=== PATIENT | male | born 1950 | race Two or more races ===

== ENCOUNTER 2020-02-24 21:59 | Emergency (ER) | payer OTHER ==
[~2020-02-24] VITALS: Ht 167.6 cm; Wt 90.9 kg
[~2020-02-24 21:59] MED LIST: ASPI-630 PO; ATEN50TA PO; LISI-338 PO
[2020-02-24 22:10] VITALS: BP 191/97
[2020-02-24] MEDS ORDERED: PRED20TA PO (22:26)
[2020-02-24] MEDS ORDERED: TRAM-48 PO (22:26)
--- NOTE | 2020-02-24 22:26 | PHYS DOC ---
Past Medical History Past Medical History: Hypertension, [place] Past Surgical History: Other Additional Past Surgical Histo: Stent placement Smoking Status: Former Smoker Alcohol Use: Sober Drug Use: None General Adult EDM: Chief Complaint: HIP PAIN HPI: HPI: 69-year-old male presents with a chief complaint of left lower back pain and left buttock pain. Patient states symptoms been ongoing for the past 4 weeks. He states discomfort is controlled with ibuprofen. He does not recall any specific injuries. Patient states at times his left buttock is numb. Patient states pain and numbness do not radiate down left leg. Patient without any saddle anesthesia or loss of bowel or bladder. Patient is able to ambulate with a steady gait. Review of Systems: Review of Systems: Constitutional: Denies fever or chills. [] Eyes: Denies change in visual acuity. [] HENT: Denies nasal congestion or sore throat. [] Respiratory: Denies cough or shortness of breath. [] Cardiovascular: Denies chest pain or edema. [] GI: Denies abdominal pain, nausea, vomiting, bloody stools or diarrhea. [] : Denies dysuria. [] Musculoskeletal: Positive back pain Integument: Denies rash. [] Neurologic: Denies headache, focal weakness or sensory changes. [Positive numbness and tingling in the buttocks] Endocrine: Denies polyuria or polydipsia. [] Lymphatic: Denies swollen glands. [] Psychiatric: Denies depression or anxiety. [] Heart Score: Risk Factors: Risk Factors: DM, Current or recent (<one month) smoker, HTN, HLP, family history of CAD, obesity. Risk Scores: Score 0 - 3: 2.5% MACE over next 6 weeks - Discharge Home Score 4 - 6: 20.3% MACE over next 6 weeks - Admit for Clinical Observation Score 7 - 10: 72.7% MACE over next 6 weeks - Early Invasive Strategies Allergies: Allergies: Allergies Coded Allergies Type Severity Reaction Last Updated Verified No Known Drug Allergies 01/27/15 No Physical Exam: PE: Constitutional: Well developed, well nourished, no acute distress, non-toxic appearance. [] HENT: Normocephalic, atraumatic, bilateral external ears normal, oropharynx moist, no oral exudates, nose normal. [] Eyes: PERRLA, EOMI, conjunctiva normal, no discharge. [] Neck: Normal range of motion, no tenderness, supple, no stridor. [] Cardiovascular:Heart rate regular rhythm, no murmur [] Lungs & Thorax: Bilateral breath sounds clear to auscultation [] Abdomen: Bowel sounds normal, soft, no tenderness, no masses, no pulsatile masses. [] Skin: Warm, dry, no erythema, no rash. [] Back: No tenderness, no CVA tenderness. [] Extremities: No tenderness, no cyanosis, no clubbing, ROM intact, no edema. [] Neurologic: Alert and oriented X 3, normal motor function, normal sensory function, no focal deficits noted. [] Psychologic: Affect normal, judgement normal, mood normal. [] EKG: EKG: [] Radiology/Procedures: Radiology/Procedures: [] Course & Med Decision Making: Course & Med Decision Making Pertinent Labs and Imaging studies reviewed. (See chart for details) [] Dragon Disclaimer: Dragon Disclaimer: This electronic medical record was generated, in whole or in part, using a voice recognition dictation system. Departure Departure Impression: Primary Impression: Back pain Additional Impressions: Paresthesia Sciatic pain Disposition: HOME, SELF-CARE Condition: STABLE Referrals: MARK ANTHONY ARELLANO MD (PCP) Patient Instructions: Back Pain, Adult, Paresthesia, Sciatica Scripts Prednisone (PREDNISONE) 20 Mg Tablet 1 TAB PO UD for 12 Days, #15 TAB Take 2 tabs days 1,2,3 1.5 tabs days 3,4,5 1 tab days 6,7,8 0.5 tab days 9,10,11 Prov: JORGE CONCEPCION I DO 02/24/20 Tramadol Hcl (ULTRAM) 50 Mg Tablet 1 TAB PO PRN Q6HRS PRN for pain MDD 4 Tablet(s) for 7 Days, #28 TAB 0 Refills Prov: JORGE CONCEPCION I DO 02/24/20 Justicifation of Admission Dx: Justifications for Admission: Justification of Admission Dx: N/A JORGE CONCEPCION I DO Feb 24, 2020 22:26
== END 2020-02-24 22:32 | disposition home or self-care (01) ==
LOC: ER 21:59
DX: M54.42 Lumbago with sciatica, left side (principal); R20.2 Paresthesia of skin; I10 Essential (primary) hypertension; I25.2 Old myocardial infarction; Z87.891 Personal history of nicotine dependence; Z95.5 Presence of coronary angioplasty implant and graft
CPT/HCPCS: 99283

== ENCOUNTER 2020-06-18 09:18 | Inpatient (IN) | payer OTHER, MEDICARE ==
[~2020-06-18] VITALS: Ht 167.6 cm; Wt 82.5 kg
[~2020-06-18 09:18] MED LIST changes: +PRED20TA PO; +TRAM-48 PO
[2020-06-18] MEDS ORDERED: KETOROLAC 30 MG/ML VIAL. IM ONE (10:45)
[2020-06-18] MEDS ORDERED: CYCLOBENZAPRINE 10 MG TABLET. PO ONE (10:45)
[2020-06-18] MEDS ORDERED: LIDOCAINE (700MG/PATCH) PATCH. TD ONE (10:45)
--- NOTE | 2020-06-18 10:56 | PHYS DOC ---
Past Medical History Past Medical History: High Cholesterol, Hypertension, [place] Past Surgical History: Other Additional Past Surgical Histo: Stent placement Smoking Status: Former Smoker Alcohol Use: Sober Drug Use: None General Adult EDM: Chief Complaint: BACK PAIN - NO INJURY HPI: HPI: History obtained from patient and . Patient is a 61-year-old male with history of hypertension who presents with chief complaint of left lower back pain. He states that he experienced an injury approximately 3 weeks ago. He states he did report to facility had x-rays performed that were unremarkable. He notes that he did see his primary care physician 3 days ago who ordered outpatient therapy. He states later that day he was at home tripped, and fell landing on his left shoulder and left hip. He states he has had worsening left lower back pain since then. He states he has not been able to ambulate since the fall. States pain is sharp and radiates down his left leg. Denies any urinary retention or stool incontinence. Denies any IV drug use or perennial numbness. However, he states he is too weak and too painful to ambulate. Denies syncope. Denies fevers or vomiting. Has tried tramadol and oral prednisone at home with minimal relief. No other complaints. Review of Systems: Review of Systems: Constitutional: Denies fever or chills. [] Eyes: Denies change in visual acuity. [] HENT: Denies nasal congestion or sore throat. [] Respiratory: Denies cough or shortness of breath. [] Cardiovascular: Denies chest pain or edema. [] GI: Denies abdominal pain, nausea, vomiting, bloody stools or diarrhea. [] : Denies dysuria. [] Musculoskeletal: Positive for back pain Integument: Denies rash. [] Neurologic: Denies headache, focal weakness or sensory changes. [] Endocrine: Denies polyuria or polydipsia. [] Lymphatic: Denies swollen glands. [] Psychiatric: Denies depression or anxiety. [] Heart Score: Risk Factors: Risk Factors: DM, Current or recent (<one month) smoker, HTN, HLP, family history of CAD, obesity. Risk Scores: Score 0 - 3: 2.5% MACE over next 6 weeks - Discharge Home Score 4 - 6: 20.3% MACE over next 6 weeks - Admit for Clinical Observation Score 7 - 10: 72.7% MACE over next 6 weeks - Early Invasive Strategies Current Medications: Current Medications Medications (Trade) Dose Ordered Sig/Tristan Start Time Stop Time Status Last Admin Dose Admin Cyclobenzaprine HCl (Flexeril) 10 mg 1X ONCE 06/18/20 10:45 06/18/20 10:46 DC Ketorolac Tromethamine (Toradol 30mg Vial) 30 mg 1X ONCE 06/18/20 10:45 06/18/20 10:46 DC Lidocaine (Lidoderm) 1 patch 1X ONCE 06/18/20 10:45 06/18/20 10:46 DC Allergies: Allergies: Allergies Coded Allergies Type Severity Reaction Last Updated Verified No Known Drug Allergies 01/27/15 No Physical Exam: PE: Constitutional: Well developed, well nourished, no acute distress, non-toxic appearance. [] HENT: Normocephalic, atraumatic, bilateral external ears normal, oropharynx moist, no oral exudates, nose normal. [] Eyes: PERRLA, EOMI, conjunctiva normal, no discharge. [] Neck: Normal range of motion, no tenderness, supple, no stridor. [] Cardiovascular:Heart rate regular rhythm, no murmur [] Lungs & Thorax: Bilateral breath sounds clear to auscultation [] Abdomen: soft, no tenderness, no masses, no pulsatile masses. [] Skin: Warm, dry, no erythema, no rash. [] Back: + 5/5 motor strength in dorsiflexion and plantarflexion of the great toes bilaterally. Sensation intact between the webbing of the first and second toes bilaterally. Midline L1-L5 tenderness palpation. No step-offs or deformities. Positive straight leg test bilaterally. Extremities: No tenderness, no cyanosis, no clubbing, ROM intact, no edema. [] Neurologic: Alert and oriented X 3, normal motor function, normal sensory function, no focal deficits noted. [] Psychologic: Affect normal, judgement normal, mood normal. [] Current Patient Data: Labs: Laboratory Tests Test 06/18/20 12:50 White Blood Count 12.4 x10^3/uL Red Blood Count 5.13 x10^6/uL Hemoglobin 14.7 g/dL Hematocrit 44.1 % Mean Corpuscular Volume 86 fL Mean Corpuscular Hemoglobin 29 pg Mean Corpuscular Hemoglobin Concent 33 g/dL Red Cell Distribution Width 13.2 % Platelet Count 220 x10^3/uL Neutrophils (%) (Auto) 82 % Lymphocytes (%) (Auto) 12 % Monocytes (%) (Auto) 5 % Eosinophils (%) (Auto) 0 % Basophils (%) (Auto) 1 % Neutrophils # (Auto) 10.1 x10^3/uL Lymphocytes # (Auto) 1.5 x10^3/uL Monocytes # (Auto) 0.6 x10^3/uL Eosinophils # (Auto) 0.0 x10^3/uL Basophils # (Auto) 0.1 x10^3/uL Sodium Level 137 mmol/L Potassium Level 4.1 mmol/L Chloride Level 101 mmol/L Carbon Dioxide Level 27 mmol/L Anion Gap 9 Blood Urea Nitrogen 34 mg/dL Creatinine 1.2 mg/dL Estimated GFR (Cockcroft-Gault) 60.2 Glucose Level 109 mg/dL Uric Acid 8.3 mg/dL Calcium Level 9.9 mg/dL Lactate Dehydrogenase 176 U/L Current Medications Medications (Trade) Dose Ordered Sig/Tristan Route PRN Reason Start Time Stop Time Status Last Admin Dose Admin Ketorolac Tromethamine (Toradol 30mg Vial) 30 mg 1X ONCE IM 06/18/20 10:45 06/18/20 10:46 DC 06/18/20 11:22 Cyclobenzaprine HCl (Flexeril) 10 mg 1X ONCE PO 06/18/20 10:45 06/18/20 10:46 DC 06/18/20 11:21 Lidocaine (Lidoderm) 1 patch 1X ONCE TD 06/18/20 10:45 06/18/20 10:46 DC 06/18/20 11:22 Vital Signs: Vital Signs Date Time Temp Pulse Resp B/P (MAP) Pulse Ox O2 Delivery O2 Flow Rate FiO2 06/18/20 09:59 99.5 67 16 136/67 (90) 97 Room Air 99.5 EKG: EKG: [] Radiology/Procedures: Radiology/Procedures: [facility] [address] [place] [address] IMAGING REPORT Signed PATIENT: MARK ANTHONY GOODWIN ACCOUNT: [id number] : 1950 LOCATION: ER AGE: 69 SEX: M EXAM STATUS: REG ER ORD. PHYSICIAN: JIM DUENAS DO REASON: low back pain radiating down L leg PROCEDURE: CT LUMBAR SPINE WO CONTRAST CT THORACIC SPINE WO CONTRAST, CT LUMBAR SPINE WO CONTRAST History:Reason: low back pain radiating down L leg / Spl. Instructions: / History: Technique: Noncontrast CT was performed of the thoracic and lumbar spine. Multiplanar reconstructions were performed. Exposure: One or more of the following individualized dose reduction techniques were utilized for this examination: 1. Automated exposure control 2. Adjustment of the mA and/or kV according to patient size 3. Use of iterative reconstruction technique. Comparison: None Findings: Thoracic spine: Lytic lesion involving T2 vertebral body measures 1.3 x 0.9 cm. Subtle lytic lesion involving T10 vertebral body (series 9 image 33). Normal vertebral body height. No fracture. Mild degenerative disc changes throughout the thoracic spine most prominent T8 8 T9 and T9-T10. No significant canal narrowing. No neuroforaminal narrowing. Lumbar spine: Large destructive mass involving left L1 posterior vertebral body and posterior elements measures approximately 7.0 x 5.4 x 4.9 cm. There is destruction of the left posterior vertebral body left transverse process and left facet as well as the left pedicle and lamina including the spinous process. There is also involvement of the left inferior T12 facet as well as the spinous process and left superior L2 facet. The mass invades the spinal canal as well as the left T12-L1 and L1-L2 neural foramen. Additional lytic mass involving the left L2 transverse process measures 1.3 x 1.2 cm with soft tissue component. Lytic lesion involving the left iliac bone measures 1.5 x 0.7 cm (series 3 image 61). Possible additional lesion within the sacrum at S1 (series 3 image 74) measures 1.1 x 1.0 cm. Normal vertebral body alignment. No acute fracture. T12-L1: Canal narrowing and invasion of the left neuroforamen due to the above-mentioned mass. No right neuroforaminal narrowing. L1-L2: Canal narrowing due to the mass is invasion of the left neuroforamen. No right neuroforaminal narrowing. L2-L3: Broad-based disc bulge with calcification. Mild facet arthropathy. Subacute recess narrowing. No canal narrowing. No neuroforaminal narrowing. L3-L4: Broad-based disc bulge with calcification. Mild facet arthropathy. Subarticular recess narrowing, left greater than right. No canal narrowing. Mild bilateral neuroforaminal narrowing. L4-L5: Broad-based disc bulge. Moderate facet arthropathy. Subarticular recess narrowing. No canal narrowing. Mild left neuroforaminal narrowing. No right neuroforaminal narrowing. L5-S1: Disc bulge. Advanced facet arthropathy. No canal narrowing. Mild left neuroforaminal narrowing. No right neuroforaminal narrowing. Impression: 1. Large destructive mass involving left posterior L1 vertebral body invading the canal contributing to potential severe canal narrowing. Additional invasion of adjacent structures and left neural foramen. Recommend MRI with and without contrast to further evaluate. 2. Additional multifocal lytic lesions involving the thoracic and lumbar spine as well as the left iliac and possible sacrum. Findings overall concerning for metastasis. FOR INTERNAL CODING PURPOSES Critical result: Findings discussed with JIM DUENAS at 06/18/2020 12:02 PM. RESULT CODE: (C) Electronically signed by: Curly Rosenberg DO (06/18/2020 12:10 PM) [id number] DICTATED and SIGNED BY: CURLY ROSENBERG DO DATE: 06/18/20 1210 [] Course & Med Decision Making: Course & Med Decision Making Pertinent Labs and Imaging studies reviewed. (See chart for details) [] Patient is a 69-year-old male who presents with chief complaint of left lower back pain. Patient states he is unable to ambulate due to weakness and pain. CT imaging was obtained. Does show invasive masslike structure near the L1 vertebral body. Patient does have appropriate rectal tone on examination and no focal neurologic deficits. I did speak with neurosurgery who recommended hospitalization for MR imaging. Steroids will be deferred as he has no focal neurologic deficits. Patient agreeable to plan. Dragon Disclaimer: Dragon Disclaimer: This electronic medical record was generated, in whole or in part, using a voice recognition dictation system. Departure Departure Impression: Primary Impression: Abnormal CT scan, lumbar spine Disposition: ADMITTED INPT THIS HOSP Condition: STABLE Referrals: JILLIAN WAYNE MD (PCP) JIM DUENAS DO Jun 18, 2020 10:56
--- NOTE | 2020-06-18 11:42 | RAD ---
EXAM: Left shoulder, 4 views. HISTORY: Pain. Fall. COMPARISON: None. FINDINGS: 4 views of the left shoulder obtained. There is no acute fracture, dislocation or subluxation. There is mild acromioclavicular joint spurring. IMPRESSION: No acute osseous finding. Electronically signed by: Paulina Farias MD (06/18/2020 11:39 AM) [id number]
--- NOTE | 2020-06-18 12:13 | RAD ---
CT THORACIC SPINE WO CONTRAST, CT LUMBAR SPINE WO CONTRAST History:Reason: low back pain radiating down L leg / Spl. Instructions: / History: Technique: Noncontrast CT was performed of the thoracic and lumbar spine. Multiplanar reconstructions were performed. Exposure: One or more of the following individualized dose reduction techniques were utilized for this examination: 1. Automated exposure control 2. Adjustment of the mA and/or kV according to patient size 3. Use of iterative reconstruction technique. Comparison: None Findings: Thoracic spine: Lytic lesion involving T2 vertebral body measures 1.3 x 0.9 cm. Subtle lytic lesion involving T10 vertebral body (series 9 image 33). Normal vertebral body height. No fracture. Mild degenerative disc changes throughout the thoracic spine most prominent T8 8 T9 and T9-T10. No significant canal narrowing. No neuroforaminal narrowing. Lumbar spine: Large destructive mass involving left L1 posterior vertebral body and posterior elements measures approximately 7.0 x 5.4 x 4.9 cm. There is destruction of the left posterior vertebral body left transverse process and left facet as well as the left pedicle and lamina including the spinous process. There is also involvement of the left inferior T12 facet as well as the spinous process and left superior L2 facet. The mass invades the spinal canal as well as the left T12-L1 and L1-L2 neural foramen. Additional lytic mass involving the left L2 transverse process measures 1.3 x 1.2 cm with soft tissue component. Lytic lesion involving the left iliac bone measures 1.5 x 0.7 cm (series 3 image 61). Possible additional lesion within the sacrum at S1 (series 3 image 74) measures 1.1 x 1.0 cm. Normal vertebral body alignment. No acute fracture. T12-L1: Canal narrowing and invasion of the left neuroforamen due to the above-mentioned mass. No right neuroforaminal narrowing. L1-L2: Canal narrowing due to the mass is invasion of the left neuroforamen. No right neuroforaminal narrowing. L2-L3: Broad-based disc bulge with calcification. Mild facet arthropathy. Subacute recess narrowing. No canal narrowing. No neuroforaminal narrowing. L3-L4: Broad-based disc bulge with calcification. Mild facet arthropathy. Subarticular recess narrowing, left greater than right. No canal narrowing. Mild bilateral neuroforaminal narrowing. L4-L5: Broad-based disc bulge. Moderate facet arthropathy. Subarticular recess narrowing. No canal narrowing. Mild left neuroforaminal narrowing. No right neuroforaminal narrowing. L5-S1: Disc bulge. Advanced facet arthropathy. No canal narrowing. Mild left neuroforaminal narrowing. No right neuroforaminal narrowing. Impression: 1. Large destructive mass involving left posterior L1 vertebral body invading the canal contributing to potential severe canal narrowing. Additional invasion of adjacent structures and left neural foramen. Recommend MRI with and without contrast to further evaluate. 2. Additional multifocal lytic lesions involving the thoracic and lumbar spine as well as the left iliac and possible sacrum. Findings overall concerning for metastasis. FOR INTERNAL CODING PURPOSES Critical result: Findings discussed with JIM DUENAS at 06/18/2020 12:02 PM. RESULT CODE: (C) Electronically signed by: Curly Rosenberg DO (06/18/2020 12:10 PM) [id number]
[2020-06-18 13:08] LABS: BASO # 0.1 x10^3/uL (0.0-0.2); BASO % 1 % (0-3); EOS % 0 % (0-3); HEMATOCRIT 44.1 % (39.0-53.0); HEMOGLOBIN 14.7 g/dL (13.0-17.5); LYMPH # 1.5 x10^3/uL (1.0-4.8); LYMPH % 12 % (24-48); MEAN CORPUSCULAR HEMOGLOBIN 29 pg (25-35); MEAN CORPUSCULAR HGB CONC 33 g/dL (31-37); MEAN CORPUSCULAR VOLUME 86 fL (79-100); MONO # 0.6 x10^3/uL (0.0-1.1); MONO % 5 % (0-9); NEUT # 10.1 x10^3/uL (1.8-7.7); NEUT % 82 % (31-73); PLATELET COUNT 220 x10^3/uL (140-400); RED BLOOD COUNT 5.13 x10^6/uL (4.30-5.70); RED CELL DISTRIBUTION WIDTH 13.2 % (11.5-14.5); WHITE BLOOD COUNT 12.4 x10^3/uL (4.0-11.0)
[2020-06-18 13:13] LABS: CALCIUM 9.9 mg/dL (8.5-10.1); CREATININE 1.2 mg/dL (0.7-1.3); GFR 60.2; POTASSIUM 4.1 mmol/L (3.5-5.1)
[2020-06-18 16:30] VITALS: BP 133/65
--- NOTE | 2020-06-18 17:01 | PDOC ---
Provider Note Date of Service: DATE: 06/18/20 TIME: 16:57 Provider Note Patient seen and examined at 1530 in ER consulted for L1 mass c/o back pain for 2 months, severe for 2 weeks c/o back and left hip pain no bowel or bladder complaints exam- strength and sensation in lower extremities normal, left hip flexor slightly weaker than right CT thoracic/ lumbar- Impression: 1. Large destructive mass involving left posterior L1 vertebral body invading the canal contributing to potential severe canal narrowing. Additional invasion of adjacent structures and left neural foramen. Recommend MRI with and without contrast to further evaluate. 2. Additional multifocal lytic lesions involving the thoracic and lumbar spine as well as the left iliac and possible sacrum. Findings overall concerning for metastasis. plan- consult oncology, additional imaging ordered will follow Justifications for Admission Other Justification MICHAEL LOZANO MD Jun 18, 2020 17:01
[2020-06-18 17:32] LABS: URIC ACID 8.3 mg/dL (3.5-7.2)
[2020-06-18] MEDS ORDERED: PRED50TA PO (17:38)
[2020-06-18] MEDS ORDERED: ATEN25TA PO (17:38)
[2020-06-18] MEDS ORDERED: TRAM50TA PO (17:38)
[2020-06-18] MEDS ORDERED: LISI-334 PO (17:38)
[2020-06-18] MEDS: LIDOCAINE (700MG/PATCH) PATCH. TD SCH (18:00)
[2020-06-18] MEDS: traMADol 50 MG TABLET PO PRN (18:03)
[2020-06-18 19:00] VITALS: BP 122/60
[2020-06-18] MEDS: PATCH REMOVAL. MC SCH (20:30)
[2020-06-18 23:00] VITALS: BP 116/79
[2020-06-19 00:11] LABS: AFPT MARKER 1.6 ng/mL (0.0-8.3)
[2020-06-19] MEDS: traMADol 50 MG TABLET PO PRN ×2 (02:51→19:33)
[2020-06-19 03:00] VITALS: BP 127/72
[2020-06-19 07:00] VITALS: BP 124/65
[2020-06-19] MEDS: ATENOLOL 25 MG TABLET. PO SCH (09:00)
[2020-06-19] MEDS: LISINOPRIL 20 MG TABLET PO SCH (09:00)
[2020-06-19] MEDS: LIDOCAINE (700MG/PATCH) PATCH. TD SCH (09:01)
--- NOTE | 2020-06-19 09:01 | PDOC ---
Provider Note Date of Service: DATE: 06/19/20 TIME: 08:58 Provider Note [id number] Justifications for Admission Other Justification MARK ANTHONY ARELLANO MD Jun 19, 2020 09:01
--- NOTE | 2020-06-19 09:18 | HP ---
ADMIT DATE: 06/18/2020 CHIEF COMPLAINT: Low back pain. HISTORY OF PRESENT ILLNESS: A 69-year-old male with history of hypertension and previous coronary artery disease and followed by in our office for his medical problems for some time. He states about 2 months ago, he started having low back pain, wash gradually increasing and was seen by Dr. Pete in the office about 1 week ago. X-rays were ordered, which have not been done yet. He was given a tapering dose of prednisone and some physical therapy started, but his pain increased and he came to the ER. CT scan showed a large destructive lesion on L1 and some areas of lytic lesions higher up in the lumbar and thoracic and even the cervical spine, raising the question of metastatic cancer and other etiologies. He denies fever or chills, but has had a 12-pound weight loss in the last month or so. PAST HISTORY: He has had coronary stents placed in about 10-12 years ago. He is not a diabetic. MEDICATIONS: Takes multiple meds. He is on statin and lisinopril. ALLERGIES: No allergies are known. SOCIAL HISTORY: He has never been a smoker. He is a nondrinker. He is retired. He is . FAMILY HISTORY: Positive for prostate cancer in both his father and his paternal grandfather; his brother had esophageal cancer, possibly from tobacco; otherwise, unremarkable. REVIEW OF SYSTEMS: No other specific problems. OBJECTIVE: ENT: Very poor dentition, otherwise unremarkable. NECK: No masses, nodes or bruits. LUNGS: Clear. CARDIOVASCULAR: Regular rate. Mild tachycardia. No murmur. ABDOMEN: Soft, benign. No masses, organomegaly or nodes. BACK: Not palpated. EXTREMITIES: He has good pedal and radial pulses. No edema. No joint or skin lesions. NEUROLOGIC: Physiologic and nonfocal. He moves all extremities. Has good sensation in both upper and lower extremities. ASSESSMENT: Low back pain with a large lesion on L1 and other lesser lesions up and down the spine. Possibilities would include multiple myeloma, prostate cancer or primary cancer metastatic to bone, such as renal cell. PLAN: CT abdomen and pelvis and chest and ordered lumbar spine MRI. We will add a PSA to the myeloma labs that have been ordered. Oncology consultation has also been obtained and is pending. MARK ANTHONY ARELLANO MD DR: VANESSA/yumiko JOB#: [id number] / [id number]
--- NOTE | 2020-06-19 09:52 | NUR ---
SW following. Discussed with RN, pt from home with , room air, regular diet. Oncology consulted, pt having MRI and CT done today. SW will continue to follow for any discharge planning needs.
[2020-06-19 10:07] LABS: BASO # 0.1 x10^3/uL (0.0-0.2); BASO % 1 % (0-3); EOS # 0.1 x10^3/uL (0.0-0.7); EOS % 1 % (0-3); HEMATOCRIT 46.3 % (39.0-53.0); HEMOGLOBIN 15.5 g/dL (13.0-17.5); LYMPH # 1.6 x10^3/uL (1.0-4.8); LYMPH % 19 % (24-48); MEAN CORPUSCULAR HEMOGLOBIN 29 pg (25-35); MEAN CORPUSCULAR HGB CONC 34 g/dL (31-37); MEAN CORPUSCULAR VOLUME 86 fL (79-100); MONO # 0.5 x10^3/uL (0.0-1.1); MONO % 6 % (0-9); NEUT # 6.1 x10^3/uL (1.8-7.7); NEUT % 74 % (31-73); PLATELET COUNT 239 x10^3/uL (140-400); RED BLOOD COUNT 5.38 x10^6/uL (4.30-5.70); RED CELL DISTRIBUTION WIDTH 13.4 % (11.5-14.5); WHITE BLOOD COUNT 8.3 x10^3/uL (4.0-11.0)
[2020-06-19 10:08] LABS: CREATININE 1.2 mg/dL (0.7-1.3); GFR 60.2; POTASSIUM 4.3 mmol/L (3.5-5.1)
[2020-06-19] MEDS ORDERED: GADOTERATE 7.5 MMOL/15ML VIAL. IVP ONE (10:45)
--- NOTE | 2020-06-19 10:52 | RAD ---
CERVICAL SPINE WO CONTRAST History:Reason: lumbar spinal mass / Spl. Instructions: / History: Technique: Multiplanar, multi sequential noncontrast MR imaging was performed of the cervical spine. Comparison: CT June 18, 2020 Findings: Motion degraded examination. Normal vertebral body height and alignment. No fracture. Signal abnormality within T3 inferior vertebral body corresponding with CT finding. No pathologic signal abnormality within the cervical spinal cord. Right maxillary sinus mucous retention cyst. C2-C3: No canal narrowing. Facet arthropathy. No neuroforaminal narrowing. C3-C4: Small posterior disc osteophyte complex. Partial effacement of ventral CSF space. Dorsal CSF spaces preserved. Mild cord flattening. No neuroforaminal narrowing. Facet arthropathy. C4-C5: Small posterior disc osteophyte complex. Effacement of ventral CSF space. Cord flattening. Dorsal CSF spaces preserved. Uncovertebral and facet arthropathy. Mild bilateral neural foraminal narrowing, right greater left. C5-C6: Posterior disc osteophyte complex. Partial effacement of ventral CSF space. Cord flattening. Dorsal CSF spaces preserved. Uncovertebral and facet arthropathy. Mild bilateral neuroforaminal narrowing, right greater than left. C6-C7: Small disc bulge. No canal or neuroforaminal narrowing. C7-T1: No canal or neuroforaminal narrowing. Impression: 1. T3 vertebral body lesion, concerning for metastasis. 2. Multilevel cervical spondylosis most prominent C4-C5 and C5-C6. Electronically signed by: Curly Rosenberg DO (06/19/2020 10:49 AM) [facility]
[2020-06-19] MEDS ORDERED: CONTRAST GIVEN. MC PRN (11:45)
--- NOTE | 2020-06-19 11:49 | RAD ---
LUMBAR SPINE WO/W CONTRAST, THORACIC SPINE WO CONTRAST History: Reason: lumbar spinal mass, attn L1 mass Technique: Multiplanar, multi sequential MR imaging was performed of the lumbar spine without and with intravenous contrast. Noncontrast MRI of the thoracic spine was also performed. Comparison: CT June 18, 2020 Findings: MRI thoracic spine: Normal vertebral body height and alignment. No acute fracture. Signal abnormality within T3 vertebral body corresponding with CT finding. Faint lytic lesion on CT within T10 vertebral body is not well identified on MRI. Focal lesion within T12 superior posterior vertebral body measures 0.5 x 0.5 cm. Mild multilevel degenerative disc changes throughout the thoracic spine. Schmorl's nodes with reactive edema T7 and T8 inferior endplates. Right posterior hepatic T2 hyperintense lesion poorly characterized. Recommend attention on concurrently performed CT abdomen and pelvis. Lumbar spine: Large heterogeneously enhancing mass with internal necrosis centered within the left posterior L1 vertebral body. The mass involves the posterior elements and spinous process as well as the left facet. The mass also invades the left T12 inferior facet and spinous process as well as the left L2 superior facet. There is invasion of the canal with severe canal narrowing and cord compression at the L1 level. Increased signal around the within the distal spinal cord at the T12-L1 level. The mass invades the left T12-L1 and L1-L2 neural foramen. There is adjacent soft tissue edema. Additional mass involving the left L2 transverse process with extraosseous extent measures 1.5 x 1.2 cm. There is involvement of the adjacent L2 posterior vertebral body. Additional lesions involving anterior inferior L3 vertebral body and the sacrum including S1 and S2. The lytic lesion on CT of the left iliac crest may relate to focal fatty marrow. Solid heterogeneous enhancing left renal lesion partially imaged with central necrosis. L1-L2: Severe canal narrowing due to above-mentioned mass. Invasion of the left neural foramen due to the mass. L2-L3: Small disc bulge. Mild facet arthropathy. No canal or neuroforaminal narrowing. L3-L4: Disc bulge. Mild facet arthropathy. Bilateral subarticular recess narrowing. No canal narrowing. Mild bilateral neuroforaminal narrowing. L4-L5: Disc bulge. Moderate facet arthropathy. Minimal canal narrowing. Bilateral subarticular recess narrowing with abutment of descending L5 nerve roots. Correlate for radiculopathy. No neuroforaminal narrowing. L5-S1: Disc bulge. Mild facet arthropathy. No canal narrowing. Mild bilateral neuroforaminal narrowing. Impression: 1. Solid heterogeneous enhancing centrally necrotic mass within the left kidney, concerning for renal cell carcinoma. 2. Large enhancing mass with central necrosis involving L1 vertebral body and adjacent structures contributing to severe canal narrowing with cord compression and cord edema as well as invasion of the adjacent neural foramen. 3. Additional lesions involving the thoracic and lumbar spine including the sacrum. Overall findings concerning for metastasis. Electronically signed by: Curly Rosenberg DO (06/19/2020 11:47 AM) [place]
[2020-06-19] MEDS ORDERED: IOHEXOL 300 MG/ML 100ML VIAL. IV ONE (12:00)
[2020-06-19] MEDS ORDERED: IOHEXOL 240 MG/ML 50ML VIAL. PO ONE (12:00)
[2020-06-19] MEDS ORDERED: BISACODYL 10 MG SUPP.RECT. PR PRN (13:15)
[2020-06-19] MEDS ORDERED: ALPRAZolam 0.5 MG TABLET PO PRN (13:15)
--- NOTE | 2020-06-19 13:48 | CONS ---
DATE OF CONSULTATION: LOCATION: He is in room 524. ATTENDING PHYSICIAN: Valentino Smith MD REASON FOR CONSULTATION: The patient was seen at the request of Dr. Smith and Dr. Padilla for rehab evaluation. 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 The patient with known hypertension, previous coronary artery disease. The patient started having some back pain for the last 2 months without any specific injury. He had seen Dr. Pete in the office about a week ago. X-rays were ordered, but apparently were not done. He was given a tapering dose of prednisone and physical therapy was started. His pain got worse and he came and admitted through the Emergency Room on 06/18/2020. CT scan revealed large destructive lesion of L1 and some areas of lytic lesions higher up in the lumbar and thoracic and even cervical spine area, arising question of metastatic carcinoma. He apparently had 12 pound weight loss in the last month or so. The patient also had CT scan revealing left iliac and possible sacral lytic lesions and he had MRI scan of his cervical, thoracic and lumbar vertebrae done today, which revealed solid heterogeneous enhancing centrally necrotic mass within the left kidney, concerning for renal cell carcinoma, large enhancing mass with central necrosis involving L1 vertebral body and adjacent structures contributing to severe central canal narrowing and cord compression and cord edema as well as invasion of the adjacent neural foramen. Additional lesions involving thoracic and lumbar spine including the sacrum concerning for metastatic lesions. An MRI scan of cervical vertebrae revealed multilevel cervical spondylosis, more prominent at C4-C5, C5-C6 and T3 vertebral body lesion concerning for metastasis. The patient also admits pain in his left shoulder since he fell couple of days ago. He denies any numbness, tingling in the upper extremities or lower extremities, but he admits weakness in his lower extremities. He also admits constipation for 5 days and he admits that he had to strain his urine. The patient is status post coronary artery stent done about 10-12 years ago. He is also taking medication for hypertension and hyperlipidemia. ALLERGIES: He is not known allergic to any medication. SOCIAL HISTORY: He is a nonsmoker, nondrinker. 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 He lives with his , had 5 stairs to get in the house. FAMILY HISTORY: Positive for carcinoma of prostate with his father and paternal grandfather, brother had esophageal carcinoma, possibly from tobacco. PHYSICAL EXAMINATION: On physical examination today revealed a middle-aged male. He is alert and oriented to time, place, person and circumstance and follows commands appropriately, moves all 4 extremities voluntarily where he had 4+/5 grade muscle strength with relatively increased weakness of left hip flexor secondary to pain in his left anterior superior iliac spine area. The patient had tenderness to palpation over the L1 spine area and also over anterior aspect of left shoulder. Deep tendon reflexes are decreased overall. He had equal perception of touch and pinprick sensation bilaterally. No significant crepitus on range of motion of left shoulder and rotator cuff muscle strength is alright. He is independent, rolling from side to side and with bed mobility. I have not tested his transfers or ambulation skills at this time. Straight leg raising test is negative bilaterally. He had intact skin. No significant cervical, thoracic or lumbar paraspinal muscle spasm was noted at this time. 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 The patient with known hypertension, hyperlipidemia, coronary artery disease, status post previous stenting and also recent weight loss. RECOMMENDATION: To start him on a bowel and bladder training program. To ask Radiation Oncology consult. To try to get him back support brace and to get him up when okay with Neurosurgery. Dr. Padilla and Dr. Smith appreciate asking me to participate in the care of this interesting patient. I will be glad to follow him with you as needed for the rehabilitation. RADHA LEA MD DR: HANK/yumiko JOB#: [id number] / [id number]
--- NOTE | 2020-06-19 14:48 | PDOC ---
PROGRESS NOTES Date of Service DATE: 06/19/20 TIME: 14:45 Subjective Subjective continues to c/o back and left hip pain Objective Objective Vital Signs Date Time Temp Pulse Resp B/P (MAP) Pulse Ox O2 Delivery O2 Flow Rate FiO2 06/19/20 07:00 98.4 79 18 124/65 (84) 16 Room Air 98.4 Intake and Output 06/19/20 07:00 Intake Total 240 ml Output Total 100 ml Balance 140 ml Intake Oral 240 ml Output Urine Total 100 ml Physical Exam General: Alert, Oriented X3, Cooperative, No acute distress MUSCULOSKELETAL: Other (ESCALANTE) Neuro: Normal speech, Other (strength and sensation normal in LE) Assessment Assessment Problems Medical Problems: (1) Abnormal CT scan, lumbar spine Status: Acute Plan Plan of Care work up in progress oncology consult pending will likely require surgery at L1 early next week begin steroids SCDs Comment Review of Relevant I have reviewed the following items kiersten (where applicable) has been applied. Labs Laboratory Tests Test 06/18/20 12:50 06/19/20 08:50 White Blood Count 12.4 x10^3/uL (4.0-11.0) 8.3 x10^3/uL (4.0-11.0) Red Blood Count 5.13 x10^6/uL (4.30-5.70) 5.38 x10^6/uL (4.30-5.70) Hemoglobin 14.7 g/dL (13.0-17.5) 15.5 g/dL (13.0-17.5) Hematocrit 44.1 % (39.0-53.0) 46.3 % (39.0-53.0) Mean Corpuscular Volume 86 fL (79-100) 86 fL (79-100) Mean Corpuscular Hemoglobin 29 pg (25-35) 29 pg (25-35) Mean Corpuscular Hemoglobin Concent 33 g/dL (31-37) 34 g/dL (31-37) Red Cell Distribution Width 13.2 % (11.5-14.5) 13.4 % (11.5-14.5) Platelet Count 220 x10^3/uL (140-400) 239 x10^3/uL (140-400) Neutrophils (%) (Auto) 82 % (31-73) 74 % (31-73) Lymphocytes (%) (Auto) 12 % (24-48) 19 % (24-48) Monocytes (%) (Auto) 5 % (0-9) 6 % (0-9) Eosinophils (%) (Auto) 0 % (0-3) 1 % (0-3) Basophils (%) (Auto) 1 % (0-3) 1 % (0-3) Neutrophils # (Auto) 10.1 x10^3/uL (1.8-7.7) 6.1 x10^3/uL (1.8-7.7) Lymphocytes # (Auto) 1.5 x10^3/uL (1.0-4.8) 1.6 x10^3/uL (1.0-4.8) Monocytes # (Auto) 0.6 x10^3/uL (0.0-1.1) 0.5 x10^3/uL (0.0-1.1) Eosinophils # (Auto) 0.0 x10^3/uL (0.0-0.7) 0.1 x10^3/uL (0.0-0.7) Basophils # (Auto) 0.1 x10^3/uL (0.0-0.2) 0.1 x10^3/uL (0.0-0.2) Sodium Level 137 mmol/L (136-145) 140 mmol/L (136-145) Potassium Level 4.1 mmol/L (3.5-5.1) 4.3 mmol/L (3.5-5.1) Chloride Level 101 mmol/L (98-107) 102 mmol/L (98-107) Carbon Dioxide Level 27 mmol/L (21-32) 30 mmol/L (21-32) Anion Gap 9 (6-14) 8 (6-14) Blood Urea Nitrogen 34 mg/dL (8-26) 32 mg/dL (8-26) Creatinine 1.2 mg/dL (0.7-1.3) 1.2 mg/dL (0.7-1.3) Estimated GFR (Cockcroft-Gault) 60.2 60.2 Glucose Level 109 mg/dL (70-99) 95 mg/dL (70-99) Uric Acid 8.3 mg/dL (3.5-7.2) Calcium Level 9.9 mg/dL (8.5-10.1) 10.0 mg/dL (8.5-10.1) Lactate Dehydrogenase 176 U/L (85-227) Tumor Marker Alpha Fetoprotein 1.6 ng/mL (0.0-8.3) Prostate Specific Antigen 0.86 ng/mL (0.00-4.00) Laboratory Tests Test 06/19/20 08:50 White Blood Count 8.3 x10^3/uL (4.0-11.0) Red Blood Count 5.38 x10^6/uL (4.30-5.70) Hemoglobin 15.5 g/dL (13.0-17.5) Hematocrit 46.3 % (39.0-53.0) Mean Corpuscular Volume 86 fL (79-100) Mean Corpuscular Hemoglobin 29 pg (25-35) Mean Corpuscular Hemoglobin Concent 34 g/dL (31-37) Red Cell Distribution Width 13.4 % (11.5-14.5) Platelet Count 239 x10^3/uL (140-400) Neutrophils (%) (Auto) 74 % (31-73) Lymphocytes (%) (Auto) 19 % (24-48) Monocytes (%) (Auto) 6 % (0-9) Eosinophils (%) (Auto) 1 % (0-3) Basophils (%) (Auto) 1 % (0-3) Neutrophils # (Auto) 6.1 x10^3/uL (1.8-7.7) Lymphocytes # (Auto) 1.6 x10^3/uL (1.0-4.8) Monocytes # (Auto) 0.5 x10^3/uL (0.0-1.1) Eosinophils # (Auto) 0.1 x10^3/uL (0.0-0.7) Basophils # (Auto) 0.1 x10^3/uL (0.0-0.2) Sodium Level 140 mmol/L (136-145) Potassium Level 4.3 mmol/L (3.5-5.1) Chloride Level 102 mmol/L (98-107) Carbon Dioxide Level 30 mmol/L (21-32) Anion Gap 8 (6-14) Blood Urea Nitrogen 32 mg/dL (8-26) Creatinine 1.2 mg/dL (0.7-1.3) Estimated GFR (Cockcroft-Gault) 60.2 Glucose Level 95 mg/dL (70-99) Calcium Level 10.0 mg/dL (8.5-10.1) Prostate Specific Antigen 0.86 ng/mL (0.00-4.00) Medications Current Medications Ketorolac Tromethamine (Toradol 30mg Vial) 30 mg 1X ONCE IM Last administered on 06/18/20at 11:22; Start 06/18/20 at 10:45; Stop 06/18/20 at 10:46; Status DC Cyclobenzaprine HCl (Flexeril) 10 mg 1X ONCE PO Last administered on 06/18/20at 11:21; Start 06/18/20 at 10:45; Stop 06/18/20 at 10:46; Status DC Lidocaine (Lidoderm) 1 patch 1X ONCE TD Last administered on 06/18/20at 11:22; Start 06/18/20 at 10:45; Stop 06/18/20 at 10:46; Status DC Tramadol HCl (Ultram) 100 mg PRN Q6HRS PRN PO MODERATE PAIN Last administered on 06/19/20at 02:51; Start 06/18/20 at 17:45 Acetaminophen/ Hydrocodone Bitart (Lortab 5/325) 1 tab PRN Q6HRS PRN PO SEVERE PAIN; Start 06/18/20 at 17:45 Lidocaine (Lidoderm) 1 patch DAILY TD Last administered on 06/19/20at 09:01; Start 06/18/20 at 18:00 Miscellaneous (Lidoderm Patch Removal) 1 ea QHS MC Last administered on 06/18/20at 20:30; Start 06/18/20 at 21:00 Atenolol (Tenormin) 25 mg DAILY PO ; Start 06/19/20 at 09:00 Lisinopril (Prinivil) 20 mg DAILY PO ; Start 06/19/20 at 09:00 Gadoterate Meglumine (Clariscan) 16.6 ml 1X ONCE IVP Last administered on 06/19/20at 10:56; Start 06/19/20 at 10:45; Stop 06/19/20 at 10:46; Status DC Iohexol (Omnipaque 240 Mg/ml) 50 ml 1X ONCE PO Last administered on 06/19/20at 12:00; Start 06/19/20 at 12:00; Stop 06/19/20 at 12:01; Status DC Iohexol (Omnipaque 300 Mg/ml) 75 ml 1X ONCE IV Last administered on 06/19/20at 12:00; Start 06/19/20 at 12:00; Stop 06/19/20 at 12:01; Status DC Info (CONTRAST GIVEN -- Rx MONITORING) 1 each PRN DAILY PRN MC SEE COMMENTS; Start 06/19/20 at 11:45; Stop 06/21/20 at 11:44 Bisacodyl (Dulcolax Tab) 10 mg DAILY PO ; Start 06/19/20 at 14:00 Bisacodyl (Dulcolax Supp) 10 mg PRN DAILY PRN RI CONSTIPATION; Start 06/19/20 at 13:15 Senna/Docusate Sodium (Senna Plus) 1 tab BID PO ; Start 06/19/20 at 21:00 Alprazolam (Xanax) 0.5 mg PRN Q8HRS PRN PO ANXIETY / AGITATION; Start 06/19/20 at 13:15 Active Scripts Active Reported Tramadol Hcl 50 Mg Tablet 50 Mg PO PRN BID PRN Prednisone 50 Mg Tablet 1 Tab PO DAILY Atenolol 25 Mg Tablet 1 Tab PO DAILY Lisinopril 20 Mg Tablet 1 Tab PO DAILY Vitals/I & O Vital Sign - Last 24 Hours 06/18/20 06/18/20 06/18/20 06/18/20 15:00 15:30 16:00 16:30 Temp 98.1 98.1 Pulse 58 56 58 55 Resp 18 B/P (MAP) 131/73 (92) 127/60 (82) 128/63 (84) 133/65 (87) Pulse Ox 94 96 96 98 O2 Delivery Room Air Room Air Room Air Room Air 06/18/20 06/18/20 06/18/20 06/18/20 17:00 19:00 19:15 20:00 Temp 99.7 99.7 Pulse 64 Resp 18 B/P (MAP) 122/60 (80) Pulse Ox 96 O2 Delivery Room Air Room Air Room Air Room Air 06/18/20 06/19/20 06/19/20 06/19/20 23:00 02:51 03:00 03:46 Temp 98.6 98.0 98.6 98.0 Pulse 62 72 Resp 18 18 B/P (MAP) 116/79 (91) 127/72 (90) Pulse Ox 95 95 O2 Delivery Room Air Room Air Room Air Room Air 06/19/20 07:00 Temp 98.4 98.4 Pulse 79 Resp 18 B/P (MAP) 124/65 (84) Pulse Ox 16 O2 Delivery Room Air Intake and Output 06/18/20 06/18/20 06/19/20 15:00 23:00 07:00 Intake Total 240 ml Output Total 100 ml Balance 240 ml -100 ml Justifications for Admission Other Justification FLORY FL[employer]IAN [employer] Jun 19, 2020 14:48
[2020-06-19 15:00] VITALS: BP 129/71
--- NOTE | 2020-06-19 15:08 | RAD ---
EXAM: CT Chest, Abdomen, and Pelvis with IV contrast INDICATION: Reason: spinal mass / Spl. Instructions: omni 300 75ml omni 240 50ml / History: TECHNIQUE: Multi-detector row CT images were acquired from the thoracic inlet through the ischial tuberosities with the use of IV contrast. Sagittal and coronal images were acquired from the transaxial data. All CT scans performed at this facility utilize dose optimization techniques as appropriate to the exam, including the following: Automated exposure control and adjustment of the mA and/or KV according to patient size (this includes techniques or standardized protocols for targeted exams where dose is indication/reason for exam). IV CONTRAST: Administered ORAL CONTRAST: Administered COMPARISON: L-spine MRI 06/19/2020, earlier the same day. FINDINGS: CHEST: CARDIOVASCULAR: Coronary calcifications. Otherwise unremarkable. MEDIASTINUM & JENNIFER: No adenopathy or masses. LUNGS: No pulmonary infiltrate, nodule, or other focal abnormality. PLEURAL SPACE: No pleural effusions or pneumothorax. OSSEOUS & SOFT TISSUE: 1.3 cm round subtly hypodense lesion in the T3 vertebral body is present, corresponding with the lesion reported on earlier same day T-spine MRI ABDOMEN/PELVIS: LIVER: Unremarkable BILIARY SYSTEM: Gallbladder is unremarkable. Bile ducts are not dilated. PANCREAS: Unremarkable SPLEEN: Unremarkable ADRENALS: Unremarkable KIDNEYS & URETERS: Midpole right renal solid lobulated partially exophytic mass measuring 4.7 x 3.8 x 5.0 cm is present. No right renal stones or hydronephrosis identified. Exophytic, central necrotic inferior pole left renal mass measuring 7.4 x 6.8 x 6.0 cm is also present. BLADDER: Moderately distended urinary bladder. Otherwise unremarkable. REPRODUCTIVE ORGANS: Unremarkable GASTROINTESTINAL: The stomach, small bowel, and colon are unremarkable. The appendix is normal. MESENTERY/PERITONEUM/RETROPERITONEUM: Unremarkable VASCULAR: Unremarkable LYMPH NODES: No adenopathy OSSEOUS & SOFT TISSUES: Expansile osteolytic lesion centered at the left L1 pedicle corresponds with the centrally necrotic mass identified on earlier same day MRI, measuring 6.8 x 6.8 x 6.4 cm and resulting in encroachment on the central canal as described in greater detail on earlier same day L-spine MRI. IMPRESSION: Bilateral solid renal masses consistent with primary renal neoplasms, with osteolytic lesions in the skeletal system notably at T3 and at L1, consistent with osteolytic expansile metastatic deposits. Electronically signed by: Etienne Looney MD (06/19/2020 3:06 PM) [facility] [place]
[2020-06-19] MEDS: BISACODYL 5 MG TABLET.DR. PO SCH (15:41)
[2020-06-19] MEDS: HYDROcodone/APAP 5/325MG 1 TAB TABLET PO PRN ×2 (15:42→23:19)
--- NOTE | 2020-06-19 16:00 | PDOC2 ---
CONSULT Date of Consult Date of Consult DATE: 06/19/20 TIME: 15:25 Reason for Consult Reason for Consult: Low back pain and large necrotic mass at L1. Referring Physician Referring Physician: Dr. Sterling Identification/Chief Complaint Chief Complaint Low back pain Source Source: Chart review, Patient History of Present Illness Reason for Visit: Mr. Gregory is a 69-year-old man who presented with progressive new onset left low back pain for 2 months. He could not walk for the last week due to weakness and pain radiating down the left leg. He was prescribed narcotic pain medication about a week ago. He has control of his bowel and bladder function. CT thoracic and lumbar spine on admission on 06/18/2020 showed 7 cm destructive mass involving L1 T12 and L2, invading the spinal canal. There were also 1.3 cm lytic mass in the left L2 transverse process and 1.1 cm lesion at S1. Work-up CT chest abdomen pelvis on 06/19/2020 showed 7.4 cm left kidney mass and 5 cm right kidney mass, with osteolytic lesions at T3, T12/L1, L2, L3, sacrum, consistent with primary neoplasm and osteolytic metastatic deposits. Lungs and liver were clear. No mediastinal lymphadenopathy. MRI cervical, thoracic, and lumbar spine on 06/19/2020 confirmed the findings of CT. The large enhancing mass with central necrosis involving L1 and adjacent structures severely narrowed spinal canal with cord compression and edema. Blood work with PSA on 06/19/2020 was 0.86. Myeloma blood work is pending. Patient is on high-dose steroid. He had neurosurgical consult. According to patient and his family members, he will undergo surgery on 06/24/2020. Past Medical History Cardiovascular: CAD, HTN, Hyperlipidemia Past Surgical History Past Surgical History Cardiac stent placement Family History Family History: Cancer (Father and paternal grandfather had prostate cancer. 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 No ALCOHOL: none Drugs: None Lives: with Family Current Problem List Problem List Problems Medical Problems: (1) Abnormal CT scan, lumbar spine Status: Acute Current Medications Current Medications Current Medications Ketorolac Tromethamine (Toradol 30mg Vial) 30 mg 1X ONCE IM Last administered on 06/18/20at 11:22; Start 06/18/20 at 10:45; Stop 06/18/20 at 10:46; Status DC Cyclobenzaprine HCl (Flexeril) 10 mg 1X ONCE PO Last administered on 06/18/20at 11:21; Start 06/18/20 at 10:45; Stop 06/18/20 at 10:46; Status DC Lidocaine (Lidoderm) 1 patch 1X ONCE TD Last administered on 06/18/20at 11:22; Start 06/18/20 at 10:45; Stop 06/18/20 at 10:46; Status DC Tramadol HCl (Ultram) 100 mg PRN Q6HRS PRN PO MODERATE PAIN Last administered on 06/19/20at 02:51; Start 06/18/20 at 17:45 Acetaminophen/ Hydrocodone Bitart (Lortab 5/325) 1 tab PRN Q6HRS PRN PO SEVERE PAIN; Start 06/18/20 at 17:45 Lidocaine (Lidoderm) 1 patch DAILY TD Last administered on 06/19/20at 09:01; Start 06/18/20 at 18:00 Miscellaneous (Lidoderm Patch Removal) 1 ea QHS MC Last administered on 06/18/20at 20:30; Start 06/18/20 at 21:00 Atenolol (Tenormin) 25 mg DAILY PO ; Start 06/19/20 at 09:00 Lisinopril (Prinivil) 20 mg DAILY PO ; Start 06/19/20 at 09:00 Gadoterate Meglumine (Clariscan) 16.6 ml 1X ONCE IVP Last administered on 06/19/20at 10:56; Start 06/19/20 at 10:45; Stop 06/19/20 at 10:46; Status DC Iohexol (Omnipaque 240 Mg/ml) 50 ml 1X ONCE PO Last administered on 06/19/20at 12:00; Start 06/19/20 at 12:00; Stop 06/19/20 at 12:01; Status DC Iohexol (Omnipaque 300 Mg/ml) 75 ml 1X ONCE IV Last administered on 06/19/20at 12:00; Start 06/19/20 at 12:00; Stop 06/19/20 at 12:01; Status DC Info (CONTRAST GIVEN -- Rx MONITORING) 1 each PRN DAILY PRN MC SEE COMMENTS; Start 06/19/20 at 11:45; Stop 06/21/20 at 11:44 Bisacodyl (Dulcolax Tab) 10 mg DAILY PO ; Start 06/19/20 at 14:00 Bisacodyl (Dulcolax Supp) 10 mg PRN DAILY PRN [place] CONSTIPATION; Start 06/19/20 at 13:15 Senna/Docusate Sodium (Senna Plus) 1 tab BID PO ; Start 06/19/20 at 21:00 Alprazolam (Xanax) 0.5 mg PRN Q8HRS PRN PO ANXIETY / AGITATION; Start 06/19/20 at 13:15 Dexamethasone Sodium Phosphate (Decadron) 2 mg Q6HRS IVP ; Start 06/19/20 at 16:30 Active Scripts Active Reported Tramadol Hcl 50 Mg Tablet 50 Mg PO PRN BID PRN Prednisone 50 Mg Tablet 1 Tab PO DAILY Atenolol 25 Mg Tablet 1 Tab PO DAILY Lisinopril 20 Mg Tablet 1 Tab PO DAILY Allergies Allergies: Coded Allergies: No Known Drug Allergies (Unverified , 01/27/15) Physical Exam Physical Exam Patient is uncomfortable, lying prone in hospital bed due to pain. General: Alert, Oriented X3, Cooperative HEENT: Atraumatic, PERRLA, EOMI, Mucous membr. moist/pink Lungs: Clear to auscultation, Normal air movement Heart: Regular rate, Normal S1, Normal S2 Abdomen: Soft, No tenderness Extremities: No edema, No tenderness/swelling Neuro: Normal speech, Strength at 5/5 X4 ext, Sensation intact, Cranial nerves 3-12 NL Psych/Mental Status: Mental status NL MUSCULOSKELETAL: Other (Palpable tender 5 cm paraspinal mass at L1 level, to the left of midline) Vitals VITALS Vital Signs Date Time Temp Pulse Resp B/P (MAP) Pulse Ox O2 Delivery O2 Flow Rate FiO2 06/19/20 15:00 98.1 75 18 129/71 (90) 97 98.1 06/19/20 07:00 Room Air Labs Labs Laboratory Tests Test 06/18/20 12:50 06/19/20 08:50 White Blood Count 12.4 x10^3/uL (4.0-11.0) 8.3 x10^3/uL (4.0-11.0) Red Blood Count 5.13 x10^6/uL (4.30-5.70) 5.38 x10^6/uL (4.30-5.70) Hemoglobin 14.7 g/dL (13.0-17.5) 15.5 g/dL (13.0-17.5) Hematocrit 44.1 % (39.0-53.0) 46.3 % (39.0-53.0) Mean Corpuscular Volume 86 fL (79-100) 86 fL (79-100) Mean Corpuscular Hemoglobin 29 pg (25-35) 29 pg (25-35) Mean Corpuscular Hemoglobin Concent 33 g/dL (31-37) 34 g/dL (31-37) Red Cell Distribution Width 13.2 % (11.5-14.5) 13.4 % (11.5-14.5) Platelet Count 220 x10^3/uL (140-400) 239 x10^3/uL (140-400) Neutrophils (%) (Auto) 82 % (31-73) 74 % (31-73) Lymphocytes (%) (Auto) 12 % (24-48) 19 % (24-48) Monocytes (%) (Auto) 5 % (0-9) 6 % (0-9) Eosinophils (%) (Auto) 0 % (0-3) 1 % (0-3) Basophils (%) (Auto) 1 % (0-3) 1 % (0-3) Neutrophils # (Auto) 10.1 x10^3/uL (1.8-7.7) 6.1 x10^3/uL (1.8-7.7) Lymphocytes # (Auto) 1.5 x10^3/uL (1.0-4.8) 1.6 x10^3/uL (1.0-4.8) Monocytes # (Auto) 0.6 x10^3/uL (0.0-1.1) 0.5 x10^3/uL (0.0-1.1) Eosinophils # (Auto) 0.0 x10^3/uL (0.0-0.7) 0.1 x10^3/uL (0.0-0.7) Basophils # (Auto) 0.1 x10^3/uL (0.0-0.2) 0.1 x10^3/uL (0.0-0.2) Sodium Level 137 mmol/L (136-145) 140 mmol/L (136-145) Potassium Level 4.1 mmol/L (3.5-5.1) 4.3 mmol/L (3.5-5.1) Chloride Level 101 mmol/L (98-107) 102 mmol/L (98-107) Carbon Dioxide Level 27 mmol/L (21-32) 30 mmol/L (21-32) Anion Gap 9 (6-14) 8 (6-14) Blood Urea Nitrogen 34 mg/dL (8-26) 32 mg/dL (8-26) Creatinine 1.2 mg/dL (0.7-1.3) 1.2 mg/dL (0.7-1.3) Estimated GFR (Cockcroft-Gault) 60.2 60.2 Glucose Level 109 mg/dL (70-99) 95 mg/dL (70-99) Uric Acid 8.3 mg/dL (3.5-7.2) Calcium Level 9.9 mg/dL (8.5-10.1) 10.0 mg/dL (8.5-10.1) Lactate Dehydrogenase 176 U/L (85-227) Tumor Marker Alpha Fetoprotein 1.6 ng/mL (0.0-8.3) Prostate Specific Antigen 0.86 ng/mL (0.00-4.00) Laboratory Tests Test 06/19/20 08:50 White Blood Count 8.3 x10^3/uL (4.0-11.0) Red Blood Count 5.38 x10^6/uL (4.30-5.70) Hemoglobin 15.5 g/dL (13.0-17.5) Hematocrit 46.3 % (39.0-53.0) Mean Corpuscular Volume 86 fL (79-100) Mean Corpuscular Hemoglobin 29 pg (25-35) Mean Corpuscular Hemoglobin Concent 34 g/dL (31-37) Red Cell Distribution Width 13.4 % (11.5-14.5) Platelet Count 239 x10^3/uL (140-400) Neutrophils (%) (Auto) 74 % (31-73) Lymphocytes (%) (Auto) 19 % (24-48) Monocytes (%) (Auto) 6 % (0-9) Eosinophils (%) (Auto) 1 % (0-3) Basophils (%) (Auto) 1 % (0-3) Neutrophils # (Auto) 6.1 x10^3/uL (1.8-7.7) Lymphocytes # (Auto) 1.6 x10^3/uL (1.0-4.8) Monocytes # (Auto) 0.5 x10^3/uL (0.0-1.1) Eosinophils # (Auto) 0.1 x10^3/uL (0.0-0.7) Basophils # (Auto) 0.1 x10^3/uL (0.0-0.2) Sodium Level 140 mmol/L (136-145) Potassium Level 4.3 mmol/L (3.5-5.1) Chloride Level 102 mmol/L (98-107) Carbon Dioxide Level 30 mmol/L (21-32) Anion Gap 8 (6-14) Blood Urea Nitrogen 32 mg/dL (8-26) Creatinine 1.2 mg/dL (0.7-1.3) Estimated GFR (Cockcroft-Gault) 60.2 Glucose Level 95 mg/dL (70-99) Calcium Level 10.0 mg/dL (8.5-10.1) Prostate Specific Antigen 0.86 ng/mL (0.00-4.00) Assessment/Plan Assessment/Plan 69-year-old male, reasonably healthy, who presented with new onset low back pain. Imaging work-up showed evidence of spinal cord compression at L1 level due to large mass, most consistent with metastatic kidney neoplasm. Plan: Agree with high-dose steroid and neurosurgical evaluation to resect tumor for decompression of spinal cord and for tissue diagnosis. We will continue to follow patient. JHONNY RIVAS MD Jun 19, 2020 16:00
[2020-06-19] MEDS: DEXAMETHASONE SOD PHOS 4 MG/ML VIAL IVP SCH ×2 (17:48→23:17)
[2020-06-19 19:00] VITALS: BP 121/72
[2020-06-19] MEDS: PATCH REMOVAL. MC SCH (19:34)
[2020-06-19] MEDS: SENNOSIDES/DOCUSATE 8.6/50MG TABLET. PO SCH (19:34)
[2020-06-19 23:00] VITALS: BP 127/88
[2020-06-20 03:00] VITALS: BP 133/85
[2020-06-20] MEDS: DEXAMETHASONE SOD PHOS 4 MG/ML VIAL IVP SCH ×4 (05:24→20:37)
[2020-06-20] MEDS: traMADol 50 MG TABLET PO PRN (05:24)
[2020-06-20 07:00] VITALS: BP 121/72
[2020-06-20] MEDS: LISINOPRIL 20 MG TABLET PO SCH (08:14)
[2020-06-20] MEDS: ATENOLOL 25 MG TABLET. PO SCH (08:14)
[2020-06-20] MEDS: LIDOCAINE (700MG/PATCH) PATCH. TD SCH (08:16)
--- NOTE | 2020-06-20 08:42 | PDOC ---
Provider Note Date of Service: DATE: 06/20/20 TIME: 08:34 Provider Note masses on both kidneys per ct make met. renal cell most likely dx- psa ok- d/w he and family, for surg 06/24, stay here as non wt bearing re risk of pathological fracture from L1 lesion Justifications for Admission Other Justification MARK ANTHONY ARELLANO MD Jun 20, 2020 08:42
[2020-06-20] MEDS: BISACODYL 5 MG TABLET.DR. PO SCH (09:00)
[2020-06-20] MEDS: SENNOSIDES/DOCUSATE 8.6/50MG TABLET. PO SCH ×2 (09:00→20:39)
--- NOTE | 2020-06-20 09:39 | PDOC ---
PROGRESS NOTES Date of Service DATE: 06/20/20 TIME: 09:37 Subjective Subjective No new complaints. Objective Objective Vital Signs Date Time Temp Pulse Resp B/P (MAP) Pulse Ox O2 Delivery O2 Flow Rate FiO2 06/20/20 08:14 88 133/85 06/20/20 07:00 98.4 18 96 Room Air 98.4 Intake and Output 06/20/20 07:00 Intake Total 300 ml Output Total 750 ml Balance -450 ml Intake Oral 300 ml Output Urine Total 750 ml Physical Exam Physical Exam He is alert,lying prone in bed with his at bedside and no change noted with his neurological examination. He remains constipated. Assessment Assessment Problems Medical Problems: (1) Abnormal CT scan, lumbar spine Status: Acute Plan Plan of Care Agree with plans for decompression laminectomy for lumbar spinal stenosis. Comment Review of Relevant I have reviewed the following items kiersten (where applicable) has been applied. Labs Laboratory Tests Test 06/18/20 12:50 06/19/20 08:50 White Blood Count 12.4 x10^3/uL (4.0-11.0) 8.3 x10^3/uL (4.0-11.0) Red Blood Count 5.13 x10^6/uL (4.30-5.70) 5.38 x10^6/uL (4.30-5.70) Hemoglobin 14.7 g/dL (13.0-17.5) 15.5 g/dL (13.0-17.5) Hematocrit 44.1 % (39.0-53.0) 46.3 % (39.0-53.0) Mean Corpuscular Volume 86 fL (79-100) 86 fL (79-100) Mean Corpuscular Hemoglobin 29 pg (25-35) 29 pg (25-35) Mean Corpuscular Hemoglobin Concent 33 g/dL (31-37) 34 g/dL (31-37) Red Cell Distribution Width 13.2 % (11.5-14.5) 13.4 % (11.5-14.5) Platelet Count 220 x10^3/uL (140-400) 239 x10^3/uL (140-400) Neutrophils (%) (Auto) 82 % (31-73) 74 % (31-73) Lymphocytes (%) (Auto) 12 % (24-48) 19 % (24-48) Monocytes (%) (Auto) 5 % (0-9) 6 % (0-9) Eosinophils (%) (Auto) 0 % (0-3) 1 % (0-3) Basophils (%) (Auto) 1 % (0-3) 1 % (0-3) Neutrophils # (Auto) 10.1 x10^3/uL (1.8-7.7) 6.1 x10^3/uL (1.8-7.7) Lymphocytes # (Auto) 1.5 x10^3/uL (1.0-4.8) 1.6 x10^3/uL (1.0-4.8) Monocytes # (Auto) 0.6 x10^3/uL (0.0-1.1) 0.5 x10^3/uL (0.0-1.1) Eosinophils # (Auto) 0.0 x10^3/uL (0.0-0.7) 0.1 x10^3/uL (0.0-0.7) Basophils # (Auto) 0.1 x10^3/uL (0.0-0.2) 0.1 x10^3/uL (0.0-0.2) Sodium Level 137 mmol/L (136-145) 140 mmol/L (136-145) Potassium Level 4.1 mmol/L (3.5-5.1) 4.3 mmol/L (3.5-5.1) Chloride Level 101 mmol/L (98-107) 102 mmol/L (98-107) Carbon Dioxide Level 27 mmol/L (21-32) 30 mmol/L (21-32) Anion Gap 9 (6-14) 8 (6-14) Blood Urea Nitrogen 34 mg/dL (8-26) 32 mg/dL (8-26) Creatinine 1.2 mg/dL (0.7-1.3) 1.2 mg/dL (0.7-1.3) Estimated GFR (Cockcroft-Gault) 60.2 60.2 Glucose Level 109 mg/dL (70-99) 95 mg/dL (70-99) Uric Acid 8.3 mg/dL (3.5-7.2) Calcium Level 9.9 mg/dL (8.5-10.1) 10.0 mg/dL (8.5-10.1) Lactate Dehydrogenase 176 U/L (85-227) Tumor Marker Alpha Fetoprotein 1.6 ng/mL (0.0-8.3) Prostate Specific Antigen 0.86 ng/mL (0.00-4.00) Medications Current Medications Ketorolac Tromethamine (Toradol 30mg Vial) 30 mg 1X ONCE IM Last administered on 06/18/20 11:22; Start 06/18/20 at 10:45; Stop 06/18/20 at 10:46; Status DC Cyclobenzaprine HCl (Flexeril) 10 mg 1X ONCE PO Last administered on 06/18/20 11:21; Start 06/18/20 at 10:45; Stop 06/18/20 at 10:46; Status DC Lidocaine (Lidoderm) 1 patch 1X ONCE TD Last administered on 06/18/20 11:22; Start 06/18/20 at 10:45; Stop 06/18/20 at 10:46; Status DC Tramadol HCl (Ultram) 100 mg PRN Q6HRS PRN PO MODERATE PAIN Last administered on 06/20/20 05:24; Start 06/18/20 at 17:45 Acetaminophen/ Hydrocodone Bitart (Lortab 5/325) 1 tab PRN Q6HRS PRN PO SEVERE PAIN Last administered on 06/19/20at 23:19; Start 06/18/20 at 17:45 Lidocaine (Lidoderm) 1 patch DAILY TD Last administered on 06/20/20 08:16; Start 06/18/20 at 18:00 Miscellaneous (Lidoderm Patch Removal) 1 ea QHS MC Last administered on 06/19/20at 19:34; Start 06/18/20 at 21:00 Atenolol (Tenormin) 25 mg DAILY PO Last administered on 06/20/20 08:14; Start 06/19/20 at 09:00 Lisinopril (Prinivil) 20 mg DAILY PO Last administered on 06/20/20 08:14; Start 06/19/20 at 09:00 Gadoterate Meglumine (Clariscan) 16.6 ml 1X ONCE IVP Last administered on 06/19/20at 10:56; Start 06/19/20 at 10:45; Stop 06/19/20 at 10:46; Status DC Iohexol (Omnipaque 240 Mg/ml) 50 ml 1X ONCE PO Last administered on 06/19/20at 12:00; Start 06/19/20 at 12:00; Stop 06/19/20 at 12:01; Status DC Iohexol (Omnipaque 300 Mg/ml) 75 ml 1X ONCE IV Last administered on 06/19/20at 12:00; Start 06/19/20 at 12:00; Stop 06/19/20 at 12:01; Status DC Info (CONTRAST GIVEN -- Rx MONITORING) 1 each PRN DAILY PRN MC SEE COMMENTS; Start 06/19/20 at 11:45; Stop 06/21/20 at 11:44 Bisacodyl (Dulcolax Tab) 10 mg DAILY PO Last administered on 06/19/20at 15:41; Start 06/19/20 at 14:00 Bisacodyl (Dulcolax Supp) 10 mg PRN DAILY PRN [place] CONSTIPATION; Start 06/19/20 at 13:15 Senna/Docusate Sodium (Senna Plus) 1 tab BID PO ; Start 06/19/20 at 21:00 Alprazolam (Xanax) 0.5 mg PRN Q8HRS PRN PO ANXIETY / AGITATION; Start 06/19/20 at 13:15 Dexamethasone Sodium Phosphate (Decadron) 2 mg Q6HRS IVP Last administered on 06/20/20at 05:24; Start 06/19/20 at 16:30 Active Scripts Active Reported Tramadol Hcl 50 Mg Tablet 50 Mg PO PRN BID PRN Prednisone 50 Mg Tablet 1 Tab PO DAILY Atenolol 25 Mg Tablet 1 Tab PO DAILY Lisinopril 20 Mg Tablet 1 Tab PO DAILY Vitals/I & O Vital Sign - Last 24 Hours 06/19/20 06/19/20 06/19/20 06/19/20 15:00 19:00 19:33 19:40 Temp 98.1 98.5 98.1 98.5 Pulse 75 76 Resp 18 18 B/P (MAP) 129/71 (90) 121/72 (88) Pulse Ox 97 97 O2 Delivery Room Air Room Air Room Air 06/19/20 06/19/20 06/19/20 06/20/20 20:33 23:00 23:19 00:21 Temp 98.5 98.5 Pulse 85 Resp 18 B/P (MAP) 127/88 (101) Pulse Ox 100 O2 Delivery Room Air Room Air Room Air Room Air 06/20/20 06/20/20 06/20/20 06/20/20 03:00 05:24 06:26 07:00 Temp 98.4 98.4 98.4 98.4 Pulse 88 88 Resp 18 18 B/P (MAP) 133/85 (101) 121/72 (88) Pulse Ox 99 96 O2 Delivery Room Air Room Air Room Air Room Air 06/20/20 06/20/20 08:14 08:14 Pulse 88 88 B/P (MAP) 133/85 133/85 Intake and Output 06/19/20 06/19/20 06/20/20 15:00 23:00 07:00 Intake Total 300 ml Output Total 150 ml 150 ml 450 ml Balance -150 ml 150 ml -450 ml Justifications for Admission Other Justification RADHA LEA MD Jun 20, 2020 09:39
[2020-06-20] MEDS: HYDROcodone/APAP 5/325MG 1 TAB TABLET PO PRN ×2 (09:47→20:19)
--- NOTE | 2020-06-20 09:54 | PDOC2 ---
CONSULT Date of Consult Date of Consult DATE: 06/20/20 TIME: 09:36 Reason for Consult Reason for Consult: Lumbar mass. Suspected cancer Referring Physician Referring Physician: Dr. Smith Identification/Chief Complaint Chief Complaint Back pain and lower extremity weakness Source Source: Caregiver, Chart review, Patient History of Present Illness Reason for Visit: Valentino Gregory is a 69-year-old male who has been admitted to the hospital after presenting with worsening back pain and lower extremity weakness. Patient was accompanied by his at the time of my visit. He has had back pain that has gradually worsened over the past 1 to 2 months. He has recently developed ass ociated bilateral lower extremity weakness. He has not had loss of bowel or bladder control but has been constipated and has reported difficulty passing urine. He has not had any pain or swelling anywhere else. He has no prior history of cancer. Oncology consultation has been sought due to suspected malignancy. He has so far been seen by Dr. Padilla for consideration of surge ry and surgical resection is being planned for 06/24/2020. He has also been seen by Dr. Teresa for consideration of palliative radiotherapy. Past Medical History Cardiovascular: CAD, HTN, Hyperlipidemia Family History Family History: Cancer (Father and paternal grandfather had prostate cancer. Brother has esophageal cancer.) Social History No ALCOHOL: none Drugs: None Lives: with Family Current Problem List Problem List Problems Medical Problems: (1) Abnormal CT scan, lumbar spine Status: Acute Current Medications Current Medications Current Medications Ketorolac Tromethamine (Toradol 30mg Vial) 30 mg 1X ONCE IM Last administered on 06/18/20at 11:22; Start 06/18/20 at 10:45; Stop 06/18/20 at 10:46; Status DC Cyclobenzaprine HCl (Flexeril) 10 mg 1X ONCE PO Last administered on 06/18/20at 11:21; Start 06/18/20 at 10:45; Stop 06/18/20 at 10:46; Status DC Lidocaine (Lidoderm) 1 patch 1X ONCE TD Last administered on 06/18/20at 11:22; Start 06/18/20 at 10:45; Stop 06/18/20 at 10:46; Status DC Tramadol HCl (Ultram) 100 mg PRN Q6HRS PRN PO MODERATE PAIN Last administered on 06/20/20at 05:24; Start 06/18/20 at 17:45 Acetaminophen/ Hydrocodone Bitart (Lortab 5/325) 1 tab PRN Q6HRS PRN PO SEVERE PAIN Last administered on 06/19/20at 23:19; Start 06/18/20 at 17:45 Lidocaine (Lidoderm) 1 patch DAILY TD Last administered on 06/20/20at 08:16; Start 06/18/20 at 18:00 Miscellaneous (Lidoderm Patch Removal) 1 ea QHS MC Last administered on 06/19/20at 19:34; Start 06/18/20 at 21:00 Atenolol (Tenormin) 25 mg DAILY PO Last administered on 06/20/20at 08:14; Start 06/19/20 at 09:00 Lisinopril (Prinivil) 20 mg DAILY PO Last administered on 06/20/20at 08:14; Start 06/19/20 at 09:00 Gadoterate Meglumine (Clariscan) 16.6 ml 1X ONCE IVP Last administered on 06/19/20at 10:56; Start 06/19/20 at 10:45; Stop 06/19/20 at 10:46; Status DC Iohexol (Omnipaque 240 Mg/ml) 50 ml 1X ONCE PO Last administered on 06/19/20at 12:00; Start 06/19/20 at 12:00; Stop 06/19/20 at 12:01; Status DC Iohexol (Omnipaque 300 Mg/ml) 75 ml 1X ONCE IV Last administered on 06/19/20at 12:00; Start 06/19/20 at 12:00; Stop 06/19/20 at 12:01; Status DC Info (CONTRAST GIVEN -- Rx MONITORING) 1 each PRN DAILY PRN MC SEE COMMENTS; Start 06/19/20 at 11:45; Stop 06/21/20 at 11:44 Bisacodyl (Dulcolax Tab) 10 mg DAILY PO Last administered on 06/19/20at 15:41; Start 06/19/20 at 14:00 Bisacodyl (Dulcolax Supp) 10 mg PRN DAILY PRN [place] CONSTIPATION; Start 06/19/20 at 13:15 Senna/Docusate Sodium (Senna Plus) 1 tab BID PO ; Start 06/19/20 at 21:00 Alprazolam (Xanax) 0.5 mg PRN Q8HRS PRN PO ANXIETY / AGITATION; Start 06/19/20 at 13:15 Dexamethasone Sodium Phosphate (Decadron) 2 mg Q6HRS IVP Last administered on 06/20/20at 05:24; Start 06/19/20 at 16:30 Active Scripts Active Reported Tramadol Hcl 50 Mg Tablet 50 Mg PO PRN BID PRN Prednisone 50 Mg Tablet 1 Tab PO DAILY Atenolol 25 Mg Tablet 1 Tab PO DAILY Lisinopril 20 Mg Tablet 1 Tab PO DAILY Allergies Allergies: Coded Allergies: No Known Drug Allergies (Unverified , 01/27/15) ROS General: YES: Fatigue, Malaise; No: Chills, Night Sweats PSYCHOLOGICAL ROS: YES: Anxiety; No: Behavioral Disorder Eyes: No Eye Pain, No Loss of vision HEENT: No: Heacaches, Visual Changes ALLERGY AND IMMUNOLOGY: No: Hives, Insect Bite Sensitivity Hematological and Lymphatic: No: Bleeding Problems, Blood Clots Respiratory: No: Shortness of breath, SOB with excertion Cardiovascular: No Paroxysmal Noc. Dyspnea, No Edema Gastrointestinal: Yes Constipation; No Nausea, No Vomiting, No Diarrhea, No Melena, No Hematochezia Genitourinary: No Dysuria, No Flank Pain Musculoskeletal: No Gait Disturbance, No Joint Pain Neurological: No Behavorial Changes, No Bowel/Bladder ControlChng Skin: No Dry Skin, No Eczema Physical Exam General: Alert, Oriented X3 HEENT: Atraumatic Lungs: Clear to auscultation Heart: Regular rate, Normal S1 Abdomen: Normal bowel sounds, Soft Extremities: No clubbing Skin: No rashes Neuro: Normal speech Psych/Mental Status: Mental status NL MUSCULOSKELETAL: No swelling Vitals VITALS Vital Signs Date Time Temp Pulse Resp B/P (MAP) Pulse Ox O2 Delivery O2 Flow Rate FiO2 06/20/20 08:14 88 133/85 06/20/20 07:00 98.4 18 96 Room Air 98.4 Labs Labs Laboratory Tests Test 06/18/20 12:50 06/19/20 08:50 White Blood Count 12.4 x10^3/uL (4.0-11.0) 8.3 x10^3/uL (4.0-11.0) Red Blood Count 5.13 x10^6/uL (4.30-5.70) 5.38 x10^6/uL (4.30-5.70) Hemoglobin 14.7 g/dL (13.0-17.5) 15.5 g/dL (13.0-17.5) Hematocrit 44.1 % (39.0-53.0) 46.3 % (39.0-53.0) Mean Corpuscular Volume 86 fL (79-100) 86 fL (79-100) Mean Corpuscular Hemoglobin 29 pg (25-35) 29 pg (25-35) Mean Corpuscular Hemoglobin Concent 33 g/dL (31-37) 34 g/dL (31-37) Red Cell Distribution Width 13.2 % (11.5-14.5) 13.4 % (11.5-14.5) Platelet Count 220 x10^3/uL (140-400) 239 x10^3/uL (140-400) Neutrophils (%) (Auto) 82 % (31-73) 74 % (31-73) Lymphocytes (%) (Auto) 12 % (24-48) 19 % (24-48) Monocytes (%) (Auto) 5 % (0-9) 6 % (0-9) Eosinophils (%) (Auto) 0 % (0-3) 1 % (0-3) Basophils (%) (Auto) 1 % (0-3) 1 % (0-3) Neutrophils # (Auto) 10.1 x10^3/uL (1.8-7.7) 6.1 x10^3/uL (1.8-7.7) Lymphocytes # (Auto) 1.5 x10^3/uL (1.0-4.8) 1.6 x10^3/uL (1.0-4.8) Monocytes # (Auto) 0.6 x10^3/uL (0.0-1.1) 0.5 x10^3/uL (0.0-1.1) Eosinophils # (Auto) 0.0 x10^3/uL (0.0-0.7) 0.1 x10^3/uL (0.0-0.7) Basophils # (Auto) 0.1 x10^3/uL (0.0-0.2) 0.1 x10^3/uL (0.0-0.2) Sodium Level 137 mmol/L (136-145) 140 mmol/L (136-145) Potassium Level 4.1 mmol/L (3.5-5.1) 4.3 mmol/L (3.5-5.1) Chloride Level 101 mmol/L (98-107) 102 mmol/L (98-107) Carbon Dioxide Level 27 mmol/L (21-32) 30 mmol/L (21-32) Anion Gap 9 (6-14) 8 (6-14) Blood Urea Nitrogen 34 mg/dL (8-26) 32 mg/dL (8-26) Creatinine 1.2 mg/dL (0.7-1.3) 1.2 mg/dL (0.7-1.3) Estimated GFR (Cockcroft-Gault) 60.2 60.2 Glucose Level 109 mg/dL (70-99) 95 mg/dL (70-99) Uric Acid 8.3 mg/dL (3.5-7.2) Calcium Level 9.9 mg/dL (8.5-10.1) 10.0 mg/dL (8.5-10.1) Lactate Dehydrogenase 176 U/L (85-227) Tumor Marker Alpha Fetoprotein 1.6 ng/mL (0.0-8.3) Prostate Specific Antigen 0.86 ng/mL (0.00-4.00) Images Images Reviewed results of MRI and CTs have been obtained so far. 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 Would like adequate histologic sampling to allow for NGS (next generation sequencing) testing for actionable mutations on tumor if clinically indicated -Agree with radiation oncology consultation for consideration of palliative radiotherapy -We will follow for results of surgical pathology -I expect he would require some form of systemic therapy. We will discuss further details with the patient once surgical pathology is available -Continue Decadron 2 mg every 6 hours -Tumor markers have been checked and have returned negative so far Bony Horton MD Medical Oncology/Hematology Ph: [phone] NATI HORTON MD Jun 20, 2020 09:54
[2020-06-20 11:01] VITALS: BP 107/59
--- NOTE | 2020-06-20 11:24 | NUR ---
SW following. Discussed with RN, pt from home with , room air, regular diet. Pt scheduled for surgery 06/24/2020 - per Dr. Smith, pt is to remain in hospital until surgery as pt is non weight bearing RE risk of pathological fracture from L1 lesion. SW will continue to follow.
[2020-06-20 13:13] LABS: LAMBDA FREE 26.4 mg/L (5.7-26.3)
--- NOTE | 2020-06-20 13:59 | PDOC ---
PROGRESS NOTES Date of Service DATE: 06/20/20 TIME: 13:56 Subjective Subjective no new complaints continued back pain Objective Objective Vital Signs Date Time Temp Pulse Resp B/P (MAP) Pulse Ox O2 Delivery O2 Flow Rate FiO2 06/20/20 11:01 98.3 61 18 107/59 (75) 97 Room Air 98.3 Intake and Output 06/20/20 07:00 Intake Total 300 ml Output Total 750 ml Balance -450 ml Intake Oral 300 ml Output Urine Total 750 ml Physical Exam General: Alert, Oriented X3, Cooperative, No acute distress MUSCULOSKELETAL: Other (ESCALANTE) Neuro: Other (strength and sensation normal in LE) Assessment Assessment Problems Medical Problems: (1) Abnormal CT scan, lumbar spine Status: Acute Plan Plan of Care plan for OR Tuesday to include removal/ debulking of L1 mass and instrumented fusion T11-L3 continue IV steroids SCDs discussed technique, rationale, risks and expected post op course all questions answered Comment Review of Relevant I have reviewed the following items kiersten (where applicable) has been applied. Labs Laboratory Tests Test 06/19/20 08:50 White Blood Count 8.3 x10^3/uL (4.0-11.0) Red Blood Count 5.38 x10^6/uL (4.30-5.70) Hemoglobin 15.5 g/dL (13.0-17.5) Hematocrit 46.3 % (39.0-53.0) Mean Corpuscular Volume 86 fL (79-100) Mean Corpuscular Hemoglobin 29 pg (25-35) Mean Corpuscular Hemoglobin Concent 34 g/dL (31-37) Red Cell Distribution Width 13.4 % (11.5-14.5) Platelet Count 239 x10^3/uL (140-400) Neutrophils (%) (Auto) 74 % (31-73) Lymphocytes (%) (Auto) 19 % (24-48) Monocytes (%) (Auto) 6 % (0-9) Eosinophils (%) (Auto) 1 % (0-3) Basophils (%) (Auto) 1 % (0-3) Neutrophils # (Auto) 6.1 x10^3/uL (1.8-7.7) Lymphocytes # (Auto) 1.6 x10^3/uL (1.0-4.8) Monocytes # (Auto) 0.5 x10^3/uL (0.0-1.1) Eosinophils # (Auto) 0.1 x10^3/uL (0.0-0.7) Basophils # (Auto) 0.1 x10^3/uL (0.0-0.2) Sodium Level 140 mmol/L (136-145) Potassium Level 4.3 mmol/L (3.5-5.1) Chloride Level 102 mmol/L (98-107) Carbon Dioxide Level 30 mmol/L (21-32) Anion Gap 8 (6-14) Blood Urea Nitrogen 32 mg/dL (8-26) Creatinine 1.2 mg/dL (0.7-1.3) Estimated GFR (Cockcroft-Gault) 60.2 Glucose Level 95 mg/dL (70-99) Calcium Level 10.0 mg/dL (8.5-10.1) Prostate Specific Antigen 0.86 ng/mL (0.00-4.00) Medications Current Medications Ketorolac Tromethamine (Toradol 30mg Vial) 30 mg 1X ONCE IM Last administered on 06/18/20at 11:22; Start 06/18/20 at 10:45; Stop 06/18/20 at 10:46; Status DC Cyclobenzaprine HCl (Flexeril) 10 mg 1X ONCE PO Last administered on 06/18/20at 11:21; Start 06/18/20 at 10:45; Stop 06/18/20 at 10:46; Status DC Lidocaine (Lidoderm) 1 patch 1X ONCE TD Last administered on 06/18/20at 11:22; Start 06/18/20 at 10:45; Stop 06/18/20 at 10:46; Status DC Tramadol HCl (Ultram) 100 mg PRN Q6HRS PRN PO MODERATE PAIN Last administered on 06/20/20at 05:24; Start 06/18/20 at 17:45 Acetaminophen/ Hydrocodone Bitart (Lortab 5/325) 1 tab PRN Q6HRS PRN PO SEVERE PAIN Last administered on 06/20/20at 09:47; Start 06/18/20 at 17:45 Lidocaine (Lidoderm) 1 patch DAILY TD Last administered on 06/20/20at 08:16; Start 06/18/20 at 18:00 Miscellaneous (Lidoderm Patch Removal) 1 ea QHS Last administered on 06/19/20at 19:34; Start 06/18/20 at 21:00 Atenolol (Tenormin) 25 mg DAILY PO Last administered on 06/20/20at 08:14; Start 06/19/20 at 09:00 Lisinopril (Prinivil) 20 mg DAILY PO Last administered on 06/20/20at 08:14; Start 06/19/20 at 09:00 Gadoterate Meglumine (Clariscan) 16.6 ml 1X ONCE IVP Last administered on 06/19/20at 10:56; Start 06/19/20 at 10:45; Stop 06/19/20 at 10:46; Status DC Iohexol (Omnipaque 240 Mg/ml) 50 ml 1X ONCE PO Last administered on 06/19/20at 12:00; Start 06/19/20 at 12:00; Stop 06/19/20 at 12:01; Status DC Iohexol (Omnipaque 300 Mg/ml) 75 ml 1X ONCE IV Last administered on 06/19/20at 12:00; Start 06/19/20 at 12:00; Stop 06/19/20 at 12:01; Status DC Info (CONTRAST GIVEN -- Rx MONITORING) 1 each PRN DAILY PRN MC SEE COMMENTS; Start 06/19/20 at 11:45; Stop 06/21/20 at 11:44 Bisacodyl (Dulcolax Tab) 10 mg DAILY PO Last administered on 06/19/20at 15:41; Start 06/19/20 at 14:00 Bisacodyl (Dulcolax Supp) 10 mg PRN DAILY PRN [place] CONSTIPATION; Start 06/19/20 at 13:15 Senna/Docusate Sodium (Senna Plus) 1 tab BID PO ; Start 06/19/20 at 21:00 Alprazolam (Xanax) 0.5 mg PRN Q8HRS PRN PO ANXIETY / AGITATION; Start 06/19/20 at 13:15 Dexamethasone Sodium Phosphate (Decadron) 2 mg Q6HRS IVP Last administered on 06/20/20at 12:56; Start 06/19/20 at 16:30 Active Scripts Active Reported Tramadol Hcl 50 Mg Tablet 50 Mg PO PRN BID PRN Prednisone 50 Mg Tablet 1 Tab PO DAILY Atenolol 25 Mg Tablet 1 Tab PO DAILY Lisinopril 20 Mg Tablet 1 Tab PO DAILY Vitals/I & O Vital Sign - Last 24 Hours 06/19/20 06/19/20 06/19/20 06/19/20 15:00 19:00 19:33 19:40 Temp 98.1 98.5 98.1 98.5 Pulse 75 76 Resp 18 18 B/P (MAP) 129/71 (90) 121/72 (88) Pulse Ox 97 97 O2 Delivery Room Air Room Air Room Air 06/19/20 06/19/20 06/19/20 06/20/20 20:33 23:00 23:19 00:21 Temp 98.5 98.5 Pulse 85 Resp 18 B/P (MAP) 127/88 (101) Pulse Ox 100 O2 Delivery Room Air Room Air Room Air Room Air 06/20/20 06/20/20 06/20/20 06/20/20 03:00 05:24 06:26 07:00 Temp 98.4 98.4 98.4 98.4 Pulse 88 88 Resp 18 18 B/P (MAP) 133/85 (101) 121/72 (88) Pulse Ox 99 96 O2 Delivery Room Air Room Air Room Air Room Air 06/20/20 06/20/20 06/20/20 08:14 08:14 11:01 Temp 98.3 98.3 Pulse 88 88 61 Resp 18 B/P (MAP) 133/85 133/85 107/59 (75) Pulse Ox 97 O2 Delivery Room Air Intake and Output 06/19/20 06/19/20 06/20/20 15:00 23:00 07:00 Intake Total 300 ml Output Total 150 ml 150 ml 450 ml Balance -150 ml 150 ml -450 ml Justifications for Admission Other Justification Nutrition Consultation Dietary Evaluation: Recommendations by RD: Dietary education by RD, Increase Calorie Intake, Protein supplementation Comments: REC continue with Cardiac diet will send chocolate ensure bid Expected Outcomes/Goals: to meet >75% est nutrition needs via po intake Interpretation of weight loss: >5% in 1 month Malnutrition Findings: Food and Nutrition Intake (Sev: <50% est energy req 5days Weight Status: Overweight MICHAEL LOZANO MD Jun 20, 2020 13:59
[2020-06-20 14:15] LABS: ALBUM 3.6 g/dL (2.9-4.4); ALPHA 1 0.3 g/dL (0.0-0.4); ALPHA 2 1.1 g/dL (0.4-1.0); BETA 0.9 g/dL (0.7-1.3); GAMMA 1.8 g/dL (0.4-1.8); PROTEIN TOTAL 7.6 g/dL (6.0-8.5); SPEP AG RATIO 0.9 (0.7-1.7)
[2020-06-20 15:00] VITALS: BP 114/56
[2020-06-20 15:13] LABS: CEA 2.8 ng/mL (0.0-4.7)
[2020-06-20 19:00] VITALS: BP 115/70
[2020-06-20] MEDS: PATCH REMOVAL. MC SCH (20:39)
[2020-06-20 23:00] VITALS: BP 129/70
[2020-06-21] MEDS: DEXAMETHASONE SOD PHOS 4 MG/ML VIAL IVP SCH ×4 (00:57→17:31)
[2020-06-21] MEDS: traMADol 50 MG TABLET PO PRN ×2 (01:02→08:08)
[2020-06-21 03:00] VITALS: BP 118/69
[2020-06-21 07:00] VITALS: BP 118/76
--- NOTE | 2020-06-21 08:25 | PDOC ---
DATE OF SERVICE: DATE: 06/21/20 TIME: 08:23 GENERAL General: vss and afebrile. awake and alert and is comfortable currently. chest clear, heart regular, abdomen benign. on po pain meds and dexamethasone with surgery planned for Tuesday. continue present care. VITAL SIGNS/I&O Vital Signs/I&O: Vital Signs Date Time Temp Pulse Resp B/P (MAP) Pulse Ox O2 Delivery O2 Flow Rate FiO2 06/21/20 08:08 20 95 Room Air 06/21/20 07:00 98.0 62 118/76 (90) 98.0 I & O 06/20/20 06/20/20 06/21/20 15:00 23:00 07:00 Intake Total 480 ml 120 ml Output Total 300 ml Balance 480 ml -180 ml ALLERGIES Allergies: Allergies Coded Allergies Type Severity Reaction Last Updated Verified No Known Drug Allergies 01/27/15 No Justifications for Admission Other Justification Nutrition Consultation Dietary Evaluation: Recommendations by RD: Dietary education by RD, Increase Calorie Intake, Protein supplementation Comments: REC continue with Cardiac diet will send chocolate ensure bid Expected Outcomes/Goals: to meet >75% est nutrition needs via po intake Interpretation of weight loss: >5% in 1 month Malnutrition Findings: Food and Nutrition Intake (Sev: <50% est energy req 5days Weight Status: Overweight KRISTI GRANADOS MD Jun 21, 2020 08:25
--- NOTE | 2020-06-21 09:57 | PDOC ---
PROGRESS NOTES Date of Service DATE: 06/21/20 TIME: 09:56 Subjective Subjective No new complaints. Objective Objective Vital Signs Date Time Temp Pulse Resp B/P (MAP) Pulse Ox O2 Delivery O2 Flow Rate FiO2 06/21/20 08:08 20 95 Room Air 06/21/20 07:00 98.0 62 118/76 (90) 98.0 Intake and Output 06/21/20 07:00 Intake Total 600 ml Output Total 300 ml Balance 300 ml Intake Oral 600 ml Output Urine Total 300 ml # Bowel Movements 1 Physical Exam Physical Exam He is lying prone in bed and no change with his neurological status. He had c onstipation relieved. Assessment Assessment Problems Medical Problems: (1) Abnormal CT scan, lumbar spine Status: Acute Plan Plan of Care Agree with plans. Comment Review of Relevant I have reviewed the following items kiersten (where applicable) has been applied. Medications Current Medications Ketorolac Tromethamine (Toradol 30mg Vial) 30 mg 1X ONCE IM Last administered on 06/18/20at 11:22; Start 06/18/20 at 10:45; Stop 06/18/20 at 10:46; Status DC Cyclobenzaprine HCl (Flexeril) 10 mg 1X ONCE PO Last administered on 06/18/20at 11:21; Start 06/18/20 at 10:45; Stop 06/18/20 at 10:46; Status DC Lidocaine (Lidoderm) 1 patch 1X ONCE TD Last administered on 06/18/20at 11:22; Start 06/18/20 at 10:45; Stop 06/18/20 at 10:46; Status DC Tramadol HCl (Ultram) 100 mg PRN Q6HRS PRN PO MODERATE PAIN Last administered on 06/21/20at 08:08; Start 06/18/20 at 17:45 Acetaminophen/ Hydrocodone Bitart (Lortab 5/325) 1 tab PRN Q6HRS PRN PO SEVERE PAIN Last administered on 06/20/20at 20:19; Start 06/18/20 at 17:45 Lidocaine (Lidoderm) 1 patch DAILY TD Last administered on 06/20/20at 08:16; Start 06/18/20 at 18:00 Miscellaneous (Lidoderm Patch Removal) 1 ea QHS MC Last administered on 06/20/20at 20:39; Start 06/18/20 at 21:00 Atenolol (Tenormin) 25 mg DAILY PO Last administered on 06/20/20at 08:14; Start 06/19/20 at 09:00 Lisinopril (Prinivil) 20 mg DAILY PO Last administered on 06/20/20at 08:14; Start 06/19/20 at 09:00 Gadoterate Meglumine (Clariscan) 16.6 ml 1X ONCE IVP Last administered on 06/19/20at 10:56; Start 06/19/20 at 10:45; Stop 06/19/20 at 10:46; Status DC Iohexol (Omnipaque 240 Mg/ml) 50 ml 1X ONCE PO Last administered on 06/19/20at 12:00; Start 06/19/20 at 12:00; Stop 06/19/20 at 12:01; Status DC Iohexol (Omnipaque 300 Mg/ml) 75 ml 1X ONCE IV Last administered on 06/19/20at 12:00; Start 06/19/20 at 12:00; Stop 06/19/20 at 12:01; Status DC Info (CONTRAST GIVEN -- Rx MONITORING) 1 each PRN DAILY PRN MC SEE COMMENTS; Start 06/19/20 at 11:45; Stop 06/21/20 at 11:44 Bisacodyl (Dulcolax Tab) 10 mg DAILY PO Last administered on 06/19/20at 15:41; Start 06/19/20 at 14:00 Bisacodyl (Dulcolax Supp) 10 mg PRN DAILY PRN [place] CONSTIPATION; Start 06/19/20 at 13:15 Senna/Docusate Sodium (Senna Plus) 1 tab BID PO ; Start 06/19/20 at 21:00 Alprazolam (Xanax) 0.5 mg PRN Q8HRS PRN PO ANXIETY / AGITATION; Start 06/19/20 at 13:15 Dexamethasone Sodium Phosphate (Decadron) 2 mg Q6HRS IVP Last administered on 06/21/20at 06:02; Start 06/19/20 at 16:30 Active Scripts Active Reported Tramadol Hcl 50 Mg Tablet 50 Mg PO PRN BID PRN Prednisone 50 Mg Tablet 1 Tab PO DAILY Atenolol 25 Mg Tablet 1 Tab PO DAILY Lisinopril 20 Mg Tablet 1 Tab PO DAILY Vitals/I & O Vital Sign - Last 24 Hours 06/20/20 06/20/20 06/20/20 06/20/20 11:01 15:00 19:00 20:15 Temp 98.3 98.3 98.5 98.3 98.3 98.5 Pulse 61 65 65 Resp 18 18 18 B/P (MAP) 107/59 (75) 114/56 (75) 115/70 (85) Pulse Ox 97 97 97 O2 Delivery Room Air Room Air Room Air 06/20/20 06/20/20 06/20/20 06/21/20 20:19 21:19 23:00 01:02 Temp 98.7 98.7 Pulse 62 Resp 20 20 16 18 B/P (MAP) 129/70 (89) Pulse Ox 98 O2 Delivery Room Air Room Air Room Air 06/21/20 06/21/20 06/21/20 06/21/20 02:02 03:00 07:00 08:08 Temp 98.3 98.0 98.3 98.0 Pulse 62 62 Resp 18 16 18 20 B/P (MAP) 118/69 (85) 118/76 (90) Pulse Ox 97 95 95 O2 Delivery Room Air Room Air Room Air Intake and Output 06/20/20 06/20/20 06/21/20 15:00 23:00 07:00 Intake Total 480 ml 120 ml Output Total 300 ml Balance 480 ml -180 ml Justifications for Admission Other Justification Nutrition Consultation Dietary Evaluation: Recommendations by RD: Dietary education by RD, Increase Calorie Intake, Protein supplementation Comments: REC continue with Cardiac diet will send chocolate ensure bid Expected Outcomes/Goals: to meet >75% est nutrition needs via po intake Interpretation of weight loss: >5% in 1 month Malnutrition Findings: Food and Nutrition Intake (Sev: <50% est energy req 5days Weight Status: Overweight RADHA LEA MD Jun 21, 2020 09:57
[2020-06-21] MEDS: SENNOSIDES/DOCUSATE 8.6/50MG TABLET. PO SCH ×2 (10:03→21:00)
[2020-06-21] MEDS: LISINOPRIL 20 MG TABLET PO SCH (10:04)
[2020-06-21] MEDS: ATENOLOL 25 MG TABLET. PO SCH (10:05)
[2020-06-21] MEDS: BISACODYL 5 MG TABLET.DR. PO SCH (10:09)
[2020-06-21] MEDS: LIDOCAINE (700MG/PATCH) PATCH. TD SCH (10:10)
[2020-06-21 10:43] VITALS: BP 109/67
[2020-06-21 15:00] VITALS: BP 117/68
[2020-06-21] MEDS: HYDROcodone/APAP 5/325MG 1 TAB TABLET PO PRN ×2 (17:31→23:59)
[2020-06-21 19:00] VITALS: BP 93/45
[2020-06-21] MEDS: PATCH REMOVAL. MC SCH (21:00)
[2020-06-21 23:00] VITALS: BP 131/71
[2020-06-22 03:00] VITALS: BP 129/76
[2020-06-22] MEDS: HYDROcodone/APAP 5/325MG 1 TAB TABLET PO PRN ×2 (06:14→14:26)
[2020-06-22] MEDS: DEXAMETHASONE SOD PHOS 4 MG/ML VIAL IVP SCH ×5 (06:15→23:11)
[2020-06-22] MEDS: BISACODYL 5 MG TABLET.DR. PO SCH (08:53)
[2020-06-22] MEDS: SENNOSIDES/DOCUSATE 8.6/50MG TABLET. PO SCH ×2 (08:53→21:00)
[2020-06-22 08:59] VITALS: BP 95/41
[2020-06-22] MEDS: traMADol 50 MG TABLET PO PRN ×3 (08:59→23:12)
[2020-06-22] MEDS: LISINOPRIL 20 MG TABLET PO SCH (09:00)
[2020-06-22] MEDS: ATENOLOL 25 MG TABLET. PO SCH (09:00)
[2020-06-22] MEDS: LIDOCAINE (700MG/PATCH) PATCH. TD SCH (09:05)
--- NOTE | 2020-06-22 11:03 | PDOC ---
DATE OF SERVICE: DATE: 06/22/20 TIME: 11:02 GENERAL General: vss and afebrile. awake and alert and in attendance. chest clear, heart regular, abdomen benign. for lumbar decompression surgery on tuesday. pain control good at present. VITAL SIGNS/I&O Vital Signs/I&O: Vital Signs Date Time Temp Pulse Resp B/P (MAP) Pulse Ox O2 Delivery O2 Flow Rate FiO2 06/22/20 09:00 59 95/41 06/22/20 08:59 98.1 18 96 Room Air 98.1 I & O 06/21/20 06/21/20 06/22/20 15:00 23:00 07:00 Intake Total 350 ml 50 ml Output Total 100 ml 350 ml 300 ml Balance 250 ml -350 ml -250 ml ALLERGIES Allergies: Allergies Coded Allergies Type Severity Reaction Last Updated Verified No Known Drug Allergies 01/27/15 No MEDS Medications: Current Medications Medications (Trade) Dose Ordered Sig/Tristan Route PRN Reason Start Time Stop Time Status Last Admin Dose Admin Dexamethasone Sodium Phosphate (Decadron) 4 mg Q6HRS IVP 06/21/20 18:00 06/22/20 06:15 Justifications for Admission Other Justification Nutrition Consultation Dietary Evaluation: Recommendations by RD: Dietary education by RD, Increase Calorie Intake, Protein supplementation Comments: REC continue with Cardiac diet will send chocolate ensure bid Expected Outcomes/Goals: to meet >75% est nutrition needs via po intake Interpretation of weight loss: >5% in 1 month Malnutrition Findings: Food and Nutrition Intake (Sev: <50% est energy req 5days Weight Status: Overweight APPLKRISTI MD Jun 22, 2020 11:03
[2020-06-22 11:59] VITALS: BP 122/68
[2020-06-22 15:59] VITALS: BP 99/58
--- NOTE | 2020-06-22 17:41 | PDOC ---
PROGRESS NOTES Date of Service DATE: 06/22/20 TIME: 17:39 Subjective Subjective Patient seen and examined at 1315 no new complaints continues to notice left leg feeling weaker than right pain better controlled continue IV steroids plan for OR Tuesday Objective Objective Vital Signs Date Time Temp Pulse Resp B/P (MAP) Pulse Ox O2 Delivery O2 Flow Rate FiO2 06/22/20 17:19 18 95 Room Air 06/22/20 15:59 98.6 69 99/58 (72) 98.6 Intake and Output 06/22/20 06:59 Intake Total 400 ml Output Total 750 ml Balance -350 ml Intake Oral 400 ml Output Urine Total 750 ml Assessment Assessment Problems Medical Problems: (1) Abnormal CT scan, lumbar spine Status: Acute Comment Review of Relevant I have reviewed the following items kiersten (where applicable) has been applied. Medications Current Medications Ketorolac Tromethamine (Toradol 30mg Vial) 30 mg 1X ONCE IM Last administered on 06/18/20at 11:22; Start 06/18/20 at 10:45; Stop 06/18/20 at 10:46; Status DC Cyclobenzaprine HCl (Flexeril) 10 mg 1X ONCE PO Last administered on 06/18/20at 11:21; Start 06/18/20 at 10:45; Stop 06/18/20 at 10:46; Status DC Lidocaine (Lidoderm) 1 patch 1X ONCE TD Last administered on 06/18/20at 11:22; Start 06/18/20 at 10:45; Stop 06/18/20 at 10:46; Status DC Tramadol HCl (Ultram) 100 mg PRN Q6HRS PRN PO MODERATE PAIN Last administered on 06/22/20at 17:19; Start 06/18/20 at 17:45 Acetaminophen/ Hydrocodone Bitart (Lortab 5/325) 1 tab PRN Q6HRS PRN PO SEVERE PAIN Last administered on 06/22/20at 14:26; Start 06/18/20 at 17:45 Lidocaine (Lidoderm) 1 patch DAILY TD Last administered on 06/22/20at 09:05; Start 06/18/20 at 18:00 Miscellaneous (Lidoderm Patch Removal) 1 ea QHS MC Last administered on 06/20/20at 20:39; Start 06/18/20 at 21:00 Atenolol (Tenormin) 25 mg DAILY PO Last administered on 06/21/20at 10:05; Start 06/19/20 at 09:00 Lisinopril (Prinivil) 20 mg DAILY PO Last administered on 06/21/20at 10:04; Start 06/19/20 at 09:00 Gadoterate Meglumine (Clariscan) 16.6 ml 1X ONCE IVP Last administered on 06/19/20at 10:56; Start 06/19/20 at 10:45; Stop 06/19/20 at 10:46; Status DC Iohexol (Omnipaque 240 Mg/ml) 50 ml 1X ONCE PO Last administered on 06/19/20at 12:00; Start 06/19/20 at 12:00; Stop 06/19/20 at 12:01; Status DC Iohexol (Omnipaque 300 Mg/ml) 75 ml 1X ONCE IV Last administered on 06/19/20at 12:00; Start 06/19/20 at 12:00; Stop 06/19/20 at 12:01; Status DC Info (CONTRAST GIVEN -- Rx MONITORING) 1 each PRN DAILY PRN MC SEE COMMENTS; Start 06/19/20 at 11:45; Stop 06/21/20 at 11:44; Status DC Bisacodyl (Dulcolax Tab) 10 mg DAILY PO Last administered on 06/21/20at 10:09; Start 06/19/20 at 14:00 Bisacodyl (Dulcolax Supp) 10 mg PRN DAILY PRN [place] CONSTIPATION; Start 06/19/20 a t 13:15 Senna/Docusate Sodium (Senna Plus) 1 tab BID PO Last administered on 06/22/20at 08:53; Start 06/19/20 at 21:00 Alprazolam (Xanax) 0.5 mg PRN Q8HRS PRN PO ANXIETY / AGITATION; Start 06/19/20 at 13:15 Dexamethasone Sodium Phosphate (Decadron) 2 mg Q6HRS IVP Last administered on 06/21/20at 12:32; Start 06/19/20 at 16:30; Stop 06/21/20 at 13:04; Status DC Dexamethasone Sodium Phosphate (Decadron) 4 mg Q6HRS IVP Last administered on 06/22/20at 17:19; Start 06/21/20 at 18:00 Active Scripts Active Reported Tramadol Hcl 50 Mg Tablet 50 Mg PO PRN BID PRN Prednisone 50 Mg Tablet 1 Tab PO DAILY Atenolol 25 Mg Tablet 1 Tab PO DAILY Lisinopril 20 Mg Tablet 1 Tab PO DAILY Vitals/I & O Vital Sign - Last 24 Hours 06/21/20 06/21/20 06/21/20 06/21/20 19:00 19:15 20:00 23:00 Temp 98.7 98.6 98.7 98.6 Pulse 62 58 Resp 18 18 B/P (MAP) 93/45 (61) 131/71 (91) Pulse Ox 97 96 98 O2 Delivery Room Air Room Air Room Air Room Air 06/21/20 06/22/20 06/22/20 06/22/20 23:59 00:59 03:00 06:14 Temp 98.3 98.3 Pulse 61 Resp 18 B/P (MAP) 129/76 (93) Pulse Ox 96 96 O2 Delivery Room Air Room Air Room Air Room Air 06/22/20 06/22/20 06/22/20 06/22/20 07:14 07:59 08:59 08:59 Temp 98.1 98.1 Pulse 59 Resp 18 18 18 B/P (MAP) 95/41 (59) Pulse Ox 95 96 96 O2 Delivery Room Air Room Air Room Air Room Air 06/22/20 06/22/20 06/22/20 06/22/20 09:00 09:00 09:59 11:59 Temp 98.7 98.7 Pulse 59 59 81 Resp 18 18 B/P (MAP) 95/41 95/41 122/68 (86) Pulse Ox 95 97 O2 Delivery Room Air Room Air 06/22/20 06/22/20 06/22/20 06/22/20 14:26 15:26 15:59 17:19 Temp 98.6 98.6 Pulse 69 Resp 18 18 18 18 B/P (MAP) 99/58 (72) Pulse Ox 97 95 95 95 O2 Delivery Room Air Room Air Room Air Room Air Intake and Output 06/21/20 06/21/20 06/22/20 14:59 22:59 06:59 Intake Total 350 ml 50 ml Output Total 100 ml 350 ml 300 ml Balance 250 ml -350 ml -250 ml Justifications for Admission Other Justification Nutrition Consultation Dietary Evaluation: Recommendations by RD: Dietary education by RD, Increase Calorie Intake, Protein supplementation Comments: REC continue with Cardiac diet will send chocolate ensure bid Expected Outcomes/Goals: to meet >75% est nutrition needs via po intake Interpretation of weight loss: >5% in 1 month Malnutrition Findings: Food and Nutrition Intake (Sev: <50% est energy req 5days Weight Status: Overweight MICHAEL LOZANO MD Jun 22, 2020 17:41
[2020-06-22 19:40] VITALS: BP 112/58
[2020-06-22] MEDS: PATCH REMOVAL. MC SCH (21:00)
[2020-06-22 23:10] VITALS: BP 121/68
[2020-06-23 05:05] VITALS: BP 112/62
[2020-06-23] MEDS: DEXAMETHASONE SOD PHOS 4 MG/ML VIAL IVP SCH ×3 (05:11→17:48)
[2020-06-23] MEDS: traMADol 50 MG TABLET PO PRN ×2 (05:12→17:48)
[2020-06-23 07:00] VITALS: BP 113/62
--- NOTE | 2020-06-23 08:16 | PDOC ---
Provider Note Date of Service: DATE: 06/23/20 TIME: 08:15 Provider Note no new problems, add protonix re steroids- surg 06/24 Justifications for Admission Other Justification MARK ANTHONY ARELLANO MD Jun 23, 2020 08:16
--- NOTE | 2020-06-23 08:53 | PDOC ---
PROGRESS NOTES Date of Service DATE: 06/23/20 TIME: 08:51 Subjective Subjective No new complaints. Objective Objective Vital Signs Date Time Temp Pulse Resp B/P (MAP) Pulse Ox O2 Delivery O2 Flow Rate FiO2 06/23/20 07:00 97.8 55 18 113/62 (79) 93 Room Air 97.8 Intake and Output 06/23/20 07:00 Intake Total 300 ml Output Total 350 ml Balance -50 ml Intake Oral 300 ml Output Urine Total 350 ml Physical Exam Physical Exam He is alert,lying prone in bed and seems to be having less pain. No change with his neurological status. Assessment Assessment Problems Medical Problems: (1) Abnormal CT scan, lumbar spine Status: Acute Plan Plan of Care Plans for decompression laminectomy tomorrow. Comment Review of Relevant I have reviewed the following items kiersten (where applicable) has been applied. Medications Current Medications Ketorolac Tromethamine (Toradol 30mg Vial) 30 mg 1X ONCE IM Last administered on 06/18/20at 11:22; Start 06/18/20 at 10:45; Stop 06/18/20 at 10:46; Status DC Cyclobenzaprine HCl (Flexeril) 10 mg 1X ONCE PO Last administered on 06/18/20at 11:21; Start 06/18/20 at 10:45; Stop 06/18/20 at 10:46; Status DC Lidocaine (Lidoderm) 1 patch 1X ONCE TD Last administered on 06/18/20at 11:22; Start 06/18/20 at 10:45; Stop 06/18/20 at 10:46; Status DC Tramadol HCl (Ultram) 100 mg PRN Q6HRS PRN PO MODERATE PAIN Last administered on 06/23/20at 05:12; Start 06/18/20 at 17:45 Acetaminophen/ Hydrocodone Bitart (Lortab 5/325) 1 tab PRN Q6HRS PRN PO SEVERE PAIN Last administered on 06/22/20at 14:26; Start 06/18/20 at 17:45 Lidocaine (Lidoderm) 1 patch DAILY TD Last administered on 06/22/20at 09:05; Start 06/18/20 at 18:00 Miscellaneous (Lidoderm Patch Removal) 1 ea QHS MC Last administered on 06/22/20at 21:00; Start 06/18/20 at 21:00 Atenolol (Tenormin) 25 mg DAILY PO Last administered on 06/21/20at 10:05; Start 06/19/20 at 09:00 Lisinopril (Prinivil) 20 mg DAILY PO Last administered on 06/21/20at 10:04; Start 06/19/20 at 09:00 Gadoterate Meglumine (Clariscan) 16.6 ml 1X ONCE IVP Last administered on 06/19/20at 10:56; Start 06/19/20 at 10:45; Stop 06/19/20 at 10:46; Status DC Iohexol (Omnipaque 240 Mg/ml) 50 ml 1X ONCE PO Last administered on 06/19/20at 12:00; Start 06/19/20 at 12:00; Stop 06/19/20 at 12:01; Status DC Iohexol (Omnipaque 300 Mg/ml) 75 ml 1X ONCE IV Last administered on 06/19/20at 12:00; Start 06/19/20 at 12:00; Stop 06/19/20 at 12:01; Status DC Info (CONTRAST GIVEN -- Rx MONITORING) 1 each PRN DAILY PRN MC SEE COMMENTS; Start 06/19/20 at 11:45; Stop 06/21/20 at 11:44; Status DC Bisacodyl (Dulcolax Tab) 10 mg DAILY PO Last administered on 06/21/20at 10:09; Start 06/19/20 at 14:00 Bisacodyl (Dulcolax Supp) 10 mg PRN DAILY PRN [place] CONSTIPATION; Start 06/19/20 at 13:15 Senna/Docusate Sodium (Senna Plus) 1 tab BID PO Last administered on 06/22/20at 08:53; Start 06/19/20 at 21:00 Alprazolam (Xanax) 0.5 mg PRN Q8HRS PRN PO ANXIETY / AGITATION; Start 06/19/20 at 13:15 Dexamethasone Sodium Phosphate (Decadron) 2 mg Q6HRS IVP Last administered on 06/21/20at 12:32; Start 06/19/20 at 16:30; Stop 06/21/20 at 13:04; Status DC Dexamethasone Sodium Phosphate (Decadron) 4 mg Q6HRS IVP Last administered on 11/9/20at 05:11; Start 06/21/20 at 18:00 Pantoprazole Sodium (Protonix) 40 mg DAILYAC PO ; Start 06/23/20 at 11:30 Active Scripts Active Reported Tramadol Hcl 50 Mg Tablet 50 Mg PO PRN BID PRN Prednisone 50 Mg Tablet 1 Tab PO DAILY Atenolol 25 Mg Tablet 1 Tab PO DAILY Lisinopril 20 Mg Tablet 1 Tab PO DAILY Vitals/I & O Vital Sign - Last 24 Hours 06/22/20 06/22/20 06/22/20 06/22/20 08:59 08:59 09:00 09:00 Temp 98.1 98.1 Pulse 59 59 59 Resp 18 18 B/P (MAP) 95/41 (59) 95/41 95/41 Pulse Ox 96 96 O2 Delivery Room Air Room Air 06/22/20 06/22/20 06/22/20 06/22/20 09:59 11:59 14:26 15:26 Temp 98.7 98.7 Pulse 81 Resp 18 18 18 18 B/P (MAP) 122/68 (86) Pulse Ox 95 97 97 95 O2 Delivery Room Air Room Air Room Air Room Air 06/22/20 06/22/20 06/22/20 06/22/20 15:59 17:19 19:40 20:00 Temp 98.6 97.2 98.6 97.2 Pulse 69 67 Resp 18 18 18 B/P (MAP) 99/58 (72) 112/58 (76) Pulse Ox 95 95 94 O2 Delivery Room Air Room Air Room Air Room Air 06/22/20 06/22/20 06/23/20 06/23/20 23:10 23:12 00:12 05:05 Temp 97.7 97.7 97.7 97.7 Pulse 58 60 Resp 16 18 18 B/P (MAP) 121/68 (85) 112/62 (79) Pulse Ox 100 98 O2 Delivery Room Air Room Air Room Air Room Air 06/23/20 06/23/20 06/23/20 05:12 06:12 07:00 Temp 97.8 97.8 Pulse 55 Resp 20 20 18 B/P (MAP) 113/62 (79) Pulse Ox 93 O2 Delivery Room Air Room Air Room Air Intake and Output 06/22/20 06/22/20 06/23/20 15:00 23:00 07:00 Intake Total 300 ml Output Total 200 ml 150 ml Balance -200 ml 150 ml Justifications for Admission Other Justification Nutrition Consultation Dietary Evaluation: Recommendations by RD: Dietary education by RD, Increase Calorie Intake, Protein supplementation Comments: REC continue with Cardiac diet will send chocolate ensure bid Expected Outcomes/Goals: to meet >75% est nutrition needs via po intake Interpretation of weight loss: >5% in 1 month Malnutrition Findings: Food and Nutrition Intake (Sev: <50% est energy req 5days Weight Status: Overweight RADHA LEA MD Jun 23, 2020 08:53
[2020-06-23] MEDS: SENNOSIDES/DOCUSATE 8.6/50MG TABLET. PO SCH ×2 (09:00→20:38)
[2020-06-23] MEDS: ATENOLOL 25 MG TABLET. PO SCH (09:11)
[2020-06-23] MEDS: LISINOPRIL 20 MG TABLET PO SCH (09:11)
[2020-06-23] MEDS: BISACODYL 5 MG TABLET.DR. PO SCH (09:12)
[2020-06-23] MEDS: LIDOCAINE (700MG/PATCH) PATCH. TD SCH (09:12)
--- NOTE | 2020-06-23 10:00 | PDOC ---
PROGRESS NOTES Date of Service DATE: 06/23/20 TIME: 09:58 Subjective Subjective no new complaints continues to feel LE weak, L> R pain better controlled Objective Objective Vital Signs Date Time Temp Pulse Resp B/P (MAP) Pulse Ox O2 Delivery O2 Flow Rate FiO2 06/23/20 09:11 55 113/62 06/23/20 07:00 97.8 18 93 Room Air 97.8 Intake and Output 06/23/20 07:00 Intake Total 300 ml Output Total 350 ml Balance -50 ml Intake Oral 300 ml Output Urine Total 350 ml Physical Exam General: Alert, Oriented X3, Cooperative MUSCULOSKELETAL: Other (LSO on) Assessment Assessment Problems Medical Problems: (1) Abnormal CT scan, lumbar spine Status: Acute Plan Plan of Care plan for OR tomorrow with resection / debulking of mass L1 with posterior instrumentation all questions answered will check dopplers LE today Comment Review of Relevant I have reviewed the following items kiersten (where applicable) has been applied. Medications Current Medications Ketorolac Tromethamine (Toradol 30mg Vial) 30 mg 1X ONCE IM Last administered on 06/18/20at 11:22; Start 06/18/20 at 10:45; Stop 06/18/20 at 10:46; Status DC Cyclobenzaprine HCl (Flexeril) 10 mg 1X ONCE PO Last administered on 06/18/20at 11:21; Start 06/18/20 at 10:45; Stop 06/18/20 at 10:46; Status DC Lidocaine (Lidoderm) 1 patch 1X ONCE TD Last administered on 06/18/20at 11:22; Start 06/18/20 at 10:45; Stop 06/18/20 at 10:46; Status DC Tramadol HCl (Ultram) 100 mg PRN Q6HRS PRN PO MODERATE PAIN Last administered on 06/23/20at 05:12; Start 06/18/20 at 17:45 Acetaminophen/ Hydrocodone Bitart (Lortab 5/325) 1 tab PRN Q6HRS PRN PO SEVERE PAIN Last administered on 06/22/20at 14:26; Start 06/18/20 at 17:45 Lidocaine (Lidoderm) 1 patch DAILY TD Last administered on 06/23/20at 09:12; Start 06/18/20 at 18:00 Miscellaneous (Lidoderm Patch Removal) 1 ea QHS MC Last administered on 0at 21:00; Start 06/18/20 at 21:00 Atenolol (Tenormin) 25 mg DAILY PO Last administered on 06/23/20at 09:11; Start 06/19/20 at 09:00 Lisinopril (Prinivil) 20 mg DAILY PO Last administered on 06/23/20at 09:11; Start 06/19/20 at 09:00 Gadoterate Meglumine (Clariscan) 16.6 ml 1X ONCE IVP Last administered on 06/19/20at 10:56; Start 06/19/20 at 10:45; Stop 06/19/20 at 10:46; Status DC Iohexol (Omnipaque 240 Mg/ml) 50 ml 1X ONCE PO Last administered on 06/19/20at 12:00; Start 06/19/20 at 12:00; Stop 06/19/20 at 12:01; Status DC Iohexol (Omnipaque 300 Mg/ml) 75 ml 1X ONCE IV Last administered on 06/19/20at 12:00; Start 06/19/20 at 12:00; Stop 06/19/20 at 12:01; Status DC Info (CONTRAST GIVEN -- Rx MONITORING) 1 each PRN DAILY PRN MC SEE COMMENTS; Start 06/19/20 at 11:45; Stop 06/21/20 at 11:44; Status DC Bisacodyl (Dulcolax Tab) 10 mg DAILY PO Last administered on 06/23/20at 09:12; Start 06/19/20 at 14:00 Bisacodyl (Dulcolax Supp) 10 mg PRN DAILY PRN ID CONSTIPATION; Start 06/19/20 at 13:15 Senna/Docusate Sodium (Senna Plus) 1 tab BID PO Last administered on 06/22/20at 08:53; Start 06/19/20 at 21:00 Alprazolam (Xanax) 0.5 mg PRN Q8HRS PRN PO ANXIETY / AGITATION; Start 06/19/20 at 13:15 Dexamethasone Sodium Phosphate (Decadron) 2 mg Q6HRS IVP Last administered on 06/21/20at 12:32; Start 06/19/20 at 16:30; Stop 06/21/20 at 13:04; Status DC Dexamethasone Sodium Phosphate (Decadron) 4 mg Q6HRS IVP Last administered on 06/23/20at 05:11; Start 06/21/20 at 18:00 Pantoprazole Sodium (Protonix) 40 mg DAILYAC PO ; Start 06/23/20 at 11:30 Active Scripts Active Reported Tramadol Hcl 50 Mg Tablet 50 Mg PO PRN BID PRN Prednisone 50 Mg Tablet 1 Tab PO DAILY Atenolol 25 Mg Tablet 1 Tab PO DAILY Lisinopril 20 Mg Tablet 1 Tab PO DAILY Vitals/I & O Vital Sign - Last 24 Hours 06/22/20 06/22/20 06/22/20 06/22/20 09:59 11:59 14:26 15:26 Temp 98.7 98.7 Pulse 81 Resp 18 18 18 18 B/P (MAP) 122/68 (86) Pulse Ox 95 97 97 95 O2 Delivery Room Air Room Air Room Air Room Air 06/22/20 06/22/20 06/22/20 06/22/20 15:59 17:19 19:40 20:00 Temp 98.6 97.2 98.6 97.2 Pulse 69 67 Resp 18 18 18 B/P (MAP) 99/58 (72) 112/58 (76) Pulse Ox 95 95 94 O2 Delivery Room Air Room Air Room Air Room Air 06/22/20 06/22/20 06/23/20 06/23/20 23:10 23:12 00:12 05:05 Temp 97.7 97.7 97.7 97.7 Pulse 58 60 Resp 16 18 18 B/P (MAP) 121/68 (85) 112/62 (79) Pulse Ox 100 98 O2 Delivery Room Air Room Air Room Air Room Air 06/23/20 06/23/20 06/23/20 06/23/20 05:12 06:12 07:00 09:11 Temp 97.8 97.8 Pulse 55 55 Resp 20 20 18 B/P (MAP) 113/62 (79) 113/62 Pulse Ox 93 O2 Delivery Room Air Room Air Room Air 06/23/20 09:11 Pulse 55 B/P (MAP) 113/62 Intake and Output 06/22/20 06/22/20 06/23/20 15:00 23:00 07:00 Intake Total 300 ml Output Total 200 ml 150 ml Balance -200 ml 150 ml Justifications for Admission Other Justification Nutrition Consultation Dietary Evaluation: Recommendations by RD: Dietary education by RD, Increase Calorie Intake, Protein supplementation Comments: REC continue with Cardiac diet will send chocolate ensure bid Expected Outcomes/Goals: to meet >75% est nutrition needs via po intake Interpretation of weight loss: >5% in 1 month Malnutrition Findings: Food and Nutrition Intake (Sev: <50% est energy req 5days Weight Status: Overweight FLORY FLORIAN [employer] DES[employer] Jun 23, 2020 10:00
--- NOTE | 2020-06-23 10:38 | NUR ---
SW following. Discussed with RN, pt from home with , room air, regular diet. Pt scheduled for surgery tomorrow (06/24/2020). SW will continue to follow.
[2020-06-23 10:43] VITALS: BP 119/60
[2020-06-23] MEDS: PANTOPRAZOLE 40 MG TABLET.DR. PO SCH (12:37)
--- NOTE | 2020-06-23 14:52 | PDOC ---
PROGRESS NOTES Date of Service DATE: 06/23/20 TIME: 14:51 Subjective Subjective No overnight events. Mr. Gregory plans on proceeding with surgery tomorrow. Discussed with Dr. Padilla. 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 Would like adequate histologic sampling to allow for NGS (next generation sequencing) testing for actionable mutations on tumor if clinically indicated -Agree with radiation oncology consultation for consideration of palliative radiotherapy -We will follow for results of surgical pathology -I expect he would require some form of systemic therapy. We will discuss further details with the patient once surgical pathology is available -Continue Decadron 2 mg every 6 hours. Will defer to neurosurgery regarding steroid taper -Tumor markers, SPEP and free light chains have been checked and have returned negative so far. Bony Celaya MD Medical Oncology/Hematology Ph: [phone] Comment Review of Relevant I have reviewed the following items ikersten (where applicable) has been applied. Labs Laboratory Tests Test 06/23/20 13:20 SARS-CoV-2 Antigen (Rapid) Negative (NEGATIVE) Laboratory Tests Test 06/23/20 13:20 SARS-CoV-2 Antigen (Rapid) Negative (NEGATIVE) Medications Current Medications Ketorolac Tromethamine (Toradol 30mg Vial) 30 mg 1X ONCE IM Last administered on 06/18/20at 11:22; Start 06/18/20 at 10:45; Stop 06/18/20 at 10:46; Status DC Cyclobenzaprine HCl (Flexeril) 10 mg 1X ONCE PO Last administered on 06/18/20 11:21; Start 06/18/20 at 10:45; Stop 06/18/20 at 10:46; Status DC Lidocaine (Lidoderm) 1 patch 1X ONCE TD Last administered on 06/18/20at 11:22; Start 06/18/20 at 10:45; Stop 06/18/20 at 10:46; Status DC Tramadol HCl (Ultram) 100 mg PRN Q6HRS PRN PO MODERATE PAIN Last administered on 06/23/20 05:12; Start 06/18/20 at 17:45 Acetaminophen/ Hydrocodone Bitart (Lortab 5/325) 1 tab PRN Q6HRS PRN PO SEVERE PAIN Last administered on 06/22/20 14:26; Start 06/18/20 at 17:45 Lidocaine (Lidoderm) 1 patch DAILY TD Last administered on 06/23/20 09:12; Start 06/18/20 at 18:00 Miscellaneous (Lidoderm Patch Removal) 1 ea QHS MC Last administered on 06/22/20at 21:00; Start 06/18/20 at 21:00 Atenolol (Tenormin) 25 mg DAILY PO Last administered on 06/23/20at 09:11; Start 06/19/20 at 09:00 Lisinopril (Prinivil) 20 mg DAILY PO Last administered on 06/23/20at 09:11; Start 06/19/20 at 09:00 Gadoterate Meglumine (Clariscan) 16.6 ml 1X ONCE IVP Last administered on 06/19/20at 10:56; Start 06/19/20 at 10:45; Stop 06/19/20 at 10:46; Status DC Iohexol (Omnipaque 240 Mg/ml) 50 ml 1X ONCE PO Last administered on 06/19/20at 12:00; Start 06/19/20 at 12:00; Stop 06/19/20 at 12:01; Status DC Iohexol (Omnipaque 300 Mg/ml) 75 ml 1X ONCE IV Last administered on 06/19/20at 12:00; Start 06/19/20 at 12:00; Stop 06/19/20 at 12:01; Status DC Info (CONTRAST GIVEN -- Rx MONITORING) 1 each PRN DAILY PRN MC SEE COMMENTS; Start 06/19/20 at 11:45; Stop 06/21/20 at 11:44; Status DC Bisacodyl (Dulcolax Tab) 10 mg DAILY PO Last administered on 06/23/20at 09:12; Start 06/19/20 at 14:00 Bisacodyl (Dulcolax Supp) 10 mg PRN DAILY PRN IN CONSTIPATION; Start 06/19/20 at 13:15 Senna/Docusate Sodium (Senna Plus) 1 tab BID PO Last administered on 06/22/20at 08:53; Start 06/19/20 at 21:00 Alprazolam (Xanax) 0.5 mg PRN Q8HRS PRN PO ANXIETY / AGITATION; Start 06/19/20 at 13:15 Dexamethasone Sodium Phosphate (Decadron) 2 mg Q6HRS IVP Last administered on 06/21/20at 12:32; Start 06/19/20 at 16:30; Stop 06/21/20 at 13:04; Status DC Dexamethasone Sodium Phosphate (Decadron) 4 mg Q6HRS IVP Last administered on 06/23/20at 12:37; Start 06/21/20 at 18:00 Pantoprazole Sodium (Protonix) 40 mg DAILYAC PO Last administered on 06/23/20at 12:37; Start 06/23/20 at 11:30 Cefazolin Sodium (Ancef) 2 gm 1X PREOP PRN IVP PRIOR TO PROCEDURE; Start 1 08/24/19 at 08:00; Status UNV Cefazolin Sodium/ Dextrose 50 ml @ 100 mls/hr 1X PREOP PRN IV PRIOR TO PROCEDURE; Start 06/24/20 at 06:00; Stop 06/24/20 at 18:00 Active Scripts Active Reported Tramadol Hcl 50 Mg Tablet 50 Mg PO PRN BID PRN Prednisone 50 Mg Tablet 1 Tab PO DAILY Atenolol 25 Mg Tablet 1 Tab PO DAILY Lisinopril 20 Mg Tablet 1 Tab PO DAILY Vitals/I & O Vital Sign - Last 24 Hours 06/22/20 06/22/20 06/22/20 06/22/20 15:26 15:59 17:19 19:40 Temp 98.6 97.2 98.6 97.2 Pulse 69 67 Resp 18 18 18 18 B/P (MAP) 99/58 (72) 112/58 (76) Pulse Ox 95 95 95 94 O2 Delivery Room Air Room Air Room Air Room Air 06/22/20 06/22/20 06/22/20 06/23/20 20:00 23:10 23:12 00:12 Temp 97.7 97.7 Pulse 58 Resp 16 18 18 B/P (MAP) 121/68 (85) Pulse Ox 100 O2 Delivery Room Air Room Air Room Air Room Air 06/23/20 06/23/20 06/23/20 06/23/20 05:05 05:12 06:12 07:00 Temp 97.7 97.8 97.7 97.8 Pulse 60 55 Resp 20 20 18 B/P (MAP) 112/62 (79) 113/62 (79) Pulse Ox 98 93 O2 Delivery Room Air Room Air Room Air Room Air 06/23/20 06/23/20 06/23/20 09:11 09:11 10:43 Temp 97.8 97.8 Pulse 55 55 58 Resp 18 B/P (MAP) 113/62 113/62 119/60 (79) Pulse Ox 94 O2 Delivery Room Air Intake and Output 06/22/20 06/22/20 06/23/20 15:00 23:00 07:00 Intake Total 300 ml Output Total 200 ml 150 ml Balance -200 ml 150 ml Justifications for Admission Other Justification Nutrition Consultation Dietary Evaluation: Recommendations by RD: Dietary education by RD, Increase Calorie Intake, Protein supplementation Comments: REC continue with Cardiac diet will send chocolate ensure bid Expected Outcomes/Goals: to meet >75% est nutrition needs via po intake Interpretation of weight loss: >5% in 1 month Malnutrition Findings: Food and Nutrition Intake (Sev: <50% est energy req 5days Weight Status: Overweight NATI CELAYA MD Jun 23, 2020 14:52
[2020-06-23 15:00] VITALS: BP 122/68
--- NOTE | 2020-06-23 17:40 | NUR ---
Report received from Joan Trotter RN, will continue to monitor.
[2020-06-23 19:00] VITALS: BP 107/57
[2020-06-23 20:11] LABS: BASO % 0 % (0-3); EOS % 0 % (0-3); HEMATOCRIT 44.5 % (39.0-53.0); HEMOGLOBIN 14.9 g/dL (13.0-17.5); LYMPH # 0.8 x10^3/uL (1.0-4.8); LYMPH % 4 % (24-48); MEAN CORPUSCULAR HEMOGLOBIN 28 pg (25-35); MEAN CORPUSCULAR HGB CONC 33 g/dL (31-37); MEAN CORPUSCULAR VOLUME 85 fL (79-100); MONO # 0.7 x10^3/uL (0.0-1.1); MONO % 4 % (0-9); NEUT # 16.8 x10^3/uL (1.8-7.7); NEUT % 92 % (31-73); PLATELET COUNT 277 x10^3/uL (140-400); RED BLOOD COUNT 5.24 x10^6/uL (4.30-5.70); RED CELL DISTRIBUTION WIDTH 13.4 % (11.5-14.5); WHITE BLOOD COUNT 18.3 x10^3/uL (4.0-11.0)
[2020-06-23 20:37] LABS: ALBUMIN 3.2 g/dL (3.4-5.0); ALBUMIN/GLOBULIN RATIO 0.8 (1.0-1.7); CREATININE 1.1 mg/dL (0.7-1.3); GFR 66.6; POTASSIUM 4.5 mmol/L (3.5-5.1); TOTAL BILIRUBIN 0.6 mg/dL (0.2-1.0); TOTAL PROTEIN 7.2 g/dL (6.4-8.2)
[2020-06-23] MEDS: PATCH REMOVAL. MC SCH (20:38)
[2020-06-23 20:40] LABS: % LYMPHS 6 % (24-48); % METAS 1 % (0-0); % MONOS 3 % (0-10); % SEGS 90 % (35-66)
[2020-06-23 20:41] LABS: PLT ESTIMATE ADEQUATE (ADEQUATE)
[2020-06-23 23:00] VITALS: BP 100/53
[2020-06-24] VITALS (12 sets, daily range): BP systolic 83–136; BP diastolic 38–58
[2020-06-24] MEDS: DEXAMETHASONE SOD PHOS 4 MG/ML VIAL IVP SCH ×4 (00:22→18:32)
[2020-06-24] MEDS: traMADol 50 MG TABLET PO PRN (00:25)
--- NOTE | 2020-06-24 02:40 | RAD ---
STUDY: US DUPLEX LOWER EXTREMITY BILAT INDICATION: Immobility. Weakness. TECHNIQUE: Color-flow and pulsed wave duplex ultrasound of the arteries of both lower extremities. COMPARISON: None. FINDINGS: Flow velocities as follows: Right lower extremity: Common femoral artery: 138 cm/s Deep femoral artery: 97 cm/s Proximal SFA: 84 cm/s Mid SFA: 103 cm/s Distal SFA: 107 cm/s Popliteal artery: 60 cm/s Proximal posterior tibial artery: 67 cm/s Distal posterior tibial artery: 47 cm/s Peroneal artery: 37 cm/s Anterior tibial artery: 66 cm/s DPA: 69 cm/s Left lower extremity: Common femoral artery: 130 cm/s Deep femoral artery: 74 cm/s Proximal SFA: 112 cm/s Mid SFA: 99 cm/s Distal SFA: 63 cm/s Popliteal artery: 88 cm/s Proximal posterior tibial artery: 56 cm/s Distal posterior tibial artery: 60 cm/s Peroneal artery: 40 cm/s Anterior tibial artery: 70 cm/s DPA: 64 cm/s Combination of biphasic and triphasic waveforms on the right. Triphasic waveforms maintained throughout the left lower extremity. Minimal scattered atheromatous plaque with no visible flow-limiting stenosis nor flow-limiting stenosis based on peak systolic velocity measurements. IMPRESSION: No flow-limiting stenosis seen throughout either lower extremity with only minimal scattered atheromatous plaque. Electronically signed by: CANDIE PASTRANA MD (06/24/2020 2:38 AM) [id number]
[2020-06-24] MEDS ORDERED: BACITRACIN 50,000 UNIT in IV NORMAL SALINE 1000ML BAG 1,000 ML IRR ONE (06:00)
[2020-06-24] MEDS ORDERED: LIDOCAINE 1%/EPI 1:100,000 20 ML VIAL. ONE (06:49)
[2020-06-24] MEDS ORDERED: GELATIN SPONGE SIZE 100. ONE ×2 (06:49→14:43)
[2020-06-24] MEDS ORDERED: KETOROLAC 60 MG/2 ML VIAL. ONE (06:49)
[2020-06-24] MEDS ORDERED: THROMBIN TOPICAL 20,000 UNIT SPRAY.SYRN KIT TP ONE ×2 (06:50→13:58)
[2020-06-24] MEDS: PANTOPRAZOLE 40 MG TABLET.DR. PO SCH (07:30)
[2020-06-24] MEDS ORDERED: PROPOFOL 200 ML IV ONE (07:59)
[2020-06-24] MEDS ORDERED: ceFAZolin SODIUM IV Push 1 GM VIAL. IVP PRN (08:00)
[2020-06-24] MEDS ORDERED: fentaNYL PF VIAL 100 MCG/2 ML VIAL ONE (08:07)
[2020-06-24] MEDS ORDERED: MIDAZOLAM HCL/PF 2 MG/2 ML VIAL. ONE (08:08)
[2020-06-24] MEDS ORDERED: REMIFENTANIL 2 MG VIAL. IV ONE ×3 (08:08→15:30)
[2020-06-24] MEDS ORDERED: PROPOFOL 10 MG/ML (20ML) VIAL. IV ONE (08:08)
[2020-06-24] MEDS ORDERED: LIDOCAINE 2% PF 5 ML VIAL. ONE (08:08)
[2020-06-24] MEDS ORDERED: DEXAMETHASONE SOD PHOS 20 MG/5 ML VIAL. ONE (08:08)
[2020-06-24] MEDS ORDERED: ROCURONIUM 50 MG/5 ML VIAL. ONE (08:08)
[2020-06-24] MEDS ORDERED: ONDANSETRON PF 4 MG/2 ML VIAL. ONE (08:09)
[2020-06-24] MEDS ORDERED: PHENYLEPHRINE 10 MG/ML VIAL. ONE ×4 (08:16→15:23)
--- NOTE | 2020-06-24 08:26 | PDOC ---
Provider Note Date of Service: DATE: 06/24/20 TIME: 08:25 Provider Note will hold lisin re lower bp, still on decadron in advance of surgery- n new problems Justifications for Admission Other Justification MARK ANTHONY ARELLANO MD Jun 24, 2020 08:26
[2020-06-24] MEDS: LIDOCAINE (700MG/PATCH) PATCH. TD SCH (09:00)
[2020-06-24] MEDS: ATENOLOL 25 MG TABLET. PO SCH (09:00)
[2020-06-24] MEDS: BISACODYL 5 MG TABLET.DR. PO SCH (09:00)
[2020-06-24] MEDS: SENNOSIDES/DOCUSATE 8.6/50MG TABLET. PO SCH ×2 (09:00→21:09)
[2020-06-24] MEDS ORDERED: ePHEDrine PF IN SALINE 50 MG/10 ML SYRINGE. IV ONE (09:07)
--- NOTE | 2020-06-24 09:29 | NUR ---
SW following. Discussed with RN, pt transferred from [address] [place] [address]. Pt having surgery today. Will need therapy after surgery. SW will continue to follow.
[2020-06-24] MEDS ORDERED: IV RINGERS,LACTATED 1000ML 1,000 ML IV SCH (09:31)
[2020-06-24] MEDS ORDERED: LIDOCAINE 1% PF 2 ML VIAL. ID PRN (09:45)
[2020-06-24] MEDS ORDERED: fentaNYL PF VIAL 100 MCG/2 ML VIAL IV PRN ×2 (09:45)
[2020-06-24] MEDS ORDERED: HYDROmorphone 2 MG/ML VIAL IV PRN (09:45)
[2020-06-24] MEDS ORDERED: PROCHLORPERAZINE 10 MG/2 ML VIAL. IV PRN (09:45)
[2020-06-24] MEDS ORDERED: MORPHINE SULFATE 2 MG/ML VIAL. IV PRN (09:45)
[2020-06-24] MEDS ORDERED: ONDANSETRON PF 4 MG/2 ML VIAL. IV PRN (09:45)
--- NOTE | 2020-06-24 11:12 | RAD ---
EXAM: CT Lumbar Spine without IV contrast INDICATION: Reason: brainlab CT pre op T10 to L4 / Spl. Instructions: / History: TECHNIQUE: Multi-detector row CT images were obtained through the lumbar spine without the use of IV contrast. Post-processing sagittal and coronal reconstructed images were obtained for interpretation. All CT scans performed at this facility utilize dose optimization techniques as appropriate to the exam, including the following: Automated exposure control and adjustment of the mA and/or KV according to patient size (this includes techniques or standardized protocols for targeted exams where dose is indication/reason for exam). COMPARISON: None FINDINGS: The lowest fully formed disc is referred to as the L5-S1 level. ALIGNMENT: Alignment is within normal limits. OSSEOUS: Large osteolytic mass centered in the left L1 pedicle with extensive erosion of the left dorsolateral L1 vertebral body is present, associated with osseous involvement of the left T12 lamina and spinous process. The mass involves the L1 spinous process and bilateral lamina and encroaches on the central canal, as shown on earlier MRI. Extension into the predominantly left-sided paraspinal tissues is present with erosion of the left L2 transverse process. Lower subtle lucencies in the bones are present that could represent additional sites of osseous involvement such as in the posterior lateral right superior T12 vertebral body (sagittal image 29 of series 6) the anterior inferior right L3 vertebra (sagittal image 28 of series 6), and the S1 vertebral body (sagittal image 29 of series 6). DISC SPACES: Multilevel diffuse disc bulge. FACET JOINTS: Facet joints at L1-L2 bilaterally, and on the left at T12-L1 show tumoral infiltration. SPINAL CANAL: Central canal stenosis at L1 from tumor burden is present, better illustrated on comparison MRI. NEUROFORAMINA: Varying degrees of foraminal narrowing. SOFT TISSUES: Tumoral extension into the paraspinal musculature and left psoas muscle at the L1 level is redemonstrated, better depicted on MRI than on the current study. No significant interval change. Scattered colonic diverticuli. IMPRESSION: Large centrally necrotic tumor centered at the left L1 pedicle with extensive bony erosions and central canal encroachment as described. No significant change from 06/19/2020 L-spine MRI, allowing for differences between modalities. Electronically signed by: Etienne Looney MD (06/24/2020 11:09 AM) [id number]
[2020-06-24] MEDS ORDERED: DESFLURANE > 120 MINUTES IH ONE (11:33)
[2020-06-24] MEDS ORDERED: KETAMINE HCL IN NACL, ISO-OSM 50 MG/5 ML SYRINGE ONE (12:20)
[2020-06-24] MEDS ORDERED: ceFAZolin SODIUM IV Push 1 GM VIAL. IVP ONE ×2 (12:29)
[2020-06-24] MEDS ORDERED: ALBUMIN HUMAN 5% 500 ML IV ONE ×2 (13:48→15:23)
[2020-06-24 14:07] LABS: HEMATOCRIT 44.2 % (39.0-53.0)
[2020-06-24] MEDS ORDERED: VASOPRESSIN 20 UNIT/ML VIAL. ONE (14:55)
[2020-06-24 17:32] LABS: HEMATOCRIT 23.5 % (39.0-53.0); HEMOGLOBIN 7.7 g/dL (13.0-17.5); RED BLOOD COUNT 2.73 x10^6/uL (4.30-5.70); RED CELL DISTRIBUTION WIDTH 13.6 % (11.5-14.5); WHITE BLOOD COUNT 27.2 x10^3/uL (4.0-11.0)
[2020-06-24] MEDS: fentaNYL PF VIAL 100 MCG/2 ML VIAL IVP PRN ×2 (18:33→20:56)
--- NOTE | 2020-06-24 18:47 | NUR ---
Patient arrived on unit at 181 accompanied by CLINICAL LABORATORY MEDICAL DIRECTOR. Patient is alert and oriented, able to converse more than when he was in PACU, slightly forgetful but aware he is in the ICU and surgery is completed. Patient complaining of pain, 5/10, comfort goal is a 4. Patient given 50 mcg Fentanyl. Patient slightly hypotensive, paged Dr. Padilla. PRBC currently infusing, LR infusing. Family aware of transfer to unit and updated on patient's condition. Surgical dressing clean, dry, and intact with sanguineous drainage in SKYLAR drain.
[2020-06-24] MEDS ORDERED: IV NORMAL SALINE 1000ML BAG 1,000 ML IV ONE (20:00)
[2020-06-24] MEDS: PATCH REMOVAL. MC SCH (21:00)
[2020-06-24] MEDS: IV NORMAL SALINE 1000ML BAG 1,000 ML IV SCH (21:09)
[2020-06-24 22:05] LABS: HEMATOCRIT 28.1 % (39.0-53.0); HEMOGLOBIN 9.4 g/dL (13.0-17.5); RED BLOOD COUNT 3.28 x10^6/uL (4.30-5.70); RED CELL DISTRIBUTION WIDTH 14.1 % (11.5-14.5); WHITE BLOOD COUNT 24.8 x10^3/uL (4.0-11.0)
[2020-06-25] VITALS (18 sets, daily range): BP systolic 92–124; BP diastolic 51–70
[2020-06-25] MEDS: DEXAMETHASONE SOD PHOS 4 MG/ML VIAL IVP SCH ×4 (00:03→18:02)
[2020-06-25] MEDS: fentaNYL PF VIAL 100 MCG/2 ML VIAL IVP PRN ×6 (05:29→21:07)
[2020-06-25 06:01] LABS: BASO % 0 % (0-3); EOS % 0 % (0-3); HEMATOCRIT 27.8 % (39.0-53.0); HEMOGLOBIN 9.3 g/dL (13.0-17.5); LYMPH # 0.9 x10^3/uL (1.0-4.8); LYMPH % 5 % (24-48); MEAN CORPUSCULAR HEMOGLOBIN 29 pg (25-35); MEAN CORPUSCULAR HGB CONC 33 g/dL (31-37); MEAN CORPUSCULAR VOLUME 86 fL (79-100); MONO # 1.1 x10^3/uL (0.0-1.1); MONO % 6 % (0-9); NEUT # 15.6 x10^3/uL (1.8-7.7); NEUT % 89 % (31-73); PLATELET COUNT 124 x10^3/uL (140-400); RED BLOOD COUNT 3.25 x10^6/uL (4.30-5.70); RED CELL DISTRIBUTION WIDTH 14.3 % (11.5-14.5); WHITE BLOOD COUNT 17.7 x10^3/uL (4.0-11.0)
[2020-06-25 06:08] LABS: CALCIUM 7.7 mg/dL (8.5-10.1); CREATININE 1.5 mg/dL (0.7-1.3); GFR 46.5
[2020-06-25] MEDS: IV NORMAL SALINE 1000ML BAG 1,000 ML IV SCH ×2 (06:55→15:58)
[2020-06-25] MEDS: PANTOPRAZOLE 40 MG TABLET.DR. PO SCH (08:17)
[2020-06-25] MEDS: HYDROcodone/APAP 5/325MG 1 TAB TABLET PO PRN ×2 (08:17→17:55)
[2020-06-25] MEDS: SENNOSIDES/DOCUSATE 8.6/50MG TABLET. PO SCH ×2 (08:49→21:06)
[2020-06-25] MEDS: BISACODYL 5 MG TABLET.DR. PO SCH (08:49)
[2020-06-25] MEDS: ATENOLOL 25 MG TABLET. PO SCH (08:50)
[2020-06-25] MEDS: LIDOCAINE (700MG/PATCH) PATCH. TD SCH (08:50)
[2020-06-25 10:17] LABS: ART BE ISTAT -7 mmol/L (0-3); ART GLUC ISTAT 199 mg/dL (70-99); ART HCO3 ISTAT 20 mmol/L (21-28); ART HCT ISTAT 29 % (37-52); ART HGB ISTAT 9.9 g/dL (14-18); ART ION CA ISTAT 1.16 mmol/L (1.13-1.32); ART K ISTAT 4.9 mmol/L (3.5-5.0); ART NA ISTAT 134 mmol/L (135-145); ART PCO2 ISTAT 40 mmHg (35-45); ART PO2 ISTAT 456 mmHg (75-100); ART SAT O2 SAT 100 % (95-99); ART TCO2 ISTAT 21 mmol/L (21-32); CORRECTED PCO2 37 mmHg; CORRECTED PH 7.33; CORRECTED PO2 444 mmHg
--- NOTE | 2020-06-25 10:54 | NUR ---
Have reviewed and agree with documentation completed by manager internet and made changes as needed/appropriate
[2020-06-25] MEDS ORDERED: MAGNESIUM SULFATE 2GM 50 ML IV PRN (12:00)
--- NOTE | 2020-06-25 12:00 | PDOC2 ---
CONSULT Date of Consult Date of Consult DATE: 06/25/20 TIME: 11:46 Reason for Consult Reason for Consult: Low urine output, fluid management Referring Physician Referring Physician: Dr. Pete Identification/Chief Complaint Chief Complaint Back pain Source Source: Chart review, Patient History of Present Illness Reason for Visit: Mr. Gregory is a pleasant 69-year-old gentleman who had presented to his primary care physician's office with complaints of back pain. He was also noted to have a significant weight loss. Pulmonary evaluation was ordered however patient developed worsening pain and presented to the ER for further evaluation. CT scan showed a large destructive lesion on L1 with other areas of lytic lesions in the lumbar and thoracic spine raising questions of metastatic disease. He was admitted to the hospital and further imaging studies showed cord compression at L1 level and hence has been evaluated by neurosurgery. He is now status post surgery for the same and is noted to have had extensive blood loss Intra-Op to where his hemoglobin went from 15 on 06/24 to 7.7 postop. He was admitted to the ICU where he was noted to be marginally hypotensive as well as oliguric and I was consulted for further evaluation of the same. Patient did receive approximately 6 L of fluids Intra-Op. Another liter bolus was administered while in the ICU and now urine output has picked up to approximately 75 cc an hour. He did receive CT scan with IV contrast also during this hospitalization.. His baseline creatinine was 1.1 and has gone up to 1.5 today. Past Medical History Cardiovascular: CAD, HTN, Hyperlipidemia Family History Family History Positive for prostate cancer in both his father and his paternal grandfather; his brother had esophageal cancer, possibly from tobacco; otherwise, unremarkable. Family History: Cancer (Father and paternal grandfather had prostate cancer. Brother has esophageal cancer.) Social History No ALCOHOL: none Drugs: None Lives: with Family Current Problem List Problem List Problems Medical Problems: (1) Abnormal CT scan, lumbar spine Status: Acute Current Medications Current Medications Current Medications Ketorolac Tromethamine (Toradol 30mg Vial) 30 mg 1X ONCE IM Last administered on 06/18/20at 11:22; Start 06/18/20 at 10:45; Stop 06/18/20 at 10:46; Status DC Cyclobenzaprine HCl (Flexeril) 10 mg 1X ONCE PO Last administered on 06/18/20at 11:21; Start 06/18/20 at 10:45; Stop 06/18/20 at 10:46; Status DC Lidocaine (Lidoderm) 1 patch 1X ONCE TD Last administered on 06/18/20at 11:22; Start 06/18/20 at 10:45; Stop 06/18/20 at 10:46; Status DC Tramadol HCl (Ultram) 100 mg PRN Q6HRS PRN PO MODERATE PAIN Last administered on 06/24/20at 00:25; Start 06/18/20 at 17:45 Acetaminophen/ Hydrocodone Bitart (Lortab 5/325) 1 tab PRN Q6HRS PRN PO SEVERE PAIN Last administered on 06/25/20at 08:17; Start 06/18/20 at 17:45 Lidocaine (Lidoderm) 1 patch DAILY TD Last administered on 06/23/20at 09:12; Start 06/18/20 at 18:00 Miscellaneous (Lidoderm Patch Removal) 1 ea QHS MC Last administered on 06/23/20at 20:38; Start 06/18/20 at 21:00 Atenolol (Tenormin) 25 mg DAILY PO Last administered on 06/23/20at 09:11; Start 06/19/20 at 09:00 Lisinopril (Prinivil) 20 mg DAILY PO Last administered on 06/23/20at 09:11; St art 06/19/20 at 09:00; Stop 06/24/20 at 08:26; Status DC Gadoterate Meglumine (Clariscan) 16.6 ml 1X ONCE IVP Last administered on 06/19/20at 10:56; Start 06/19/20 at 10:45; Stop 06/19/20 at 10:46; Status DC Iohexol (Omnipaque 240 Mg/ml) 50 ml 1X ONCE PO Last administered on 06/19/20at 12:00; Start 06/19/20 at 12:00; Stop 06/19/20 at 12:01; Status DC Iohexol (Omnipaque 300 Mg/ml) 75 ml 1X ONCE IV Last administered on 06/19/20at 12:00; Start 06/19/20 at 12:00; Stop 06/19/20 at 12:01; Status DC Info (CONTRAST GIVEN -- Rx MONITORING) 1 each PRN DAILY PRN MC SEE COMMENTS; Start 06/19/20 at 11:45; Stop 06/21/20 at 11:44; Status DC Bisacodyl (Dulcolax Tab) 10 mg DAILY PO Last administered on 06/23/20at 09:12; Start 06/19/20 at 14:00 Bisacodyl (Dulcolax Supp) 10 mg PRN DAILY PRN SC CONSTIPATION; Start 06/19/20 at 13:15 Senna/Docusate Sodium (Senna Plus) 1 tab BID PO Last administered on 06/24/20at 21:09; Start 06/19/20 at 21:00 Alprazolam (Xanax) 0.5 mg PRN Q8HRS PRN PO ANXIETY / AGITATION; Start 06/19/20 at 13:15 Dexamethasone Sodium Phosphate (Decadron) 2 mg Q6HRS IVP Last administered on 06/21/20at 12:32; Start 06/19/20 at 16:30; Stop 06/21/20 at 13:04; Status DC Dexamethasone Sodium Phosphate (Decadron) 4 mg Q6HRS IVP Last administered on 06/25/20at 06:14; Start 06/21/20 at 18:00; Stop 06/25/20 at 09:27; Status DC Pantoprazole Sodium (Protonix) 40 mg DAILYAC PO Last administered on 06/25/20at 08:17; Start 06/23/20 at 11:30 Cefazolin Sodium (Ancef) 2 gm 1X PREOP PRN IVP PRIOR TO PROCEDURE; Start 06/24/20 at 08:00; Status UNV Cefazolin Sodium/ Dextrose 50 ml @ 100 mls/hr 1X PREOP PRN IV PRIOR TO PROCEDURE Last administered on 06/24/20at 09:29; Start 06/24/20 at 06:00; Stop 06/24/20 at 18:00; Status DC Bacitracin 96353 unit/Sodium Chloride 1,000 ml @ 1,000 mls/hr 1X ONCE IRR Last administered on 06/24/20at 10:08; Start 06/24/20 at 06:00; Stop 06/24/20 at 06:59; Status DC Gelatin (Gelfoam Size 100) 1 each STK-MED ONCE .ROUTE Last administered on 06/24/20at 10:08; Start 06/24/20 at 06:49; Stop 06/24/20 at 06:50; Status DC Ketorolac Tromethamine (Toradol Im) 60 mg STK-MED ONCE .ROUTE Last administered on 06/24/20at 10:08; Start 06/24/20 at 06:49; Stop 06/24/20 at 06:50; Status DC Lidocaine/ Epinephrine (LIDOCAINE 1%-EPI 1:100,000 Multi-Dose) 20 ml STK-MED ONCE .ROUTE Last administered on 06/24/20at 10:08; Start 06/24/20 at 06:49; Stop 06/24/20 at 06:50; Status DC Thrombin 20,000 unit STK-MED ONCE TP Last administered on 06/24/20at 10:08; Start 06/24/20 at 06:50; Stop 06/24/20 at 06:50; Status DC Propofol 200 ml @ As Directed STK-MED ONCE IV ; Start 06/24/20 at 07:59; Stop 06/24/20 at 07:59; Status DC Fentanyl Citrate (Fentanyl 2ml Vial) 100 mcg STK-MED ONCE .ROUTE ; Start 06/24/20 at 08:07; Stop 06/24/20 at 08:08; Status DC Rocuronium Inman (Zemuron) 50 mg STK-MED ONCE .ROUTE ; Start 06/24/20 at 08:08; Stop 06/24/20 at 08:08; Status DC Remifentanil HCl (Ultiva) 2 mg STK-MED ONCE IV ; Start 06/24/20 at 08:08; Stop 06/24/20 at 08:08; Status DC Midazolam HCl (Versed) 2 mg STK-MED ONCE .ROUTE ; Start 06/24/20 at 08:08; Stop 06/24/20 at 08:08; Status DC Propofol (Diprivan) 200 mg STK-MED ONCE IV ; Start 06/24/20 at 08:08; Stop 06/24/20 at 08:09; Status DC Dexamethasone Sodium Phosphate (Decadron) 20 mg STK-MED ONCE .ROUTE ; Start 06/24/20 at 08:08; Stop 06/24/20 at 08:09; Status DC Lidocaine HCl (Lidocaine Pf 2% Vial) 5 ml STK-MED ONCE .ROUTE ; Start 06/24/20 at 08:08; Stop 06/24/20 at 08:09; Status DC Ondansetron HCl (Zofran) 4 mg STK-MED ONCE .ROUTE ; Start 06/24/20 at 08:09; Stop 06/24/20 at 08:09; Status DC Phenylephrine HCl (Sergio-Synephrine Inj) 10 mg STK-MED ONCE .ROUTE ; Start 06/24/20 at 08:16; Stop 06/24/20 at 08:17; Status DC Ephedrine Sulfate (ePHEDrine PF IN SALINE SYRINGE) 50 mg STK-MED ONCE IV ; Start 06/24/20 at 09:07; Stop 06/24/20 at 09:07; Status DC Ondansetron HCl (Zofran) 4 mg PRN Q6HRS PRN IV NAUSEA/VOMITING; Start 06/24/20 at 09:45; Stop 06/24/20 at 19:54; Status DC Fentanyl Citrate (Fentanyl 2ml Vial) 25 mcg PRN Q5MIN PRN IV MILD PAIN 1-3; Start 06/24/20 at 09:45; Stop 06/24/20 at 19:54; Status DC Fentanyl Citrate (Fentanyl 2ml Vial) 50 mcg PRN Q5MIN PRN IV MODERATE TO SEVERE PAIN; Start 06/24/20 at 09:45; Stop 06/24/20 at 19:54; Status DC Morphine Sulfate (Morphine Sulfate) 1 mg PRN Q10MIN PRN IV SEVERE PAIN 7-10; Start 06/24/20 at 09:45; Stop 06/24/20 at 19:54; Status DC Ringer's Solution 1,000 ml @ 30 mls/hr Q24H IV ; Start 06/24/20 at 09:31; Stop 06/24/20 at 19:54; Status DC Lidocaine HCl (Xylocaine-Mpf 1% 2ml Vial) 2 ml PRN 1X PRN ID PRIOR TO IV START; Start 06/24/20 at 09:45; Stop 06/24/20 at 19:54; Status DC Hydromorphone HCl (Dilaudid) 0.5 mg PRN Q10MIN PRN IV SEV PAIN, Second choice; Start 06/24/20 at 09:45; Stop 06/24/20 at 19:54; Status DC Prochlorperazine Edisylate (Compazine) 5 mg PACU PRN PRN IV NAUSEA, MRX1; Start 06/24/20 at 09:45; Stop 06/24/20 at 19:54; Status DC Remifentanil HCl (Ultiva) 2 mg STK-MED ONCE IV ; Start 06/24/20 at 11:31; Stop 06/24/20 at 11:31; Status DC Desflurane (Suprane) 90 ml STK-MED ONCE IH ; Start 06/24/20 at 11:33; Stop 06/24/20 at 11:34; Status DC Ketamine HCl (Ketamine) 50 mg STK-MED ONCE .ROUTE ; Start 06/24/20 at 12:20; Stop 06/24/20 at 12:20; Status DC Phenylephrine HCl (Sergio-Synephrine Inj) 10 mg STK-MED ONCE .ROUTE ; Start 06/24/20 at 12:27; Stop 06/24/20 at 12:28; Status DC Cefazolin Sodium (Ancef) 1 gm STK-MED ONCE IVP ; Start 06/24/20 at 12:29; Stop 06/24/20 at 12:30; Status DC Cefazolin Sodium (Ancef) 1 gm STK-MED ONCE IVP ; Start 06/24/20 at 12:29; Stop 06/24/20 at 12:30; Status DC Albumin Human 500 ml @ As Directed STK-MED ONCE IV ; Start 06/24/20 at 13:48; Stop 06/24/20 at 13:48; Status DC Thrombin 20,000 unit STK-MED ONCE TP Last administered on 06/24/20at 14:09; Start 06/24/20 at 13:58; Stop 06/24/20 at 13:58; Status DC Phenylephrine HCl (Sergio-Synephrine Inj) 10 mg STK-MED ONCE .ROUTE ; Start 06/24/20 at 14:06; Stop 06/24/20 at 14:06; Status DC Gelatin (Gelfoam Size 100) 1 each STK-MED ONCE .ROUTE Last administered on 06/24/20at 14:49; Start 06/24/20 at 14:43; Stop 06/24/20 at 14:43; Status DC Vasopressin (Vasostrict) 20 unit STK-MED ONCE .ROUTE ; Start 06/24/20 at 14:55; Stop 06/24/20 at 14:55; Status DC Albumin Human 500 ml @ As Directed STK-MED ONCE IV ; Start 06/24/20 at 15:23; Stop 06/24/20 at 15:23; Status DC Phenylephrine HCl (Sergio-Synephrine Inj) 10 mg STK-MED ONCE .ROUTE ; Start 1 08/24/19 at 15:23; Stop 06/24/20 at 15:23; Status DC Remifentanil HCl (Ultiva) 2 mg STK-MED ONCE IV ; Start 06/24/20 at 15:30; Stop 06/24/20 at 15:30; Status DC Fentanyl Citrate (Fentanyl 2ml Vial) 50 mcg PRN Q2HR PRN IVP PAIN Last administered on 06/25/20at 11:39; Start 06/24/20 at 16:45 Sodium Chloride 1,000 ml @ 1,000 mls/hr 1X ONCE IV Last administered on 06/24/20at 20:08; Start 06/24/20 at 20:00; Stop 06/24/20 at 20:59; Status DC Sodium Chloride 1,000 ml @ 100 mls/hr Q10H IV Last administered on 06/25/20at 06:55; Start 06/24/20 at 21:00 Dexamethasone Sodium Phosphate (Decadron) 2 mg Q6HRS IVP Last administered on 06/25/20at 11:38; Start 06/25/20 at 12:00 Active Scripts Active Reported Tramadol Hcl 50 Mg Tablet 50 Mg PO PRN BID PRN Prednisone 50 Mg Tablet 1 Tab PO DAILY Atenolol 25 Mg Tablet 1 Tab PO DAILY Lisinopril 20 Mg Tablet 1 Tab PO DAILY Allergies Allergies: Coded Allergies: No Known Drug Allergies (Unverified , 01/27/15) ROS Review of System He is tired and tells me he is unable to move his legs from below his waist. Otherwise denies nausea vomiting etc. Physical Exam Physical Exam General Appearance: Awake Alert Oriented x 3 In no Distress, somewhat overweight gentleman Eyes: VIsion Unchanged Conjunctiva Normal EN: No EN Drainage Mucous Memb. Somewhat dry Neck: no JVD no JVP Supple no Thyromegaly CVS: S1 S2 no Murmur No Gallop No Rub trace edema x 4 Resp: no Rales no Rhonchi no Acc. Muscle use GI: BAS +ve NO Bruit Non Tender Non Distended, somewhat obese abdomen : no CVA tenderness; no Suprapubic Tenderness SKIN: no visible Rashes Breast Exam deferred Mu.Sk: Adequate ROM in his upper extremities, decreased strength in his lower extremities especially in the thigh area no Muscle Atrophy Heme: Unable to palpate Obvious LAD no palp Splenomegaly NEURO: Good Strength and Tone in his upper extremities, decreased in his thighs cranial Nerves II - XII grossly intact Psych: not Depressed no Active hallucination Vital Signs Vital Signs Date Time Temp Pulse Resp B/P (MAP) Pulse Ox O2 Delivery O2 Flow Rate FiO2 06/25/20 11:39 17 97 Room Air 06/25/20 11:00 78 104/58 (73) 06/25/20 08:00 98.7 98.7 06/24/20 17:40 10 Assessment & Plan Acute kidney injury possible ATN with oligo anuria albeit transiently responded to IV fluids. Watch trend of urine output and creatinine hereafter Oliguria: Now resolved with volume expansion this coincided with some level of intravascular volume depletion and hypotension also Kidney cancer: Presumably metastatic. Will defer further management to oncology. Hypocalcemia: Check CPK magnesium. Postop anemia: Now status post blood transfusion Labs Labs Laboratory Tests Test 06/23/20 13:20 06/23/20 19:50 06/24/20 13:47 06/24/20 15:03 Coronavirus (PCR) Not detected (Not Detected) SARS-CoV-2 Antigen (Rapid) Negative (NEGATIVE) White Blood Count 18.3 x10^3/uL (4.0-11.0) Red Blood Count 5.24 x10^6/uL (4.30-5.70) Hemoglobin 14.9 g/dL (13.0-17.5) 15.0 g/dL (13.0-17.5) Hematocrit 44.5 % (39.0-53.0) 44.2 % (39.0-53.0) Mean Corpuscular Volume 85 fL (79-100) Mean Corpuscular Hemoglobin 28 pg (25-35) Mean Corpuscular Hemoglobin Concent 33 g/dL (31-37) 34 g/dL (31-37) Red Cell Distribution Width 13.4 % (11.5-14.5) Platelet Count 277 x10^3/uL (140-400) Neutrophils (%) (Auto) 92 % (31-73) Lymphocytes (%) (Auto) 4 % (24-48) Monocytes (%) (Auto) 4 % (0-9) Eosinophils (%) (Auto) 0 % (0-3) Basophils (%) (Auto) 0 % (0-3) Neutrophils # (Auto) 16.8 x10^3/uL (1.8-7.7) Lymphocytes # (Auto) 0.8 x10^3/uL (1.0-4.8) Monocytes # (Auto) 0.7 x10^3/uL (0.0-1.1) Eosinophils # (Auto) 0.0 x10^3/uL (0.0-0.7) Basophils # (Auto) 0.0 x10^3/uL (0.0-0.2) Segmented Neutrophils % 90 % (35-66) Lymphocytes % 6 % (24-48) Monocytes % 3 % (0-10) Metamyelocytes % 1 % (0-0) Platelet Estimate Adequate (ADEQUATE) Sodium Level 133 mmol/L (136-145) Potassium Level 4.5 mmol/L (3.5-5.1) Chloride Level 98 mmol/L (98-107) Carbon Dioxide Level 26 mmol/L (21-32) Anion Gap 9 (6-14) Blood Urea Nitrogen 42 mg/dL (8-26) Creatinine 1.1 mg/dL (0.7-1.3) Estimated GFR (Cockcroft-Gault) 66.6 BUN/Creatinine Ratio 38 (6-20) Glucose Level 159 mg/dL (70-99) 199 mg/dL (70-99) Calcium Level 9.0 mg/dL (8.5-10.1) Total Bilirubin 0.6 mg/dL (0.2-1.0) Aspartate Amino Transf (AST/SGOT) 36 U/L (15-37) Alanine Aminotransferase (ALT/SGPT) 77 U/L (16-63) Alkaline Phosphatase 107 U/L (46-116) Total Protein 7.2 g/dL (6.4-8.2) Albumin 3.2 g/dL (3.4-5.0) Albumin/Globulin Ratio 0.8 (1.0-1.7) Bedside Hemoglobin (Calculated) 9.9 g/dL (14-18) Bedside Hematocrit 29 % (37-52) Bedside Arterial pH 7.30 (7.35-7.45) Arterial Blood pH (Temp corrected) 7.33 Bedside Arterial pCO2 40 mmHg (35-45) Arterial Blood pCO2 (Temp correct) 37 mmHg Bedside Arterial pO2 456 mmHg (75-100) Arterial Blood pO2 (Temp corrected) 444 mmHg Bedside Arterial HCO3 20 mmol/L (21-28) Bedside Arterial Total CO2 21 mmol/L (21-32) Arterial Bld O2 Saturation (Measur) 100 % (95-99) Bedside Arterial Blood Base Excess -7 mmol/L (0-3) Bedside FiO2 100.0 Bedside Sodium 134 mmol/L (135-145) Bedside Potassium 4.9 mmol/L (3.5-5.0) Bedside Ionized Calcium (Craig) 1.16 mmol/L (1.13-1.32) Test 06/24/20 17:20 06/24/20 21:45 06/25/20 05:25 White Blood Count 27.2 x10^3/uL (4.0-11.0) 24.8 x10^3/uL (4.0-11.0) 17.7 x10^3/uL (4.0-11.0) Red Blood Count 2.73 x10^6/uL (4.30-5.70) 3.28 x10^6/uL (4.30-5.70) 3.25 x10^6/uL (4.30-5.70) Hemoglobin 7.7 g/dL (13.0-17.5) 9.4 g/dL (13.0-17.5) 9.3 g/dL (13.0-17.5) Hematocrit 23.5 % (39.0-53.0) 28.1 % (39.0-53.0) 27.8 % (39.0-53.0) Mean Corpuscular Volume 86 fL (79-100) 86 fL (79-100) 86 fL (79-100) Mean Corpuscular Hemoglobin 28 pg (25-35) 29 pg (25-35) 29 pg (25-35) Mean Corpuscular Hemoglobin Concent 33 g/dL (31-37) 34 g/dL (31-37) 33 g/dL (31-37) Red Cell Distribution Width 13.6 % (11.5-14.5) 14.1 % (11.5-14.5) 14.3 % (11.5-14.5) Platelet Count 145 x10^3/uL (140-400) 121 x10^3/uL (140-400) 124 x10^3/uL (140-400) Neutrophils (%) (Auto) 89 % (31-73) Lymphocytes (%) (Auto) 5 % (24-48) Monocytes (%) (Auto) 6 % (0-9) Eosinophils (%) (Auto) 0 % (0-3) Basophils (%) (Auto) 0 % (0-3) Neutrophils # (Auto) 15.6 x10^3/uL (1.8-7.7) Lymphocytes # (Auto) 0.9 x10^3/uL (1.0-4.8) Monocytes # (Auto) 1.1 x10^3/uL (0.0-1.1) Eosinophils # (Auto) 0.0 x10^3/uL (0.0-0.7) Basophils # (Auto) 0.0 x10^3/uL (0.0-0.2) Sodium Level 139 mmol/L (136-145) Potassium Level 5.0 mmol/L (3.5-5.1) Chloride Level 108 mmol/L (98-107) Carbon Dioxide Level 21 mmol/L (21-32) Anion Gap 10 (6-14) Blood Urea Nitrogen 47 mg/dL (8-26) Creatinine 1.5 mg/dL (0.7-1.3) Estimated GFR (Cockcroft-Gault) 46.5 Glucose Level 143 mg/dL (70-99) Calcium Level 7.7 mg/dL (8.5-10.1) Laboratory Tests Test 06/24/20 13:47 06/24/20 15:03 06/24/20 17:20 06/24/20 21:45 Hemoglobin 15.0 g/dL (13.0-17.5) 7.7 g/dL (13.0-17.5) 9.4 g/dL (13.0-17.5) Hematocrit 44.2 % (39.0-53.0) 23.5 % (39.0-53.0) 28.1 % (39.0-53.0) Mean Corpuscular Hemoglobin Concent 34 g/dL (31-37) 33 g/dL (31-37) 34 g/dL (31-37) Bedside Hemoglobin (Calculated) 9.9 g/dL (14-18) Bedside Hematocrit 29 % (37-52) Bedside Arterial pH 7.30 (7.35-7.45) Arterial Blood pH (Temp corrected) 7.33 Bedside Arterial pCO2 40 mmHg (35-45) Arterial Blood pCO2 (Temp correct) 37 mmHg Bedside Arterial pO2 456 mmHg (75-100) Arterial Blood pO2 (Temp corrected) 444 mmHg Bedside Arterial HCO3 20 mmol/L (21-28) Bedside Arterial Total CO2 21 mmol/L (21-32) Arterial Bld O2 Saturation (Measur) 100 % (95-99) Bedside Arterial Blood Base Excess -7 mmol/L (0-3) Bedside FiO2 100.0 Bedside Sodium 134 mmol/L (135-145) Bedside Potassium 4.9 mmol/L (3.5-5.0) Glucose Level 199 mg/dL (70-99) Bedside Ionized Calcium (Craig) 1.16 mmol/L (1.13-1.32) White Blood Count 27.2 x10^3/uL (4.0-11.0) 24.8 x10^3/uL (4.0-11.0) Red Blood Count 2.73 x10^6/uL (4.30-5.70) 3.28 x10^6/uL (4.30-5.70) Mean Corpuscular Volume 86 fL (79-100) 86 fL (79-100) Mean Corpuscular Hemoglobin 28 pg (25-35) 29 pg (25-35) Red Cell Distribution Width 13.6 % (11.5-14.5) 14.1 % (11.5-14.5) Platelet Count 145 x10^3/uL (140-400) 121 x10^3/uL (140-400) Test 06/25/20 05:25 White Blood Count 17.7 x10^3/uL (4.0-11.0) Red Blood Count 3.25 x10^6/uL (4.30-5.70) Hemoglobin 9.3 g/dL (13.0-17.5) Hematocrit 27.8 % (39.0-53.0) Mean Corpuscular Volume 86 fL (79-100) Mean Corpuscular Hemoglobin 29 pg (25-35) Mean Corpuscular Hemoglobin Concent 33 g/dL (31-37) Red Cell Distribution Width 14.3 % (11.5-14.5) Platelet Count 124 x10^3/uL (140-400) Neutrophils (%) (Auto) 89 % (31-73) Lymphocytes (%) (Auto) 5 % (24-48) Monocytes (%) (Auto) 6 % (0-9) Eosinophils (%) (Auto) 0 % (0-3) Basophils (%) (Auto) 0 % (0-3) Neutrophils # (Auto) 15.6 x10^3/uL (1.8-7.7) Lymphocytes # (Auto) 0.9 x10^3/uL (1.0-4.8) Monocytes # (Auto) 1.1 x10^3/uL (0.0-1.1) Eosinophils # (Auto) 0.0 x10^3/uL (0.0-0.7) Basophils # (Auto) 0.0 x10^3/uL (0.0-0.2) Sodium Level 139 mmol/L (136-145) Potassium Level 5.0 mmol/L (3.5-5.1) Chloride Level 108 mmol/L (98-107) Carbon Dioxide Level 21 mmol/L (21-32) Anion Gap 10 (6-14) Blood Urea Nitrogen 47 mg/dL (8-26) Creatinine 1.5 mg/dL (0.7-1.3) Estimated GFR (Cockcroft-Gault) 46.5 Glucose Level 143 mg/dL (70-99) Calcium Level 7.7 mg/dL (8.5-10.1) Review All relevant outside records, renal labs, imaging studies, telemetry/EKG's were reviewed. Images Images CT scan of the abdomen pelvis and chest done on 06/19/2020 Bilateral solid renal masses consistent with primary renal neoplasms, with osteolytic lesions in the skeletal system notably at T3 and at L1, consistent with osteolytic expansile metastatic deposits. DU TATE MD Jun 25, 2020 12:00
[2020-06-25 13:05] LABS: BILIRUBIN,URINE NEGATIVE (NEG); CLARITY,URINE CLEAR; COLOR,URINE YELLOW; NITRITE,URINE NEGATIVE (NEG); PROTEIN,URINE NEGATIVE (NEG-TRACE); UROBILINOGEN,URINE 0.2 mg/dL (0.2 mg/dL)
[2020-06-25 13:20] LABS: GRANULAR CASTS,URINE FEW /HPF; HYALINE CASTS, URINE MODERATE /HPF
--- NOTE | 2020-06-25 13:20 | PDOC ---
PROGRESS NOTES Date of Service DATE: 06/25/20 TIME: 13:15 Subjective Subjective No new complaints. Objective Objective Vital Signs Date Time Temp Pulse Resp B/P (MAP) Pulse Ox O2 Delivery O2 Flow Rate FiO2 06/25/20 13:00 78 16 101/62 (75) 98 Room Air 06/25/20 12:00 98.5 98.5 06/24/20 17:40 10 Intake and Output 06/25/20 06:59 Intake Total 7062 ml Output Total 3695 ml Balance 3367 ml Intake Oral 100 ml IV Total 6612 ml Blood Product IV Normal Saline Flush 350 ml Output Urine Total 2000 ml Drainage Total 195 ml Estimated Blood Loss 1500 ml Physical Exam Physical Exam He is lying on his side while drain is being removed and he denies any numbness in his feet and he is moving his lower extremities actively. I spoke to neurosurgery. Assessment Assessment Problems Medical Problems: (1) Abnormal CT scan, lumbar spine Status: Acute Plan Plan of Care To get him up as tolerated with back support brace. Comment Review of Relevant I have reviewed the following items kiersten (where applicable) has been applied. Labs Laboratory Tests Test 06/23/20 13:20 06/23/20 19:50 06/24/20 13:47 06/24/20 15:03 Coronavirus (PCR) Not detected (Not Detected) SARS-CoV-2 Antigen (Rapid) Negative (NEGATIVE) White Blood Count 18.3 x10^3/uL (4.0-11.0) Red Blood Count 5.24 x10^6/uL (4.30-5.70) Hemoglobin 14.9 g/dL (13.0-17.5) 15.0 g/dL (13.0-17.5) Hematocrit 44.5 % (39.0-53.0) 44.2 % (39.0-53.0) Mean Corpuscular Volume 85 fL (79-100) Mean Corpuscular Hemoglobin 28 pg (25-35) Mean Corpuscular Hemoglobin Concent 33 g/dL (31-37) 34 g/dL (31-37) Red Cell Distribution Width 13.4 % (11.5-14.5) Platelet Count 277 x10^3/uL (140-400) Neutrophils (%) (Auto) 92 % (31-73) Lymphocytes (%) (Auto) 4 % (24-48) Monocytes (%) (Auto) 4 % (0-9) Eosinophils (%) (Auto) 0 % (0-3) Basophils (%) (Auto) 0 % (0-3) Neutrophils # (Auto) 16.8 x10^3/uL (1.8-7.7) Lymphocytes # (Auto) 0.8 x10^3/uL (1.0-4.8) Monocytes # (Auto) 0.7 x10^3/uL (0.0-1.1) Eosinophils # (Auto) 0.0 x10^3/uL (0.0-0.7) Basophils # (Auto) 0.0 x10^3/uL (0.0-0.2) Segmented Neutrophils % 90 % (35-66) Lymphocytes % 6 % (24-48) Monocytes % 3 % (0-10) Metamyelocytes % 1 % (0-0) Platelet Estimate Adequate (ADEQUATE) Sodium Level 133 mmol/L (136-145) Potassium Level 4.5 mmol/L (3.5-5.1) Chloride Level 98 mmol/L (98-107) Carbon Dioxide Level 26 mmol/L (21-32) Anion Gap 9 (6-14) Blood Urea Nitrogen 42 mg/dL (8-26) Creatinine 1.1 mg/dL (0.7-1.3) Estimated GFR (Cockcroft-Gault) 66.6 BUN/Creatinine Ratio 38 (6-20) Glucose Level 159 mg/dL (70-99) 199 mg/dL (70-99) Calcium Level 9.0 mg/dL (8.5-10.1) Total Bilirubin 0.6 mg/dL (0.2-1.0) Aspartate Amino Transf (AST/SGOT) 36 U/L (15-37) Alanine Aminotransferase (ALT/SGPT) 77 U/L (16-63) Alkaline Phosphatase 107 U/L (46-116) Total Protein 7.2 g/dL (6.4-8.2) Albumin 3.2 g/dL (3.4-5.0) Albumin/Globulin Ratio 0.8 (1.0-1.7) Bedside Hemoglobin (Calculated) 9.9 g/dL (14-18) Bedside Hematocrit 29 % (37-52) Bedside Arterial pH 7.30 (7.35-7.45) Arterial Blood pH (Temp corrected) 7.33 Bedside Arterial pCO2 40 mmHg (35-45) Arterial Blood pCO2 (Temp correct) 37 mmHg Bedside Arterial pO2 456 mmHg (75-100) Arterial Blood pO2 (Temp corrected) 444 mmHg Bedside Arterial HCO3 20 mmol/L (21-28) Bedside Arterial Total CO2 21 mmol/L (21-32) Arterial Bld O2 Saturation (Measur) 100 % (95-99) Bedside Arterial Blood Base Excess -7 mmol/L (0-3) Bedside FiO2 100.0 Bedside Sodium 134 mmol/L (135-145) Bedside Potassium 4.9 mmol/L (3.5-5.0) Bedside Ionized Calcium (Craig) 1.16 mmol/L (1.13-1.32) Test 06/24/20 17:20 06/24/20 21:45 06/25/20 05:25 White Blood Count 27.2 x10^3/uL (4.0-11.0) 24.8 x10^3/uL (4.0-11.0) 17.7 x10^3/uL (4.0-11.0) Red Blood Count 2.73 x10^6/uL (4.30-5.70) 3.28 x10^6/uL (4.30-5.70) 3.25 x10^6/uL (4.30-5.70) Hemoglobin 7.7 g/dL (13.0-17.5) 9.4 g/dL (13.0-17.5) 9.3 g/dL (13.0-17.5) Hematocrit 23.5 % (39.0-53.0) 28.1 % (39.0-53.0) 27.8 % (39.0-53.0) Mean Corpuscular Volume 86 fL (79-100) 86 fL (79-100) 86 fL (79-100) Mean Corpuscular Hemoglobin 28 pg (25-35) 29 pg (25-35) 29 pg (25-35) Mean Corpuscular Hemoglobin Concent 33 g/dL (31-37) 34 g/dL (31-37) 33 g/dL (31-37) Red Cell Distribution Width 13.6 % (11.5-14.5) 14.1 % (11.5-14.5) 14.3 % (11.5-14.5) Platelet Count 145 x10^3/uL (140-400) 121 x10^3/uL (140-400) 124 x10^3/uL (140-400) Neutrophils (%) (Auto) 89 % (31-73) Lymphocytes (%) (Auto) 5 % (24-48) Monocytes (%) (Auto) 6 % (0-9) Eosinophils (%) (Auto) 0 % (0-3) Basophils (%) (Auto) 0 % (0-3) Neutrophils # (Auto) 15.6 x10^3/uL (1.8-7.7) Lymphocytes # (Auto) 0.9 x10^3/uL (1.0-4.8) Monocytes # (Auto) 1.1 x10^3/uL (0.0-1.1) Eosinophils # (Auto) 0.0 x10^3/uL (0.0-0.7) Basophils # (Auto) 0.0 x10^3/uL (0.0-0.2) Sodium Level 139 mmol/L (136-145) Potassium Level 5.0 mmol/L (3.5-5.1) Chloride Level 108 mmol/L (98-107) Carbon Dioxide Level 21 mmol/L (21-32) Anion Gap 10 (6-14) Blood Urea Nitrogen 47 mg/dL (8-26) Creatinine 1.5 mg/dL (0.7-1.3) Estimated GFR (Cockcroft-Gault) 46.5 Glucose Level 143 mg/dL (70-99) Calcium Level 7.7 mg/dL (8.5-10.1) Creatine Kinase 2118 U/L (39-308) Laboratory Tests Test 06/24/20 13:47 06/24/20 15:03 06/24/20 17:20 06/24/20 21:45 Hemoglobin 15.0 g/dL (13.0-17.5) 7.7 g/dL (13.0-17.5) 9.4 g/dL (13.0-17.5) Hematocrit 44.2 % (39.0-53.0) 23.5 % (39.0-53.0) 28.1 % (39.0-53.0) Mean Corpuscular Hemoglobin Concent 34 g/dL (31-37) 33 g/dL (31-37) 34 g/dL (31-37) Bedside Hemoglobin (Calculated) 9.9 g/dL (14-18) Bedside Hematocrit 29 % (37-52) Bedside Arterial pH 7.30 (7.35-7.45) Arterial Blood pH (Temp corrected) 7.33 Bedside Arterial pCO2 40 mmHg (35-45) Arterial Blood pCO2 (Temp correct) 37 mmHg Bedside Arterial pO2 456 mmHg (75-100) Arterial Blood pO2 (Temp corrected) 444 mmHg Bedside Arterial HCO3 20 mmol/L (21-28) Bedside Arterial Total CO2 21 mmol/L (21-32) Arterial Bld O2 Saturation (Measur) 100 % (95-99) Bedside Arterial Blood Base Excess -7 mmol/L (0-3) Bedside FiO2 100.0 Bedside Sodium 134 mmol/L (135-145) Bedside Potassium 4.9 mmol/L (3.5-5.0) Glucose Level 199 mg/dL (70-99) Bedside Ionized Calcium (Craig) 1.16 mmol/L (1.13-1.32) White Blood Count 27.2 x10^3/uL (4.0-11.0) 24.8 x10^3/uL (4.0-11.0) Red Blood Count 2.73 x10^6/uL (4.30-5.70) 3.28 x10^6/uL (4.30-5.70) Mean Corpuscular Volume 86 fL (79-100) 86 fL (79-100) Mean Corpuscular Hemoglobin 28 pg (25-35) 29 pg (25-35) Red Cell Distribution Width 13.6 % (11.5-14.5) 14.1 % (11.5-14.5) Platelet Count 145 x10^3/uL (140-400) 121 x10^3/uL (140-400) Test 06/25/20 05:25 White Blood Count 17.7 x10^3/uL (4.0-11.0) Red Blood Count 3.25 x10^6/uL (4.30-5.70) Hemoglobin 9.3 g/dL (13.0-17.5) Hematocrit 27.8 % (39.0-53.0) Mean Corpuscular Volume 86 fL (79-100) Mean Corpuscular Hemoglobin 29 pg (25-35) Mean Corpuscular Hemoglobin Concent 33 g/dL (31-37) Red Cell Distribution Width 14.3 % (11.5-14.5) Platelet Count 124 x10^3/uL (140-400) Neutrophils (%) (Auto) 89 % (31-73) Lymphocytes (%) (Auto) 5 % (24-48) Monocytes (%) (Auto) 6 % (0-9) Eosinophils (%) (Auto) 0 % (0-3) Basophils (%) (Auto) 0 % (0-3) Neutrophils # (Auto) 15.6 x10^3/uL (1.8-7.7) Lymphocytes # (Auto) 0.9 x10^3/uL (1.0-4.8) Monocytes # (Auto) 1.1 x10^3/uL (0.0-1.1) Eosinophils # (Auto) 0.0 x10^3/uL (0.0-0.7) Basophils # (Auto) 0.0 x10^3/uL (0.0-0.2) Sodium Level 139 mmol/L (136-145) Potassium Level 5.0 mmol/L (3.5-5.1) Chloride Level 108 mmol/L (98-107) Carbon Dioxide Level 21 mmol/L (21-32) Anion Gap 10 (6-14) Blood Urea Nitrogen 47 mg/dL (8-26) Creatinine 1.5 mg/dL (0.7-1.3) Estimated GFR (Cockcroft-Gault) 46.5 Glucose Level 143 mg/dL (70-99) Calcium Level 7.7 mg/dL (8.5-10.1) Creatine Kinase 2118 U/L (39-308) Medications Current Medications Ketorolac Tromethamine (Toradol 30mg Vial) 30 mg 1X ONCE IM Last administered on 06/18/20at 11:22; Start 06/18/20 at 10:45; Stop 06/18/20 at 10:46; Status DC Cyclobenzaprine HCl (Flexeril) 10 mg 1X ONCE PO Last administered on 06/18/20at 11:21; Start 06/18/20 at 10:45; Stop 06/18/20 at 10:46; Status DC Lidocaine (Lidoderm) 1 patch 1X ONCE TD Last administered on 06/18/20at 11:22; Start 06/18/20 at 10:45; Stop 06/18/20 at 10:46; Status DC Tramadol HCl (Ultram) 100 mg PRN Q6HRS PRN PO MODERATE PAIN Last administered on 06/24/20at 00:25; Start 06/18/20 at 17:45 Acetaminophen/ Hydrocodone Bitart (Lortab 5/325) 1 tab PRN Q6HRS PRN PO SEVERE PAIN Last administered on 06/25/20at 08:17; Start 06/18/20 at 17:45 Lidocaine (Lidoderm) 1 patch DAILY TD Last administered on 06/23/20at 09:12; Start 06/18/20 at 18:00 Miscellaneous (Lidoderm Patch Removal) 1 ea QHS MC Last administered on 06/23/20at 20:38; Start 06/18/20 at 21:00 Atenolol (Tenormin) 25 mg DAILY PO Last administered on 06/23/20at 09:11; Start 06/19/20 at 09:00 Lisinopril (Prinivil) 20 mg DAILY PO Last administered on 06/23/20at 09:11; Start 06/19/20 at 09:00; Stop 06/24/20 at 08:26; Status DC Gadoterate Meglumine (Clariscan) 16.6 ml 1X ONCE IVP Last administered on 06/19/20at 10:56; Start 06/19/20 at 10:45; Stop 06/19/20 at 10:46; Status DC Iohexol (Omnipaque 240 Mg/ml) 50 ml 1X ONCE PO Last administered on 06/19/20at 12:00; Start 06/19/20 at 12:00; Stop 06/19/20 at 12:01; Status DC Iohexol (Omnipaque 300 Mg/ml) 75 ml 1X ONCE IV Last administered on 06/19/20at 12:00; Start 06/19/20 at 12:00; Stop 06/19/20 at 12:01; Status DC Info (CONTRAST GIVEN -- Rx MONITORING) 1 each PRN DAILY PRN MC SEE COMMENTS; Start 06/19/20 at 11:45; Stop 06/21/20 at 11:44; Status DC Bisacodyl (Dulcolax Tab) 10 mg DAILY PO Last administered on 06/23/20at 09:12; Start 06/19/20 at 14:00 Bisacodyl (Dulcolax Supp) 10 mg PRN DAILY PRN TN CONSTIPATION; Start 06/19/20 at 13:15 Senna/Docusate Sodium (Senna Plus) 1 tab BID PO Last administered on 06/24/20at 21:09; Start 06/19/20 at 21:00 Alprazolam (Xanax) 0.5 mg PRN Q8HRS PRN PO ANXIETY / AGITATION; Start 06/19/20 at 13:15 Dexamethasone Sodium Phosphate (Decadron) 2 mg Q6HRS IVP Last administered on 06/21/20at 12:32; Start 06/19/20 at 16:30; Stop 06/21/20 at 13:04; Status DC Dexamethasone Sodium Phosphate (Decadron) 4 mg Q6HRS IVP Last administered on 06/25/20at 06:14; Start 06/21/20 at 18:00; Stop 06/25/20 at 09:27; Status DC Pantoprazole Sodium (Protonix) 40 mg DAILYAC PO Last administered on 06/25/20at 08:17; Start 06/23/20 at 11:30 Cefazolin Sodium (Ancef) 2 gm 1X PREOP PRN IVP PRIOR TO PROCEDURE; Start 06/24/20 at 08:00; Status UNV Cefazolin Sodium/ Dextrose 50 ml @ 100 mls/hr 1X PREOP PRN IV PRIOR TO PROCEDURE Last administered on 06/24/20at 09:29; Start 06/24/20 at 06:00; Stop 06/24/20 at 18:00; Status DC Bacitracin 82463 unit/Sodium Chloride 1,000 ml @ 1,000 mls/hr 1X ONCE IRR Last administered on 06/24/20at 10:08; Start 06/24/20 at 06:00; Stop 06/24/20 at 06:59; Status DC Gelatin (Gelfoam Size 100) 1 each STK-MED ONCE .ROUTE Last administered on 06/24/20at 10:08; Start 06/24/20 at 06:49; Stop 06/24/20 at 06:50; Status DC Ketorolac Tromethamine (Toradol Im) 60 mg STK-MED ONCE .ROUTE Last administered on 06/24/20at 10:08; Start 06/24/20 at 06:49; Stop 06/24/20 at 06:50; Status DC Lidocaine/ Epinephrine (LIDOCAINE 1%-EPI 1:100,000 Multi-Dose) 20 ml STK-MED ONCE .ROUTE Last administered on 06/24/20at 10:08; Start 06/24/20 at 06:49; Stop 06/24/20 at 06:50; Status DC Thrombin 20,000 unit STK-MED ONCE TP Last administered on 06/24/20at 10:08; Start 06/24/20 at 06:50; Stop 06/24/20 at 06:50; Status DC Propofol 200 ml @ As Directed STK-MED ONCE IV ; Start 06/24/20 at 07:59; Stop 06/24/20 at 07:59; Status DC Fentanyl Citrate (Fentanyl 2ml Vial) 100 mcg STK-MED ONCE .ROUTE ; Start 06/24/20 at 08:07; Stop 06/24/20 at 08:08; Status DC Rocuronium [place] (Zemuron) 50 mg STK-MED ONCE .ROUTE ; Start 06/24/20 at 08:08; Stop 06/24/20 at 08:08; Status DC Remifentanil HCl (Ultiva) 2 mg STK-MED ONCE IV ; Start 06/24/20 at 08:08; Stop 06/24/20 at 08:08; Status DC Midazolam HCl (Versed) 2 mg STK-MED ONCE .ROUTE ; Start 06/24/20 at 08:08; Stop 06/24/20 at 08:08; Status DC Propofol (Diprivan) 200 mg STK-MED ONCE IV ; Start 06/24/20 at 08:08; Stop 06/24/20 at 08:09; Status DC Dexamethasone Sodium Phosphate (Decadron) 20 mg STK-MED ONCE .ROUTE ; Start 06/24/20 at 08:08; Stop 06/24/20 at 08:09; Status DC Lidocaine HCl (Lidocaine Pf 2% Vial) 5 ml STK-MED ONCE .ROUTE ; Start 06/24/20 at 08:08; Stop 06/24/20 at 08:09; Status DC Ondansetron HCl (Zofran) 4 mg STK-MED ONCE .ROUTE ; Start 06/24/20 at 08:09; Stop 06/24/20 at 08:09; Status DC Phenylephrine HCl (Sergio-Synephrine Inj) 10 mg STK-MED ONCE .ROUTE ; Start 06/24/20 at 08:16; Stop 06/24/20 at 08:17; Status DC Ephedrine Sulfate (ePHEDrine PF IN SALINE SYRINGE) 50 mg STK-MED ONCE IV ; Start 06/24/20 at 09:07; Stop 06/24/20 at 09:07; Status DC Ondansetron HCl (Zofran) 4 mg PRN Q6HRS PRN IV NAUSEA/VOMITING; Start 06/24/20 at 09:45; Stop 06/24/20 at 19:54; Status DC Fentanyl Citrate (Fentanyl 2ml Vial) 25 mcg PRN Q5MIN PRN IV MILD PAIN 1-3; Start 06/24/20 at 09:45; Stop 06/24/20 at 19:54; Status DC Fentanyl Citrate (Fentanyl 2ml Vial) 50 mcg PRN Q5MIN PRN IV MODERATE TO SEVERE PAIN; Start 06/24/20 at 09:45; Stop 06/24/20 at 19:54; Status DC Morphine Sulfate (Morphine Sulfate) 1 mg PRN Q10MIN PRN IV SEVERE PAIN 7-10; Start 06/24/20 at 09:45; Stop 06/24/20 at 19:54; Status DC Ringer's Solution 1,000 ml @ 30 mls/hr Q24H IV ; Start 06/24/20 at 09:31; Stop 06/24/20 at 19:54; Status DC Lidocaine HCl (Xylocaine-Mpf 1% 2ml Vial) 2 ml PRN 1X PRN ID PRIOR TO IV START; Start 06/24/20 at 09:45; Stop 06/24/20 at 19:54; Status DC Hydromorphone HCl (Dilaudid) 0.5 mg PRN Q10MIN PRN IV SEV PAIN, Second choice; Start 06/24/20 at 09:45; Stop 06/24/20 at 19:54; Status DC Prochlorperazine Edisylate (Compazine) 5 mg PACU PRN PRN IV NAUSEA, MRX1; Start 06/24/20 at 09:45; Stop 06/24/20 at 19:54; Status DC Remifentanil HCl (Ultiva) 2 mg STK-MED ONCE IV ; Start 06/24/20 at 11:31; Stop 06/24/20 at 11:31; Status DC Desflurane (Suprane) 90 ml STK-MED ONCE IH ; Start 06/24/20 at 11:33; Stop 06/24/20 at 11:34; Status DC Ketamine HCl (Ketamine) 50 mg STK-MED ONCE .ROUTE ; Start 06/24/20 at 12:20; Stop 06/24/20 at 12:20; Status DC Phenylephrine HCl (Sergio-Synephrine Inj) 10 mg STK-MED ONCE .ROUTE ; Start 06/24/20 at 12:27; Stop 06/24/20 at 12:28; Status DC Cefazolin Sodium (Ancef) 1 gm STK-MED ONCE IVP ; Start 06/24/20 at 12:29; Stop 06/24/20 at 12:30; Status DC Cefazolin Sodium (Ancef) 1 gm STK-MED ONCE IVP ; Start 06/24/20 at 12:29; Stop 06/24/20 at 12:30; Status DC Albumin Human 500 ml @ As Directed STK-MED ONCE IV ; Start 06/24/20 at 13:48; Stop 06/24/20 at 13:48; Status DC Thrombin 20,000 unit STK-MED ONCE TP Last administered on 06/24/20at 14:09; Start 06/24/20 at 13:58; Stop 06/24/20 at 13:58; Status DC Phenylephrine HCl (Sergio-Synephrine Inj) 10 mg STK-MED ONCE .ROUTE ; Start 06/24/20 at 14:06; Stop 06/24/20 at 14:06; Status DC Gelatin (Gelfoam Size 100) 1 each STK-MED ONCE .ROUTE Last administered on 06/24/20at 14:49; Start 06/24/20 at 14:43; Stop 06/24/20 at 14:43; Status DC Vasopressin (Vasostrict) 20 unit STK-MED ONCE .ROUTE ; Start 06/24/20 at 14:55; Stop 06/24/20 at 14:55; Status DC Albumin Human 500 ml @ As Directed STK-MED ONCE IV ; Start 06/24/20 at 15:23; Stop 06/24/20 at 15:23; Status DC Phenylephrine HCl (Sergio-Synephrine Inj) 10 mg STK-MED ONCE .ROUTE ; Start 06/24/20 at 15:23; Stop 06/24/20 at 15:23; Status DC Remifentanil HCl (Ultiva) 2 mg STK-MED ONCE IV ; Start 06/24/20 at 15:30; Stop 06/24/20 at 15:30; Status DC Fentanyl Citrate (Fentanyl 2ml Vial) 50 mcg PRN Q2HR PRN IVP PAIN Last administered on 06/25/20at 11:39; Start 06/24/20 at 16:45 Sodium Chloride 1,000 ml @ 1,000 mls/hr 1X ONCE IV Last administered on 06/24/20at 20:08; Start 06/24/20 at 20:00; Stop 06/24/20 at 20:59; Status DC Sodium Chloride 1,000 ml @ 100 mls/hr Q10H IV Last administered on 06/25/20at 06:55; Start 06/24/20 at 21:00 Dexamethasone Sodium Phosphate (Decadron) 2 mg Q6HRS IVP Last administered on 06/25/20at 11:38; Start 06/25/20 at 12:00 Magnesium Sulfate 50 ml @ 25 mls/hr PRN DAILY PRN IV for Mag < 1.7 on am labs; Start 06/25/20 at 12:00 Active Scripts Active Reported Tramadol Hcl 50 Mg Tablet 50 Mg PO PRN BID PRN Prednisone 50 Mg Tablet 1 Tab PO DAILY Atenolol 25 Mg Tablet 1 Tab PO DAILY Lisinopril 20 Mg Tablet 1 Tab PO DAILY Vitals/I & O Vital Sign - Last 24 Hours 06/24/20 06/24/20 06/24/20 06/24/20 16:41 16:41 16:55 17:10 Temp 97.5 97.5 Pulse 84 84 85 Resp 18 18 18 B/P (MAP) 90/40 97/40 138/90 90/44 95/44 98/44 Pulse Ox 100 100 100 O2 Delivery Mask Room Air Simple Mask Simple Mask O2 Flow Rate 10 10 10 10 06/24/20 06/24/20 06/24/20 06/24/20 17:25 17:40 17:55 17:57 Temp 97.8 97.4 97.8 97.4 Pulse 85 85 80 78 Resp 18 18 18 18 B/P (MAP) 82/40 84/35 126/82 96/40 92/41 92/38 92/37 Pulse Ox 100 100 100 O2 Delivery Simple Mask Simple Mask Room Air Simple Mask O2 Flow Rate 10 10 06/24/20 06/24/20 06/24/20 06/24/20 18:10 18:10 18:15 18:20 Temp 97.8 97.8 97.5 97.8 97.8 97.5 Pulse 80 74 72 Resp 18 16 16 B/P (MAP) 101/63 94/54 86/39 (55) 94/54 Pulse Ox 100 94 O2 Delivery Room Air Room Air Room Air Simple Mask 06/24/20 06/24/20 06/24/20 06/24/20 18:30 18:30 18:30 18:33 Pulse 75 Resp 18 16 B/P (MAP) 83/39 (54) Pulse Ox 94 95 O2 Delivery Room Air Room Air Room Air 06/24/20 06/24/20 06/24/20 06/24/20 18:45 19:00 20:00 20:00 Temp 97.6 97.6 Pulse 77 74 76 Resp 18 21 19 B/P (MAP) 86/40 (55) 96/48 (64) 100/44 (62) Pulse Ox 95 99 98 O2 Delivery Room Air Room Air Room Air Room Air 06/24/20 06/24/20 06/24/20 06/24/20 20:00 20:10 20:56 21:00 Temp 97.6 97.6 Pulse 72 79 75 Resp 23 28 16 B/P (MAP) 113/48 (69) 91/38 117/50 (72) Pulse Ox 100 100 O2 Delivery Room Air Room Air 06/24/20 06/24/20 06/25/20 06/25/20 22:22 23:14 00:00 00:00 Temp 98.7 98.7 Pulse 78 75 62 76 Resp 16 20 24 B/P (MAP) 123/58 (79) 118/54 (75) 124/52 (76) 117/51 (73) Pulse Ox 100 100 100 O2 Delivery Room Air Room Air Room Air 06/25/20 06/25/20 06/25/20 06/25/20 00:26 00:29 01:00 02:00 Pulse 76 72 76 Resp 20 16 B/P (MAP) 117/51 (73) 111/53 (72) 106/53 (70) Pulse Ox 98 98 O2 Delivery Room Air Room Air Room Air 06/25/20 06/25/20 06/25/20 06/25/20 03:07 04:00 04:00 04:00 Temp 98.9 98.9 Pulse 74 80 75 Resp 16 22 B/P (MAP) 97/57 (70) 111/58 (75) 104/54 (71) Pulse Ox 95 95 O2 Delivery Room Air Room Air Room Air 06/25/20 06/25/20 06/25/20 06/25/20 05:00 06:00 07:00 07:42 Pulse 78 82 84 Resp 16 16 18 B/P (MAP) 98/51 (67) 106/54 (71) 92/52 (65) Pulse Ox 97 97 98 O2 Delivery Room Air Room Air Room Air Room Air 06/25/20 06/25/20 06/25/20 06/25/20 08:00 08:00 08:17 08:18 Temp 98.7 98.7 Pulse 79 Resp 18 17 18 B/P (MAP) 94/55 (68) Pulse Ox 96 98 97 O2 Delivery Room Air Room Air Room Air 06/25/20 06/25/20 06/25/20 06/25/20 08:48 08:50 09:00 09:17 Pulse 76 76 Resp 18 18 20 B/P (MAP) 97/68 101/61 (74) Pulse Ox 96 97 97 O2 Delivery Room Air Room Air Room Air 06/25/20 06/25/20 06/25/20 06/25/20 10:00 11:00 11:39 11:50 Pulse 80 78 Resp 18 16 17 B/P (MAP) 106/58 (74) 104/58 (73) Pulse Ox 97 99 97 O2 Delivery Room Air Room Air Room Air Room Air 06/25/20 06/25/20 06/25/20 12:00 12:09 13:00 Temp 98.5 98.5 Pulse 80 78 Resp 17 22 16 B/P (MAP) 101/62 (75) 101/62 (75) Pulse Ox 97 97 98 O2 Delivery Room Air Room Air Room Air Intake and Output 06/24/20 06/24/20 06/25/20 14:59 22:59 06:59 Intake Total 50 ml 5900 ml 1112 ml Output Total 2650 ml 1045 ml Balance 50 ml 3250 ml 67 ml Justifications for Admission Other Justification Nutrition Consultation Dietary Evaluation: Recommendations by RD: Dietary education by RD, Increase Calorie Intake, Protein supplementation Comments: REC resume Cardiac diet s/p surgery chocolate ensure bid Expected Outcomes/Goals: to meet >75% est nutrition needs via po intake- goal ongoing Interpretation of weight loss: >5% in 1 month Malnutrition Findings: Food and Nutrition Intake (Sev: <50% est energy req 5days Weight Status: Overweight RADHA LEA MD Jun 25, 2020 13:20
[2020-06-25 13:22] LABS: BACTERIA,URINE FEW /HPF (0-FEW); RBC,URINE >40 /HPF (0-2); WBC,URINE 0 /HPF (0-4)
--- NOTE | 2020-06-25 13:45 | PDOC ---
PROGRESS NOTES Date of Service DATE: 06/25/20 TIME: 13:41 Subjective Subjective awake, alert back/ incisional pain Objective Objective Vital Signs Date Time Temp Pulse Resp B/P (MAP) Pulse Ox O2 Delivery O2 Flow Rate FiO2 06/25/20 13:00 78 16 101/62 (75) 98 Room Air 06/25/20 12:00 98.5 98.5 06/24/20 17:40 10 Intake and Output 06/25/20 07:00 Intake Total 7062 ml Output Total 3770 ml Balance 3292 ml Intake Oral 100 ml IV Total 6612 ml Blood Product IV Normal Saline Flush 350 ml Output Urine Total 2075 ml Drainage Total 195 ml Estimated Blood Loss 1500 ml Physical Exam General: Alert, Oriented X3, Cooperative MUSCULOSKELETAL: Other (ESCALANTE) Neuro: Normal speech, Other (left LE significnat pain with movement, 3-4/5 strength, difficult to exam due to pain) Skin: Other (drain removed, dressing changed, irvin intact, dry) Assessment Assessment Problems Medical Problems: (1) Abnormal CT scan, lumbar spine Status: Acute Plan Plan of Care labs noted may transfer to floor brace on when out of bed PT SCDs when in bed Comment Review of Relevant I have reviewed the following items kiersten (where applicable) has been applied. Labs Laboratory Tests Test 06/23/20 19:50 06/24/20 13:47 06/24/20 15:03 06/24/20 17:20 White Blood Count 18.3 x10^3/uL (4.0-11.0) 27.2 x10^3/uL (4.0-11.0) Red Blood Count 5.24 x10^6/uL (4.30-5.70) 2.73 x10^6/uL (4.30-5.70) Hemoglobin 14.9 g/dL (13.0-17.5) 15.0 g/dL (13.0-17.5) 7.7 g/dL (13.0-17.5) Hematocrit 44.5 % (39.0-53.0) 44.2 % (39.0-53.0) 23.5 % (39.0-53.0) Mean Corpuscular Volume 85 fL (79-100) 86 fL (79-100) Mean Corpuscular Hemoglobin 28 pg (25-35) 28 pg (25-35) Mean Corpuscular Hemoglobin Concent 33 g/dL (31-37) 34 g/dL (31-37) 33 g/dL (31-37) Red Cell Distribution Width 13.4 % (11.5-14.5) 13.6 % (11.5-14.5) Platelet Count 277 x10^3/uL (140-400) 145 x10^3/uL (140-400) Neutrophils (%) (Auto) 92 % (31-73) Lymphocytes (%) (Auto) 4 % (24-48) Monocytes (%) (Auto) 4 % (0-9) Eosinophils (%) (Auto) 0 % (0-3) Basophils (%) (Auto) 0 % (0-3) Neutrophils # (Auto) 16.8 x10^3/uL (1.8-7.7) Lymphocytes # (Auto) 0.8 x10^3/uL (1.0-4.8) Monocytes # (Auto) 0.7 x10^3/uL (0.0-1.1) Eosinophils # (Auto) 0.0 x10^3/uL (0.0-0.7) Basophils # (Auto) 0.0 x10^3/uL (0.0-0.2) Segmented Neutrophils % 90 % (35-66) Lymphocytes % 6 % (24-48) Monocytes % 3 % (0-10) Metamyelocytes % 1 % (0-0) Platelet Estimate Adequate (ADEQUATE) Sodium Level 133 mmol/L (136-145) Potassium Level 4.5 mmol/L (3.5-5.1) Chloride Level 98 mmol/L (98-107) Carbon Dioxide Level 26 mmol/L (21-32) Anion Gap 9 (6-14) Blood Urea Nitrogen 42 mg/dL (8-26) Creatinine 1.1 mg/dL (0.7-1.3) Estimated GFR (Cockcroft-Gault) 66.6 BUN/Creatinine Ratio 38 (6-20) Glucose Level 159 mg/dL (70-99) 199 mg/dL (70-99) Calcium Level 9.0 mg/dL (8.5-10.1) Total Bilirubin 0.6 mg/dL (0.2-1.0) Aspartate Amino Transf (AST/SGOT) 36 U/L (15-37) Alanine Aminotransferase (ALT/SGPT) 77 U/L (16-63) Alkaline Phosphatase 107 U/L (46-116) Total Protein 7.2 g/dL (6.4-8.2) Albumin 3.2 g/dL (3.4-5.0) Albumin/Globulin Ratio 0.8 (1.0-1.7) Bedside Hemoglobin (Calculated) 9.9 g/dL (14-18) Bedside Hematocrit 29 % (37-52) Bedside Arterial pH 7.30 (7.35-7.45) Arterial Blood pH (Temp corrected) 7.33 Bedside Arterial pCO2 40 mmHg (35-45) Arterial Blood pCO2 (Temp correct) 37 mmHg Bedside Arterial pO2 456 mmHg (75-100) Arterial Blood pO2 (Temp corrected) 444 mmHg Bedside Arterial HCO3 20 mmol/L (21-28) Bedside Arterial Total CO2 21 mmol/L (21-32) Arterial Bld O2 Saturation (Measur) 100 % (95-99) Bedside Arterial Blood Base Excess -7 mmol/L (0-3) Bedside FiO2 100.0 Bedside Sodium 134 mmol/L (135-145) Bedside Potassium 4.9 mmol/L (3.5-5.0) Bedside Ionized Calcium (Craig) 1.16 mmol/L (1.13-1.32) Test 06/24/20 21:45 06/25/20 05:25 06/25/20 12:25 White Blood Count 24.8 x10^3/uL (4.0-11.0) 17.7 x10^3/uL (4.0-11.0) Red Blood Count 3.28 x10^6/uL (4.30-5.70) 3.25 x10^6/uL (4.30-5.70) Hemoglobin 9.4 g/dL (13.0-17.5) 9.3 g/dL (13.0-17.5) Hematocrit 28.1 % (39.0-53.0) 27.8 % (39.0-53.0) Mean Corpuscular Volume 86 fL (79-100) 86 fL (79-100) Mean Corpuscular Hemoglobin 29 pg (25-35) 29 pg (25-35) Mean Corpuscular Hemoglobin Concent 34 g/dL (31-37) 33 g/dL (31-37) Red Cell Distribution Width 14.1 % (11.5-14.5) 14.3 % (11.5-14.5) Platelet Count 121 x10^3/uL (140-400) 124 x10^3/uL (140-400) Neutrophils (%) (Auto) 89 % (31-73) Lymphocytes (%) (Auto) 5 % (24-48) Monocytes (%) (Auto) 6 % (0-9) Eosinophils (%) (Auto) 0 % (0-3) Basophils (%) (Auto) 0 % (0-3) Neutrophils # (Auto) 15.6 x10^3/uL (1.8-7.7) Lymphocytes # (Auto) 0.9 x10^3/uL (1.0-4.8) Monocytes # (Auto) 1.1 x10^3/uL (0.0-1.1) Eosinophils # (Auto) 0.0 x10^3/uL (0.0-0.7) Basophils # (Auto) 0.0 x10^3/uL (0.0-0.2) Sodium Level 139 mmol/L (136-145) Potassium Level 5.0 mmol/L (3.5-5.1) Chloride Level 108 mmol/L (98-107) Carbon Dioxide Level 21 mmol/L (21-32) Anion Gap 10 (6-14) Blood Urea Nitrogen 47 mg/dL (8-26) Creatinine 1.5 mg/dL (0.7-1.3) Estimated GFR (Cockcroft-Gault) 46.5 Glucose Level 143 mg/dL (70-99) Calcium Level 7.7 mg/dL (8.5-10.1) Creatine Kinase 2118 U/L (39-308) Urine Collection Type Unknown Urine Color Yellow Urine Clarity Clear Urine pH 5.0 (<5.0-8.0) Urine Specific [place] 1.015 (1.000-1.030) Urine Protein Negative mg/dL (NEG-TRACE) Urine Glucose (UA) Negative mg/dL (NEG) Urine Ketones (Stick) Negative mg/dL (NEG) Urine Blood Large (NEG) Urine Nitrite Negative (NEG) Urine Bilirubin Negative (NEG) Urine Urobilinogen Dipstick 0.2 mg/dL (0.2 mg/dL) Urine Leukocyte Esterase Negative (NEG) Urine RBC >40 /HPF (0-2) Urine WBC 0 /HPF (0-4) Urine Bacteria Few /HPF (0-FEW) Urine Hyaline Casts Moderate /HPF Urine Granular Casts Few /HPF Urine Mucus Mod /LPF Laboratory Tests Test 06/24/20 13:47 06/24/20 15:03 06/24/20 17:20 06/24/20 21:45 Hemoglobin 15.0 g/dL (13.0-17.5) 7.7 g/dL (13.0-17.5) 9.4 g/dL (13.0-17.5) Hematocrit 44.2 % (39.0-53.0) 23.5 % (39.0-53.0) 28.1 % (39.0-53.0) Mean Corpuscular Hemoglobin Concent 34 g/dL (31-37) 33 g/dL (31-37) 34 g/dL (31-37) Bedside Hemoglobin (Calculated) 9.9 g/dL (14-18) Bedside Hematocrit 29 % (37-52) Bedside Arterial pH 7.30 (7.35-7.45) Arterial Blood pH (Temp corrected) 7.33 Bedside Arterial pCO2 40 mmHg (35-45) Arterial Blood pCO2 (Temp correct) 37 mmHg Bedside Arterial pO2 456 mmHg (75-100) Arterial Blood pO2 (Temp corrected) 444 mmHg Bedside Arterial HCO3 20 mmol/L (21-28) Bedside Arterial Total CO2 21 mmol/L (21-32) Arterial Bld O2 Saturation (Measur) 100 % (95-99) Bedside Arterial Blood Base Excess -7 mmol/L (0-3) Bedside FiO2 100.0 Bedside Sodium 134 mmol/L (135-145) Bedside Potassium 4.9 mmol/L (3.5-5.0) Glucose Level 199 mg/dL (70-99) Bedside Ionized Calcium (Craig) 1.16 mmol/L (1.13-1.32) White Blood Count 27.2 x10^3/uL (4.0-11.0) 24.8 x10^3/uL (4.0-11.0) Red Blood Count 2.73 x10^6/uL (4.30-5.70) 3.28 x10^6/uL (4.30-5.70) Mean Corpuscular Volume 86 fL (79-100) 86 fL (79-100) Mean Corpuscular Hemoglobin 28 pg (25-35) 29 pg (25-35) Red Cell Distribution Width 13.6 % (11.5-14.5) 14.1 % (11.5-14.5) Platelet Count 145 x10^3/uL (140-400) 121 x10^3/uL (140-400) Test 06/25/20 05:25 06/25/20 12:25 White Blood Count 17.7 x10^3/uL (4.0-11.0) Red Blood Count 3.25 x10^6/uL (4.30-5.70) Hemoglobin 9.3 g/dL (13.0-17.5) Hematocrit 27.8 % (39.0-53.0) Mean Corpuscular Volume 86 fL (79-100) Mean Corpuscular Hemoglobin 29 pg (25-35) Mean Corpuscular Hemoglobin Concent 33 g/dL (31-37) Red Cell Distribution Width 14.3 % (11.5-14.5) Platelet Count 124 x10^3/uL (140-400) Neutrophils (%) (Auto) 89 % (31-73) Lymphocytes (%) (Auto) 5 % (24-48) Monocytes (%) (Auto) 6 % (0-9) Eosinophils (%) (Auto) 0 % (0-3) Basophils (%) (Auto) 0 % (0-3) Neutrophils # (Auto) 15.6 x10^3/uL (1.8-7.7) Lymphocytes # (Auto) 0.9 x10^3/uL (1.0-4.8) Monocytes # (Auto) 1.1 x10^3/uL (0.0-1.1) Eosinophils # (Auto) 0.0 x10^3/uL (0.0-0.7) Basophils # (Auto) 0.0 x10^3/uL (0.0-0.2) Sodium Level 139 mmol/L (136-145) Potassium Level 5.0 mmol/L (3.5-5.1) Chloride Level 108 mmol/L (98-107) Carbon Dioxide Level 21 mmol/L (21-32) Anion Gap 10 (6-14) Blood Urea Nitrogen 47 mg/dL (8-26) Creatinine 1.5 mg/dL (0.7-1.3) Estimated GFR (Cockcroft-Gault) 46.5 Glucose Level 143 mg/dL (70-99) Calcium Level 7.7 mg/dL (8.5-10.1) Creatine Kinase 2118 U/L (39-308) Urine Collection Type Unknown Urine Color Yellow Urine Clarity Clear Urine pH 5.0 (<5.0-8.0) Urine Specific [place] 1.015 (1.000-1.030) Urine Protein Negative mg/dL (NEG-TRACE) Urine Glucose (UA) Negative mg/dL (NEG) Urine Ketones (Stick) Negative mg/dL (NEG) Urine Blood Large (NEG) Urine Nitrite Negative (NEG) Urine Bilirubin Negative (NEG) Urine Urobilinogen Dipstick 0.2 mg/dL (0.2 mg/dL) Urine Leukocyte Esterase Negative (NEG) Urine RBC >40 /HPF (0-2) Urine WBC 0 /HPF (0-4) Urine Bacteria Few /HPF (0-FEW) Urine Hyaline Casts Moderate /HPF Urine Granular Casts Few /HPF Urine Mucus Mod /LPF Medications Current Medications Ketorolac Tromethamine (Toradol 30mg Vial) 30 mg 1X ONCE IM Last administered on 06/18/20at 11:22; Start 06/18/20 at 10:45; Stop 06/18/20 at 10:46; Status DC Cyclobenzaprine HCl (Flexeril) 10 mg 1X ONCE PO Last administered on 06/18/20at 11:21; Start 06/18/20 at 10:45; Stop 06/18/20 at 10:46; Status DC Lidocaine (Lidoderm) 1 patch 1X ONCE TD Last administered on 06/18/20at 11:22; Start 06/18/20 at 10:45; Stop 06/18/20 at 10:46; Status DC Tramadol HCl (Ultram) 100 mg PRN Q6HRS PRN PO MODERATE PAIN Last administered on 06/24/20at 00:25; Start 06/18/20 at 17:45 Acetaminophen/ Hydrocodone Bitart (Lortab 5/325) 1 tab PRN Q6HRS PRN PO SEVERE PAIN Last administered on 06/25/20at 08:17; Start 06/18/20 at 17:45 Lidocaine (Lidoderm) 1 patch DAILY TD Last administered on 06/23/20at 09:12; Start 06/18/20 at 18:00 Miscellaneous (Lidoderm Patch Removal) 1 ea QHS MC Last administered on 06/23/20at 20:38; Start 06/18/20 at 21:00 Atenolol (Tenormin) 25 mg DAILY PO Last administered on 06/23/20at 09:11; Start 06/19/20 at 09:00 Lisinopril (Prinivil) 20 mg DAILY PO Last administered on 06/23/20at 09:11; Start 06/19/20 at 09:00; Stop 06/24/20 at 08:26; Status DC Gadoterate Meglumine (Clariscan) 16.6 ml 1X ONCE IVP Last administered on 06/19/20at 10:56; Start 06/19/20 at 10:45; Stop 06/19/20 at 10:46; Status DC Iohexol (Omnipaque 240 Mg/ml) 50 ml 1X ONCE PO Last administered on 06/19/20at 12:00; Start 06/19/20 at 12:00; Stop 06/19/20 at 12:01; Status DC Iohexol (Omnipaque 300 Mg/ml) 75 ml 1X ONCE IV Last administered on 06/19/20at 12:00; Start 06/19/20 at 12:00; Stop 06/19/20 at 12:01; Status DC Info (CONTRAST GIVEN -- Rx MONITORING) 1 each PRN DAILY PRN MC SEE COMMENTS; Start 06/19/20 at 11:45; Stop 06/21/20 at 11:44; Status DC Bisacodyl (Dulcolax Tab) 10 mg DAILY PO Last administered on 06/23/20at 09:12; Start 06/19/20 at 14:00 Bisacodyl (Dulcolax Supp) 10 mg PRN DAILY PRN UT CONSTIPATION; Start 06/19/20 at 13:15 Senna/Docusate Sodium (Senna Plus) 1 tab BID PO Last administered on 06/24/20at 21:09; Start 06/19/20 at 21:00 Alprazolam (Xanax) 0.5 mg PRN Q8HRS PRN PO ANXIETY / AGITATION; Start 06/19/20 at 13:15 Dexamethasone Sodium Phosphate (Decadron) 2 mg Q6HRS IVP Last administered on 06/21/20at 12:32; Start 06/19/20 at 16:30; Stop 06/21/20 at 13:04; Status DC Dexamethasone Sodium Phosphate (Decadron) 4 mg Q6HRS IVP Last administered on 06/25/20at 06:14; Start 06/21/20 at 18:00; Stop 06/25/20 at 09:27; Status DC Pantoprazole Sodium (Protonix) 40 mg DAILYAC PO Last administered on 06/25/20at 08:17; Start 06/23/20 at 11:30 Cefazolin Sodium (Ancef) 2 gm 1X PREOP PRN IVP PRIOR TO PROCEDURE; Start 06/24/20 at 08:00; Status UNV Cefazolin Sodium/ Dextrose 50 ml @ 100 mls/hr 1X PREOP PRN IV PRIOR TO PROCEDURE Last administered on 06/24/20at 09:29; Start 06/24/20 at 06:00; Stop 06/24/20 at 18:00; Status DC Bacitracin 48190 unit/Sodium Chloride 1,000 ml @ 1,000 mls/hr 1X ONCE IRR Last administered on 06/24/20at 10:08; Start 06/24/20 at 06:00; Stop 06/24/20 at 06:59; Status DC Gelatin (Gelfoam Size 100) 1 each STK-MED ONCE .ROUTE Last administered on 06/24/20at 10:08; Start 06/24/20 at 06:49; Stop 06/24/20 at 06:50; Status DC Ketorolac Tromethamine (Toradol Im) 60 mg STK-MED ONCE .ROUTE Last administered on 06/24/20at 10:08; Start 06/24/20 at 06:49; Stop 06/24/20 at 06:50; Status DC Lidocaine/ Epinephrine (LIDOCAINE 1%-EPI 1:100,000 Multi-Dose) 20 ml STK-MED ONCE .ROUTE Last administered on 06/24/20at 10:08; Start 06/24/20 at 06:49; Stop 06/24/20 at 06:50; Status DC Thrombin 20,000 unit STK-MED ONCE TP Last administered on 06/24/20at 10:08; Start 06/24/20 at 06:50; Stop 06/24/20 at 06:50; Status DC Propofol 200 ml @ As Directed STK-MED ONCE IV ; Start 06/24/20 at 07:59; Stop 06/24/20 at 07:59; Status DC Fentanyl Citrate (Fentanyl 2ml Vial) 100 mcg STK-MED ONCE .ROUTE ; Start 06/24/20 at 08:07; Stop 06/24/20 at 08:08; Status DC Rocuronium [place] (Zemuron) 50 mg STK-MED ONCE .ROUTE ; Start 06/24/20 at 08:08; Stop 06/24/20 at 08:08; Status DC Remifentanil HCl (Ultiva) 2 mg STK-MED ONCE IV ; Start 06/24/20 at 08:08; Stop 06/24/20 at 08:08; Status DC Midazolam HCl (Versed) 2 mg STK-MED ONCE .ROUTE ; Start 06/24/20 at 08:08; St op 06/24/20 at 08:08; Status DC Propofol (Diprivan) 200 mg STK-MED ONCE IV ; Start 06/24/20 at 08:08; Stop 06/24/20 at 08:09; Status DC Dexamethasone Sodium Phosphate (Decadron) 20 mg STK-MED ONCE .ROUTE ; Start 06/24/20 at 08:08; Stop 06/24/20 at 08:09; Status DC Lidocaine HCl (Lidocaine Pf 2% Vial) 5 ml STK-MED ONCE .ROUTE ; Start 06/24/20 at 08:08; Stop 06/24/20 at 08:09; Status DC Ondansetron HCl (Zofran) 4 mg STK-MED ONCE .ROUTE ; Start 06/24/20 at 08:09; Stop 06/24/20 at 08:09; Status DC Phenylephrine HCl (Sergio-Synephrine Inj) 10 mg STK-MED ONCE .ROUTE ; Start 06/24/20 at 08:16; Stop 06/24/20 at 08:17; Status DC Ephedrine Sulfate (ePHEDrine PF IN SALINE SYRINGE) 50 mg STK-MED ONCE IV ; Start 06/24/20 at 09:07; Stop 06/24/20 at 09:07; Status DC Ondansetron HCl (Zofran) 4 mg PRN Q6HRS PRN IV NAUSEA/VOMITING; Start 06/24/20 at 09:45; Stop 06/24/20 at 19:54; Status DC Fentanyl Citrate (Fentanyl 2ml Vial) 25 mcg PRN Q5MIN PRN IV MILD PAIN 1-3; Start 06/24/20 at 09:45; Stop 06/24/20 at 19:54; Status DC Fentanyl Citrate (Fentanyl 2ml Vial) 50 mcg PRN Q5MIN PRN IV MODERATE TO SEVERE PAIN; Start 06/24/20 at 09:45; Stop 06/24/20 at 19:54; Status DC Morphine Sulfate (Morphine Sulfate) 1 mg PRN Q10MIN PRN IV SEVERE PAIN 7-10; Start 06/24/20 at 09:45; Stop 06/24/20 at 19:54; Status DC Ringer's Solution 1,000 ml @ 30 mls/hr Q24H IV ; Start 06/24/20 at 09:31; Stop 06/24/20 at 19:54; Status DC Lidocaine HCl (Xylocaine-Mpf 1% 2ml Vial) 2 ml PRN 1X PRN ID PRIOR TO IV START; Start 06/24/20 at 09:45; Stop 06/24/20 at 19:54; Status DC Hydromorphone HCl (Dilaudid) 0.5 mg PRN Q10MIN PRN IV SEV PAIN, Second choice; Start 06/24/20 at 09:45; Stop 06/24/20 at 19:54; Status DC Prochlorperazine Edisylate (Compazine) 5 mg PACU PRN PRN IV NAUSEA, MRX1; Start 06/24/20 at 09:45; Stop 06/24/20 at 19:54; Status DC Remifentanil HCl (Ultiva) 2 mg STK-MED ONCE IV ; Start 06/24/20 at 11:31; Stop 06/24/20 at 11:31; Status DC Desflurane (Suprane) 90 ml STK-MED ONCE IH ; Start 06/24/20 at 11:33; Stop 06/24/20 at 11:34; Status DC Ketamine HCl (Ketamine) 50 mg STK-MED ONCE .ROUTE ; Start 06/24/20 at 12:20; Stop 06/24/20 at 12:20; Status DC Phenylephrine HCl (Sergio-Synephrine Inj) 10 mg STK-MED ONCE .ROUTE ; Start 06/24/20 at 12:27; Stop 06/24/20 at 12:28; Status DC Cefazolin Sodium (Ancef) 1 gm STK-MED ONCE IVP ; Start 06/24/20 at 12:29; Stop 06/24/20 at 12:30; Status DC Cefazolin Sodium (Ancef) 1 gm STK-MED ONCE IVP ; Start 06/24/20 at 12:29; Stop 06/24/20 at 12:30; Status DC Albumin Human 500 ml @ As Directed STK-MED ONCE IV ; Start 06/24/20 at 13:48; Stop 06/24/20 at 13:48; Status DC Thrombin 20,000 unit STK-MED ONCE TP Last administered on 06/24/20at 14:09; Start 06/24/20 at 13:58; Stop 06/24/20 at 13:58; Status DC Phenylephrine HCl (Sergio-Synephrine Inj) 10 mg STK-MED ONCE .ROUTE ; Start 06/24/20 at 14:06; Stop 06/24/20 at 14:06; Status DC Gelatin (Gelfoam Size 100) 1 each STK-MED ONCE .ROUTE Last administered on 06/24/20at 14:49; Start 06/24/20 at 14:43; Stop 06/24/20 at 14:43; Status DC Vasopressin (Vasostrict) 20 unit STK-MED ONCE .ROUTE ; Start 06/24/20 at 14:55; Stop 06/24/20 at 14:55; Status DC Albumin Human 500 ml @ As Directed STK-MED ONCE IV ; Start 06/24/20 at 15:23; Stop 06/24/20 at 15:23; Status DC Phenylephrine HCl (Sergio-Synephrine Inj) 10 mg STK-MED ONCE .ROUTE ; Start 06/24/20 at 15:23; Stop 06/24/20 at 15:23; Status DC Remifentanil HCl (Ultiva) 2 mg STK-MED ONCE IV ; Start 06/24/20 at 15:30; Stop 06/24/20 at 15:30; Status DC Fentanyl Citrate (Fentanyl 2ml Vial) 50 mcg PRN Q2HR PRN IVP PAIN Last administered on 06/25/20at 11:39; Start 06/24/20 at 16:45 Sodium Chloride 1,000 ml @ 1,000 mls/hr 1X ONCE IV Last administered on 06/24/20at 20:08; Start 06/24/20 at 20:00; Stop 06/24/20 at 20:59; Status DC Sodium Chloride 1,000 ml @ 100 mls/hr Q10H IV Last administered on 06/25/20at 06:55; Start 06/24/20 at 21:00 Dexamethasone Sodium Phosphate (Decadron) 2 mg Q6HRS IVP Last administered on 06/25/20at 11:38; Start 06/25/20 at 12:00 Magnesium Sulfate 50 ml @ 25 mls/hr PRN DAILY PRN IV for Mag < 1.7 on am labs; Start 06/25/20 at 12:00 Active Scripts Active Reported Tramadol Hcl 50 Mg Tablet 50 Mg PO PRN BID PRN Prednisone 50 Mg Tablet 1 Tab PO DAILY Atenolol 25 Mg Tablet 1 Tab PO DAILY Lisinopril 20 Mg Tablet 1 Tab PO DAILY Vitals/I & O Vital Sign - Last 24 Hours 06/24/20 06/24/20 06/24/20 06/24/20 16:41 16:41 16:55 17:10 Temp 97.5 97.5 Pulse 84 84 85 Resp 18 18 18 B/P (MAP) 90/40 97/40 138/90 90/44 95/44 98/44 Pulse Ox 100 100 100 O2 Delivery Mask Room Air Simple Mask Simple Mask O2 Flow Rate 10 10 10 10 06/24/20 06/24/20 06/24/20 06/24/20 17:25 17:40 17:55 17:57 Temp 97.8 97.4 97.8 97.4 Pulse 85 85 80 78 Resp 18 18 18 18 B/P (MAP) 82/40 84/35 126/82 96/40 92/41 92/38 92/37 Pulse Ox 100 100 100 O2 Delivery Simple Mask Simple Mask Room Air Simple Mask O2 Flow Rate 10 10 06/24/20 06/24/20 06/24/20 06/24/20 18:10 18:10 18:15 18:20 Temp 97.8 97.8 97.5 97.8 97.8 97.5 Pulse 80 74 72 Resp 18 16 16 B/P (MAP) 101/63 94/54 86/39 (55) 94/54 Pulse Ox 100 94 O2 Delivery Room Air Room Air Room Air Simple Mask 06/24/20 06/24/20 06/24/20 06/24/20 18:30 18:30 18:30 18:33 Pulse 75 Resp 18 16 B/P (MAP) 83/39 (54) Pulse Ox 94 95 O2 Delivery Room Air Room Air Room Air 06/24/20 06/24/20 06/24/20 06/24/20 18:45 19:00 20:00 20:00 Temp 97.6 97.6 Pulse 77 74 76 Resp 18 21 19 B/P (MAP) 86/40 (55) 96/48 (64) 100/44 (62) Pulse Ox 95 99 98 O2 Delivery Room Air Room Air Room Air Room Air 06/24/20 06/24/20 06/24/20 06/24/20 20:00 20:10 20:56 21:00 Temp 97.6 97.6 Pulse 72 79 75 Resp 23 28 16 B/P (MAP) 113/48 (69) 91/38 117/50 (72) Pulse Ox 100 100 O2 Delivery Room Air Room Air 06/24/20 06/24/20 06/25/20 06/25/20 22:22 23:14 00:00 00:00 Temp 98.7 98.7 Pulse 78 75 62 76 Resp 16 20 24 B/P (MAP) 123/58 (79) 118/54 (75) 124/52 (76) 117/51 (73) Pulse Ox 100 100 100 O2 Delivery Room Air Room Air Room Air 06/25/20 06/25/20 06/25/20 06/25/20 00:26 00:29 01:00 02:00 Pulse 76 72 76 Resp 20 16 B/P (MAP) 117/51 (73) 111/53 (72) 106/53 (70) Pulse Ox 98 98 O2 Delivery Room Air Room Air Room Air 06/25/20 06/25/20 06/25/20 06/25/20 03:07 04:00 04:00 04:00 Temp 98.9 98.9 Pulse 74 80 75 Resp 16 22 B/P (MAP) 97/57 (70) 111/58 (75) 104/54 (71) Pulse Ox 95 95 O2 Delivery Room Air Room Air Room Air 06/25/20 06/25/20 06/25/20 06/25/20 05:00 06:00 07:00 07:42 Pulse 78 82 84 Resp 16 16 18 B/P (MAP) 98/51 (67) 106/54 (71) 92/52 (65) Pulse Ox 97 97 98 O2 Delivery Room Air Room Air Room Air Room Air 06/25/20 06/25/20 06/25/20 06/25/20 08:00 08:00 08:17 08:18 Temp 98.7 98.7 Pulse 79 Resp 18 17 18 B/P (MAP) 94/55 (68) Pulse Ox 96 98 97 O2 Delivery Room Air Room Air Room Air 06/25/20 06/25/20 06/25/20 06/25/20 08:48 08:50 09:00 09:17 Pulse 76 76 Resp 18 18 20 B/P (MAP) 97/68 101/61 (74) Pulse Ox 96 97 97 O2 Delivery Room Air Room Air Room Air 06/25/20 06/25/20 06/25/20 06/25/20 10:00 11:00 11:39 11:50 Pulse 80 78 Resp 18 16 17 B/P (MAP) 106/58 (74) 104/58 (73) Pulse Ox 97 99 97 O2 Delivery Room Air Room Air Room Air Room Air 06/25/20 06/25/20 06/25/20 12:00 12:09 13:00 Temp 98.5 98.5 Pulse 80 78 Resp 17 22 16 B/P (MAP) 101/62 (75) 101/62 (75) Pulse Ox 97 97 98 O2 Delivery Room Air Room Air Room Air Intake and Output 06/24/20 06/24/20 06/25/20 15:00 23:00 07:00 Intake Total 50 ml 5900 ml 1112 ml Output Total 2650 ml 1120 ml Balance 50 ml 3250 ml -8 ml Justifications for Admission Other Justification Nutrition Consultation Dietary Evaluation: Recommendations by RD: Dietary education by RD, Increase Calorie Intake, Protein supplementation Comments: REC resume Cardiac diet s/p surgery chocolate ensure bid Expected Outcomes/Goals: to meet >75% est nutrition needs via po intake- goal ongoing Interpretation of weight loss: >5% in 1 month Malnutrition Findings: Food and Nutrition Intake (Sev: <50% est energy req 5days Weight Status: Overweight MICHAEL LOZANO MD Jun 25, 2020 13:45
--- NOTE | 2020-06-25 14:20 | NUR ---
SS following for discharge planning. SS reviewed pt chart and discussed with pt RN. Pt is from home with spouse and is currently on room air. Pt had surgery on 06/24/2020 to remove mass on spine. COVID19 negative. Pt and pt's spouse requesting information on Medicaid and Disability. SS provided Medicaid application and Disability information to pt's spouse. SS will continue to follow for discharge planning.
[2020-06-25] MEDS: traMADol 50 MG TABLET PO PRN (21:07)
[2020-06-25] MEDS: PATCH REMOVAL. MC SCH (21:08)
[2020-06-26] MEDS: DEXAMETHASONE SOD PHOS 4 MG/ML VIAL IVP SCH ×5 (01:23→23:57)
[2020-06-26] MEDS: HYDROcodone/APAP 5/325MG 1 TAB TABLET PO PRN ×4 (01:24→21:06)
[2020-06-26] MEDS: fentaNYL PF VIAL 100 MCG/2 ML VIAL IVP PRN ×5 (01:24→21:25)
[2020-06-26 03:00] VITALS: BP 118/73
[2020-06-26] MEDS: traMADol 50 MG TABLET PO PRN (03:07)
[2020-06-26] MEDS: IV NORMAL SALINE 1000ML BAG 1,000 ML IV SCH ×3 (03:08→21:28)
[2020-06-26 07:00] VITALS: BP 134/79
[2020-06-26] MEDS: LIDOCAINE (700MG/PATCH) PATCH. TD SCH (07:56)
[2020-06-26] MEDS: SENNOSIDES/DOCUSATE 8.6/50MG TABLET. PO SCH ×2 (08:02→21:05)
[2020-06-26] MEDS: BISACODYL 5 MG TABLET.DR. PO SCH (08:03)
[2020-06-26] MEDS: PANTOPRAZOLE 40 MG TABLET.DR. PO SCH ×2 (08:03→15:46)
[2020-06-26] MEDS: ATENOLOL 25 MG TABLET. PO SCH (08:03)
--- NOTE | 2020-06-26 08:33 | PDOC ---
Provider Note Date of Service: DATE: 06/26/20 TIME: 08:28 Provider Note bp, output beter re iv saline- gfr better also- cont same care, may need rehab - dr edmond levin , path report pending Justifications for Admission Other Justification MARK ANTHONY ARELLANO MD Jun 26, 2020 08:33
[2020-06-26 08:41] LABS: ALBUMIN 2.6 g/dL (3.4-5.0); CALCIUM 8.1 mg/dL (8.5-10.1); CREATININE 1.1 mg/dL (0.7-1.3); GFR 66.6; PHOSPHORUS 3.7 mg/dL (2.6-4.7); POTASSIUM 4.7 mmol/L (3.5-5.1)
--- NOTE | 2020-06-26 09:28 | NUR ---
SW following. Discussed with RN, pt from home with spouse, room air, GI soft, COVID-19 negative. PT/OT ordered. SW will continue to follow. Addendum: 06/26/20 at 1617 by JOSE FARIA SW met with pt and pt's at bedside (no isolation precautions at the time). GIANA discussed discharge planning and PT/OT recommendation of SNU, pt would like to go home and is agreeable to home health. Pt identified his , son, and daughter as supports for him at home, his son is home all day and can help. Pt's was agreeable to this plan too. Pt does not have a preference of provider. Choice of vendor form completed. RN notified. GIANA will continue to follow.
--- NOTE | 2020-06-26 09:49 | PDOC ---
PROGRESS NOTES Date of Service DATE: 06/26/20 TIME: 09:35 Subjective Subjective No events overnight. No new symptoms today. He received surgery on 06/24/2020 Objective Objective Vital Signs Date Time Temp Pulse Resp B/P (MAP) Pulse Ox O2 Delivery O2 Flow Rate FiO2 06/26/20 08:03 70 134/79 06/26/20 08:00 Room Air 06/26/20 07:00 97.6 16 96 97.6 06/24/20 17:40 10 Intake and Output 06/26/20 07:00 Intake Total 903 ml Output Total 985 ml Balance -82 ml Intake Oral 0 ml IV Total 903 ml Output Urine Total 950 ml Drainage Total 35 ml Physical Exam Abdomen: Normal bowel sounds, Soft Heart: Regular rate, Normal S1 Extremities: No clubbing, No cyanosis General: Alert, Oriented X3 HEENT: Atraumatic Lungs: Clear to auscultation MUSCULOSKELETAL: No swelling Neck: Supple, No JVD Neuro: Normal speech Psych/Mental Status: Mental status NL Skin: No rashes Assessment Assessment 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 Can plan on requesting NGS for evaluation of actionable mutations and PD-L1 IHC -Follow-up radiation oncology recommendations -Will discuss systemic therapy options based on results of surgical pathology. He does not need to remain inpatient for this -Continue Decadron 2 mg every 6 hours. Will defer to neurosurgery regarding steroid taper -Tumor markers, SPEP and free light chains have been checked and have returned negative so far. Bony Horton MD Medical Oncology/Hematology Ph: [phone] Comment Review of Relevant I have reviewed the following items kiersten (where applicable) has been applied. Labs Laboratory Tests Test 06/24/20 13:47 06/24/20 15:03 06/24/20 17:20 06/24/20 21:45 Hemoglobin 15.0 g/dL (13.0-17.5) 7.7 g/dL (13.0-17.5) 9.4 g/dL (13.0-17.5) Hematocrit 44.2 % (39.0-53.0) 23.5 % (39.0-53.0) 28.1 % (39.0-53.0) Mean Corpuscular Hemoglobin Concent 34 g/dL (31-37) 33 g/dL (31-37) 34 g/dL (31-37) Bedside Hemoglobin (Calculated) 9.9 g/dL (14-18) Bedside Hematocrit 29 % (37-52) Bedside Arterial pH 7.30 (7.35-7.45) Arterial Blood pH (Temp corrected) 7.33 Bedside Arterial pCO2 40 mmHg (35-45) Arterial Blood pCO2 (Temp correct) 37 mmHg Bedside Arterial pO2 456 mmHg (75-100) Arterial Blood pO2 (Temp corrected) 444 mmHg Bedside Arterial HCO3 20 mmol/L (21-28) Bedside Arterial Total CO2 21 mmol/L (21-32) Arterial Bld O2 Saturation (Measur) 100 % (95-99) Bedside Arterial Blood Base Excess -7 mmol/L (0-3) Bedside FiO2 100.0 Bedside Sodium 134 mmol/L (135-145) Bedside Potassium 4.9 mmol/L (3.5-5.0) Glucose Level 199 mg/dL (70-99) Bedside Ionized Calcium (Craig) 1.16 mmol/L (1.13-1.32) White Blood Count 27.2 x10^3/uL (4.0-11.0) 24.8 x10^3/uL (4.0-11.0) Red Blood Count 2.73 x10^6/uL (4.30-5.70) 3.28 x10^6/uL (4.30-5.70) Mean Corpuscular Volume 86 fL (79-100) 86 fL (79-100) Mean Corpuscular Hemoglobin 28 pg (25-35) 29 pg (25-35) Red Cell Distribution Width 13.6 % (11.5-14.5) 14.1 % (11.5-14.5) Platelet Count 145 x10^3/uL (140-400) 121 x10^3/uL (140-400) Test 06/25/20 05:25 06/25/20 12:25 06/26/20 07:51 White Blood Count 17.7 x10^3/uL (4.0-11.0) Red Blood Count 3.25 x10^6/uL (4.30-5.70) Hemoglobin 9.3 g/dL (13.0-17.5) Hematocrit 27.8 % (39.0-53.0) Mean Corpuscular Volume 86 fL (79-100) Mean Corpuscular Hemoglobin 29 pg (25-35) Mean Corpuscular Hemoglobin Concent 33 g/dL (31-37) Red Cell Distribution Width 14.3 % (11.5-14.5) Platelet Count 124 x10^3/uL (140-400) Neutrophils (%) (Auto) 89 % (31-73) Lymphocytes (%) (Auto) 5 % (24-48) Monocytes (%) (Auto) 6 % (0-9) Eosinophils (%) (Auto) 0 % (0-3) Basophils (%) (Auto) 0 % (0-3) Neutrophils # (Auto) 15.6 x10^3/uL (1.8-7.7) Lymphocytes # (Auto) 0.9 x10^3/uL (1.0-4.8) Monocytes # (Auto) 1.1 x10^3/uL (0.0-1.1) Eosinophils # (Auto) 0.0 x10^3/uL (0.0-0.7) Basophils # (Auto) 0.0 x10^3/uL (0.0-0.2) Sodium Level 139 mmol/L (136-145) 140 mmol/L (136-145) Potassium Level 5.0 mmol/L (3.5-5.1) 4.7 mmol/L (3.5-5.1) Chloride Level 108 mmol/L (98-107) 107 mmol/L (98-107) Carbon Dioxide Level 21 mmol/L (21-32) 26 mmol/L (21-32) Anion Gap 10 (6-14) 7 (6-14) Blood Urea Nitrogen 47 mg/dL (8-26) 40 mg/dL (8-26) Creatinine 1.5 mg/dL (0.7-1.3) 1.1 mg/dL (0.7-1.3) Estimated GFR (Cockcroft-Gault) 46.5 66.6 Glucose Level 143 mg/dL (70-99) 137 mg/dL (70-99) Calcium Level 7.7 mg/dL (8.5-10.1) 8.1 mg/dL (8.5-10.1) Creatine Kinase 2118 U/L (39-308) Urine Collection Type Unknown Urine Color Yellow Urine Clarity Clear Urine pH 5.0 (<5.0-8.0) Urine Specific Stuart 1.015 (1.000-1.030) Urine Protein Negative mg/dL (NEG-TRACE) Urine Glucose (UA) Negative mg/dL (NEG) Urine Ketones (Stick) Negative mg/dL (NEG) Urine Blood Large (NEG) Urine Nitrite Negative (NEG) Urine Bilirubin Negative (NEG) Urine Urobilinogen Dipstick 0.2 mg/dL (0.2 mg/dL) Urine Leukocyte Esterase Negative (NEG) Urine RBC >40 /HPF (0-2) Urine WBC 0 /HPF (0-4) Urine Bacteria Few /HPF (0-FEW) Urine Hyaline Casts Moderate /HPF Urine Granular Casts Few /HPF Urine Mucus Mod /LPF Urine Random Sodium 101 mmol/L (Not Estab.) Phosphorus Level 3.7 mg/dL (2.6-4.7) Magnesium Level 2.2 mg/dL (1.8-2.4) Albumin 2.6 g/dL (3.4-5.0) Laboratory Tests Test 06/25/20 12:25 06/26/20 07:51 Urine Collection Type Unknown Urine Color Yellow Urine Clarity Clear Urine pH 5.0 (<5.0-8.0) Urine Specific Stuart 1.015 (1.000-1.030) Urine Protein Negative mg/dL (NEG-TRACE) Urine Glucose (UA) Negative mg/dL (NEG) Urine Ketones (Stick) Negative mg/dL (NEG) Urine Blood Large (NEG) Urine Nitrite Negative (NEG) Urine Bilirubin Negative (NEG) Urine Urobilinogen Dipstick 0.2 mg/dL (0.2 mg/dL) Urine Leukocyte Esterase Negative (NEG) Urine RBC >40 /HPF (0-2) Urine WBC 0 /HPF (0-4) Urine Bacteria Few /HPF (0-FEW) Urine Hyaline Casts Moderate /HPF Urine Granular Casts Few /HPF Urine Mucus Mod /LPF Urine Random Sodium 101 mmol/L (Not Estab.) Sodium Level 140 mmol/L (136-145) Potassium Level 4.7 mmol/L (3.5-5.1) Chloride Level 107 mmol/L (98-107) Carbon Dioxide Level 26 mmol/L (21-32) Anion Gap 7 (6-14) Blood Urea Nitrogen 40 mg/dL (8-26) Creatinine 1.1 mg/dL (0.7-1.3) Estimated GFR (Cockcroft-Gault) 66.6 Glucose Level 137 mg/dL (70-99) Calcium Level 8.1 mg/dL (8.5-10.1) Phosphorus Level 3.7 mg/dL (2.6-4.7) Magnesium Level 2.2 mg/dL (1.8-2.4) Albumin 2.6 g/dL (3.4-5.0) Medications Current Medications Ketorolac Tromethamine (Toradol 30mg Vial) 30 mg 1X ONCE IM Last administered on 06/18/20at 11:22; Start 06/18/20 at 10:45; Stop 06/18/20 at 10:46; Status DC Cyclobenzaprine HCl (Flexeril) 10 mg 1X ONCE PO Last administered on 06/18/20at 11:21; Start 06/18/20 at 10:45; Stop 06/18/20 at 10:46; Status DC Lidocaine (Lidoderm) 1 patch 1X ONCE TD Last administered on 06/18/20at 11:22; Start 06/18/20 at 10:45; Stop 06/18/20 at 10:46; Status DC Tramadol HCl (Ultram) 100 mg PRN Q6HRS PRN PO MODERATE PAIN Last administered on 06/26/20 03:07; Start 06/18/20 at 17:45 Acetaminophen/ Hydrocodone Bitart (Lortab 5/325) 1 tab PRN Q6HRS PRN PO SEVERE PAIN Last administered on 06/26/20 08:02; Start 06/18/20 at 17:45 Lidocaine (Lidoderm) 1 patch DAILY TD Last administered on 06/23/20 09:12; Start 06/18/20 at 18:00 Miscellaneous (Lidoderm Patch Removal) 1 ea QHS MC Last administered on 06/23/20at 20:38; Start 06/18/20 at 21:00 Atenolol (Tenormin) 25 mg DAILY PO Last administered on 06/26/20at 08:03; Start 06/19/20 at 09:00 Lisinopril (Prinivil) 20 mg DAILY PO Last administered on 06/23/20at 09:11; Start 06/19/20 at 09:00; Stop 06/24/20 at 08:26; Status DC Gadoterate Meglumine (Clariscan) 16.6 ml 1X ONCE IVP Last administered on 06/19/20at 10:56; Start 06/19/20 at 10:45; Stop 06/19/20 at 10:46; Status DC Iohexol (Omnipaque 240 Mg/ml) 50 ml 1X ONCE PO Last administered on 06/19/20at 12:00; Start 06/19/20 at 12:00; Stop 06/19/20 at 12:01; Status DC Iohexol (Omnipaque 300 Mg/ml) 75 ml 1X ONCE IV Last administered on 06/19/20at 12:00; Start 06/19/20 at 12:00; Stop 06/19/20 at 12:01; Status DC Info (CONTRAST GIVEN -- Rx MONITORING) 1 each PRN DAILY PRN MC SEE COMMENTS; Start 06/19/20 at 11:45; Stop 06/21/20 at 11:44; Status DC Bisacodyl (Dulcolax Tab) 10 mg DAILY PO Last administered on 06/26/20at 08:03; Start 06/19/20 at 14:00 Bisacodyl (Dulcolax Supp) 10 mg PRN DAILY PRN [place] CONSTIPATION; Start 06/19/20 at 13:15 Senna/Docusate Sodium (Senna Plus) 1 tab BID PO Last administered on 06/26/20at 08:02; Start 06/19/20 at 21:00 Alprazolam (Xanax) 0.5 mg PRN Q8HRS PRN PO ANXIETY / AGITATION; Start 06/19/20 at 13:15 Dexamethasone Sodium Phosphate (Decadron) 2 mg Q6HRS IVP Last administered on 06/21/20at 12:32; Start 06/19/20 at 16:30; Stop 06/21/20 at 13:04; Status DC Dexamethasone Sodium Phosphate (Decadron) 4 mg Q6HRS IVP Last administered on 06/25/20at 06:14; Start 06/21/20 at 18:00; Stop 06/25/20 at 09:27; Status DC Pantoprazole Sodium (Protonix) 40 mg DAILYAC PO Last administered on 06/26/20at 08:03; Start 06/23/20 at 11:30 Cefazolin Sodium (Ancef) 2 gm 1X PREOP PRN IVP PRIOR TO PROCEDURE; Start 06/24/20 at 08:00; Status UNV Cefazolin Sodium/ Dextrose 50 ml @ 100 mls/hr 1X PREOP PRN IV PRIOR TO PROCEDURE Last administered on 06/24/20at 09:29; Start 06/24/20 at 06:00; Stop 06/24/20 at 18:00; Status DC Bacitracin 86343 unit/Sodium Chloride 1,000 ml @ 1,000 mls/hr 1X ONCE IRR Last administered on 06/24/20at 10:08; Start 06/24/20 at 06:00; Stop 06/24/20 at 06:59; Status DC Gelatin (Gelfoam Size 100) 1 each STK-MED ONCE .ROUTE Last administered on 06/24/20at 10:08; Start 06/24/20 at 06:49; Stop 06/24/20 at 06:50; Status DC Ketorolac Tromethamine (Toradol Im) 60 mg STK-MED ONCE .ROUTE Last administered on 06/24/20at 10:08; Start 06/24/20 at 06:49; Stop 06/24/20 at 06:50; Status DC Lidocaine/ Epinephrine (LIDOCAINE 1%-EPI 1:100,000 Multi-Dose) 20 ml STK-MED ONCE .ROUTE Last administered on 06/24/20at 10:08; Start 06/24/20 at 06:49; Stop 06/24/20 at 06:50; Status DC Thrombin 20,000 unit STK-MED ONCE TP Last administered on 06/24/20at 10:08; Start 06/24/20 at 06:50; Stop 06/24/20 at 06:50; Status DC Propofol 200 ml @ As Directed STK-MED ONCE IV ; Start 06/24/20 at 07:59; Stop 06/24/20 at 07:59; Status DC Fentanyl Citrate (Fentanyl 2ml Vial) 100 mcg STK-MED ONCE .ROUTE ; Start 06/24/20 at 08:07; Stop 06/24/20 at 08:08; Status DC Rocuronium Lexa (Zemuron) 50 mg STK-MED ONCE .ROUTE ; Start 06/24/20 at 08:08; Stop 06/24/20 at 08:08; Status DC Remifentanil HCl (Ultiva) 2 mg STK-MED ONCE IV ; Start 06/24/20 at 08:08; Stop 06/24/20 at 08:08; Status DC Midazolam HCl (Versed) 2 mg STK-MED ONCE .ROUTE ; Start 06/24/20 at 08:08; Stop 06/24/20 at 08:08; Status DC Propofol (Diprivan) 200 mg STK-MED ONCE IV ; Start 06/24/20 at 08:08; Stop 06/24/20 at 08:09; Status DC Dexamethasone Sodium Phosphate (Decadron) 20 mg STK-MED ONCE .ROUTE ; Start 06/24/20 at 08:08; Stop 06/24/20 at 08:09; Status DC Lidocaine HCl (Lidocaine Pf 2% Vial) 5 ml STK-MED ONCE .ROUTE ; Start 06/24/20 at 08:08; Stop 06/24/20 at 08:09; Status DC Ondansetron HCl (Zofran) 4 mg STK-MED ONCE .ROUTE ; Start 06/24/20 at 08:09; Stop 06/24/20 at 08:09; Status DC Phenylephrine HCl (Sergio-Synephrine Inj) 10 mg STK-MED ONCE .ROUTE ; Start 06/24/20 at 08:16; Stop 06/24/20 at 08:17; Status DC Ephedrine Sulfate (ePHEDrine PF IN SALINE SYRINGE) 50 mg STK-MED ONCE IV ; Start 06/24/20 at 09:07; Stop 06/24/20 at 09:07; Status DC Ondansetron HCl (Zofran) 4 mg PRN Q6HRS PRN IV NAUSEA/VOMITING; Start 06/24/20 at 09:45; Stop 06/24/20 at 19:54; Status DC Fentanyl Citrate (Fentanyl 2ml Vial) 25 mcg PRN Q5MIN PRN IV MILD PAIN 1-3; Start 06/24/20 at 09:45; Stop 06/24/20 at 19:54; Status DC Fentanyl Citrate (Fentanyl 2ml Vial) 50 mcg PRN Q5MIN PRN IV MODERATE TO SEVERE PAIN; Start 06/24/20 at 09:45; Stop 06/24/20 at 19:54; Status DC Morphine Sulfate (Morphine Sulfate) 1 mg PRN Q10MIN PRN IV SEVERE PAIN 7-10; Start 06/24/20 at 09:45; Stop 06/24/20 at 19:54; Status DC Ringer's Solution 1,000 ml @ 30 mls/hr Q24H IV ; Start 06/24/20 at 09:31; Stop 06/24/20 at 19:54; Status DC Lidocaine HCl (Xylocaine-Mpf 1% 2ml Vial) 2 ml PRN 1X PRN ID PRIOR TO IV START; Start 06/24/20 at 09:45; Stop 06/24/20 at 19:54; Status DC Hydromorphone HCl (Dilaudid) 0.5 mg PRN Q10MIN PRN IV SEV PAIN, Second choice; Start 06/24/20 at 09:45; Stop 06/24/20 at 19:54; Status DC Prochlorperazine Edisylate (Compazine) 5 mg PACU PRN PRN IV NAUSEA, MRX1; Start 06/24/20 at 09:45; Stop 06/24/20 at 19:54; Status DC Remifentanil HCl (Ultiva) 2 mg STK-MED ONCE IV ; Start 06/24/20 at 11:31; Stop 06/24/20 at 11:31; Status DC Desflurane (Suprane) 90 ml STK-MED ONCE IH ; Start 06/24/20 at 11:33; Stop 06/24/20 at 11:34; Status DC Ketamine HCl (Ketamine) 50 mg STK-MED ONCE .ROUTE ; Start 06/24/20 at 12:20; Stop 06/24/20 at 12:20; Status DC Phenylephrine HCl (Sergio-Synephrine Inj) 10 mg STK-MED ONCE .ROUTE ; Start 06/24/20 at 12:27; Stop 06/24/20 at 12:28; Status DC Cefazolin Sodium (Ancef) 1 gm STK-MED ONCE IVP ; Start 06/24/20 at 12:29; Stop 06/24/20 at 12:30; Status DC Cefazolin Sodium (Ancef) 1 gm STK-MED ONCE IVP ; Start 06/24/20 at 12:29; Stop 06/24/20 at 12:30; Status DC Albumin Human 500 ml @ As Directed STK-MED ONCE IV ; Start 06/24/20 at 13:48; Stop 06/24/20 at 13:48; Status DC Thrombin 20,000 unit STK-MED ONCE TP Last administered on 06/24/20at 14:09; Start 06/24/20 at 13:58; Stop 06/24/20 at 13:58; Status DC Phenylephrine HCl (Sergio-Synephrine Inj) 10 mg STK-MED ONCE .ROUTE ; Start 06/24/20 at 14:06; Stop 06/24/20 at 14:06; Status DC Gelatin (Gelfoam Size 100) 1 each STK-MED ONCE .ROUTE Last administered on 06/24/20at 14:49; Start 06/24/20 at 14:43; Stop 06/24/20 at 14:43; Status DC Vasopressin (Vasostrict) 20 unit STK-MED ONCE .ROUTE ; Start 06/24/20 at 14:55; Stop 06/24/20 at 14:55; Status DC Albumin Human 500 ml @ As Directed STK-MED ONCE IV ; Start 06/24/20 at 15:23; Stop 06/24/20 at 15:23; Status DC Phenylephrine HCl (Sergio-Synephrine Inj) 10 mg STK-MED ONCE .ROUTE ; Start 06/24/20 at 15:23; Stop 06/24/20 at 15:23; Status DC Remifentanil HCl (Ultiva) 2 mg STK-MED ONCE IV ; Start 06/24/20 at 15:30; Stop 06/24/20 at 15:30; Status DC Fentanyl Citrate (Fentanyl 2ml Vial) 50 mcg PRN Q2HR PRN IVP PAIN Last adminis tered on 06/26/20at 06:15; Start 06/24/20 at 16:45 Sodium Chloride 1,000 ml @ 1,000 mls/hr 1X ONCE IV Last administered on 08/24/19at 20:08; Start 06/24/20 at 20:00; Stop 06/24/20 at 20:59; Status DC Sodium Chloride 1,000 ml @ 100 mls/hr Q10H IV Last administered on 06/26/20at 03:08; Start 06/24/20 at 21:00 Dexamethasone Sodium Phosphate (Decadron) 2 mg Q6HRS IVP Last administered on 06/26/20at 06:14; Start 06/25/20 at 12:00 Magnesium Sulfate 50 ml @ 25 mls/hr PRN DAILY PRN IV for Mag < 1.7 on am labs; Start 06/25/20 at 12:00 Active Scripts Active Reported Tramadol Hcl 50 Mg Tablet 50 Mg PO PRN BID PRN Prednisone 50 Mg Tablet 1 Tab PO DAILY Atenolol 25 Mg Tablet 1 Tab PO DAILY Lisinopril 20 Mg Tablet 1 Tab PO DAILY Vitals/I & O Vital Sign - Last 24 Hours 06/25/20 06/25/20 06/25/20 06/25/20 10:00 11:00 11:39 11:50 Pulse 80 78 Resp 18 16 17 B/P (MAP) 106/58 (74) 104/58 (73) Pulse Ox 97 99 97 O2 Delivery Room Air Room Air Room Air Room Air 06/25/20 06/25/20 06/25/20 06/25/20 12:00 12:09 13:00 14:57 Temp 98.5 99.9 98.5 99.9 Pulse 80 78 79 Resp 17 22 16 17 B/P (MAP) 101/62 (75) 101/62 (75) 109/57 (74) Pulse Ox 97 97 98 96 O2 Delivery Room Air Room Air Room Air Room Air 06/25/20 06/25/20 06/25/20 06/25/20 15:45 17:54 17:55 19:00 Temp 98.2 98.2 Pulse 80 Resp 18 B/P (MAP) 114/64 (81) Pulse Ox 96 O2 Delivery Room Air Room Air Room Air Room Air 06/25/20 06/25/20 06/25/20 06/25/20 19:48 19:48 19:48 20:00 O2 Delivery Room Air Room Air Room Air Room Air 06/25/20 06/25/20 06/25/20 06/25/20 21:07 21:07 21:53 21:53 O2 Delivery Room Air Room Air Room Air Room Air 06/25/20 06/26/20 06/26/20 06/26/20 23:00 01:24 01:24 02:11 Temp 98.6 98.6 Pulse 82 Resp 18 B/P (MAP) 121/70 (87) Pulse Ox 95 O2 Delivery Room Air Room Air Room Air Room Air 06/26/20 06/26/20 06/26/20 06/26/20 02:11 03:00 03:07 04:09 Temp 98.1 98.1 Pulse 76 Resp 18 B/P (MAP) 118/73 (88) Pulse Ox 94 O2 Delivery Room Air Room Air Room Air Room Air 06/26/20 06/26/20 06/26/20 06/26/20 06:15 07:00 08:00 08:03 Temp 97.6 97.6 Pulse 70 70 Resp 16 B/P (MAP) 134/79 (97) 134/79 Pulse Ox 96 O2 Delivery Room Air Room Air Room Air Intake and Output 06/25/20 06/25/20 06/26/20 15:00 23:00 07:00 Intake Total 903 ml 0 ml 0 ml Output Total 685 ml 300 ml Balance 218 ml 0 ml -300 ml Justifications for Admission Other Justification Nutrition Consultation Dietary Evaluation: Recommendations by RD: Dietary education by RD, Increase Calorie Intake, Protein supplementation Comments: REC resume Cardiac diet s/p surgery chocolate ensure bid Expected Outcomes/Goals: to meet >75% est nutrition needs via po intake- goal ongoing Interpretation of weight loss: >5% in 1 month Malnutrition Findings: Food and Nutrition Intake (Sev: <50% est energy req 5days Weight Status: Overweight NATI HORTON MD Jun 26, 2020 09:49
--- NOTE | 2020-06-26 10:41 | PDOC ---
PROGRESS NOTES Date of Service DATE: 06/26/20 TIME: 10:35 Subjective Subjective He admits continued back pain and also having some difficulty with gastric reflux. Objective Objective Vital Signs Date Time Temp Pulse Resp B/P (MAP) Pulse Ox O2 Delivery O2 Flow Rate FiO2 06/26/20 08:03 70 134/79 06/26/20 08:00 Room Air 06/26/20 07:00 97.6 16 96 97.6 06/24/20 17:40 10 Intake and Output 06/26/20 07:00 Intake Total 903 ml Output Total 985 ml Balance -82 ml Intake Oral 0 ml IV Total 903 ml Output Urine Total 950 ml Drainage Total 35 ml Physical Exam Physical Exam He is alert,supine in bed with lumbar corset on loosely and he had relatively increased weakness in his left hip flexors,knee flexors and right foot dorsiflexors when compared to at the time of admission, when he had only minimal weakness of left hip flexors. He had equal perception of touch and pin prick sensation in his lower extremities andhe had absent knee and ankle jerks bilaterally. He needs assistance with bed mobility. Assessment Assessment Problems Medical Problems: (1) Abnormal CT scan, lumbar spine Status: Acute Plan Plan of Care To have physical and occupational therapy to see him today and he may need transfer to rehab unit. Comment Review of Relevant I have reviewed the following items kiersten (where applicable) has been applied. Labs Laboratory Tests Test 06/24/20 13:47 06/24/20 15:03 06/24/20 17:20 06/24/20 21:45 Hemoglobin 15.0 g/dL (13.0-17.5) 7.7 g/dL (13.0-17.5) 9.4 g/dL (13.0-17.5) Hematocrit 44.2 % (39.0-53.0) 23.5 % (39.0-53.0) 28.1 % (39.0-53.0) Mean Corpuscular Hemoglobin Concent 34 g/dL (31-37) 33 g/dL (31-37) 34 g/dL (31-37) Bedside Hemoglobin (Calculated) 9.9 g/dL (14-18) Bedside Hematocrit 29 % (37-52) Bedside Arterial pH 7.30 (7.35-7.45) Arterial Blood pH (Temp corrected) 7.33 Bedside Arterial pCO2 40 mmHg (35-45) Arterial Blood pCO2 (Temp correct) 37 mmHg Bedside Arterial pO2 456 mmHg (75-100) Arterial Blood pO2 (Temp corrected) 444 mmHg Bedside Arterial HCO3 20 mmol/L (21-28) Bedside Arterial Total CO2 21 mmol/L (21-32) Arterial Bld O2 Saturation (Measur) 100 % (95-99) Bedside Arterial Blood Base Excess -7 mmol/L (0-3) Bedside FiO2 100.0 Bedside Sodium 134 mmol/L (135-145) Bedside Potassium 4.9 mmol/L (3.5-5.0) Glucose Level 199 mg/dL (70-99) Bedside Ionized Calcium (Craig) 1.16 mmol/L (1.13-1.32) White Blood Count 27.2 x10^3/uL (4.0-11.0) 24.8 x10^3/uL (4.0-11.0) Red Blood Count 2.73 x10^6/uL (4.30-5.70) 3.28 x10^6/uL (4.30-5.70) Mean Corpuscular Volume 86 fL (79-100) 86 fL (79-100) Mean Corpuscular Hemoglobin 28 pg (25-35) 29 pg (25-35) Red Cell Distribution Width 13.6 % (11.5-14.5) 14.1 % (11.5-14.5) Platelet Count 145 x10^3/uL (140-400) 121 x10^3/uL (140-400) Test 06/25/20 05:25 06/25/20 12:25 06/26/20 07:51 White Blood Count 17.7 x10^3/uL (4.0-11.0) Red Blood Count 3.25 x10^6/uL (4.30-5.70) Hemoglobin 9.3 g/dL (13.0-17.5) Hematocrit 27.8 % (39.0-53.0) Mean Corpuscular Volume 86 fL (79-100) Mean Corpuscular Hemoglobin 29 pg (25-35) Mean Corpuscular Hemoglobin Concent 33 g/dL (31-37) Red Cell Distribution Width 14.3 % (11.5-14.5) Platelet Count 124 x10^3/uL (140-400) Neutrophils (%) (Auto) 89 % (31-73) Lymphocytes (%) (Auto) 5 % (24-48) Monocytes (%) (Auto) 6 % (0-9) Eosinophils (%) (Auto) 0 % (0-3) Basophils (%) (Auto) 0 % (0-3) Neutrophils # (Auto) 15.6 x10^3/uL (1.8-7.7) Lymphocytes # (Auto) 0.9 x10^3/uL (1.0-4.8) Monocytes # (Auto) 1.1 x10^3/uL (0.0-1.1) Eosinophils # (Auto) 0.0 x10^3/uL (0.0-0.7) Basophils # (Auto) 0.0 x10^3/uL (0.0-0.2) Sodium Level 139 mmol/L (136-145) 140 mmol/L (136-145) Potassium Level 5.0 mmol/L (3.5-5.1) 4.7 mmol/L (3.5-5.1) Chloride Level 108 mmol/L (98-107) 107 mmol/L (98-107) Carbon Dioxide Level 21 mmol/L (21-32) 26 mmol/L (21-32) Anion Gap 10 (6-14) 7 (6-14) Blood Urea Nitrogen 47 mg/dL (8-26) 40 mg/dL (8-26) Creatinine 1.5 mg/dL (0.7-1.3) 1.1 mg/dL (0.7-1.3) Estimated GFR (Cockcroft-Gault) 46.5 66.6 Glucose Level 143 mg/dL (70-99) 137 mg/dL (70-99) Calcium Level 7.7 mg/dL (8.5-10.1) 8.1 mg/dL (8.5-10.1) Creatine Kinase 2118 U/L (39-308) Urine Collection Type Unknown Urine Color Yellow Urine Clarity Clear Urine pH 5.0 (<5.0-8.0) Urine Specific Baxter 1.015 (1.000-1.030) Urine Protein Negative mg/dL (NEG-TRACE) Urine Glucose (UA) Negative mg/dL (NEG) Urine Ketones (Stick) Negative mg/dL (NEG) Urine Blood Large (NEG) Urine Nitrite Negative (NEG) Urine Bilirubin Negative (NEG) Urine Urobilinogen Dipstick 0.2 mg/dL (0.2 mg/dL) Urine Leukocyte Esterase Negative (NEG) Urine RBC >40 /HPF (0-2) Urine WBC 0 /HPF (0-4) Urine Bacteria Few /HPF (0-FEW) Urine Hyaline Casts Moderate /HPF Urine Granular Casts Few /HPF Urine Mucus Mod /LPF Urine Random Sodium 101 mmol/L (Not Estab.) Phosphorus Level 3.7 mg/dL (2.6-4.7) Magnesium Level 2.2 mg/dL (1.8-2.4) Albumin 2.6 g/dL (3.4-5.0) Laboratory Tests Test 06/25/20 12:25 06/26/20 07:51 Urine Collection Type Unknown Urine Color Yellow Urine Clarity Clear Urine pH 5.0 (<5.0-8.0) Urine Specific Baxter 1.015 (1.000-1.030) Urine Protein Negative mg/dL (NEG-TRACE) Urine Glucose (UA) Negative mg/dL (NEG) Urine Ketones (Stick) Negative mg/dL (NEG) Urine Blood Large (NEG) Urine Nitrite Negative (NEG) Urine Bilirubin Negative (NEG) Urine Urobilinogen Dipstick 0.2 mg/dL (0.2 mg/dL) Urine Leukocyte Esterase Negative (NEG) Urine RBC >40 /HPF (0-2) Urine WBC 0 /HPF (0-4) Urine Bacteria Few /HPF (0-FEW) Urine Hyaline Casts Moderate /HPF Urine Granular Casts Few /HPF Urine Mucus Mod /LPF Urine Random Sodium 101 mmol/L (Not Estab.) Sodium Level 140 mmol/L (136-145) Potassium Level 4.7 mmol/L (3.5-5.1) Chloride Level 107 mmol/L (98-107) Carbon Dioxide Level 26 mmol/L (21-32) Anion Gap 7 (6-14) Blood Urea Nitrogen 40 mg/dL (8-26) Creatinine 1.1 mg/dL (0.7-1.3) Estimated GFR (Cockcroft-Gault) 66.6 Glucose Level 137 mg/dL (70-99) Calcium Level 8.1 mg/dL (8.5-10.1) Phosphorus Level 3.7 mg/dL (2.6-4.7) Magnesium Level 2.2 mg/dL (1.8-2.4) Albumin 2.6 g/dL (3.4-5.0) Medications Current Medications Ketorolac Tromethamine (Toradol 30mg Vial) 30 mg 1X ONCE IM Last administered on 06/18/20 11:22; Start 06/18/20 at 10:45; Stop 06/18/20 at 10:46; Status DC Cyclobenzaprine HCl (Flexeril) 10 mg 1X ONCE PO Last administered on 06/18/20 11:21; Start 06/18/20 at 10:45; Stop 06/18/20 at 10:46; Status DC Lidocaine (Lidoderm) 1 patch 1X ONCE TD Last administered on 06/18/20 11:22; Start 06/18/20 at 10:45; Stop 06/18/20 at 10:46; Status DC Tramadol HCl (Ultram) 100 mg PRN Q6HRS PRN PO MODERATE PAIN Last administered on 06/26/20 03:07; Start 06/18/20 at 17:45 Acetaminophen/ Hydrocodone Bitart (Lortab 5/325) 1 tab PRN Q6HRS PRN PO SEVERE PAIN Last administered on 06/26/20 08:02; Start 06/18/20 at 17:45 Lidocaine (Lidoderm) 1 patch DAILY TD Last administered on 06/23/20 09:12; Start 06/18/20 at 18:00 Miscellaneous (Lidoderm Patch Removal) 1 ea QHS MC Last administered on 06/23/20at 20:38; Start 06/18/20 at 21:00 Atenolol (Tenormin) 25 mg DAILY PO Last administered on 06/26/20 08:03; Start 06/19/20 at 09:00 Lisinopril (Prinivil) 20 mg DAILY PO Last administered on 06/23/20 09:11; Start 06/19/20 at 09:00; Stop 06/24/20 at 08:26; Status DC Gadoterate Meglumine (Clariscan) 16.6 ml 1X ONCE IVP Last administered on 06/19/20at 10:56; Start 06/19/20 at 10:45; Stop 06/19/20 at 10:46; Status DC Iohexol (Omnipaque 240 Mg/ml) 50 ml 1X ONCE PO Last administered on 06/19/20at 12:00; Start 06/19/20 at 12:00; Stop 06/19/20 at 12:01; Status DC Iohexol (Omnipaque 300 Mg/ml) 75 ml 1X ONCE IV Last administered on 06/19/20at 12:00; Start 06/19/20 at 12:00; Stop 06/19/20 at 12:01; Status DC Info (CONTRAST GIVEN -- Rx MONITORING) 1 each PRN DAILY PRN MC SEE COMMENTS; Start 06/19/20 at 11:45; Stop 06/21/20 at 11:44; Status DC Bisacodyl (Dulcolax Tab) 10 mg DAILY PO Last administered on 06/26/20at 08:03; Start 06/19/20 at 14:00 Bisacodyl (Dulcolax Supp) 10 mg PRN DAILY PRN IA CONSTIPATION; Start 06/19/20 at 13:15 Senna/Docusate Sodium (Senna Plus) 1 tab BID PO Last administered on 06/26/20at 08:02; Start 06/19/20 at 21:00 Alprazolam (Xanax) 0.5 mg PRN Q8HRS PRN PO ANXIETY / AGITATION; Start 06/19/20 at 13:15 Dexamethasone Sodium Phosphate (Decadron) 2 mg Q6HRS IVP Last administered on 06/21/20at 12:32; Start 06/19/20 at 16:30; Stop 06/21/20 at 13:04; Status DC Dexamethasone Sodium Phosphate (Decadron) 4 mg Q6HRS IVP Last administered on 06/25/20at 06:14; Start 06/21/20 at 18:00; Stop 06/25/20 at 09:27; Status DC Pantoprazole Sodium (Protonix) 40 mg DAILYAC PO Last administered on 06/26/20at 08:03; Start 06/23/20 at 11:30 Cefazolin Sodium (Ancef) 2 gm 1X PREOP PRN IVP PRIOR TO PROCEDURE; Start 06/24/20 at 08:00; Status UNV Cefazolin Sodium/ Dextrose 50 ml @ 100 mls/hr 1X PREOP PRN IV PRIOR TO PROCEDURE Last administered on 06/24/20at 09:29; Start 06/24/20 at 06:00; Stop 06/24/20 at 18:00; Status DC Bacitracin 68205 unit/Sodium Chloride 1,000 ml @ 1,000 mls/hr 1X ONCE IRR Last administered on 06/24/20at 10:08; Start 06/24/20 at 06:00; Stop 06/24/20 at 06:59; Status DC Gelatin (Gelfoam Size 100) 1 each STK-MED ONCE .ROUTE Last administered on 06/24/20at 10:08; Start 06/24/20 at 06:49; Stop 06/24/20 at 06:50; Status DC Ketorolac Tromethamine (Toradol Im) 60 mg STK-MED ONCE .ROUTE Last administered on 06/24/20at 10:08; Start 06/24/20 at 06:49; Stop 06/24/20 at 06:50; Status DC Lidocaine/ Epinephrine (LIDOCAINE 1%-EPI 1:100,000 Multi-Dose) 20 ml STK-MED ONCE .ROUTE Last administered on 06/24/20at 10:08; Start 06/24/20 at 06:49; Stop 06/24/20 at 06:50; Status DC Thrombin 20,000 unit STK-MED ONCE TP Last administered on 06/24/20at 10:08; Start 06/24/20 at 06:50; Stop 06/24/20 at 06:50; Status DC Propofol 200 ml @ As Directed STK-MED ONCE IV ; Start 06/24/20 at 07:59; Stop 06/24/20 at 07:59; Status DC Fentanyl Citrate (Fentanyl 2ml Vial) 100 mcg STK-MED ONCE .ROUTE ; Start 06/24/20 at 08:07; Stop 06/24/20 at 08:08; Status DC Rocuronium [place] (Zemuron) 50 mg STK-MED ONCE .ROUTE ; Start 06/24/20 at 08:08; Stop 06/24/20 at 08:08; Status DC Remifentanil HCl (Ultiva) 2 mg STK-MED ONCE IV ; Start 06/24/20 at 08:08; Stop 06/24/20 at 08:08; Status DC Midazolam HCl (Versed) 2 mg STK-MED ONCE .ROUTE ; Start 06/24/20 at 08:08; Stop 06/24/20 at 08:08; Status DC Propofol (Diprivan) 200 mg STK-MED ONCE IV ; Start 06/24/20 at 08:08; Stop 06/24/20 at 08:09; Status DC Dexamethasone Sodium Phosphate (Decadron) 20 mg STK-MED ONCE .ROUTE ; Start 06/24/20 at 08:08; Stop 06/24/20 at 08:09; Status DC Lidocaine HCl (Lidocaine Pf 2% Vial) 5 ml STK-MED ONCE .ROUTE ; Start 06/24/20 at 08:08; Stop 06/24/20 at 08:09; Status DC Ondansetron HCl (Zofran) 4 mg STK-MED ONCE .ROUTE ; Start 06/24/20 at 08:09; Stop 06/24/20 at 08:09; Status DC Phenylephrine HCl (Sergio-Synephrine Inj) 10 mg STK-MED ONCE .ROUTE ; Start 06/24/20 at 08:16; Stop 06/24/20 at 08:17; Status DC Ephedrine Sulfate (ePHEDrine PF IN SALINE SYRINGE) 50 mg STK-MED ONCE IV ; Start 06/24/20 at 09:07; Stop 06/24/20 at 09:07; Status DC Ondansetron HCl (Zofran) 4 mg PRN Q6HRS PRN IV NAUSEA/VOMITING; Start 06/24/20 at 09:45; Stop 06/24/20 at 19:54; Status DC Fentanyl Citrate (Fentanyl 2ml Vial) 25 mcg PRN Q5MIN PRN IV MILD PAIN 1-3; Start 06/24/20 at 09:45; Stop 06/24/20 at 19:54; Status DC Fentanyl Citrate (Fentanyl 2ml Vial) 50 mcg PRN Q5MIN PRN IV MODERATE TO SEVERE PAIN; Start 06/24/20 at 09:45; Stop 06/24/20 at 19:54; Status DC Morphine Sulfate (Morphine Sulfate) 1 mg PRN Q10MIN PRN IV SEVERE PAIN 7-10; Start 06/24/20 at 09:45; Stop 06/24/20 at 19:54; Status DC Ringer's Solution 1,000 ml @ 30 mls/hr Q24H IV ; Start 06/24/20 at 09:31; Stop 06/24/20 at 19:54; Status DC Lidocaine HCl (Xylocaine-Mpf 1% 2ml Vial) 2 ml PRN 1X PRN ID PRIOR TO IV START; Start 06/24/20 at 09:45; Stop 06/24/20 at 19:54; Status DC Hydromorphone HCl (Dilaudid) 0.5 mg PRN Q10MIN PRN IV SEV PAIN, Second choice; Start 06/24/20 at 09:45; Stop 06/24/20 at 19:54; Status DC Prochlorperazine Edisylate (Compazine) 5 mg PACU PRN PRN IV NAUSEA, MRX1; Start 06/24/20 at 09:45; Stop 06/24/20 at 19:54; Status DC Remifentanil HCl (Ultiva) 2 mg STK-MED ONCE IV ; Start 06/24/20 at 11:31; Stop 06/24/20 at 11:31; Status DC Desflurane (Suprane) 90 ml STK-MED ONCE IH ; Start 06/24/20 at 11:33; Stop 06/24/20 at 11:34; Status DC Ketamine HCl (Ketamine) 50 mg STK-MED ONCE .ROUTE ; Start 06/24/20 at 12:20; Stop 06/24/20 at 12:20; Status DC Phenylephrine HCl (Sergio-Synephrine Inj) 10 mg STK-MED ONCE .ROUTE ; Start 06/24/20 at 12:27; Stop 06/24/20 at 12:28; Status DC Cefazolin Sodium (Ancef) 1 gm STK-MED ONCE IVP ; Start 06/24/20 at 12:29; Stop 06/24/20 at 12:30; Status DC Cefazolin Sodium (Ancef) 1 gm STK-MED ONCE IVP ; Start 06/24/20 at 12:29; Stop 06/24/20 at 12:30; Status DC Albumin Human 500 ml @ As Directed STK-MED ONCE IV ; Start 06/24/20 at 13:48; Stop 06/24/20 at 13:48; Status DC Thrombin 20,000 unit STK-MED ONCE TP Last administered on 06/24/20at 14:09; Start 06/24/20 at 13:58; Stop 06/24/20 at 13:58; Status DC Phenylephrine HCl (Sergio-Synephrine Inj) 10 mg STK-MED ONCE .ROUTE ; Start 06/24/20 at 14:06; Stop 06/24/20 at 14:06; Status DC Gelatin (Gelfoam Size 100) 1 each STK-MED ONCE .ROUTE Last administered on 06/24/20at 14:49; Start 06/24/20 at 14:43; Stop 06/24/20 at 14:43; Status DC Vasopressin (Vasostrict) 20 unit STK-MED ONCE .ROUTE ; Start 06/24/20 at 14:55; Stop 06/24/20 at 14:55; Status DC Albumin Human 500 ml @ As Directed STK-MED ONCE IV ; Start 06/24/20 at 15:23; Stop 06/24/20 at 15:23; Status DC Phenylephrine HCl (Sergio-Synephrine Inj) 10 mg STK-MED ONCE .ROUTE ; Start 06/24/20 at 15:23; Stop 06/24/20 at 15:23; Status DC Remifentanil HCl (Ultiva) 2 mg STK-MED ONCE IV ; Start 06/24/20 at 15:30; Stop 06/24/20 at 15:30; Status DC Fentanyl Citrate (Fentanyl 2ml Vial) 50 mcg PRN Q2HR PRN IVP PAIN Last administered on 06/26/20at 06:15; Start 06/24/20 at 16:45 Sodium Chloride 1,000 ml @ 1,000 mls/hr 1X ONCE IV Last administered on 06/24/20at 20:08; Start 06/24/20 at 20:00; Stop 06/24/20 at 20:59; Status DC Sodium Chloride 1,000 ml @ 100 mls/hr Q10H IV Last administered on 06/26/20at 03:08; Start 06/24/20 at 21:00 Dexamethasone Sodium Phosphate (Decadron) 2 mg Q6HRS IVP Last administered on 06/26/20at 06:14; Start 06/25/20 at 12:00 Magnesium Sulfate 50 ml @ 25 mls/hr PRN DAILY PRN IV for Mag < 1.7 on am labs; Start 11/11/20 at 12:00 Active Scripts Active Reported Tramadol Hcl 50 Mg Tablet 50 Mg PO PRN BID PRN Prednisone 50 Mg Tablet 1 Tab PO DAILY Atenolol 25 Mg Tablet 1 Tab PO DAILY Lisinopril 20 Mg Tablet 1 Tab PO DAILY Vitals/I & O Vital Sign - Last 24 Hours 06/25/20 06/25/20 06/25/20 06/25/20 11:00 11:39 11:50 12:00 Temp 98.5 98.5 Pulse 78 80 Resp 16 17 17 B/P (MAP) 104/58 (73) 101/62 (75) Pulse Ox 99 97 97 O2 Delivery Room Air Room Air Room Air Room Air 06/25/20 06/25/20 06/25/20 06/25/20 12:09 13:00 14:57 15:45 Temp 99.9 99.9 Pulse 78 79 Resp 22 16 17 B/P (MAP) 101/62 (75) 109/57 (74) Pulse Ox 97 98 96 O2 Delivery Room Air Room Air Room Air Room Air 06/25/20 06/25/20 06/25/20 06/25/20 17:54 17:55 19:00 19:48 Temp 98.2 98.2 Pulse 80 Resp 18 B/P (MAP) 114/64 (81) Pulse Ox 96 O2 Delivery Room Air Room Air Room Air Room Air 06/25/20 06/25/20 06/25/20 06/25/20 19:48 19:48 20:00 21:07 O2 Delivery Room Air Room Air Room Air Room Air 06/25/20 06/25/20 06/25/20 06/25/20 21:07 21:53 21:53 23:00 Temp 98.6 98.6 Pulse 82 Resp 18 B/P (MAP) 121/70 (87) Pulse Ox 95 O2 Delivery Room Air Room Air Room Air Room Air 06/26/20 06/26/20 06/26/20 06/26/20 01:24 01:24 02:11 02:11 O2 Delivery Room Air Room Air Room Air Room Air 06/26/20 06/26/20 06/26/20 06/26/20 03:00 03:07 04:09 06:15 Temp 98.1 98.1 Pulse 76 Resp 18 B/P (MAP) 118/73 (88) Pulse Ox 94 O2 Delivery Room Air Room Air Room Air Room Air 06/26/20 06/26/20 06/26/20 07:00 08:00 08:03 Temp 97.6 97.6 Pulse 70 70 Resp 16 B/P (MAP) 134/79 (97) 134/79 Pulse Ox 96 O2 Delivery Room Air Room Air Intake and Output 06/25/20 06/25/20 06/26/20 15:00 23:00 07:00 Intake Total 903 ml 0 ml 0 ml Output Total 685 ml 300 ml Balance 218 ml 0 ml -300 ml Justifications for Admission Other Justification Nutrition Consultation Dietary Evaluation: Recommendations by RD: Dietary education by RD, Increase Calorie Intake, Protein supplementation Comments: REC resume Cardiac diet s/p surgery chocolate ensure bid Expected Outcomes/Goals: to meet >75% est nutrition needs via po intake- goal ongoing Interpretation of weight loss: >5% in 1 month Malnutrition Findings: Food and Nutrition Intake (Sev: <50% est energy req 5days Weight Status: Overweight RADHA LEA MD Jun 26, 2020 10:41
[2020-06-26 11:00] VITALS: BP 114/58
--- NOTE | 2020-06-26 11:18 | OP ---
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 OPERATIONS PERFORMED: Posterior instrumentation, T11-T12, L2-L3 with laminectomy, partial L2, L1, partial T12, removal of tumor and decompression of the spinal cord at T12, L1, L2, debulking of tumor L1. The operation was done with multimodality monitoring including SSEP, stimulated EMG, fluoroscopy, BrainLAB guidance and microscopic dissection. SURGEON: Rich Lozano M.D. PACKAGING TECH: GIOVANNY De Souza, assisted with the surgery. She assisted with the exposure, decompression and instrumentation as well as the closure. OPERATIVE INDICATIONS: The patient is a pleasant 69-year-old man who developed problems with severe back pain with standing and walking over the last few months. He then developed pain, which radiated primarily into the left anterior hip and left anterior thigh and beginning about 2 weeks prior to this admission, he had some problems with instability and falling. He presented to the Emergency Room with severe lower back pain, extreme pain with trying with attempting to stand, pain in both of his hips and thighs, but primarily on the left anterior thigh and left hip. At that time of evaluation, I felt that his right lower extremity had normal strength in the left side, it was much more difficult to evaluate because of the severe proximal leg pain with hip flexion or thigh flexion, but overall I felt that there was weakness of the left lower extremity but it was not severe. His condition he reported had been about the same for the last 2 weeks prior to his admission. After I saw him, I started on steroid medications, made plans for surgery after imaging studies demonstrated severe stenosis at L1 as well as tumor involvement circumferentially around the left side. I discussed with him surgery, the risks, especially the risk of paralysis. I spoke about the technique of surgery. 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 He understood all these aspects. He wished to go ahead. DESCRIPTION OF PROCEDURE: Following general endotracheal anesthesia, the patient was positioned prone on the Jarad table. Lumbar region prepped and draped in standard fashion. ANITRA hose and AV impulse boots were applied for DVT prophylaxis. A microscope was draped. Fluoroscopy was draped and brought in the field. Monitoring was established. Ancef 2 g was given less than 1 hour prior to initiation of surgery and repeated at 4-hour intervals. A midline incision was made extending from about T10 to L3. Dissection was carried down through skin and subcutaneous tissue and the paraspinal muscles were reflected. I attached the BrainLAB Star to T10 and then initialized the BrainLAB. I then carried out my exposure exposing the spinous processes and the lamina of T11 and T12 as well as at L2 and L3. I also exposed L1 on the right side. I placed pedicle screws in T11 and T12 as well as L3. This was done in the following fashion using the BrainLAB system and anatomic landmarks, I drilled in the posterior aspect of the pedicle and then used the black ball, followed by tap, followed by ball tip probe, followed by screw placement. I did not place the screws at L2. I covered these openings with bone wax to prevent further hemorrhaging. He had stimulated EMG monitoring throughout the passage of anything into the pedicle and I had no difficulties with the cannulation. I then began gently to remove the spinous process of the lamina of the upper portion of L2. I then began to work superiorly first primarily on the right hand side where I would debulk and help lift the tumor off of the spinal cord, which I visualized. I then carried this up until I was clearly past the tumor into T12. As I worked, I was able first to help debulk and pull tumor up and away from the right side of the spinal cord and then I was able to gently work across and lift the tumor off from the left side. I could visualize the cord throughout and I was extremely cautious and assured myself that there was no pressure placed on to the spinal cord. As I worked, I was able to fully decompress the region. There was considerable hemorrhaging, and I spent a great deal of time with the bipolar controlling this and virtually any contact with the tumor was associated with bleeding, which took some time to control. I worked superiorly exposed this, then I began to debulk a mass on the left side at L1, which because of its size would preclude placement of hardware as I worked, the region became well decompressed. There was too much hemorrhaging to work around to the anterior portion of the spine in L1. I worked sufficiently and diligently. The patient was transfused, given volume expanders, but despite this, his blood pressure did fall for a short time into the 80's systolic. I continued to work diligently to control the hemorrhage and allow the patient to become better stabilized at this point, though I felt that I had achieved my primary objective of debulking the tumor and decompressing the spinal cord. The rods were placed and nuts were placed. The system was torqued sequentially. I did place a cross connector. I irrigated copiously, again continued to work and obtained excellent hemostasis. I left a drain in, brought out through a separate stab incision and then I closed the wound in layers with absorbable suture. The skin was closed with skin ivrin. I felt the surgery went very well. RICH LOZANO MD DR: MOOKIE/yumiko JOB#: [id number] / [id number] CHANDLER
--- NOTE | 2020-06-26 13:06 | PDOC ---
DATE OF SERVICE: DOS: DATE: 06/26/20 TIME: 13:05 SUBJECTIVE ROS F/up for JASON Patient complains of lower extremity weakness which he has discussed with neurosurgery OBJECTIVE Vital Signs Vital Signs Date Time Temp Pulse Resp B/P (MAP) Pulse Ox O2 Delivery O2 Flow Rate FiO2 06/26/20 11:00 98.1 60 16 114/58 (76) 96 Room Air 98.1 I & 0 Intake and Output 06/26/20 07:00 Intake Total 903 ml Output Total 985 ml Balance -82 ml Intake Oral 0 ml IV Total 903 ml Output Urine Total 950 ml Drainage Total 35 ml PHYSICAL EXAM Physical Exam General Appearance: Awake: Alert Oriented x 3 Neck: No JVD or JVP Chest: CTA Niranjan Heart: S1 S2 Abdomen - Soft NTND Extremities - No Edema DIAGNOSIS/ASSESSMENT Assessment & Plan Acute kidney injury: Postop associated with intravascular volume depletion and blood loss. This appears to have resolved. Mildly elevated CPKs noted and hence continue IV fluids for now COMMENT/RELEVANT DATA Meds Current Medications Medications (Trade) Dose Ordered Sig/Tristan Start Time Stop Time Status Last Admin Dose Admin Acetaminophen/ Hydrocodone Bitart (Lortab 5/325) 1 tab PRN Q6HRS PRN 06/18/20 17:45 06/26/20 08:02 1 TAB Albumin Human 500 ml @ As Directed STK-MED ONCE 06/24/20 15:23 06/24/20 15:23 DC Alprazolam (Xanax) 0.5 mg PRN Q8HRS PRN 06/19/20 13:15 Atenolol (Tenormin) 25 mg DAILY 06/19/20 09:00 06/26/20 08:03 25 MG Bacitracin 22418 unit/Sodium Chloride 1,000 ml @ 1,000 mls/hr 1X ONCE 06/24/20 06:00 06/24/20 06:59 DC 06/24/20 10:08 Bisacodyl (Dulcolax Supp) 10 mg PRN DAILY PRN 06/19/20 13:15 Bisacodyl (Dulcolax Tab) 10 mg DAILY 06/19/20 14:00 06/26/20 08:03 10 MG Cefazolin Sodium (Ancef) 1 gm STK-MED ONCE 06/24/20 12:29 11/10/20 12:30 DC Cefazolin Sodium/ Dextrose 50 ml @ 100 mls/hr 1X PREOP PRN 06/24/20 06:00 06/24/20 18:00 DC 06/24/20 09:29 100 MLS/HR Cyclobenzaprine HCl (Flexeril) 10 mg 1X ONCE 06/18/20 10:45 06/18/20 10:46 DC 06/18/20 11:21 10 MG Desflurane (Suprane) 90 ml STK-MED ONCE 06/24/20 11:33 06/24/20 11:34 DC Dexamethasone Sodium Phosphate (Decadron) 2 mg Q6HRS 06/25/20 12:00 06/26/20 12:08 2 MG Ephedrine Sulfate (ePHEDrine PF IN SALINE SYRINGE) 50 mg STK-MED ONCE 06/24/20 09:07 06/24/20 09:07 DC Fentanyl Citrate (Fentanyl 2ml Vial) 50 mcg PRN Q2HR PRN 06/24/20 16:45 06/26/20 10:49 50 MCG Gadoterate Meglumine (Clariscan) 16.6 ml 1X ONCE 06/19/20 10:45 06/19/20 10:46 DC 06/19/20 10:56 16.6 ML Gelatin (Gelfoam Size 100) 1 each STK-MED ONCE 06/24/20 14:43 06/24/20 14:43 DC 06/24/20 14:49 1 EACH Hydromorphone HCl (Dilaudid) 0.5 mg PRN Q10MIN PRN 06/24/20 09:45 06/24/20 19:54 DC Info (CONTRAST GIVEN -- Rx MONITORING) 1 each PRN DAILY PRN 06/19/20 11:45 06/21/20 11:44 DC Iohexol (Omnipaque 240 Mg/ml) 50 ml 1X ONCE 06/19/20 12:00 06/19/20 12:01 DC 06/19/20 12:00 50 ML Iohexol (Omnipaque 300 Mg/ml) 75 ml 1X ONCE 06/19/20 12:00 06/19/20 12:01 DC 06/19/20 12:00 75 ML Ketamine HCl (Ketamine) 50 mg STK-MED ONCE 06/24/20 12:20 06/24/20 12:20 DC Ketorolac Tromethamine (Toradol 30mg Vial) 30 mg 1X ONCE 06/18/20 10:45 06/18/20 10:46 DC 06/18/20 11:22 30 MG Ketorolac Tromethamine (Toradol Im) 60 mg STK-MED ONCE 06/24/20 06:49 06/24/20 06:50 DC 06/24/20 10:08 60 MG Lidocaine (Lidoderm) 1 patch DAILY 06/18/20 18:00 06/23/20 09:12 1 PATCH Lidocaine HCl (Lidocaine Pf 2% Vial) 5 ml STK-MED ONCE 06/24/20 08:08 06/24/20 08:09 DC Lidocaine HCl (Xylocaine-Mpf 1% 2ml Vial) 2 ml PRN 1X PRN 06/24/20 09:45 06/24/20 19:54 DC Lidocaine/ Epinephrine (LIDOCAINE 1%-EPI 1:100,000 Multi-Dose) 20 ml STK-MED ONCE 06/24/20 06:49 06/24/20 06:50 DC 06/24/20 10:08 17 ML Lisinopril (Prinivil) 20 mg DAILY 06/19/20 09:00 06/24/20 08:26 DC 06/23/20 09:11 20 MG Magnesium Sulfate 50 ml @ 25 mls/hr PRN DAILY PRN 06/25/20 12:00 Midazolam HCl (Versed) 2 mg STK-MED ONCE 06/24/20 08:08 06/24/20 08:08 DC Miscellaneous (Lidoderm Patch Removal) 1 ea QHS 06/18/20 21:00 06/23/20 20:38 1 EA Morphine Sulfate (Morphine Sulfate) 1 mg PRN Q10MIN PRN 06/24/20 09:45 06/24/20 19:54 DC Ondansetron HCl (Zofran) 4 mg PRN Q6HRS PRN 06/24/20 09:45 06/24/20 19:54 DC Pantoprazole Sodium (Protonix) 40 mg BIDAC 06/26/20 16:30 Phenylephrine HCl (Sergio-Synephrine Inj) 10 mg STK-MED ONCE 06/24/20 15:23 06/24/20 15:23 DC Prochlorperazine Edisylate (Compazine) 5 mg PACU PRN PRN 06/24/20 09:45 06/24/20 19:54 DC Propofol (Diprivan) 200 mg STK-MED ONCE 06/24/20 08:08 06/24/20 08:09 DC Remifentanil HCl (Ultiva) 2 mg STK-MED ONCE 06/24/20 15:30 06/24/20 15:30 DC Ringer's Solution 1,000 ml @ 30 mls/hr Q24H 06/24/20 09:31 06/24/20 19:54 DC Rocuronium [place] (Zemuron) 50 mg STK-MED ONCE 06/24/20 08:08 06/24/20 08:08 DC Senna/Docusate Sodium (Senna Plus) 1 tab BID 06/19/20 21:00 06/26/20 08:02 1 TAB Sodium Chloride 1,000 ml @ 100 mls/hr Q10H 06/24/20 21:00 06/26/20 12:07 100 MLS/HR Thrombin 20,000 unit STK-MED ONCE 06/24/20 13:58 06/24/20 13:58 DC 06/24/20 14:09 20,000 UNIT Tramadol HCl (Ultram) 100 mg PRN Q6HRS PRN 06/18/20 17:45 06/26/20 03:07 100 MG Vasopressin (Vasostrict) 20 unit STK-MED ONCE 06/24/20 14:55 06/24/20 14:55 DC Lab Laboratory Tests Test 06/26/20 07:51 Sodium Level 140 mmol/L (136-145) Potassium Level 4.7 mmol/L (3.5-5.1) Chloride Level 107 mmol/L (98-107) Carbon Dioxide Level 26 mmol/L (21-32) Anion Gap 7 (6-14) Blood Urea Nitrogen 40 mg/dL (8-26) Creatinine 1.1 mg/dL (0.7-1.3) Estimated GFR (Cockcroft-Gault) 66.6 Glucose Level 137 mg/dL (70-99) Calcium Level 8.1 mg/dL (8.5-10.1) Phosphorus Level 3.7 mg/dL (2.6-4.7) Magnesium Level 2.2 mg/dL (1.8-2.4) Albumin 2.6 g/dL (3.4-5.0) Results All relevant outside records, renal labs, imaging studies, telemetry/EKG's were reviewed. Justicifation of Admission Dx: Justifications for Admission: Justification of Admission Dx: N/A DU TATE MD Jun 26, 2020 13:06
[2020-06-26 14:56] VITALS: BP 132/64
--- NOTE | 2020-06-26 15:08 | PATHOLOGY ---
[facility] Accession Number: [id number] . 01 Material submitted: . vertebral column - L1 MASS - FS . 01 Clinical history: . LOW BACK PAIN WITH MASS . 02 Frozen section diagnosis: . INTRAOPERATIVE CONSULTATION WITH FROZEN SECTION: L1 mass biopsy: - METASTATIC CARCINOMA WITH FOCAL CLEAR CELL FEATURES. . The results are reported to Dr. Padilla in the operating room. (JPM:pit 06/24/2020) . FROZEN SECTION GROSS DESCRIPTION: The specimen is received fresh for intraoperative consultation and is designated "L1 mass". This consists of multiple irregular segments of yellow ruvalcaba and red soft tissue and gritty bone, measuring 3.5 x 2.5 x 0.7 cm in aggregate. A credit resolution representative portion of the specimen is submitted for frozen section as FSA1. The tissue remaining from frozen section is submitted for permanent sections as A1. The remainder of the specimen is submitted following light decalcification for microscopy as A2 and A3. (JPM:pit 06/24/2020) . Frozen section performed at [facility], [address] [place] [address], [place] [address]. TANA/COMPA . 02 Diagnosis: Segments of bone, fibroadipose, and skeletal muscle tissue, L1 mass biopsies: - METASTATIC CLEAR CELL CARCINOMA. SEE COMMENT. . (JPM:mm; 06/25/2020) [facility] 06/25/2020 1622 [facility] . 02 Comment: Sections of the L1 mass biopsy reveal a malignant epithelial neoplasm involving bone and soft tissue. The tumor cells have a solid nested appearance. The tumor cells have clear cytoplasm with well-demarcated cell borders. The tumor cells possess rounded to ovoid, moderately pleomorphic hyperchromatic nuclei, some containing small nucleoli. There is focal coagulative tumor necrosis. A panel of immunoperoxidase stains is obtained on block A3 and yields the following results: . AE1/AE3: Tumor cells positive Cytokeratin ROMERO: Tumor cells positive CK7: Tumor cells negative CK20: Tumor cells negative GAYATHRI: Tumor cells positive CD10: Tumor cells positive Vimentin: Tumor cells positive . The morphologic and immunophenotypic findings are supportive of the diagnosis of metastatic clear cell carcinoma and are consistent with renal origin. The case is also examined by Dr. Cadet, who concurs with the diagnosis. Results are discussed with Dr. Celaya on 06/26/20 at 2:15 PM. . . Special stains (A3): Immunoperoxidase stains for AE1/AE3, Cytokeratin ROMERO, CK7, CK20, GAYATHRI, CD10 and Vimentin . (JPM:mml/ramiro; 06/26/2020) . 02 Electronically signed: . Mann Quick MD, Pathologist NPI- [id number] . 03 Gross description: . PLEASE SEE GROSS DESCRIPTION UNDER FROZEN SECTION DIAGNOSIS. /MBR 06/24/2020 1725 Local . 02 Pathologist provided ICD-10: C79.51 . 02 CPT . 147810, 988145, [id number], [id number] Specimen Comment: A courtesy copy of this report has been sent to [phone] Specimen Comment: 2422 Specimen Comment: Report sent to / DR WAYNE Performed at: [address] [facility] [place] [id number] MD Leland Cadet MD Phone: [phone] Performed at: [facility] [address] [place], [place] [id number] MD Mann Quick MD Phone: [phone] Performed at: [address] [facility] [address] [place] [id number] MD Braydon Cedeño MD Phone: [phone]
--- NOTE | 2020-06-26 15:21 | PDOC ---
PROGRESS NOTES Date of Service DATE: 06/26/20 TIME: 15:13 Subjective Subjective POD #2 S/P laminectomy/ debulking of L1 Mass, posterior instrumentation T11-L3 back incisional pain controlled with medication up to commode with assistance Objective Objective Vital Signs Date Time Temp Pulse Resp B/P (MAP) Pulse Ox O2 Delivery O2 Flow Rate FiO2 06/26/20 14:56 98.0 71 20 132/64 (86) 98 Room Air 98.0 06/24/20 17:40 10 Intake and Output 06/26/20 07:00 Intake Total 903 ml Output Total 985 ml Balance -82 ml Intake Oral 0 ml IV Total 903 ml Output Urine Total 950 ml Drainage Total 35 ml Physical Exam General: Alert, Oriented X3 MUSCULOSKELETAL: Other (ESCALANTE) Neuro: Normal speech, Other (left lower extremitiy weaker than right, left hip flexors,knee flexor weakness ) Skin: Other (dressing dry and intact, brace on) Assessment Assessment Problems Medical Problems: (1) Abnormal CT scan, lumbar spine Status: Acute Plan Plan of Care continue PT/ OT Rehab oncology following SCDs when in bed Comment Review of Relevant I have reviewed the following items kiersten (where applicable) has been applied. Labs Laboratory Tests Test 06/24/20 17:20 06/24/20 21:45 06/25/20 05:25 06/25/20 12:25 White Blood Count 27.2 x10^3/uL (4.0-11.0) 24.8 x10^3/uL (4.0-11.0) 17.7 x10^3/uL (4.0-11.0) Red Blood Count 2.73 x10^6/uL (4.30-5.70) 3.28 x10^6/uL (4.30-5.70) 3.25 x10^6/uL (4.30-5.70) Hemoglobin 7.7 g/dL (13.0-17.5) 9.4 g/dL (13.0-17.5) 9.3 g/dL (13.0-17.5) Hematocrit 23.5 % (39.0-53.0) 28.1 % (39.0-53.0) 27.8 % (39.0-53.0) Mean Corpuscular Volume 86 fL (79-100) 86 fL (79-100) 86 fL (79-100) Mean Corpuscular Hemoglobin 28 pg (25-35) 29 pg (25-35) 29 pg (25-35) Mean Corpuscular Hemoglobin Concent 33 g/dL (31-37) 34 g/dL (31-37) 33 g/dL (31-37) Red Cell Distribution Width 13.6 % (11.5-14.5) 14.1 % (11.5-14.5) 14.3 % (11.5-14.5) Platelet Count 145 x10^3/uL (140-400) 121 x10^3/uL (140-400) 124 x10^3/uL (140-400) Neutrophils (%) (Auto) 89 % (31-73) Lymphocytes (%) (Auto) 5 % (24-48) Monocytes (%) (Auto) 6 % (0-9) Eosinophils (%) (Auto) 0 % (0-3) Basophils (%) (Auto) 0 % (0-3) Neutrophils # (Auto) 15.6 x10^3/uL (1.8-7.7) Lymphocytes # (Auto) 0.9 x10^3/uL (1.0-4.8) Monocytes # (Auto) 1.1 x10^3/uL (0.0-1.1) Eosinophils # (Auto) 0.0 x10^3/uL (0.0-0.7) Basophils # (Auto) 0.0 x10^3/uL (0.0-0.2) Sodium Level 139 mmol/L (136-145) Potassium Level 5.0 mmol/L (3.5-5.1) Chloride Level 108 mmol/L (98-107) Carbon Dioxide Level 21 mmol/L (21-32) Anion Gap 10 (6-14) Blood Urea Nitrogen 47 mg/dL (8-26) Creatinine 1.5 mg/dL (0.7-1.3) Estimated GFR (Cockcroft-Gault) 46.5 Glucose Level 143 mg/dL (70-99) Calcium Level 7.7 mg/dL (8.5-10.1) Creatine Kinase 2118 U/L (39-308) Urine Collection Type Unknown Urine Color Yellow Urine Clarity Clear Urine pH 5.0 (<5.0-8.0) Urine Specific Aguirre 1.015 (1.000-1.030) Urine Protein Negative mg/dL (NEG-TRACE) Urine Glucose (UA) Negative mg/dL (NEG) Urine Ketones (Stick) Negative mg/dL (NEG) Urine Blood Large (NEG) Urine Nitrite Negative (NEG) Urine Bilirubin Negative (NEG) Urine Urobilinogen Dipstick 0.2 mg/dL (0.2 mg/dL) Urine Leukocyte Esterase Negative (NEG) Urine RBC >40 /HPF (0-2) Urine WBC 0 /HPF (0-4) Urine Bacteria Few /HPF (0-FEW) Urine Hyaline Casts Moderate /HPF Urine Granular Casts Few /HPF Urine Mucus Mod /LPF Urine Random Sodium 101 mmol/L (Not Estab.) Test 06/26/20 07:51 Sodium Level 140 mmol/L (136-145) Potassium Level 4.7 mmol/L (3.5-5.1) Chloride Level 107 mmol/L (98-107) Carbon Dioxide Level 26 mmol/L (21-32) Anion Gap 7 (6-14) Blood Urea Nitrogen 40 mg/dL (8-26) Creatinine 1.1 mg/dL (0.7-1.3) Estimated GFR (Cockcroft-Gault) 66.6 Glucose Level 137 mg/dL (70-99) Calcium Level 8.1 mg/dL (8.5-10.1) Phosphorus Level 3.7 mg/dL (2.6-4.7) Magnesium Level 2.2 mg/dL (1.8-2.4) Albumin 2.6 g/dL (3.4-5.0) Laboratory Tests Test 06/26/20 07:51 Sodium Level 140 mmol/L (136-145) Potassium Level 4.7 mmol/L (3.5-5.1) Chloride Level 107 mmol/L (98-107) Carbon Dioxide Level 26 mmol/L (21-32) Anion Gap 7 (6-14) Blood Urea Nitrogen 40 mg/dL (8-26) Creatinine 1.1 mg/dL (0.7-1.3) Estimated GFR (Cockcroft-Gault) 66.6 Glucose Level 137 mg/dL (70-99) Calcium Level 8.1 mg/dL (8.5-10.1) Phosphorus Level 3.7 mg/dL (2.6-4.7) Magnesium Level 2.2 mg/dL (1.8-2.4) Albumin 2.6 g/dL (3.4-5.0) Medications Current Medications Ketorolac Tromethamine (Toradol 30mg Vial) 30 mg 1X ONCE IM Last administered on 06/18/20 11:22; Start 06/18/20 at 10:45; Stop 06/18/20 at 10:46; Status DC Cyclobenzaprine HCl (Flexeril) 10 mg 1X ONCE PO Last administered on 06/18/20 11:21; Start 06/18/20 at 10:45; Stop 06/18/20 at 10:46; Status DC Lidocaine (Lidoderm) 1 patch 1X ONCE TD Last administered on 06/18/20 11:22; Start 06/18/20 at 10:45; Stop 06/18/20 at 10:46; Status DC Tramadol HCl (Ultram) 100 mg PRN Q6HRS PRN PO MODERATE PAIN Last administered on 06/26/20 03:07; Start 06/18/20 at 17:45 Acetaminophen/ Hydrocodone Bitart (Lortab 5/325) 1 tab PRN Q6HRS PRN PO SEVERE PAIN Last administered on 06/26/20 14:59; Start 06/18/20 at 17:45 Lidocaine (Lidoderm) 1 patch DAILY TD Last administered on 06/23/20 09:12; Start 06/18/20 at 18:00 Miscellaneous (Lidoderm Patch Removal) 1 ea QHS MC Last administered on 06/23/20at 20:38; Start 06/18/20 at 21:00 Atenolol (Tenormin) 25 mg DAILY PO Last administered on 06/26/20 08:03; Start 06/19/20 at 09:00 Lisinopril (Prinivil) 20 mg DAILY PO Last administered on 06/23/20 09:11; Start 06/19/20 at 09:00; Stop 06/24/20 at 08:26; Status DC Gadoterate Meglumine (Clariscan) 16.6 ml 1X ONCE IVP Last administered on 06/19/20at 10:56; Start 06/19/20 at 10:45; Stop 06/19/20 at 10:46; Status DC Iohexol (Omnipaque 240 Mg/ml) 50 ml 1X ONCE PO Last administered on 06/19/20at 12:00; Start 06/19/20 at 12:00; Stop 06/19/20 at 12:01; Status DC Iohexol (Omnipaque 300 Mg/ml) 75 ml 1X ONCE IV Last administered on 06/19/20at 12:00; Start 06/19/20 at 12:00; Stop 06/19/20 at 12:01; Status DC Info (CONTRAST GIVEN -- Rx MONITORING) 1 each PRN DAILY PRN MC SEE COMMENTS; Start 06/19/20 at 11:45; Stop 06/21/20 at 11:44; Status DC Bisacodyl (Dulcolax Tab) 10 mg DAILY PO Last administered on 06/26/20at 08:03; Start 06/19/20 at 14:00 Bisacodyl (Dulcolax Supp) 10 mg PRN DAILY PRN [place] CONSTIPATION; Start 06/19/20 at 13:15 Senna/Docusate Sodium (Senna Plus) 1 tab BID PO Last administered on 06/26/20at 08:02; Start 06/19/20 at 21:00 Alprazolam (Xanax) 0.5 mg PRN Q8HRS PRN PO ANXIETY / AGITATION; Start 06/19/20 at 13:15 Dexamethasone Sodium Phosphate (Decadron) 2 mg Q6HRS IVP Last administered on 06/21/20at 12:32; Start 06/19/20 at 16:30; Stop 06/21/20 at 13:04; Status DC Dexamethasone Sodium Phosphate (Decadron) 4 mg Q6HRS IVP Last administered on 06/25/20at 06:14; Start 06/21/20 at 18:00; Stop 06/25/20 at 09:27; Status DC Pantoprazole Sodium (Protonix) 40 mg DAILYAC PO Last administered on 06/26/20at 08:03; Start 06/23/20 at 11:30; Stop 06/26/20 at 10:44; Status DC Cefazolin Sodium (Ancef) 2 gm 1X PREOP PRN IVP PRIOR TO PROCEDURE; Start 06/24/20 at 08:00; Status UNV Cefazolin Sodium/ Dextrose 50 ml @ 100 mls/hr 1X PREOP PRN IV PRIOR TO PROCEDURE Last administered on 06/24/20at 09:29; Start 06/24/20 at 06:00; Stop 06/24/20 at 18:00; Status DC Bacitracin 27865 unit/Sodium Chloride 1,000 ml @ 1,000 mls/hr 1X ONCE IRR Last administered on 06/24/20at 10:08; Start 06/24/20 at 06:00; Stop 06/24/20 at 06:59; Status DC Gelatin (Gelfoam Size 100) 1 each STK-MED ONCE .ROUTE Last administered on 06/24/20at 10:08; Start 06/24/20 at 06:49; Stop 06/24/20 at 06:50; Status DC Ketorolac Tromethamine (Toradol Im) 60 mg STK-MED ONCE .ROUTE Last administered on 06/24/20at 10:08; Start 06/24/20 at 06:49; Stop 06/24/20 at 06:50; Status DC Lidocaine/ Epinephrine (LIDOCAINE 1%-EPI 1:100,000 Multi-Dose) 20 ml STK-MED ONCE .ROUTE Last administered on 06/24/20at 10:08; Start 06/24/20 at 06:49; Stop 06/24/20 at 06:50; Status DC Thrombin 20,000 unit STK-MED ONCE TP Last administered on 06/24/20at 10:08; Start 06/24/20 at 06:50; Stop 06/24/20 at 06:50; Status DC Propofol 200 ml @ As Directed STK-MED ONCE IV ; Start 06/24/20 at 07:59; Stop 06/24/20 at 07:59; Status DC Fentanyl Citrate (Fentanyl 2ml Vial) 100 mcg STK-MED ONCE .ROUTE ; Start 06/24/20 at 08:07; Stop 06/24/20 at 08:08; Status DC Rocuronium [place] (Zemuron) 50 mg STK-MED ONCE .ROUTE ; Start 06/24/20 at 08:08; Stop 06/24/20 at 08:08; Status DC Remifentanil HCl (Ultiva) 2 mg STK-MED ONCE IV ; Start 06/24/20 at 08:08; Stop 06/24/20 at 08:08; Status DC Midazolam HCl (Versed) 2 mg STK-MED ONCE .ROUTE ; Start 06/24/20 at 08:08; Stop 06/24/20 at 08:08; Status DC Propofol (Diprivan) 200 mg STK-MED ONCE IV ; Start 06/24/20 at 08:08; Stop 06/24/20 at 08:09; Status DC Dexamethasone Sodium Phosphate (Decadron) 20 mg STK-MED ONCE .ROUTE ; Start 06/24/20 at 08:08; Stop 06/24/20 at 08:09; Status DC Lidocaine HCl (Lidocaine Pf 2% Vial) 5 ml STK-MED ONCE .ROUTE ; Start 06/24/20 at 08:08; Stop 06/24/20 at 08:09; Status DC Ondansetron HCl (Zofran) 4 mg STK-MED ONCE .ROUTE ; Start 06/24/20 at 08:09; Stop 06/24/20 at 08:09; Status DC Phenylephrine HCl (Sergio-Synephrine Inj) 10 mg STK-MED ONCE .ROUTE ; Start 06/24/20 at 08:16; Stop 06/24/20 at 08:17; Status DC Ephedrine Sulfate (ePHEDrine PF IN SALINE SYRINGE) 50 mg STK-MED ONCE IV ; Start 06/24/20 at 09:07; Stop 06/24/20 at 09:07; Status DC Ondansetron HCl (Zofran) 4 mg PRN Q6HRS PRN IV NAUSEA/VOMITING; Start 06/24/20 at 09:45; Stop 06/24/20 at 19:54; Status DC Fentanyl Citrate (Fentanyl 2ml Vial) 25 mcg PRN Q5MIN PRN IV MILD PAIN 1-3; Start 06/24/20 at 09:45; Stop 06/24/20 at 19:54; Status DC Fentanyl Citrate (Fentanyl 2ml Vial) 50 mcg PRN Q5MIN PRN IV MODERATE TO SEVERE PAIN; Start 06/24/20 at 09:45; Stop 06/24/20 at 19:54; Status DC Morphine Sulfate (Morphine Sulfate) 1 mg PRN Q10MIN PRN IV SEVERE PAIN 7-10; Start 06/24/20 at 09:45; Stop 06/24/20 at 19:54; Status DC Ringer's Solution 1,000 ml @ 30 mls/hr Q24H IV ; Start 06/24/20 at 09:31; Stop 06/24/20 at 19:54; Status DC Lidocaine HCl (Xylocaine-Mpf 1% 2ml Vial) 2 ml PRN 1X PRN ID PRIOR TO IV START; Start 06/24/20 at 09:45; Stop 06/24/20 at 19:54; Status DC Hydromorphone HCl (Dilaudid) 0.5 mg PRN Q10MIN PRN IV SEV PAIN, Second choice; Start 06/24/20 at 09:45; Stop 06/24/20 at 19:54; Status DC Prochlorperazine Edisylate (Compazine) 5 mg PACU PRN PRN IV NAUSEA, MRX1; Start 06/24/20 at 09:45; Stop 06/24/20 at 19:54; Status DC Remifentanil HCl (Ultiva) 2 mg STK-MED ONCE IV ; Start 06/24/20 at 11:31; Stop 06/24/20 at 11:31; Status DC Desflurane (Suprane) 90 ml STK-MED ONCE IH ; Start 06/24/20 at 11:33; Stop 06/24/20 at 11:34; Status DC Ketamine HCl (Ketamine) 50 mg STK-MED ONCE .ROUTE ; Start 06/24/20 at 12:20; Stop 06/24/20 at 12:20; Status DC Phenylephrine HCl (Sergio-Synephrine Inj) 10 mg STK-MED ONCE .ROUTE ; Start 06/24/20 at 12:27; Stop 06/24/20 at 12:28; Status DC Cefazolin Sodium (Ancef) 1 gm STK-MED ONCE IVP ; Start 06/24/20 at 12:29; Stop 06/24/20 at 12:30; Status DC Cefazolin Sodium (Ancef) 1 gm STK-MED ONCE IVP ; Start 06/24/20 at 12:29; Stop 06/24/20 at 12:30; Status DC Albumin Human 500 ml @ As Directed STK-MED ONCE IV ; Start 06/24/20 at 13:48; Stop 06/24/20 at 13:48; Status DC Thrombin 20,000 unit STK-MED ONCE TP Last administered on 06/24/20at 14:09; Start 06/24/20 at 13:58; Stop 06/24/20 at 13:58; Status DC Phenylephrine HCl (Sergio-Synephrine Inj) 10 mg STK-MED ONCE .ROUTE ; Start 06/24/20 at 14:06; Stop 06/24/20 at 14:06; Status DC Gelatin (Gelfoam Size 100) 1 each STK-MED ONCE .ROUTE Last administered on 06/24/20at 14:49; Start 06/24/20 at 14:43; Stop 06/24/20 at 14:43; Status DC Vasopressin (Vasostrict) 20 unit STK-MED ONCE .ROUTE ; Start 06/24/20 at 14:55; Stop 06/24/20 at 14:55; Status DC Albumin Human 500 ml @ As Directed STK-MED ONCE IV ; Start 06/24/20 at 15:23; Stop 06/24/20 at 15:23; Status DC Phenylephrine HCl (Sergio-Synephrine Inj) 10 mg STK-MED ONCE .ROUTE ; Start 06/24/20 at 15:23; Stop 06/24/20 at 15:23; Status DC Remifentanil HCl (Ultiva) 2 mg STK-MED ONCE IV ; Start 06/24/20 at 15:30; Stop 06/24/20 at 15:30; Status DC Fentanyl Citrate (Fentanyl 2ml Vial) 50 mcg PRN Q2HR PRN IVP PAIN Last administered on 06/26/20at 10:49; Start 06/24/20 at 16:45 Sodium Chloride 1,000 ml @ 1,000 mls/hr 1X ONCE IV Last administered on 06/24/20at 20:08; Start 06/24/20 at 20:00; Stop 06/24/20 at 20:59; Status DC Sodium Chloride 1,000 ml @ 100 mls/hr Q10H IV Last administered on 06/26/20at 12:07; Start 06/24/20 at 21:00 Dexamethasone Sodium Phosphate (Decadron) 2 mg Q6HRS IVP Last administered on 06/26/20at 12:08; Start 06/25/20 at 12:00 Magnesium Sulfate 50 ml @ 25 mls/hr PRN DAILY PRN IV for Mag < 1.7 on am labs; Start 06/25/20 at 12:00 Pantoprazole Sodium (Protonix) 40 mg BIDAC PO ; Start 06/26/20 at 16:30 Active Scripts Active Reported Tramadol Hcl 50 Mg Tablet 50 Mg PO PRN BID PRN Prednisone 50 Mg Tablet 1 Tab PO DAILY Atenolol 25 Mg Tablet 1 Tab PO DAILY Lisinopril 20 Mg Tablet 1 Tab PO DAILY Vitals/I & O Vital Sign - Last 24 Hours 06/25/20 06/25/20 06/25/20 06/25/20 15:45 17:54 17:55 19:00 Temp 98.2 98.2 Pulse 80 Resp 18 B/P (MAP) 114/64 (81) Pulse Ox 96 O2 Delivery Room Air Room Air Room Air Room Air 06/25/20 06/25/20 06/25/20 06/25/20 19:48 19:48 19:48 20:00 O2 Delivery Room Air Room Air Room Air Room Air 06/25/20 06/25/20 06/25/20 06/25/20 21:07 21:07 21:53 21:53 O2 Delivery Room Air Room Air Room Air Room Air 06/25/20 06/26/20 06/26/20 06/26/20 23:00 01:24 01:24 02:11 Temp 98.6 98.6 Pulse 82 Resp 18 B/P (MAP) 121/70 (87) Pulse Ox 95 O2 Delivery Room Air Room Air Room Air Room Air 06/26/20 06/26/20 06/26/20 06/26/20 02:11 03:00 03:07 04:09 Temp 98.1 98.1 Pulse 76 Resp 18 B/P (MAP) 118/73 (88) Pulse Ox 94 O2 Delivery Room Air Room Air Room Air Room Air 06/26/20 06/26/20 06/26/20 06/26/20 06:15 07:00 08:00 08:03 Temp 97.6 97.6 Pulse 70 70 Resp 16 B/P (MAP) 134/79 (97) 134/79 Pulse Ox 96 O2 Delivery Room Air Room Air Room Air 06/26/20 06/26/20 11:00 14:56 Temp 98.1 98.0 98.1 98.0 Pulse 60 71 Resp 16 20 B/P (MAP) 114/58 (76) 132/64 (86) Pulse Ox 96 98 O2 Delivery Room Air Room Air Intake and Output 06/25/20 06/25/20 06/26/20 15:00 23:00 07:00 Intake Total 903 ml 0 ml 0 ml Output Total 685 ml 300 ml Balance 218 ml 0 ml -300 ml Justifications for Admission Other Justification Nutrition Consultation Dietary Evaluation: Recommendations by RD: Dietary education by RD, Increase Calorie Intake, Protein supplementation Comments: REC resume Cardiac diet s/p surgery chocolate ensure bid Expected Outcomes/Goals: to meet >75% est nutrition needs via po intake- goal ongoing Interpretation of weight loss: >5% in 1 month Malnutrition Findings: Food and Nutrition Intake (Sev: <50% est energy req 5days Weight Status: Overweight FLORY FLORIAN APRN Jun 26, 2020 15:21
[2020-06-26 19:20] VITALS: BP 124/63
[2020-06-26] MEDS: PATCH REMOVAL. MC SCH (21:00)
[2020-06-26 23:02] VITALS: BP 136/64
[2020-06-27] MEDS: fentaNYL PF VIAL 100 MCG/2 ML VIAL IVP PRN (01:17)
[2020-06-27] MEDS: traMADol 50 MG TABLET PO PRN (02:48)
[2020-06-27 03:06] VITALS: BP 126/65
[2020-06-27] MEDS: HYDROcodone/APAP 5/325MG 1 TAB TABLET PO PRN ×3 (06:12→21:55)
[2020-06-27] MEDS: PANTOPRAZOLE 40 MG TABLET.DR. PO SCH ×2 (06:12→15:31)
[2020-06-27] MEDS: DEXAMETHASONE SOD PHOS 4 MG/ML VIAL IVP SCH ×2 (06:12→11:41)
[2020-06-27 07:00] VITALS: BP 120/50
[2020-06-27] MEDS: LIDOCAINE (700MG/PATCH) PATCH. TD SCH (07:40)
[2020-06-27] MEDS: BISACODYL 5 MG TABLET.DR. PO SCH (08:26)
[2020-06-27] MEDS: IV NORMAL SALINE 1000ML BAG 1,000 ML IV SCH ×2 (08:26→15:33)
[2020-06-27] MEDS: ATENOLOL 25 MG TABLET. PO SCH (08:26)
[2020-06-27] MEDS: SENNOSIDES/DOCUSATE 8.6/50MG TABLET. PO SCH ×2 (08:26→21:55)
[2020-06-27 09:04] LABS: ALBUMIN 2.4 g/dL (3.4-5.0); CALCIUM 8.4 mg/dL (8.5-10.1); GFR 74.3; PHOSPHORUS 3.7 mg/dL (2.6-4.7); POTASSIUM 4.5 mmol/L (3.5-5.1)
--- NOTE | 2020-06-27 09:18 | PDOC ---
PROGRESS NOTES Date of Service DATE: 06/27/20 TIME: 09:14 Subjective Subjective No new complaints. Objective Objective Vital Signs Date Time Temp Pulse Resp B/P (MAP) Pulse Ox O2 Delivery O2 Flow Rate FiO2 06/27/20 08:26 63 120/50 06/27/20 07:45 Room Air 06/27/20 07:12 14 06/27/20 07:00 97.8 97 97.8 06/24/20 17:40 10 Intake and Output 06/27/20 07:00 Intake Total 660 ml Output Total 2075 ml Balance -1415 ml Intake Oral 660 ml Output Urine Total 2075 ml # Voids 3 Physical Exam Physical Exam He is alert,supine in bed and had lumbar corset on over lower thoracic area. No change with his lower extremity weakness and he requires assistance with bed mobility and transfers. He is constipated. Assessment Assessment Problems Medical Problems: (1) Abnormal CT scan, lumbar spine Status: Acute Plan Plan of Care Waiting for biopsy report and he needs in-patient rehab program when medically stable. Comment Review of Relevant I have reviewed the following items kiersten (where applicable) has been applied. Labs Laboratory Tests Test 06/25/20 12:25 06/26/20 07:51 06/27/20 08:04 Urine Collection Type Unknown Urine Color Yellow Urine Clarity Clear Urine pH 5.0 (<5.0-8.0) Urine Specific [place] 1.015 (1.000-1.030) Urine Protein Negative mg/dL (NEG-TRACE) Urine Glucose (UA) Negative mg/dL (NEG) Urine Ketones (Stick) Negative mg/dL (NEG) Urine Blood Large (NEG) Urine Nitrite Negative (NEG) Urine Bilirubin Negative (NEG) Urine Urobilinogen Dipstick 0.2 mg/dL (0.2 mg/dL) Urine Leukocyte Esterase Negative (NEG) Urine RBC >40 /HPF (0-2) Urine WBC 0 /HPF (0-4) Urine Bacteria Few /HPF (0-FEW) Urine Hyaline Casts Moderate /HPF Urine Granular Casts Few /HPF Urine Mucus Mod /LPF Urine Random Sodium 101 mmol/L (Not Estab.) Sodium Level 140 mmol/L (136-145) 139 mmol/L (136-145) Potassium Level 4.7 mmol/L (3.5-5.1) 4.5 mmol/L (3.5-5.1) Chloride Level 107 mmol/L (98-107) 106 mmol/L (98-107) Carbon Dioxide Level 26 mmol/L (21-32) 26 mmol/L (21-32) Anion Gap 7 (6-14) 7 (6-14) Blood Urea Nitrogen 40 mg/dL (8-26) 35 mg/dL (8-26) Creatinine 1.1 mg/dL (0.7-1.3) 1.0 mg/dL (0.7-1.3) Estimated GFR (Cockcroft-Gault) 66.6 74.3 Glucose Level 137 mg/dL (70-99) 131 mg/dL (70-99) Calcium Level 8.1 mg/dL (8.5-10.1) 8.4 mg/dL (8.5-10.1) Phosphorus Level 3.7 mg/dL (2.6-4.7) 3.7 mg/dL (2.6-4.7) Magnesium Level 2.2 mg/dL (1.8-2.4) 2.1 mg/dL (1.8-2.4) Albumin 2.6 g/dL (3.4-5.0) 2.4 g/dL (3.4-5.0) Creatine Kinase 806 U/L (39-308) Laboratory Tests Test 06/27/20 08:04 Sodium Level 139 mmol/L (136-145) Potassium Level 4.5 mmol/L (3.5-5.1) Chloride Level 106 mmol/L (98-107) Carbon Dioxide Level 26 mmol/L (21-32) Anion Gap 7 (6-14) Blood Urea Nitrogen 35 mg/dL (8-26) Creatinine 1.0 mg/dL (0.7-1.3) Estimated GFR (Cockcroft-Gault) 74.3 Glucose Level 131 mg/dL (70-99) Calcium Level 8.4 mg/dL (8.5-10.1) Phosphorus Level 3.7 mg/dL (2.6-4.7) Magnesium Level 2.1 mg/dL (1.8-2.4) Creatine Kinase 806 U/L (39-308) Albumin 2.4 g/dL (3.4-5.0) Medications Current Medications Ketorolac Tromethamine (Toradol 30mg Vial) 30 mg 1X ONCE IM Last administered on 06/18/20 11:22; Start 06/18/20 at 10:45; Stop 06/18/20 at 10:46; Status DC Cyclobenzaprine HCl (Flexeril) 10 mg 1X ONCE PO Last administered on 06/18/20at 11:21; Start 06/18/20 at 10:45; Stop 06/18/20 at 10:46; Status DC Lidocaine (Lidoderm) 1 patch 1X ONCE TD Last administered on 06/18/20at 11:22; Start 06/18/20 at 10:45; Stop 06/18/20 at 10:46; Status DC Tramadol HCl (Ultram) 100 mg PRN Q6HRS PRN PO MODERATE PAIN Last administered on 06/27/20 02:48; Start 06/18/20 at 17:45 Acetaminophen/ Hydrocodone Bitart (Lortab 5/325) 1 tab PRN Q6HRS PRN PO SEVERE PAIN Last administered on 06/27/20at 06:12; Start 06/18/20 at 17:45 Lidocaine (Lidoderm) 1 patch DAILY TD Last administered on 06/23/20 09:12; Start 06/18/20 at 18:00 Miscellaneous (Lidoderm Patch Removal) 1 ea QHS MC Last administered on 06/23/20at 20:38; Start 06/18/20 at 21:00 Atenolol (Tenormin) 25 mg DAILY PO Last administered on 06/27/20 08:26; Start 06/19/20 at 09:00 Lisinopril (Prinivil) 20 mg DAILY PO Last administered on 06/23/20at 09:11; Start 06/19/20 at 09:00; Stop 06/24/20 at 08:26; Status DC Gadoterate Meglumine (Clariscan) 16.6 ml 1X ONCE IVP Last administered on 06/19/20at 10:56; Start 06/19/20 at 10:45; Stop 06/19/20 at 10:46; Status DC Iohexol (Omnipaque 240 Mg/ml) 50 ml 1X ONCE PO Last administered on 06/19/20at 12:00; Start 06/19/20 at 12:00; Stop 06/19/20 at 12:01; Status DC Iohexol (Omnipaque 300 Mg/ml) 75 ml 1X ONCE IV Last administered on 06/19/20at 12:00; Start 06/19/20 at 12:00; Stop 06/19/20 at 12:01; Status DC Info (CONTRAST GIVEN -- Rx MONITORING) 1 each PRN DAILY PRN MC SEE COMMENTS; Start 06/19/20 at 11:45; Stop 06/21/20 at 11:44; Status DC Bisacodyl (Dulcolax Tab) 10 mg DAILY PO Last administered on 06/27/20at 08:26; Start 06/19/20 at 14:00 Bisacodyl (Dulcolax Supp) 10 mg PRN DAILY PRN SD CONSTIPATION; Start 06/19/20 a t 13:15 Senna/Docusate Sodium (Senna Plus) 1 tab BID PO Last administered on 06/27/20at 08:26; Start 06/19/20 at 21:00 Alprazolam (Xanax) 0.5 mg PRN Q8HRS PRN PO ANXIETY / AGITATION; Start 06/19/20 at 13:15 Dexamethasone Sodium Phosphate (Decadron) 2 mg Q6HRS IVP Last administered on 06/21/20at 12:32; Start 06/19/20 at 16:30; Stop 06/21/20 at 13:04; Status DC Dexamethasone Sodium Phosphate (Decadron) 4 mg Q6HRS IVP Last administered on 06/25/20at 06:14; Start 06/21/20 at 18:00; Stop 06/25/20 at 09:27; Status DC Pantoprazole Sodium (Protonix) 40 mg DAILYAC PO Last administered on 06/26/20at 08:03; Start 06/23/20 at 11:30; Stop 06/26/20 at 10:44; Status DC Cefazolin Sodium (Ancef) 2 gm 1X PREOP PRN IVP PRIOR TO PROCEDURE; Start 06/24/20 at 08:00; Status UNV Cefazolin Sodium/ Dextrose 50 ml @ 100 mls/hr 1X PREOP PRN IV PRIOR TO PROCEDURE Last administered on 06/24/20at 09:29; Start 06/24/20 at 06:00; Stop 06/24/20 at 18:00; Status DC Bacitracin 46831 unit/Sodium Chloride 1,000 ml @ 1,000 mls/hr 1X ONCE IRR Last administered on 06/24/20at 10:08; Start 06/24/20 at 06:00; Stop 06/24/20 at 06:59; Status DC Gelatin (Gelfoam Size 100) 1 each STK-MED ONCE .ROUTE Last administered on 06/24/20at 10:08; Start 06/24/20 at 06:49; Stop 06/24/20 at 06:50; Status DC Ketorolac Tromethamine (Toradol Im) 60 mg STK-MED ONCE .ROUTE Last administered on 06/24/20at 10:08; Start 06/24/20 at 06:49; Stop 06/24/20 at 06:50; Status DC Lidocaine/ Epinephrine (LIDOCAINE 1%-EPI 1:100,000 Multi-Dose) 20 ml STK-MED ONCE .ROUTE Last administered on 06/24/20at 10:08; Start 06/24/20 at 06:49; Stop 06/24/20 at 06:50; Status DC Thrombin 20,000 unit STK-MED ONCE TP Last administered on 06/24/20at 10:08; Start 06/24/20 at 06:50; Stop 06/24/20 at 06:50; Status DC Propofol 200 ml @ As Directed STK-MED ONCE IV ; Start 06/24/20 at 07:59; Stop 06/24/20 at 07:59; Status DC Fentanyl Citrate (Fentanyl 2ml Vial) 100 mcg STK-MED ONCE .ROUTE ; Start 06/24/20 at 08:07; Stop 06/24/20 at 08:08; Status DC Rocuronium [place] (Zemuron) 50 mg STK-MED ONCE .ROUTE ; Start 06/24/20 at 08:08; Stop 06/24/20 at 08:08; Status DC Remifentanil HCl (Ultiva) 2 mg STK-MED ONCE IV ; Start 06/24/20 at 08:08; Stop 06/24/20 at 08:08; Status DC Midazolam HCl (Versed) 2 mg STK-MED ONCE .ROUTE ; Start 06/24/20 at 08:08; Stop 06/24/20 at 08:08; Status DC Propofol (Diprivan) 200 mg STK-MED ONCE IV ; Start 06/24/20 at 08:08; Stop 06/24/20 at 08:09; Status DC Dexamethasone Sodium Phosphate (Decadron) 20 mg STK-MED ONCE .ROUTE ; Start 06/03 at 08:08; Stop 06/24/20 at 08:09; Status DC Lidocaine HCl (Lidocaine Pf 2% Vial) 5 ml STK-MED ONCE .ROUTE ; Start 06/24/20 at 08:08; Stop 06/24/20 at 08:09; Status DC Ondansetron HCl (Zofran) 4 mg STK-MED ONCE .ROUTE ; Start 06/24/20 at 08:09; Stop 06/24/20 at 08:09; Status DC Phenylephrine HCl (Sergio-Synephrine Inj) 10 mg STK-MED ONCE .ROUTE ; Start 06/24/20 at 08:16; Stop 06/24/20 at 08:17; Status DC Ephedrine Sulfate (ePHEDrine PF IN SALINE SYRINGE) 50 mg STK-MED ONCE IV ; Start 06/24/20 at 09:07; Stop 06/24/20 at 09:07; Status DC Ondansetron HCl (Zofran) 4 mg PRN Q6HRS PRN IV NAUSEA/VOMITING; Start 06/24/20 at 09:45; Stop 06/24/20 at 19:54; Status DC Fentanyl Citrate (Fentanyl 2ml Vial) 25 mcg PRN Q5MIN PRN IV MILD PAIN 1-3; Start 06/24/20 at 09:45; Stop 06/24/20 at 19:54; Status DC Fentanyl Citrate (Fentanyl 2ml Vial) 50 mcg PRN Q5MIN PRN IV MODERATE TO SEVERE PAIN; Start 06/24/20 at 09:45; Stop 06/24/20 at 19:54; Status DC Morphine Sulfate (Morphine Sulfate) 1 mg PRN Q10MIN PRN IV SEVERE PAIN 7-10; Start 06/24/20 at 09:45; Stop 06/24/20 at 19:54; Status DC Ringer's Solution 1,000 ml @ 30 mls/hr Q24H IV ; Start 06/24/20 at 09:31; Stop 06/24/20 at 19:54; Status DC Lidocaine HCl (Xylocaine-Mpf 1% 2ml Vial) 2 ml PRN 1X PRN ID PRIOR TO IV START; Start 06/24/20 at 09:45; Stop 06/24/20 at 19:54; Status DC Hydromorphone HCl (Dilaudid) 0.5 mg PRN Q10MIN PRN IV SEV PAIN, Second choice; Start 06/24/20 at 09:45; Stop 06/24/20 at 19:54; Status DC Prochlorperazine Edisylate (Compazine) 5 mg PACU PRN PRN IV NAUSEA, MRX1; Start 06/24/20 at 09:45; Stop 06/24/20 at 19:54; Status DC Remifentanil HCl (Ultiva) 2 mg STK-MED ONCE IV ; Start 06/24/20 at 11:31; Stop 06/24/20 at 11:31; Status DC Desflurane (Suprane) 90 ml STK-MED ONCE IH ; Start 06/24/20 at 11:33; Stop 06/24/20 at 11:34; Status DC Ketamine HCl (Ketamine) 50 mg STK-MED ONCE .ROUTE ; Start 06/24/20 at 12:20; Stop 06/24/20 at 12:20; Status DC Phenylephrine HCl (Sergio-Synephrine Inj) 10 mg STK-MED ONCE .ROUTE ; Start 06/24/20 at 12:27; Stop 06/24/20 at 12:28; Status DC Cefazolin Sodium (Ancef) 1 gm STK-MED ONCE IVP ; Start 06/24/20 at 12:29; Stop 06/24/20 at 12:30; Status DC Cefazolin Sodium (Ancef) 1 gm STK-MED ONCE IVP ; Start 06/24/20 at 12:29; Stop 06/24/20 at 12:30; Status DC Albumin Human 500 ml @ As Directed STK-MED ONCE IV ; Start 06/24/20 at 13:48; Stop 06/24/20 at 13:48; Status DC Thrombin 20,000 unit STK-MED ONCE TP Last administered on 06/24/20at 14:09; Start 06/24/20 at 13:58; Stop 06/24/20 at 13:58; Status DC Phenylephrine HCl (Sergio-Synephrine Inj) 10 mg STK-MED ONCE .ROUTE ; Start 06/24/20 at 14:06; Stop 06/24/20 at 14:06; Status DC Gelatin (Gelfoam Size 100) 1 each STK-MED ONCE .ROUTE Last administered on 06/24/20at 14:49; Start 06/24/20 at 14:43; Stop 06/24/20 at 14:43; Status DC Vasopressin (Vasostrict) 20 unit STK-MED ONCE .ROUTE ; Start 06/24/20 at 14:55; Stop 06/24/20 at 14:55; Status DC Albumin Human 500 ml @ As Directed STK-MED ONCE IV ; Start 06/24/20 at 15:23; Stop 06/24/20 at 15:23; Status DC Phenylephrine HCl (Sergio-Synephrine Inj) 10 mg STK-MED ONCE .ROUTE ; Start 06/24/20 at 15:23; Stop 06/24/20 at 15:23; Status DC Remifentanil HCl (Ultiva) 2 mg STK-MED ONCE IV ; Start 06/24/20 at 15:30; Stop 06/24/20 at 15:30; Status DC Fentanyl Citrate (Fentanyl 2ml Vial) 50 mcg PRN Q2HR PRN IVP PAIN Last administered on 06/27/20at 01:17; Start 06/24/20 at 16:45 Sodium Chloride 1,000 ml @ 1,000 mls/hr 1X ONCE IV Last administered on 06/24/20at 20:08; Start 06/24/20 at 20:00; Stop 06/24/20 at 20:59; Status DC Sodium Chloride 1,000 ml @ 100 mls/hr Q10H IV Last administered on 06/27/20at 08:26; Start 06/24/20 at 21:00 Dexamethasone Sodium Phosphate (Decadron) 2 mg Q6HRS IVP Last administered on 06/27/20at 06:12; Start 06/25/20 at 12:00 Magnesium Sulfate 50 ml @ 25 mls/hr PRN DAILY PRN IV for Mag < 1.7 on am labs; Start 06/25/20 at 12:00 Pantoprazole Sodium (Protonix) 40 mg BIDAC PO Last administered on 06/27/20at 06:12; Start 06/26/20 at 16:30 Active Scripts Active Reported Tramadol Hcl 50 Mg Tablet 50 Mg PO PRN BID PRN Prednisone 50 Mg Tablet 1 Tab PO DAILY Atenolol 25 Mg Tablet 1 Tab PO DAILY Lisinopril 20 Mg Tablet 1 Tab PO DAILY Vitals/I & O Vital Sign - Last 24 Hours 06/26/20 06/26/20 06/26/20 06/26/20 11:00 14:56 19:12 19:20 Temp 98.1 98.0 97.9 98.1 98.0 97.9 Pulse 60 71 64 Resp 16 20 16 18 B/P (MAP) 114/58 (76) 132/64 (86) 124/63 (83) Pulse Ox 96 98 97 O2 Delivery Room Air Room Air Room Air Room Air 06/26/20 06/26/20 06/26/20 06/26/20 20:00 21:06 21:25 21:57 Resp 14 14 14 O2 Delivery Room Air Room Air Room Air Room Air 06/26/20 06/26/20 06/27/20 06/27/20 21:57 23:02 01:17 02:03 Temp 98.0 98.0 Pulse 59 Resp 14 18 16 14 B/P (MAP) 136/64 (88) Pulse Ox 96 O2 Delivery Room Air Room Air Room Air Room Air 06/27/20 06/27/20 06/27/20 06/27/20 02:48 03:06 04:00 06:12 Temp 98.1 98.1 Pulse 62 Resp 16 18 16 14 B/P (MAP) 126/65 (85) Pulse Ox 96 O2 Delivery Room Air Room Air Room Air Room Air 06/27/20 06/27/20 06/27/20 06/27/20 07:00 07:12 07:45 08:26 Temp 97.8 97.8 Pulse 63 63 Resp 18 14 B/P (MAP) 120/50 (73) 120/50 Pulse Ox 97 O2 Delivery Room Air Room Air Room Air Intake and Output 06/26/20 06/26/20 06/27/20 15:00 23:00 07:00 Intake Total 300 ml 360 ml Output Total 625 ml 400 ml 1050 ml Balance -625 ml -100 ml -690 ml Justifications for Admission Other Justification Nutrition Consultation Dietary Evaluation: Recommendations by RD: Dietary education by RD, Increase Calorie Intake, Protein supplementation Comments: REC resume Cardiac diet s/p surgery chocolate ensure bid Expected Outcomes/Goals: to meet >75% est nutrition needs via po intake- goal ongoing Interpretation of weight loss: >5% in 1 month Malnutrition Findings: Food and Nutrition Intake (Sev: <50% est energy req 5days Weight Status: Overweight RADHA LEA MD Jun 27, 2020 09:18
[2020-06-27 11:00] VITALS: BP 112/60
--- NOTE | 2020-06-27 12:03 | PDOC ---
SUBJECTIVE Subjective Pain adequately controlled, no bm for a few days, but passing gas well. Still having weakness of lower extremities, difficulty getting to the restroom. Was initially resistant to inpatient rehab but now agreeable. OBJECTIVE Objective Reviewed. Vital Signs Vital Signs Date Time Temp Pulse Resp B/P (MAP) Pulse Ox O2 Delivery O2 Flow Rate FiO2 06/27/20 11:00 98.9 65 20 112/60 (77) 98 Room Air 98.9 06/27/20 08:26 63 120/50 06/27/20 07:45 Room Air 06/27/20 07:12 14 Room Air 06/27/20 07:00 97.8 63 18 120/50 (73) 97 Room Air 97.8 06/27/20 06:12 14 Room Air 06/27/20 04:00 16 Room Air 06/27/20 03:06 98.1 62 18 126/65 (85) 96 Room Air 98.1 06/27/20 02:48 16 Room Air 06/27/20 02:03 14 Room Air 06/27/20 01:17 16 Room Air 06/26/20 23:02 98.0 59 18 136/64 (88) 96 Room Air 98.0 06/26/20 21:57 14 Room Air 06/26/20 21:57 14 Room Air 06/26/20 21:25 14 Room Air 06/26/20 21:06 14 Room Air 06/26/20 20:00 Room Air 06/26/20 19:20 97.9 64 18 124/63 (83) 97 Room Air 97.9 06/26/20 19:12 16 Room Air 06/26/20 14:56 98.0 71 20 132/64 (86) 98 Room Air 98.0 I & O Intake and Output 06/27/20 07:00 Intake Total 660 ml Output Total 2075 ml Balance -1415 ml Intake Oral 660 ml Output Urine Total 2075 ml # Voids 3 PHYSICAL EXAM Physical Exam Alert, oriented RRR CTAB Support brace around torso 4/5 strength of LLE, 5/5 RLE Calm, cooperative ASSESSMENT/PLAN Assessment/Plan 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 Celaya for recommendations on further treatment Dr. Sterling recommends d/c to inpt rehab, pt is agreeable, awaiting placement On medrol taper per neurosurg COMMENT Lab Laboratory Tests Test 06/27/20 08:04 Sodium Level 139 mmol/L (136-145) Potassium Level 4.5 mmol/L (3.5-5.1) Chloride Level 106 mmol/L (98-107) Carbon Dioxide Level 26 mmol/L (21-32) Anion Gap 7 (6-14) Blood Urea Nitrogen 35 mg/dL (8-26) Creatinine 1.0 mg/dL (0.7-1.3) Estimated GFR (Cockcroft-Gault) 74.3 Glucose Level 131 mg/dL (70-99) Calcium Level 8.4 mg/dL (8.5-10.1) Phosphorus Level 3.7 mg/dL (2.6-4.7) Magnesium Level 2.1 mg/dL (1.8-2.4) Creatine Kinase 806 U/L (39-308) Albumin 2.4 g/dL (3.4-5.0) Justifications for Admission Other Justification Nutrition Consultation Dietary Evaluation: Recommendations by RD: Dietary education by RD, Increase Calorie Intake, Protein supplementation Comments: REC continue gi soft diet with supplements of choice Expected Outcomes/Goals: to meet >75% est nutrition needs via po intake- goal ongoing Interpretation of weight loss: >5% in 1 month Malnutrition Findings: Food and Nutrition Intake (Sev: <50% est energy req 5days Weight Status: Overweight JILLIAN WAYNE MD Jun 27, 2020 12:03
--- NOTE | 2020-06-27 12:22 | PDOC ---
DATE OF SERVICE: DOS: DATE: 06/27/20 TIME: 12:21 SUBJECTIVE ROS JASON Patient apparently doing a little better today. OBJECTIVE Vital Signs Vital Signs Date Time Temp Pulse Resp B/P (MAP) Pulse Ox O2 Delivery O2 Flow Rate FiO2 06/27/20 11:00 98.9 65 20 112/60 (77) 98 Room Air 98.9 I & 0 Intake and Output 06/27/20 07:00 Intake Total 660 ml Output Total 2075 ml Balance -1415 ml Intake Oral 660 ml Output Urine Total 2075 ml # Voids 3 PHYSICAL EXAM Physical Exam General Appearance: Awake: Alert Oriented x 3 Neck: No JVD or JVP Chest: CTA Niranjan Heart: S1 S2 Abdomen - Soft NTND Extremities - No Edema DIAGNOSIS/ASSESSMENT Assessment & Plan Acute kidney injury: Now resolved Elevated CPK: CPK now less than thousand. I will sign off. We will be available if needed please call with questions concerns COMMENT/RELEVANT DATA Meds Current Medications Medications (Trade) Dose Ordered Sig/Tristan Start Time Stop Time Status Last Admin Dose Admin Acetaminophen/ Hydrocodone Bitart (Lortab 5/325) 1 tab PRN Q6HRS PRN 06/18/20 17:45 06/27/20 06:12 1 TAB Albumin Human 500 ml @ As Directed STK-MED ONCE 06/24/20 15:23 06/24/20 15:23 DC Alprazolam (Xanax) 0.5 mg PRN Q8HRS PRN 06/19/20 13:15 Atenolol (Tenormin) 25 mg DAILY 06/19/20 09:00 06/27/20 08:26 25 MG Bacitracin 62118 unit/Sodium Chloride 1,000 ml @ 1,000 mls/hr 1X ONCE 06/24/20 06:00 06/24/20 06:59 DC 06/24/20 10:08 Bisacodyl (Dulcolax Supp) 10 mg PRN DAILY PRN 06/19/20 13:15 Bisacodyl (Dulcolax Tab) 10 mg DAILY 06/19/20 14:00 06/27/20 08:26 10 MG Cefazolin Sodium (Ancef) 1 gm STK-MED ONCE 06/24/20 12:29 06/24/20 12:30 DC Cefazolin Sodium/ Dextrose 50 ml @ 100 mls/hr 1X PREOP PRN 06/24/20 06:00 06/24/20 18:00 DC 06/24/20 09:29 100 MLS/HR Cyclobenzaprine HCl (Flexeril) 10 mg 1X ONCE 06/18/20 10:45 06/18/20 10:46 DC 06/18/20 11:21 10 MG Desflurane (Suprane) 90 ml STK-MED ONCE 06/24/20 11:33 06/24/20 11:34 DC Dexamethasone Sodium Phosphate (Decadron) 2 mg Q6HRS 06/25/20 12:00 06/27/20 11:41 2 MG Ephedrine Sulfate (ePHEDrine PF IN SALINE SYRINGE) 50 mg STK-MED ONCE 06/24/20 09:07 06/24/20 09:07 DC Fentanyl Citrate (Fentanyl 2ml Vial) 50 mcg PRN Q2HR PRN 06/24/20 16:45 06/27/20 01:17 50 MCG Gadoterate Meglumine (Clariscan) 16.6 ml 1X ONCE 06/19/20 10:45 06/19/20 10:46 DC 06/19/20 10:56 16.6 ML Gelatin (Gelfoam Size 100) 1 each STK-MED ONCE 06/24/20 14:43 06/24/20 14:43 DC 06/24/20 14:49 1 EACH Hydromorphone HCl (Dilaudid) 0.5 mg PRN Q10MIN PRN 06/24/20 09:45 06/24/20 19:54 DC Info (CONTRAST GIVEN -- Rx MONITORING) 1 each PRN DAILY PRN 06/19/20 11:45 06/21/20 11:44 DC Iohexol (Omnipaque 240 Mg/ml) 50 ml 1X ONCE 06/19/20 12:00 06/19/20 12:01 DC 06/19/20 12:00 50 ML Iohexol (Omnipaque 300 Mg/ml) 75 ml 1X ONCE 06/19/20 12:00 06/19/20 12:01 DC 06/19/20 12:00 75 ML Ketamine HCl (Ketamine) 50 mg STK-MED ONCE 06/24/20 12:20 06/24/20 12:20 DC Ketorolac Tromethamine (Toradol 30mg Vial) 30 mg 1X ONCE 06/18/20 10:45 06/18/20 10:46 DC 06/18/20 11:22 30 MG Ketorolac Tromethamine (Toradol Im) 60 mg STK-MED ONCE 06/24/20 06:49 06/24/20 06:50 DC 06/24/20 10:08 60 MG Lidocaine (Lidoderm) 1 patch DAILY 06/18/20 18:00 06/23/20 09:12 1 PATCH Lidocaine HCl (Lidocaine Pf 2% Vial) 5 ml STK-MED ONCE 06/24/20 08:08 06/24/20 08:09 DC Lidocaine HCl (Xylocaine-Mpf 1% 2ml Vial) 2 ml PRN 1X PRN 06/24/20 09:45 06/24/20 19:54 DC Lidocaine/ Epinephrine (LIDOCAINE 1%-EPI 1:100,000 Multi-Dose) 20 ml STK-MED ONCE 06/24/20 06:49 06/24/20 06:50 DC 06/24/20 10:08 17 ML Lisinopril (Prinivil) 20 mg DAILY 06/19/20 09:00 06/24/20 08:26 DC 06/23/20 09:11 20 MG Magnesium Sulfate 50 ml @ 25 mls/hr PRN DAILY PRN 06/25/20 12:00 Midazolam HCl (Versed) 2 mg STK-MED ONCE 06/24/20 08:08 06/24/20 08:08 DC Miscellaneous (Lidoderm Patch Removal) 1 ea QHS 06/18/20 21:00 06/23/20 20:38 1 EA Morphine Sulfate (Morphine Sulfate) 1 mg PRN Q10MIN PRN 06/24/20 09:45 06/24/20 19:54 DC Ondansetron HCl (Zofran) 4 mg PRN Q6HRS PRN 06/24/20 09:45 06/24/20 19:54 DC Pantoprazole Sodium (Protonix) 40 mg BIDAC 06/26/20 16:30 06/27/20 06:12 40 MG Phenylephrine HCl (Sergio-Synephrine Inj) 10 mg STK-MED ONCE 06/24/20 15:23 06/24/20 15:23 DC Prochlorperazine Edisylate (Compazine) 5 mg PACU PRN PRN 06/24/20 09:45 06/24/20 19:54 DC Propofol (Diprivan) 200 mg STK-MED ONCE 06/24/20 08:08 06/24/20 08:09 DC Remifentanil HCl (Ultiva) 2 mg STK-MED ONCE 06/24/20 15:30 06/24/20 15:30 DC Ringer's Solution 1,000 ml @ 30 mls/hr Q24H 06/24/20 09:31 06/24/20 19:54 DC Rocuronium [place] (Zemuron) 50 mg STK-MED ONCE 06/24/20 08:08 06/24/20 08:08 DC Senna/Docusate Sodium (Senna Plus) 1 tab BID 06/19/20 21:00 06/27/20 08:26 1 TAB Sodium Chloride 1,000 ml @ 100 mls/hr Q10H 06/24/20 21:00 06/27/20 08:26 100 MLS/HR Thrombin 20,000 unit STK-MED ONCE 06/24/20 13:58 06/24/20 13:58 DC 06/24/20 14:09 20,000 UNIT Tramadol HCl (Ultram) 100 mg PRN Q6HRS PRN 06/18/20 17:45 06/27/20 02:48 100 MG Vasopressin (Vasostrict) 20 unit STK-MED ONCE 06/24/20 14:55 06/24/20 14:55 DC Lab Laboratory Tests Test 06/27/20 08:04 Sodium Level 139 mmol/L (136-145) Potassium Level 4.5 mmol/L (3.5-5.1) Chloride Level 106 mmol/L (98-107) Carbon Dioxide Level 26 mmol/L (21-32) Anion Gap 7 (6-14) Blood Urea Nitrogen 35 mg/dL (8-26) Creatinine 1.0 mg/dL (0.7-1.3) Estimated GFR (Cockcroft-Gault) 74.3 Glucose Level 131 mg/dL (70-99) Calcium Level 8.4 mg/dL (8.5-10.1) Phosphorus Level 3.7 mg/dL (2.6-4.7) Magnesium Level 2.1 mg/dL (1.8-2.4) Creatine Kinase 806 U/L (39-308) Albumin 2.4 g/dL (3.4-5.0) Results All relevant outside records, renal labs, imaging studies, telemetry/EKG's were reviewed. Justicifation of Admission Dx: Justifications for Admission: Justification of Admission Dx: N/A DU TATE MD Jun 27, 2020 12:22
--- NOTE | 2020-06-27 12:37 | NUR ---
GIANA following, discussed with RN. Dr. Sterling advising pt he needs to go to acute rehab, told SW to fax the referral. [facility]NA met with pt and pt's again, he does not want to go to rehab, he wants to go home - pt's is agreeable to this. GIANA faxed facesheet to [facility] to check if in network with pt's insurance. [facility] and [facility] are not in network. [facility] advised they are in network - [facility] faxed to [facility], awaiting acceptance decision. Dr Luis branham with [facility] - meds per surgeon. RN notified, RN reaching out to surgical team. GIANA will continue to follow. Addendum: 06/27/20 at 1327 by JOSE FARIA [facility] is also in network with pt's insurance. Dr. Sterling informed of pt and family wanting home health, not acute rehab. Dr. Sterling went to speak with pt again and convinced them to do acute rehab. GIANA spoke with pt and family, they are agreeable - would like a facility which is allowing visitors. [facility]NA phoned and faxed referral to [facility]. [facility] is allowing 1 visitor per admission, but this could be stopped at any time - GIANA will fax referral once fax machine has memory space. [facility] are no longer allowing visitors. GIANA did explain to pt facilities could stop allowing visitors at any time (including [facility]) and [facility] cannot guarantee visitor policies. GIANA spoke with Dr. Sterling about pt choice and SW cannot force pt's to do something they do not want to do. SW explained to Dr. Sterling, the pt can make his own decisions, including poor decisions and we have to respect his decision regardless of our recommendations. RN notified of change in discharge plan again. SW will continue to follow.
[2020-06-27] MEDS ORDERED: HYDR-2761 PO (13:48)
[2020-06-27] MEDS ORDERED: METH4TAB2 PO (13:48)
--- NOTE | 2020-06-27 13:53 | SNU/HH DC ---
DISCHARGE WITH HOME HEALTH DISCHARGE INFORMATION: Discharge Date: Jun 27, 2020 Final Diagnosis: Problems Medical Problems: (1) Abnormal CT scan, lumbar spine Status: Acute Condition on Discharge: Stable CODE STATUS: Code Status: Full HOME HEALTH: Face to Face: I certify this patient is under my care and that I, or a nurse practitioner or physician's endodontic assistant working with me, had a face to face encounter that meets the physician face to face encounter requirements with this patient on 06/27/2020. RN For Eval/Treatment: Yes Pt Meets Homebound Status: Unsteady balance w/ amb,, Extreme weakness w/ amb. POST DISCHARGE ORDERS: Activity Instructions for Disc: Activity as tolerated, Avoid exertion Weight Bearing Status after Di: As tolerated Bathing Instructions: Shower-keep dressing dry DIET AFTER DISCHARGE: Regular Wound/Incision Care: Ice to area for comfort Other wound/incision instructi: Brace on when up, dressing changes as needed, no lifting, no bending FOLLOW-UP: PCP to follow Home Health: Dr. Lozano [phone] follow up in 2 weeks for staple removal Follow up with: Dr. Smith Follow Up With: Dr. Celaya [phone] TREATMENT/EQUIPMENT ORDERS: Adaptive Equipment Issued: Brace/splint, Walker CERTIFICATION STATEMENT: Certification Statement: Certification Statement: Based on the above finding, I certify that this patient is confined to the home and needs intermittent long term care, physical therapy and/or speech therapy, or continues to need occupational therapy.~ This patient is under my care, and I have initiated the establishment of the plan of care.~ This patient will be followed by myself or a community physician who will periodically review the plan of care. Home Meds Reported Medications Tramadol Hcl (TRAMADOL HCL) 50 Mg Tablet, 50 MG PO PRN BID PRN for PAIN, TAB 06/18/20 Prednisone (PREDNISONE) 50 Mg Tablet, 1 TAB PO DAILY for Inflamation, #5 TAB 06/18/20 Atenolol (ATENOLOL) 25 Mg Tablet, 1 TAB PO DAILY for HTN, #30 TAB 5 Refills 06/18/20 Lisinopril (LISINOPRIL) 20 Mg Tablet, 1 TAB PO DAILY for HTN, #30 TAB 5 Refills 06/18/20 MICHAEL LOZANO MD Jun 27, 2020 13:53
--- NOTE | 2020-06-27 14:06 | SNU/HH DC ---
DISCHARGE ORDERS DISCHARGE INFORMATION: DISCHARGE DATE: Jun 27, 2020 FINAL DIAGNOSIS Problems Medical Problems: (1) Abnormal CT scan, lumbar spine Status: Acute CONDITION ON DISCHARGE: Stable CODE STATUS: Code Status: Full POST DISCHARGE ORDERS: ACTIVITY ORDERS: Activity as tolerated, Avoid exertion WEIGHT BEARING STATUS: As tolerated BATHING ORDERS: Shower-keep dressing dry DIET AFTER DISCHARGE: Regular WOUND/INCISION CARE: Ice to area for comfort OTHER WOUND INSTRUCTIONS: Brace on when up, dressing changes as needed, no lifting, no bending FOLLOW-UP: PHYSICIAN FOLLOW-UP: Dr. Smith ADDITIONAL FOLLOW-UP: Dr. Celaya [phone] TREATMENT/EQUIPMENT ORDERS: ADAPTIVE EQUIPMENT NEEDED: Brace/splint, Walker Physical Therapy For: Evalulation/Treatment DISCHARGE MEDICATIONS: Home Meds Reported Medications Tramadol Hcl (TRAMADOL HCL) 50 Mg Tablet, 50 MG PO PRN BID PRN for PAIN, TAB 06/18/20 Prednisone (PREDNISONE) 50 Mg Tablet, 1 TAB PO DAILY for Inflamation, #5 TAB 06/18/20 Atenolol (ATENOLOL) 25 Mg Tablet, 1 TAB PO DAILY for HTN, #30 TAB 5 Refills 06/18/20 Lisinopril (LISINOPRIL) 20 Mg Tablet, 1 TAB PO DAILY for HTN, #30 TAB 5 Refills 06/18/20 MICHAEL LOZANO MD Jun 27, 2020 14:06
[2020-06-27] MEDS: methylPREDNISolone 4 MG TABLET. PO SCH ×4 (14:31→21:55)
[2020-06-27 15:00] VITALS: BP_SYST 11; BP_SYST 111; BP_DIAS 64
[2020-06-27 19:20] VITALS: BP 124/61
[2020-06-27] MEDS: PATCH REMOVAL. MC SCH (21:00)
[2020-06-27 23:07] VITALS: BP 126/59
[2020-06-28] MEDS: IV NORMAL SALINE 1000ML BAG 1,000 ML IV SCH (00:10)
[2020-06-28 03:05] VITALS: BP 145/71
[2020-06-28 05:16] LABS: ALBUMIN 2.2 g/dL (3.4-5.0); CALCIUM 8.3 mg/dL (8.5-10.1); CREATININE 0.9 mg/dL (0.7-1.3); GFR 83.9; PHOSPHORUS 3.3 mg/dL (2.6-4.7); POTASSIUM 4.5 mmol/L (3.5-5.1)
[2020-06-28] MEDS: HYDROcodone/APAP 5/325MG 1 TAB TABLET PO PRN ×3 (06:26→22:51)
[2020-06-28] MEDS: PANTOPRAZOLE 40 MG TABLET.DR. PO SCH ×2 (06:26→15:23)
--- NOTE | 2020-06-28 07:43 | PDOC ---
SUBJECTIVE Subjective Pain adequately controlled, still no BM. Discussed path results showing clear cell renal carcinoma. Discussed that further treatment option discussions would occur with Dr. Celaya. OBJECTIVE Objective Reviewed. Vital Signs Vital Signs Date Time Temp Pulse Resp B/P (MAP) Pulse Ox O2 Delivery O2 Flow Rate FiO2 06/28/20 07:17 14 Room Air 06/28/20 06:26 14 Room Air 06/28/20 03:05 98.1 68 18 145/71 (95) 98 Room Air 98.1 06/27/20 23:07 98.1 56 18 126/59 (81) 95 Room Air 98.1 06/27/20 23:02 14 Room Air 06/27/20 21:55 16 Room Air 06/27/20 20:00 Room Air 06/27/20 19:20 98.4 67 18 124/61 (82) 99 Room Air 98.4 06/27/20 15:00 99.3 66 20 111/64 (80) 99 Room Air 99.3 06/27/20 11:00 98.9 65 20 112/60 (77) 98 Room Air 98.9 06/27/20 08:26 63 120/50 06/27/20 07:45 Room Air I & O Intake and Output 06/28/20 07:00 Intake Total 4130 ml Output Total 1200 ml Balance 2930 ml Intake Oral 1130 ml IV Total 3000 ml Output Urine Total 1200 ml PHYSICAL EXAM Physical Exam Alert, oriented RRR CTAB Support brace around torso 4/5 strength of LLE, 5/5 RLE Calm, cooperative ASSESSMENT/PLAN Assessment/Plan 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 Celaya for recommendations on further treatment Dr. Sterling recommends d/c to inpt rehab, pt is agreeable, awaiting placement On medrol taper per neurosurg COMMENT Lab Laboratory Tests Test 06/27/20 08:04 06/28/20 04:20 Sodium Level 139 mmol/L (136-145) 135 mmol/L (136-145) Potassium Level 4.5 mmol/L (3.5-5.1) 4.5 mmol/L (3.5-5.1) Chloride Level 106 mmol/L (98-107) 105 mmol/L (98-107) Carbon Dioxide Level 26 mmol/L (21-32) 24 mmol/L (21-32) Anion Gap 7 (6-14) 6 (6-14) Blood Urea Nitrogen 35 mg/dL (8-26) 33 mg/dL (8-26) Creatinine 1.0 mg/dL (0.7-1.3) 0.9 mg/dL (0.7-1.3) Estimated GFR (Cockcroft-Gault) 74.3 83.9 Glucose Level 131 mg/dL (70-99) 117 mg/dL (70-99) Calcium Level 8.4 mg/dL (8.5-10.1) 8.3 mg/dL (8.5-10.1) Phosphorus Level 3.7 mg/dL (2.6-4.7) 3.3 mg/dL (2.6-4.7) Magnesium Level 2.1 mg/dL (1.8-2.4) 2.0 mg/dL (1.8-2.4) Creatine Kinase 806 U/L (39-308) 589 U/L (39-308) Albumin 2.4 g/dL (3.4-5.0) 2.2 g/dL (3.4-5.0) Justifications for Admission Other Justification Nutrition Consultation Dietary Evaluation: Recommendations by RD: Dietary education by RD, Increase Calorie Intake, Protein supplementation Comments: REC continue gi soft diet with supplements of choice Expected Outcomes/Goals: to meet >75% est nutrition needs via po intake- goal ongoing Interpretation of weight loss: >5% in 1 month Malnutrition Findings: Food and Nutrition Intake (Sev: <50% est energy req 5days Weight Status: Overweight JILLIAN WAYNE MD Jun 28, 2020 07:43
--- NOTE | 2020-06-28 07:48 | PDOC ---
PROGRESS NOTES Date of Service DATE: 06/27/20 TIME: 13:45 Subjective Subjective Late entry patient seen 06/27 at 1345 up in chair fees much stronger today reports that he ambulated in room today without assistance pain well controlled Objective Objective Vital Signs Date Time Temp Pulse Resp B/P (MAP) Pulse Ox O2 Delivery O2 Flow Rate FiO2 06/28/20 07:17 14 Room Air 06/28/20 03:05 98.1 68 145/71 (95) 98 98.1 06/24/20 17:40 10 Intake and Output 06/28/20 07:00 Intake Total 4130 ml Output Total 1200 ml Balance 2930 ml Intake Oral 1130 ml IV Total 3000 ml Output Urine Total 1200 ml Physical Exam General: Alert, Oriented X3, Cooperative, No acute distress MUSCULOSKELETAL: Other (ESCALANTE, LSO on) Neuro: Other Skin: Other (dressing changed, minimal bloody drainage, irvin intact) Assessment Assessment Problems Medical Problems: (1) Abnormal CT scan, lumbar spine Status: Acute Plan Plan of Care continue PT wean steroids Patient agreeable to acute rehab, arrangements being made will need to follow up with oncology f/u with us in 2 weeks Comment Review of Relevant I have reviewed the following items kiersten (where applicable) has been applied. Labs Laboratory Tests Test 06/26/20 07:51 06/27/20 08:04 06/28/20 04:20 Sodium Level 140 mmol/L (136-145) 139 mmol/L (136-145) 135 mmol/L (136-145) Potassium Level 4.7 mmol/L (3.5-5.1) 4.5 mmol/L (3.5-5.1) 4.5 mmol/L (3.5-5.1) Chloride Level 107 mmol/L (98-107) 106 mmol/L (98-107) 105 mmol/L (98-107) Carbon Dioxide Level 26 mmol/L (21-32) 26 mmol/L (21-32) 24 mmol/L (21-32) Anion Gap 7 (6-14) 7 (6-14) 6 (6-14) Blood Urea Nitrogen 40 mg/dL (8-26) 35 mg/dL (8-26) 33 mg/dL (8-26) Creatinine 1.1 mg/dL (0.7-1.3) 1.0 mg/dL (0.7-1.3) 0.9 mg/dL (0.7-1.3) Estimated GFR (Cockcroft-Gault) 66.6 74.3 83.9 Glucose Level 137 mg/dL (70-99) 131 mg/dL (70-99) 117 mg/dL (70-99) Calcium Level 8.1 mg/dL (8.5-10.1) 8.4 mg/dL (8.5-10.1) 8.3 mg/dL (8.5-10.1) Phosphorus Level 3.7 mg/dL (2.6-4.7) 3.7 mg/dL (2.6-4.7) 3.3 mg/dL (2.6-4.7) Magnesium Level 2.2 mg/dL (1.8-2.4) 2.1 mg/dL (1.8-2.4) 2.0 mg/dL (1.8-2.4) Albumin 2.6 g/dL (3.4-5.0) 2.4 g/dL (3.4-5.0) 2.2 g/dL (3.4-5.0) Creatine Kinase 806 U/L (39-308) 589 U/L (39-308) Laboratory Tests Test 06/27/20 08:04 06/28/20 04:20 Sodium Level 139 mmol/L (136-145) 135 mmol/L (136-145) Potassium Level 4.5 mmol/L (3.5-5.1) 4.5 mmol/L (3.5-5.1) Chloride Level 106 mmol/L (98-107) 105 mmol/L (98-107) Carbon Dioxide Level 26 mmol/L (21-32) 24 mmol/L (21-32) Anion Gap 7 (6-14) 6 (6-14) Blood Urea Nitrogen 35 mg/dL (8-26) 33 mg/dL (8-26) Creatinine 1.0 mg/dL (0.7-1.3) 0.9 mg/dL (0.7-1.3) Estimated GFR (Cockcroft-Gault) 74.3 83.9 Glucose Level 131 mg/dL (70-99) 117 mg/dL (70-99) Calcium Level 8.4 mg/dL (8.5-10.1) 8.3 mg/dL (8.5-10.1) Phosphorus Level 3.7 mg/dL (2.6-4.7) 3.3 mg/dL (2.6-4.7) Magnesium Level 2.1 mg/dL (1.8-2.4) 2.0 mg/dL (1.8-2.4) Creatine Kinase 806 U/L (39-308) 589 U/L (39-308) Albumin 2.4 g/dL (3.4-5.0) 2.2 g/dL (3.4-5.0) Medications Current Medications Ketorolac Tromethamine (Toradol 30mg Vial) 30 mg 1X ONCE IM Last administered on 06/18/20 11:22; Start 06/18/20 at 10:45; Stop 06/18/20 at 10:46; Status DC Cyclobenzaprine HCl (Flexeril) 10 mg 1X ONCE PO Last administered on 06/18/20at 11:21; Start 06/18/20 at 10:45; Stop 06/18/20 at 10:46; Status DC Lidocaine (Lidoderm) 1 patch 1X ONCE TD Last administered on 06/18/20at 11:22; Start 06/18/20 at 10:45; Stop 06/18/20 at 10:46; Status DC Tramadol HCl (Ultram) 100 mg PRN Q6HRS PRN PO MODERATE PAIN Last administered on 06/27/20at 02:48; Start 06/18/20 at 17:45 Acetaminophen/ Hydrocodone Bitart (Lortab 5/325) 1 tab PRN Q6HRS PRN PO SEVERE PAIN Last administered on 06/28/20 06:26; Start 06/18/20 at 17:45 Lidocaine (Lidoderm) 1 patch DAILY TD Last administered on 06/23/20 09:12; Start 06/18/20 at 18:00 Miscellaneous (Lidoderm Patch Removal) 1 ea QHS MC Last administered on 06/23/20at 20:38; Start 06/18/20 at 21:00 Atenolol (Tenormin) 25 mg DAILY PO Last administered on 06/27/20at 08:26; Start 06/19/20 at 09:00 Lisinopril (Prinivil) 20 mg DAILY PO Last administered on 06/23/20at 09:11; Start 06/19/20 at 09:00; Stop 06/24/20 at 08:26; Status DC Gadoterate Meglumine (Clariscan) 16.6 ml 1X ONCE IVP Last administered on 06/19/20at 10:56; Start 06/19/20 at 10:45; Stop 06/19/20 at 10:46; Status DC Iohexol (Omnipaque 240 Mg/ml) 50 ml 1X ONCE PO Last administered on 06/19/20at 12:00; Start 06/19/20 at 12:00; Stop 06/19/20 at 12:01; Status DC Iohexol (Omnipaque 300 Mg/ml) 75 ml 1X ONCE IV Last administered on 06/19/20at 12:00; Start 06/19/20 at 12:00; Stop 06/19/20 at 12:01; Status DC Info (CONTRAST GIVEN -- Rx MONITORING) 1 each PRN DAILY PRN MC SEE COMMENTS; Start 06/19/20 at 11:45; Stop 06/21/20 at 11:44; Status DC Bisacodyl (Dulcolax Tab) 10 mg DAILY PO Last administered on 06/27/20at 08:26; Start 06/19/20 at 14:00 Bisacodyl (Dulcolax Supp) 10 mg PRN DAILY PRN CO CONSTIPATION; Start 06/19/20 at 13:15 Senna/Docusate Sodium (Senna Plus) 1 tab BID PO Last administered on 06/27/20at 21:55; Start 06/19/20 at 21:00 Alprazolam (Xanax) 0.5 mg PRN Q8HRS PRN PO ANXIETY / AGITATION; Start 06/19/20 at 13:15 Dexamethasone Sodium Phosphate (Decadron) 2 mg Q6HRS IVP Last administered on 06/21/20at 12:32; Start 06/19/20 at 16:30; Stop 06/21/20 at 13:04; Status DC Dexamethasone Sodium Phosphate (Decadron) 4 mg Q6HRS IVP Last administered on 06/25/20at 06:14; Start 06/21/20 at 18:00; Stop 06/25/20 at 09:27; Status DC Pantoprazole Sodium (Protonix) 40 mg DAILYAC PO Last administered on 06/26/20at 08:03; Start 06/23/20 at 11:30; Stop 06/26/20 at 10:44; Status DC Cefazolin Sodium (Ancef) 2 gm 1X PREOP PRN IVP PRIOR TO PROCEDURE; Start 06/24/20 at 08:00; Status UNV Cefazolin Sodium/ Dextrose 50 ml @ 100 mls/hr 1X PREOP PRN IV PRIOR TO PROCEDURE Last administered on 06/24/20at 09:29; Start 06/24/20 at 06:00; Stop 06/24/20 at 18:00; Status DC Bacitracin 90866 unit/Sodium Chloride 1,000 ml @ 1,000 mls/hr 1X ONCE IRR Last administered on 06/24/20at 10:08; Start 06/24/20 at 06:00; Stop 06/24/20 at 06:59; Status DC Gelatin (Gelfoam Size 100) 1 each STK-MED ONCE .ROUTE Last administered on 06/24/20at 10:08; Start 06/24/20 at 06:49; Stop 06/24/20 at 06:50; Status DC Ketorolac Tromethamine (Toradol Im) 60 mg STK-MED ONCE .ROUTE Last administered on 06/24/20at 10:08; Start 06/24/20 at 06:49; Stop 06/24/20 at 06:50; Status DC Lidocaine/ Epinephrine (LIDOCAINE 1%-EPI 1:100,000 Multi-Dose) 20 ml STK-MED ONCE .ROUTE Last administered on 06/24/20at 10:08; Start 06/24/20 at 06:49; S top 06/24/20 at 06:50; Status DC Thrombin 20,000 unit STK-MED ONCE TP Last administered on 06/24/20at 10:08; Start 06/24/20 at 06:50; Stop 06/24/20 at 06:50; Status DC Propofol 200 ml @ As Directed STK-MED ONCE IV ; Start 06/24/20 at 07:59; Stop 06/24/20 at 07:59; Status DC Fentanyl Citrate (Fentanyl 2ml Vial) 100 mcg STK-MED ONCE .ROUTE ; Start 06/24/20 at 08:07; Stop 06/24/20 at 08:08; Status DC Rocuronium [place] (Zemuron) 50 mg STK-MED ONCE .ROUTE ; Start 06/24/20 at 08:08; Stop 06/24/20 at 08:08; Status DC Remifentanil HCl (Ultiva) 2 mg STK-MED ONCE IV ; Start 06/24/20 at 08:08; Stop 06/24/20 at 08:08; Status DC Midazolam HCl (Versed) 2 mg STK-MED ONCE .ROUTE ; Start 06/24/20 at 08:08; Stop 06/24/20 at 08:08; Status DC Propofol (Diprivan) 200 mg STK-MED ONCE IV ; Start 06/24/20 at 08:08; Stop 06/24/20 at 08:09; Status DC Dexamethasone Sodium Phosphate (Decadron) 20 mg STK-MED ONCE .ROUTE ; Start 06/24/20 at 08:08; Stop 06/24/20 at 08:09; Status DC Lidocaine HCl (Lidocaine Pf 2% Vial) 5 ml STK-MED ONCE .ROUTE ; Start 06/24/20 at 08:08; Stop 06/24/20 at 08:09; Status DC Ondansetron HCl (Zofran) 4 mg STK-MED ONCE .ROUTE ; Start 06/24/20 at 08:09; Stop 06/24/20 at 08:09; Status DC Phenylephrine HCl (Sergio-Synephrine Inj) 10 mg STK-MED ONCE .ROUTE ; Start 06/24/20 at 08:16; Stop 06/24/20 at 08:17; Status DC Ephedrine Sulfate (ePHEDrine PF IN SALINE SYRINGE) 50 mg STK-MED ONCE IV ; Start 06/24/20 at 09:07; Stop 06/24/20 at 09:07; Status DC Ondansetron HCl (Zofran) 4 mg PRN Q6HRS PRN IV NAUSEA/VOMITING; Start 06/24/20 at 09:45; Stop 06/24/20 at 19:54; Status DC Fentanyl Citrate (Fentanyl 2ml Vial) 25 mcg PRN Q5MIN PRN IV MILD PAIN 1-3; Start 06/24/20 at 09:45; Stop 06/24/20 at 19:54; Status DC Fentanyl Citrate (Fentanyl 2ml Vial) 50 mcg PRN Q5MIN PRN IV MODERATE TO SEVERE PAIN; Start 06/24/20 at 09:45; Stop 06/24/20 at 19:54; Status DC Morphine Sulfate (Morphine Sulfate) 1 mg PRN Q10MIN PRN IV SEVERE PAIN 7-10; Start 06/24/20 at 09:45; Stop 06/24/20 at 19:54; Status DC Ringer's Solution 1,000 ml @ 30 mls/hr Q24H IV ; Start 06/24/20 at 09:31; Stop 06/24/20 at 19:54; Status DC Lidocaine HCl (Xylocaine-Mpf 1% 2ml Vial) 2 ml PRN 1X PRN ID PRIOR TO IV START; Start 06/24/20 at 09:45; Stop 06/24/20 at 19:54; Status DC Hydromorphone HCl (Dilaudid) 0.5 mg PRN Q10MIN PRN IV SEV PAIN, Second choice; Start 06/24/20 at 09:45; Stop 06/24/20 at 19:54; Status DC Prochlorperazine Edisylate (Compazine) 5 mg PACU PRN PRN IV NAUSEA, MRX1; Start 06/24/20 at 09:45; Stop 06/24/20 at 19:54; Status DC Remifentanil HCl (Ultiva) 2 mg STK-MED ONCE IV ; Start 06/24/20 at 11:31; Stop 06/24/20 at 11:31; Status DC Desflurane (Suprane) 90 ml STK-MED ONCE IH ; Start 06/24/20 at 11:33; Stop 06/24/20 at 11:34; Status DC Ketamine HCl (Ketamine) 50 mg STK-MED ONCE .ROUTE ; Start 06/24/20 at 12:20; Stop 06/24/20 at 12:20; Status DC Phenylephrine HCl (Sergio-Synephrine Inj) 10 mg STK-MED ONCE .ROUTE ; Start 06/24/20 at 12:27; Stop 06/24/20 at 12:28; Status DC Cefazolin Sodium (Ancef) 1 gm STK-MED ONCE IVP ; Start 06/24/20 at 12:29; Stop 06/24/20 at 12:30; Status DC Cefazolin Sodium (Ancef) 1 gm STK-MED ONCE IVP ; Start 06/24/20 at 12:29; Stop 06/24/20 at 12:30; Status DC Albumin Human 500 ml @ As Directed STK-MED ONCE IV ; Start 06/24/20 at 13:48; Stop 06/24/20 at 13:48; Status DC Thrombin 20,000 unit STK-MED ONCE TP Last administered on 06/24/20at 14:09; Start 06/24/20 at 13:58; Stop 06/24/20 at 13:58; Status DC Phenylephrine HCl (Sergio-Synephrine Inj) 10 mg STK-MED ONCE .ROUTE ; Start 06/24/20 at 14:06; Stop 06/24/20 at 14:06; Status DC Gelatin (Gelfoam Size 100) 1 each STK-MED ONCE .ROUTE Last administered on 06/24/20at 14:49; Start 06/24/20 at 14:43; Stop 06/24/20 at 14:43; Status DC Vasopressin (Vasostrict) 20 unit STK-MED ONCE .ROUTE ; Start 06/24/20 at 14:55; Stop 06/24/20 at 14:55; Status DC Albumin Human 500 ml @ As Directed STK-MED ONCE IV ; Start 06/24/20 at 15:23; Stop 06/24/20 at 15:23; Status DC Phenylephrine HCl (Sergio-Synephrine Inj) 10 mg STK-MED ONCE .ROUTE ; Start 06/24/20 at 15:23; Stop 06/24/20 at 15:23; Status DC Remifentanil HCl (Ultiva) 2 mg STK-MED ONCE IV ; Start 06/24/20 at 15:30; Stop 06/24/20 at 15:30; Status DC Fentanyl Citrate (Fentanyl 2ml Vial) 50 mcg PRN Q2HR PRN IVP PAIN Last administered on 06/27/20at 01:17; Start 06/24/20 at 16:45 Sodium Chloride 1,000 ml @ 1,000 mls/hr 1X ONCE IV Last administered on 06/24/20at 20:08; Start 06/24/20 at 20:00; Stop 06/24/20 at 20:59; Status DC Sodium Chloride 1,000 ml @ 100 mls/hr Q10H IV Last administered on 06/28/20at 00:10; Start 06/24/20 at 21:00 Dexamethasone Sodium Phosphate (Decadron) 2 mg Q6HRS IVP Last administered on 06/27/20at 11:41; Start 06/25/20 at 12:00; Stop 06/27/20 at 14:09; Status DC Magnesium Sulfate 50 ml @ 25 mls/hr PRN DAILY PRN IV for Mag < 1.7 on am labs; Start 06/25/20 at 12:00 Pantoprazole Sodium (Protonix) 40 mg BIDAC PO Last administered on 06/28/20at 06:26; Start 06/26/20 at 16:30 Methylprednisolone (Medrol) 8 mg BID PO Last administered on 06/27/20at 21:55; Start 06/27/20 at 15:00; Stop 06/27/20 at 21:01; Status DC Methylprednisolone (Medrol) 4 mg BIDPCLD PO Last administered on 06/27/20at 15:31; Start 06/27/20 at 16:00; Stop 06/27/20 at 17:31; Status DC Methylprednisolone (Medrol) 4 mg TIDPC PO ; Start 06/28/20 at 08:30; Stop 06/28/20 at 17:31 Methylprednisolone (Medrol) 8 mg QHS PO ; Start 06/28/20 at 21:00; Stop 06/28/20 at 21:01 Methylprednisolone (Medrol) 4 mg QIDAFTMEAL PO ; Start 06/29/20 at 09:00; Stop 06/29/20 at 21:01 Methylprednisolone (Medrol) 4 mg TID PO ; Start 06/30/20 at 09:00; Stop 06/30/20 at 21:01 Methylprednisolone (Medrol) 4 mg BID PO ; Start 07/01/20 at 09:00; Stop 07/01/20 at 21:01 Methylprednisolone (Medrol) 4 mg DAILY PO ; Start 07/02/20 at 09:00; Stop 07/02/20 at 09:01 Active Scripts Active Reported Tramadol Hcl 50 Mg Tablet 50 Mg PO PRN BID PRN Prednisone 50 Mg Tablet 1 Tab PO DAILY Atenolol 25 Mg Tablet 1 Tab PO DAILY Lisinopril 20 Mg Tablet 1 Tab PO DAILY Vitals/I & O Vital Sign - Last 24 Hours 06/27/20 06/27/20 06/27/20 06/27/20 07:45 08:26 11:00 15:00 Temp 98.9 99.3 98.9 99.3 Pulse 63 65 66 Resp 20 20 B/P (MAP) 120/50 112/60 (77) 111/64 (80) Pulse Ox 98 99 O2 Delivery Room Air Room Air Room Air 06/27/20 06/27/20 06/27/20 06/27/20 19:20 20:00 21:55 23:02 Temp 98.4 98.4 Pulse 67 Resp 18 16 14 B/P (MAP) 124/61 (82) Pulse Ox 99 O2 Delivery Room Air Room Air Room Air Room Air 06/27/20 06/28/20 06/28/20 06/28/20 23:07 03:05 06:26 07:17 Temp 98.1 98.1 98.1 98.1 Pulse 56 68 Resp 18 18 14 14 B/P (MAP) 126/59 (81) 145/71 (95) Pulse Ox 95 98 O2 Delivery Room Air Room Air Room Air Room Air Intake and Output 06/27/20 06/27/20 06/28/20 15:00 23:00 07:00 Intake Total 650 ml 3480 ml Output Total 300 ml 900 ml Balance 350 ml 2580 ml Justifications for Admission Other Justification Nutrition Consultation Dietary Evaluation: Recommendations by RD: Dietary education by RD, Increase Calorie Intake, Protein supplementation Comments: REC continue gi soft diet with supplements of choice Expected Outcomes/Goals: to meet >75% est nutrition needs via po intake- goal ongoing Interpretation of weight loss: >5% in 1 month Malnutrition Findings: Food and Nutrition Intake (Sev: <50% est energy req 5days Weight Status: Overweight FLORY FLORIAN RADIO COMMENTATOR Jun 28, 2020 07:48
[2020-06-28 07:59] VITALS: BP 113/40
[2020-06-28] MEDS: methylPREDNISolone 4 MG TABLET. PO SCH ×3 (08:55→15:23)
[2020-06-28] MEDS: BISACODYL 5 MG TABLET.DR. PO SCH (08:55)
[2020-06-28] MEDS: ATENOLOL 25 MG TABLET. PO SCH (08:56)
[2020-06-28] MEDS: LIDOCAINE (700MG/PATCH) PATCH. TD SCH (08:57)
[2020-06-28] MEDS: SENNOSIDES/DOCUSATE 8.6/50MG TABLET. PO SCH ×2 (09:00→21:12)
--- NOTE | 2020-06-28 10:32 | PDOC ---
PROGRESS NOTES Date of Service DATE: 06/28/20 TIME: 10:29 Subjective Subjective No new complaints. Objective Objective Vital Signs Date Time Temp Pulse Resp B/P (MAP) Pulse Ox O2 Delivery O2 Flow Rate FiO2 06/28/20 08:56 68 145/71 06/28/20 08:00 Room Air 06/28/20 07:59 97.9 20 98 97.9 06/24/20 17:40 10 Intake and Output 06/28/20 07:00 Intake Total 4130 ml Output Total 1200 ml Balance 2930 ml Intake Oral 1130 ml IV Total 3000 ml Output Urine Total 1200 ml Physical Exam Physical Exam He is alert,sitting in bed with head end propped up with lumbar corset on and he walked for 15' with roller walker with physical therapy yesterday. Assessment Assessment Problems Medical Problems: (1) Abnormal CT scan, lumbar spine Status: Acute Plan Plan of Care To continue present rehab efforts as tolerated and to decide on home with home health or transfer to rehab unit depending on his progress with therapy over the weekend and waiting for biopsy reports to decide on treatment plans from oncology and radiation oncology. Comment Review of Relevant I have reviewed the following items kiersten (where applicable) has been applied. Labs Laboratory Tests Test 06/27/20 08:04 06/28/20 04:20 Sodium Level 139 mmol/L (136-145) 135 mmol/L (136-145) Potassium Level 4.5 mmol/L (3.5-5.1) 4.5 mmol/L (3.5-5.1) Chloride Level 106 mmol/L (98-107) 105 mmol/L (98-107) Carbon Dioxide Level 26 mmol/L (21-32) 24 mmol/L (21-32) Anion Gap 7 (6-14) 6 (6-14) Blood Urea Nitrogen 35 mg/dL (8-26) 33 mg/dL (8-26) Creatinine 1.0 mg/dL (0.7-1.3) 0.9 mg/dL (0.7-1.3) Estimated GFR (Cockcroft-Gault) 74.3 83.9 Glucose Level 131 mg/dL (70-99) 117 mg/dL (70-99) Calcium Level 8.4 mg/dL (8.5-10.1) 8.3 mg/dL (8.5-10.1) Phosphorus Level 3.7 mg/dL (2.6-4.7) 3.3 mg/dL (2.6-4.7) Magnesium Level 2.1 mg/dL (1.8-2.4) 2.0 mg/dL (1.8-2.4) Creatine Kinase 806 U/L (39-308) 589 U/L (39-308) Albumin 2.4 g/dL (3.4-5.0) 2.2 g/dL (3.4-5.0) Laboratory Tests Test 06/28/20 04:20 Sodium Level 135 mmol/L (136-145) Potassium Level 4.5 mmol/L (3.5-5.1) Chloride Level 105 mmol/L (98-107) Carbon Dioxide Level 24 mmol/L (21-32) Anion Gap 6 (6-14) Blood Urea Nitrogen 33 mg/dL (8-26) Creatinine 0.9 mg/dL (0.7-1.3) Estimated GFR (Cockcroft-Gault) 83.9 Glucose Level 117 mg/dL (70-99) Calcium Level 8.3 mg/dL (8.5-10.1) Phosphorus Level 3.3 mg/dL (2.6-4.7) Magnesium Level 2.0 mg/dL (1.8-2.4) Creatine Kinase 589 U/L (39-308) Albumin 2.2 g/dL (3.4-5.0) Medications Current Medications Ketorolac Tromethamine (Toradol 30mg Vial) 30 mg 1X ONCE IM Last administered on 06/18/20at 11:22; Start 06/18/20 at 10:45; Stop 06/18/20 at 10:46; Status DC Cyclobenzaprine HCl (Flexeril) 10 mg 1X ONCE PO Last administered on 06/18/20at 11:21; Start 06/18/20 at 10:45; Stop 06/18/20 at 10:46; Status DC Lidocaine (Lidoderm) 1 patch 1X ONCE TD Last administered on 06/18/20at 11:22; Start 06/18/20 at 10:45; Stop 06/18/20 at 10:46; Status DC Tramadol HCl (Ultram) 100 mg PRN Q6HRS PRN PO MODERATE PAIN Last administered on 06/27/20at 02:48; Start 06/18/20 at 17:45 Acetaminophen/ Hydrocodone Bitart (Lortab 5/325) 1 tab PRN Q6HRS PRN PO SEVERE PAIN Last administered on 06/28/20at 06:26; Start 06/18/20 at 17:45 Lidocaine (Lidoderm) 1 patch DAILY TD Last administered on 06/28/20at 08:57; Start 06/18/20 at 18:00 Miscellaneous (Lidoderm Patch Removal) 1 ea QHS MC Last administered on 06/23/20at 20:38; Start 06/18/20 at 21:00 Atenolol (Tenormin) 25 mg DAILY PO Last administered on 06/28/20at 08:56; Start 06/19/20 at 09:00 Lisinopril (Prinivil) 20 mg DAILY PO Last administered on 06/23/20at 09:11; Start 06/19/20 at 09:00; Stop 06/24/20 at 08:26; Status DC Gadoterate Meglumine (Clariscan) 16.6 ml 1X ONCE IVP Last administered on 06/19/20at 10:56; Start 06/19/20 at 10:45; Stop 06/19/20 at 10:46; Status DC Iohexol (Omnipaque 240 Mg/ml) 50 ml 1X ONCE PO Last administered on 06/19/20at 12:00; Start 06/19/20 at 12:00; Stop 06/19/20 at 12:01; Status DC Iohexol (Omnipaque 300 Mg/ml) 75 ml 1X ONCE IV Last administered on 06/19/20at 12:00; Start 06/19/20 at 12:00; Stop 06/19/20 at 12:01; Status DC Info (CONTRAST GIVEN -- Rx MONITORING) 1 each PRN DAILY PRN MC SEE COMMENTS; Start 06/19/20 at 11:45; Stop 06/21/20 at 11:44; Status DC Bisacodyl (Dulcolax Tab) 10 mg DAILY PO Last administered on 06/28/20at 08:55; Start 06/19/20 at 14:00 Bisacodyl (Dulcolax Supp) 10 mg PRN DAILY PRN [place] CONSTIPATION; Start 06/19/20 at 13:15 Senna/Docusate Sodium (Senna Plus) 1 tab BID PO Last administered on 06/27/20at 21:55; Start 06/19/20 at 21:00 Alprazolam (Xanax) 0.5 mg PRN Q8HRS PRN PO ANXIETY / AGITATION; Start 06/19/20 at 13:15 Dexamethasone Sodium Phosphate (Decadron) 2 mg Q6HRS IVP Last administered on 08/21/19at 12:32; Start 06/19/20 at 16:30; Stop 06/21/20 at 13:04; Status DC Dexamethasone Sodium Phosphate (Decadron) 4 mg Q6HRS IVP Last administered on 06/25/20at 06:14; Start 06/21/20 at 18:00; Stop 06/25/20 at 09:27; Status DC Pantoprazole Sodium (Protonix) 40 mg DAILYAC PO Last administered on 06/26/20at 08:03; Start 06/23/20 at 11:30; Stop 06/26/20 at 10:44; Status DC Cefazolin Sodium (Ancef) 2 gm 1X PREOP PRN IVP PRIOR TO PROCEDURE; Start 06/24/20 at 08:00; Status UNV Cefazolin Sodium/ Dextrose 50 ml @ 100 mls/hr 1X PREOP PRN IV PRIOR TO PROCEDURE Last administered on 06/24/20at 09:29; Start 06/24/20 at 06:00; Stop 06/24/20 at 18:00; Status DC Bacitracin 71172 unit/Sodium Chloride 1,000 ml @ 1,000 mls/hr 1X ONCE IRR Last administered on 06/24/20at 10:08; Start 06/24/20 at 06:00; Stop 06/24/20 at 06:59; Status DC Gelatin (Gelfoam Size 100) 1 each STK-MED ONCE .ROUTE Last administered on 06/24/20at 10:08; Start 06/24/20 at 06:49; Stop 06/24/20 at 06:50; Status DC Ketorolac Tromethamine (Toradol Im) 60 mg STK-MED ONCE .ROUTE Last administered on 06/24/20at 10:08; Start 06/24/20 at 06:49; Stop 06/24/20 at 06:50; Status DC Lidocaine/ Epinephrine (LIDOCAINE 1%-EPI 1:100,000 Multi-Dose) 20 ml STK-MED ONCE .ROUTE Last administered on 06/24/20at 10:08; Start 06/24/20 at 06:49; Stop 06/24/20 at 06:50; Status DC Thrombin 20,000 unit STK-MED ONCE TP Last administered on 06/24/20at 10:08; Start 06/24/20 at 06:50; Stop 06/24/20 at 06:50; Status DC Propofol 200 ml @ As Directed STK-MED ONCE IV ; Start 06/24/20 at 07:59; Stop 06/24/20 at 07:59; Status DC Fentanyl Citrate (Fentanyl 2ml Vial) 100 mcg STK-MED ONCE .ROUTE ; Start 06/24/20 at 08:07; Stop 06/24/20 at 08:08; Status DC Rocuronium [place] (Zemuron) 50 mg STK-MED ONCE .ROUTE ; Start 06/24/20 at 08:08; Stop 06/24/20 at 08:08; Status DC Remifentanil HCl (Ultiva) 2 mg STK-MED ONCE IV ; Start 06/24/20 at 08:08; Stop 06/24/20 at 08:08; Status DC Midazolam HCl (Versed) 2 mg STK-MED ONCE .ROUTE ; Start 06/24/20 at 08:08; Stop 06/24/20 at 08:08; Status DC Propofol (Diprivan) 200 mg STK-MED ONCE IV ; Start 06/24/20 at 08:08; Stop 06/24/20 at 08:09; Status DC Dexamethasone Sodium Phosphate (Decadron) 20 mg STK-MED ONCE .ROUTE ; Start 06/24/20 at 08:08; Stop 06/24/20 at 08:09; Status DC Lidocaine HCl (Lidocaine Pf 2% Vial) 5 ml STK-MED ONCE .ROUTE ; Start 06/24/20 at 08:08; Stop 06/24/20 at 08:09; Status DC Ondansetron HCl (Zofran) 4 mg STK-MED ONCE .ROUTE ; Start 06/24/20 at 08:09; Stop 06/24/20 at 08:09; Status DC Phenylephrine HCl (Sergio-Synephrine Inj) 10 mg STK-MED ONCE .ROUTE ; Start 06/24/20 at 08:16; Stop 06/24/20 at 08:17; Status DC Ephedrine Sulfate (ePHEDrine PF IN SALINE SYRINGE) 50 mg STK-MED ONCE IV ; Start 06/24/20 at 09:07; Stop 06/24/20 at 09:07; Status DC Ondansetron HCl (Zofran) 4 mg PRN Q6HRS PRN IV NAUSEA/VOMITING; Start 06/24/20 at 09:45; Stop 06/24/20 at 19:54; Status DC Fentanyl Citrate (Fentanyl 2ml Vial) 25 mcg PRN Q5MIN PRN IV MILD PAIN 1-3; Start 06/24/20 at 09:45; Stop 06/24/20 at 19:54; Status DC Fentanyl Citrate (Fentanyl 2ml Vial) 50 mcg PRN Q5MIN PRN IV MODERATE TO SEVERE PAIN; Start 06/24/20 at 09:45; Stop 06/24/20 at 19:54; Status DC Morphine Sulfate (Morphine Sulfate) 1 mg PRN Q10MIN PRN IV SEVERE PAIN 7-10; Start 06/24/20 at 09:45; Stop 06/24/20 at 19:54; Status DC Ringer's Solution 1,000 ml @ 30 mls/hr Q24H IV ; Start 06/24/20 at 09:31; Stop 06/24/20 at 19:54; Status DC Lidocaine HCl (Xylocaine-Mpf 1% 2ml Vial) 2 ml PRN 1X PRN ID PRIOR TO IV START; Start 06/24/20 at 09:45; Stop 06/24/20 at 19:54; Status DC Hydromorphone HCl (Dilaudid) 0.5 mg PRN Q10MIN PRN IV SEV PAIN, Second choice; Start 06/24/20 at 09:45; Stop 06/24/20 at 19:54; Status DC Prochlorperazine Edisylate (Compazine) 5 mg PACU PRN PRN IV NAUSEA, MRX1; Start 06/24/20 at 09:45; Stop 06/24/20 at 19:54; Status DC Remifentanil HCl (Ultiva) 2 mg STK-MED ONCE IV ; Start 06/24/20 at 11:31; Stop 06/24/20 at 11:31; Status DC Desflurane (Suprane) 90 ml STK-MED ONCE IH ; Start 06/24/20 at 11:33; Stop 06/24/20 at 11:34; Status DC Ketamine HCl (Ketamine) 50 mg STK-MED ONCE .ROUTE ; Start 06/24/20 at 12:20; Stop 06/24/20 at 12:20; Status DC Phenylephrine HCl (Sergio-Synephrine Inj) 10 mg STK-MED ONCE .ROUTE ; Start 06/24/20 at 12:27; Stop 06/24/20 at 12:28; Status DC Cefazolin Sodium (Ancef) 1 gm STK-MED ONCE IVP ; Start 06/24/20 at 12:29; Stop 06/24/20 at 12:30; Status DC Cefazolin Sodium (Ancef) 1 gm STK-MED ONCE IVP ; Start 06/24/20 at 12:29; Stop 06/24/20 at 12:30; Status DC Albumin Human 500 ml @ As Directed STK-MED ONCE IV ; Start 06/24/20 at 13:48; Stop 06/24/20 at 13:48; Status DC Thrombin 20,000 unit STK-MED ONCE TP Last administered on 06/24/20at 14:09; Start 06/24/20 at 13:58; Stop 06/24/20 at 13:58; Status DC Phenylephrine HCl (Sergio-Synephrine Inj) 10 mg STK-MED ONCE .ROUTE ; Start 06/24/20 at 14:06; Stop 06/24/20 at 14:06; Status DC Gelatin (Gelfoam Size 100) 1 each STK-MED ONCE .ROUTE Last administered on 06/24/20at 14:49; Start 06/24/20 at 14:43; Stop 06/24/20 at 14:43; Status DC Vasopressin (Vasostrict) 20 unit STK-MED ONCE .ROUTE ; Start 06/24/20 at 14:55; Stop 06/24/20 at 14:55; Status DC Albumin Human 500 ml @ As Directed STK-MED ONCE IV ; Start 06/24/20 at 15:23; Stop 06/24/20 at 15:23; Status DC Phenylephrine HCl (Sergio-Synephrine Inj) 10 mg STK-MED ONCE .ROUTE ; Start 06/24/20 at 15:23; Stop 06/24/20 at 15:23; Status DC Remifentanil HCl (Ultiva) 2 mg STK-MED ONCE IV ; Start 06/24/20 at 15:30; Stop 06/24/20 at 15:30; Status DC Fentanyl Citrate (Fentanyl 2ml Vial) 50 mcg PRN Q2HR PRN IVP PAIN Last administered on 06/27/20at 01:17; Start 06/24/20 at 16:45 Sodium Chloride 1,000 ml @ 1,000 mls/hr 1X ONCE IV Last administered on 06/24/20at 20:08; Start 06/24/20 at 20:00; Stop 06/24/20 at 20:59; Status DC Sodium Chloride 1,000 ml @ 100 mls/hr Q10H IV Last administered on 06/28/20at 00:10; Start 06/24/20 at 21:00; Stop 06/28/20 at 08:06; Status DC Dexamethasone Sodium Phosphate (Decadron) 2 mg Q6HRS IVP Last administered on 06/27/20at 11:41; Start 06/25/20 at 12:00; Stop 06/27/20 at 14:09; Status DC Magnesium Sulfate 50 ml @ 25 mls/hr PRN DAILY PRN IV for Mag < 1.7 on am labs; Start 06/25/20 at 12:00 Pantoprazole Sodium (Protonix) 40 mg BIDAC PO Last administered on 06/28/20at 06:26; Start 06/26/20 at 16:30 Methylprednisolone (Medrol) 8 mg BID PO Last administered on 06/27/20at 21:55; Start 06/27/20 at 15:00; Stop 06/27/20 at 21:01; Status DC Methylprednisolone (Medrol) 4 mg BIDPCLD PO Last administered on 06/27/20at 15:31; Start 06/27/20 at 16:00; Stop 06/27/20 at 17:31; Status DC Methylprednisolone (Medrol) 4 mg TIDPC PO Last administered on 06/28/20at 08:55; Start 06/28/20 at 08:30; Stop 06/28/20 at 17:31 Methylprednisolone (Medrol) 8 mg QHS PO ; Start 06/28/20 at 21:00; Stop 06/28/20 at 21:01 Methylprednisolone (Medrol) 4 mg QIDAFTMEAL PO ; Start 06/29/20 at 09:00; Stop 06/29/20 at 21:01 Methylprednisolone (Medrol) 4 mg TID PO ; Start 06/30/20 at 09:00; Stop 06/30/20 at 21:01 Methylprednisolone (Medrol) 4 mg BID PO ; Start 07/01/20 at 09:00; Stop 07/01/20 at 21:01 Methylprednisolone (Medrol) 4 mg DAILY PO ; Start 07/02/20 at 09:00; Stop 07/02/20 at 09:01 Active Scripts Active Reported Tramadol Hcl 50 Mg Tablet 50 Mg PO PRN BID PRN Prednisone 50 Mg Tablet 1 Tab PO DAILY Atenolol 25 Mg Tablet 1 Tab PO DAILY Lisinopril 20 Mg Tablet 1 Tab PO DAILY Vitals/I & O Vital Sign - Last 24 Hours 06/27/20 06/27/20 06/27/20 06/27/20 11:00 15:00 19:20 20:00 Temp 98.9 99.3 98.4 98.9 99.3 98.4 Pulse 65 66 67 Resp 20 20 18 B/P (MAP) 112/60 (77) 111/64 (80) 124/61 (82) Pulse Ox 98 99 99 O2 Delivery Room Air Room Air Room Air Room Air 06/27/20 06/27/20 06/27/20 06/28/20 21:55 23:02 23:07 03:05 Temp 98.1 98.1 98.1 98.1 Pulse 56 68 Resp 16 14 18 18 B/P (MAP) 126/59 (81) 145/71 (95) Pulse Ox 95 98 O2 Delivery Room Air Room Air Room Air Room Air 06/28/20 06/28/20 06/28/20 06/28/20 06:26 07:17 07:59 08:00 Temp 97.9 97.9 Pulse 65 Resp 14 14 20 B/P (MAP) 113/40 (64) Pulse Ox 98 O2 Delivery Room Air Room Air Room Air Room Air 06/28/20 08:56 Pulse 68 B/P (MAP) 145/71 Intake and Output 06/27/20 06/27/20 06/28/20 15:00 23:00 07:00 Intake Total 650 ml 3480 ml Output Total 300 ml 900 ml Balance 350 ml 2580 ml Justifications for Admission Other Justification Nutrition Consultation Dietary Evaluation: Recommendations by RD: Dietary education by RD, Increase Calorie Intake, Protein supplementation Comments: REC continue gi soft diet with supplements of choice Expected Outcomes/Goals: to meet >75% est nutrition needs via po intake- goal ongoing Interpretation of weight loss: >5% in 1 month Malnutrition Findings: Food and Nutrition Intake (Sev: <50% est energy req 5days Weight Status: Overweight RADHA LEA MD Jun 28, 2020 10:32
[2020-06-28 11:03] VITALS: BP 107/47
[2020-06-28 15:59] VITALS: BP 109/46
[2020-06-28 19:00] VITALS: BP 131/67
[2020-06-28] MEDS ORDERED: methylPREDNISolone 4 MG TABLET. PO SCH (21:00)
[2020-06-28] MEDS: PATCH REMOVAL. MC SCH (21:00)
[2020-06-28 23:00] VITALS: BP 129/70
[2020-06-29 03:00] VITALS: BP 117/60
[2020-06-29] MEDS: traMADol 50 MG TABLET PO PRN ×3 (04:50→22:12)
[2020-06-29 05:18] LABS: ALBUMIN 2.3 g/dL (3.4-5.0); CALCIUM 8.4 mg/dL (8.5-10.1); CREATININE 0.9 mg/dL (0.7-1.3); GFR 83.9; PHOSPHORUS 3.7 mg/dL (2.6-4.7); POTASSIUM 4.6 mmol/L (3.5-5.1)
[2020-06-29 07:00] VITALS: BP 118/71
--- NOTE | 2020-06-29 07:57 | PDOC ---
SUBJECTIVE Subjective Doing ok this AM. No new concerns. Had 2 BMs yesterday. OBJECTIVE Objective Reviewed. Vital Signs Vital Signs Date Time Temp Pulse Resp B/P (MAP) Pulse Ox O2 Delivery O2 Flow Rate FiO2 06/29/20 07:00 98.0 64 18 118/71 (87) 100 Room Air 98.0 06/29/20 05:51 16 Room Air 06/29/20 04:50 14 Room Air 06/29/20 03:00 98.0 59 18 117/60 (79) 90 Room Air 10.0 98.0 06/28/20 23:51 14 Room Air 06/28/20 23:00 98.0 63 18 129/70 (89) 99 Room Air 10.0 98.0 06/28/20 22:51 14 Room Air 06/28/20 20:00 Room Air 06/28/20 19:00 98.4 67 18 131/67 (88) 99 Room Air 10.0 98.4 06/28/20 15:59 98.3 64 20 109/46 (67) 97 Room Air 98.3 06/28/20 13:54 Room Air 06/28/20 12:54 Room Air 06/28/20 11:03 97.5 60 20 107/47 (67) 100 Room Air 97.5 06/28/20 08:56 68 145/71 06/28/20 08:00 Room Air 06/28/20 07:59 97.9 65 20 113/40 (64) 98 Room Air 97.9 I & O Intake and Output 06/29/20 07:00 Intake Total 670 ml Output Total 1050 ml Balance -380 ml Intake Oral 670 ml Output Urine Total 1050 ml # Bowel Movements 2 PHYSICAL EXAM Physical Exam Alert, oriented RRR CTAB Support brace around torso 4/5 strength of LLE, 5/5 RLE Calm, cooperative ASSESSMENT/PLAN Assessment/Plan 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 Celaya for recommendations on further treatment Dr. Sterling recommends d/c to inpt rehab, pt is agreeable, awaiting placement On medrol taper per neurosurg COMMENT Lab Laboratory Tests Test 06/29/20 04:10 Sodium Level 135 mmol/L (136-145) Potassium Level 4.6 mmol/L (3.5-5.1) Chloride Level 104 mmol/L (98-107) Carbon Dioxide Level 25 mmol/L (21-32) Anion Gap 6 (6-14) Blood Urea Nitrogen 27 mg/dL (8-26) Creatinine 0.9 mg/dL (0.7-1.3) Estimated GFR (Cockcroft-Gault) 83.9 Glucose Level 120 mg/dL (70-99) Calcium Level 8.4 mg/dL (8.5-10.1) Phosphorus Level 3.7 mg/dL (2.6-4.7) Magnesium Level 1.9 mg/dL (1.8-2.4) Creatine Kinase 406 U/L (39-308) Albumin 2.3 g/dL (3.4-5.0) Justifications for Admission Other Justification Nutrition Consultation Dietary Evaluation: Recommendations by RD: Dietary education by RD, Increase Calorie Intake, Protein supplementation Comments: REC continue gi soft diet with supplements of choice Expected Outcomes/Goals: to meet >75% est nutrition needs via po intake- goal ongoing Interpretation of weight loss: >5% in 1 month Malnutrition Findings: Food and Nutrition Intake (Sev: <50% est energy req 5days Weight Status: Overweight JILLIAN WAYNE MD Jun 29, 2020 07:57
[2020-06-29] MEDS: PANTOPRAZOLE 40 MG TABLET.DR. PO SCH ×2 (08:56→16:40)
[2020-06-29] MEDS: methylPREDNISolone 4 MG TABLET. PO SCH ×4 (08:56→22:11)
[2020-06-29] MEDS: LIDOCAINE (700MG/PATCH) PATCH. TD SCH (08:56)
[2020-06-29] MEDS: BISACODYL 5 MG TABLET.DR. PO SCH (08:59)
[2020-06-29] MEDS: SENNOSIDES/DOCUSATE 8.6/50MG TABLET. PO SCH ×2 (08:59→21:00)
[2020-06-29] MEDS: ATENOLOL 25 MG TABLET. PO SCH (09:00)
[2020-06-29 11:59] VITALS: BP 124/63
[2020-06-29 15:50] VITALS: BP 123/71
[2020-06-29 19:00] VITALS: BP 136/75
[2020-06-29] MEDS: PATCH REMOVAL. MC SCH (21:00)
[2020-06-29 22:52] VITALS: BP 127/73
[2020-06-30 03:09] VITALS: BP 121/67
[2020-06-30 07:00] VITALS: BP 106/67
[2020-06-30] MEDS: SENNOSIDES/DOCUSATE 8.6/50MG TABLET. PO SCH ×3 (07:00→20:39)
[2020-06-30] MEDS: BISACODYL 5 MG TABLET.DR. PO SCH (07:00)
--- NOTE | 2020-06-30 07:44 | PDOC ---
SUBJECTIVE Subjective Doing ok. No new concerns. OBJECTIVE Objective Reviewed. Vital Signs Vital Signs Date Time Temp Pulse Resp B/P (MAP) Pulse Ox O2 Delivery O2 Flow Rate FiO2 06/30/20 03:09 98.4 77 18 121/67 (85) 94 Room Air 98.4 06/29/20 23:15 16 Room Air 06/29/20 22:52 98.2 64 18 127/73 (91) 90 Room Air 98.2 06/29/20 22:12 16 Room Air 06/29/20 20:00 Room Air 06/29/20 19:00 98.0 71 16 136/75 (95) 98 Room Air 98.0 06/29/20 15:50 97.5 79 20 123/71 (88) 96 Room Air 97.5 06/29/20 15:21 Room Air 06/29/20 14:21 Room Air 06/29/20 11:59 97.3 81 20 124/63 (83) 96 Room Air 97.3 06/29/20 08:00 Room Air I & O Intake and Output 06/30/20 07:00 Intake Total 550 ml Output Total 700 ml Balance -150 ml Intake Oral 550 ml Output Urine Total 700 ml # Bowel Movements 1 PHYSICAL EXAM Physical Exam Alert, oriented RRR CTAB Support brace around torso 4/5 strength of LLE, 5/5 RLE Calm, cooperative ASSESSMENT/PLAN Assessment/Plan 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 Celaya for recommendations on further treatment Dr. Sterling recommends d/c to inpt rehab, pt is agreeable, awaiting placement On medrol taper per neurosurg Justifications for Admission Other Justification Nutrition Consultation Dietary Evaluation: Recommendations by RD: Dietary education by RD, Increase Calorie Intake, Protein supplementation Comments: REC continue gi soft diet with supplements of choice Expected Outcomes/Goals: to meet >75% est nutrition needs via po intake- goal ongoing Interpretation of weight loss: >5% in 1 month Malnutrition Findings: Food and Nutrition Intake (Sev: <50% est energy req 5days Weight Status: Overweight JILLIAN WAYNE MD Jun 30, 2020 07:44
[2020-06-30] MEDS: PANTOPRAZOLE 40 MG TABLET.DR. PO SCH ×2 (07:54→17:33)
[2020-06-30] MEDS: LIDOCAINE (700MG/PATCH) PATCH. TD SCH (07:54)
[2020-06-30] MEDS: ATENOLOL 25 MG TABLET. PO SCH (07:55)
[2020-06-30] MEDS: methylPREDNISolone 4 MG TABLET. PO SCH ×3 (07:56→20:38)
--- NOTE | 2020-06-30 09:17 | PDOC ---
PROGRESS NOTES Date of Service DATE: 06/30/20 TIME: 09:14 Subjective Subjective No new complaints. Objective Objective Vital Signs Date Time Temp Pulse Resp B/P (MAP) Pulse Ox O2 Delivery O2 Flow Rate FiO2 06/30/20 08:00 Room Air 06/30/20 07:55 77 121/67 06/30/20 07:00 97.7 17 95 97.7 06/29/20 03:00 10.0 Intake and Output0 06/30/20 06:59 Intake Total 550 ml Output Total 700 ml Balance -150 ml Intake Oral 550 ml Output Urine Total 700 ml # Bowel Movements 1 Physical Exam Physical Exam He got up and walked with roller walker slowly in his room with lumbar corset on. Assessment Assessment Problems Medical Problems: (1) Abnormal CT scan, lumbar spine Status: Acute Plan Plan of Care To let him try managing stairs he had at home today and if no problems home with home health or outpatient follow up when medically stable. Comment Review of Relevant I have reviewed the following items kiersten (where applicable) has been applied. Labs Laboratory Tests Test 06/29/20 04:10 Sodium Level 135 mmol/L (136-145) Potassium Level 4.6 mmol/L (3.5-5.1) Chloride Level 104 mmol/L (98-107) Carbon Dioxide Level 25 mmol/L (21-32) Anion Gap 6 (6-14) Blood Urea Nitrogen 27 mg/dL (8-26) Creatinine 0.9 mg/dL (0.7-1.3) Estimated GFR (Cockcroft-Gault) 83.9 Glucose Level 120 mg/dL (70-99) Calcium Level 8.4 mg/dL (8.5-10.1) Phosphorus Level 3.7 mg/dL (2.6-4.7) Magnesium Level 1.9 mg/dL (1.8-2.4) Creatine Kinase 406 U/L (39-308) Albumin 2.3 g/dL (3.4-5.0) Medications Current Medications Ketorolac Tromethamine (Toradol 30mg Vial) 30 mg 1X ONCE IM Last administered on 06/18/20at 11:22; Start 06/18/20 at 10:45; Stop 06/18/20 at 10:46; Status DC Cyclobenzaprine HCl (Flexeril) 10 mg 1X ONCE PO Last administered on 06/18/20at 11:21; Start 06/18/20 at 10:45; Stop 06/18/20 at 10:46; Status DC Lidocaine (Lidoderm) 1 patch 1X ONCE TD Last administered on 06/18/20at 11:22; Start 06/18/20 at 10:45; Stop 06/18/20 at 10:46; Status DC Tramadol HCl (Ultram) 100 mg PRN Q6HRS PRN PO MODERATE PAIN Last administered on 06/29/20at 22:12; Start 06/18/20 at 17:45 Acetaminophen/ Hydrocodone Bitart (Lortab 5/325) 1 tab PRN Q6HRS PRN PO SEVERE PAIN Last administered on 06/28/20at 22:51; Start 06/18/20 at 17:45 Lidocaine (Lidoderm) 1 patch DAILY TD Last administered on 06/30/20at 07:54; Start 06/18/20 at 18:00 Miscellaneous (Lidoderm Patch Removal) 1 ea QHS MC Last administered on 06/23/20at 20:38; Start 06/18/20 at 21:00 Atenolol (Tenormin) 25 mg DAILY PO Last administered on 06/30/20at 07:55; Start 06/19/20 at 09:00 Lisinopril (Prinivil) 20 mg DAILY PO Last administered on 06/23/20at 09:11; Start 06/19/20 at 09:00; Stop 06/24/20 at 08:26; Status DC Gadoterate Meglumine (Clariscan) 16.6 ml 1X ONCE IVP Last administered on 06/19/20at 10:56; Start 06/19/20 at 10:45; Stop 06/19/20 at 10:46; Status DC Iohexol (Omnipaque 240 Mg/ml) 50 ml 1X ONCE PO Last administered on 06/19/20at 12:00; Start 06/19/20 at 12:00; Stop 06/19/20 at 12:01; Status DC Iohexol (Omnipaque 300 Mg/ml) 75 ml 1X ONCE IV Last administered on 06/19/20at 12:00; Start 06/19/20 at 12:00; Stop 06/19/20 at 12:01; Status DC Info (CONTRAST GIVEN -- Rx MONITORING) 1 each PRN DAILY PRN MC SEE COMMENTS; Start 06/19/20 at 11:45; Stop 06/21/20 at 11:44; Status DC Bisacodyl (Dulcolax Tab) 10 mg DAILY PO Last administered on 06/28/20at 08:55; Start 06/19/20 at 14:00 Bisacodyl (Dulcolax Supp) 10 mg PRN DAILY PRN OK CONSTIPATION; Start 06/19/20 at 13:15 Senna/Docusate Sodium (Senna Plus) 1 tab BID PO Last administered on 06/28/20at 21:12; Start 06/19/20 at 21:00 Alprazolam (Xanax) 0.5 mg PRN Q8HRS PRN PO ANXIETY / AGITATION; Start 06/19/20 at 13:15 Dexamethasone Sodium Phosphate (Decadron) 2 mg Q6HRS IVP Last administered on 06/21/20at 12:32; Start 06/19/20 at 16:30; Stop 06/21/20 at 13:04; Status DC Dexamethasone Sodium Phosphate (Decadron) 4 mg Q6HRS IVP Last administered on 06/25/20at 06:14; Start 06/21/20 at 18:00; Stop 06/25/20 at 09:27; Status DC Pantoprazole Sodium (Protonix) 40 mg DAILYAC PO Last administered on 06/26/20at 08:03; Start 06/23/20 at 11:30; Stop 06/26/20 at 10:44; Status DC Cefazolin Sodium (Ancef) 2 gm 1X PREOP PRN IVP PRIOR TO PROCEDURE; Start 06/24/20 at 08:00; Status UNV Cefazolin Sodium/ Dextrose 50 ml @ 100 mls/hr 1X PREOP PRN IV PRIOR TO PROCEDURE Last administered on 06/24/20at 09:29; Start 06/24/20 at 06:00; Stop 06/24/20 at 18:00; Status DC Bacitracin 46307 unit/Sodium Chloride 1,000 ml @ 1,000 mls/hr 1X ONCE IRR L ast administered on 06/24/20at 10:08; Start 06/24/20 at 06:00; Stop 06/24/20 at 06:59; Status DC Gelatin (Gelfoam Size 100) 1 each STK-MED ONCE .ROUTE Last administered on 06/24/20at 10:08; Start 06/24/20 at 06:49; Stop 06/24/20 at 06:50; Status DC Ketorolac Tromethamine (Toradol Im) 60 mg STK-MED ONCE .ROUTE Last administered on 06/24/20at 10:08; Start 06/24/20 at 06:49; Stop 06/24/20 at 06:50; Status DC Lidocaine/ Epinephrine (LIDOCAINE 1%-EPI 1:100,000 Multi-Dose) 20 ml STK-MED ONCE .ROUTE Last administered on 06/24/20at 10:08; Start 06/24/20 at 06:49; Stop 06/24/20 at 06:50; Status DC Thrombin 20,000 unit STK-MED ONCE TP Last administered on 06/24/20at 10:08; Start 06/24/20 at 06:50; Stop 06/24/20 at 06:50; Status DC Propofol 200 ml @ As Directed STK-MED ONCE IV ; Start 06/24/20 at 07:59; Stop 06/24/20 at 07:59; Status DC Fentanyl Citrate (Fentanyl 2ml Vial) 100 mcg STK-MED ONCE .ROUTE ; Start 06/24/20 at 08:07; Stop 06/24/20 at 08:08; Status DC Rocuronium [place] (Zemuron) 50 mg STK-MED ONCE .ROUTE ; Start 06/24/20 at 08:08; Stop 06/24/20 at 08:08; Status DC Remifentanil HCl (Ultiva) 2 mg STK-MED ONCE IV ; Start 06/24/20 at 08:08; Stop 06/24/20 at 08:08; Status DC Midazolam HCl (Versed) 2 mg STK-MED ONCE .ROUTE ; Start 06/24/20 at 08:08; Stop 06/24/20 at 08:08; Status DC Propofol (Diprivan) 200 mg STK-MED ONCE IV ; Start 06/24/20 at 08:08; Stop 06/24/20 at 08:09; Status DC Dexamethasone Sodium Phosphate (Decadron) 20 mg STK-MED ONCE .ROUTE ; Start 06/24/20 at 08:08; Stop 06/24/20 at 08:09; Status DC Lidocaine HCl (Lidocaine Pf 2% Vial) 5 ml STK-MED ONCE .ROUTE ; Start 06/24/20 at 08:08; Stop 06/24/20 at 08:09; Status DC Ondansetron HCl (Zofran) 4 mg STK-MED ONCE .ROUTE ; Start 06/24/20 at 08:09; Stop 06/24/20 at 08:09; Status DC Phenylephrine HCl (Sergio-Synephrine Inj) 10 mg STK-MED ONCE .ROUTE ; Start 06/24/20 at 08:16; Stop 06/24/20 at 08:17; Status DC Ephedrine Sulfate (ePHEDrine PF IN SALINE SYRINGE) 50 mg STK-MED ONCE IV ; Start 06/24/20 at 09:07; Stop 06/24/20 at 09:07; Status DC Ondansetron HCl (Zofran) 4 mg PRN Q6HRS PRN IV NAUSEA/VOMITING; Start 06/24/20 at 09:45; Stop 06/24/20 at 19:54; Status DC Fentanyl Citrate (Fentanyl 2ml Vial) 25 mcg PRN Q5MIN PRN IV MILD PAIN 1-3; Start 06/24/20 at 09:45; Stop 06/24/20 at 19:54; Status DC Fentanyl Citrate (Fentanyl 2ml Vial) 50 mcg PRN Q5MIN PRN IV MODERATE TO SEVERE PAIN; Start 06/24/20 at 09:45; Stop 06/24/20 at 19:54; Status DC Morphine Sulfate (Morphine Sulfate) 1 mg PRN Q10MIN PRN IV SEVERE PAIN 7-10; Start 06/24/20 at 09:45; Stop 06/24/20 at 19:54; Status DC Ringer's Solution 1,000 ml @ 30 mls/hr Q24H IV ; Start 06/24/20 at 09:31; Stop 06/24/20 at 19:54; Status DC Lidocaine HCl (Xylocaine-Mpf 1% 2ml Vial) 2 ml PRN 1X PRN ID PRIOR TO IV START; Start 06/24/20 at 09:45; Stop 06/24/20 at 19:54; Status DC Hydromorphone HCl (Dilaudid) 0.5 mg PRN Q10MIN PRN IV SEV PAIN, Second choice; Start 06/24/20 at 09:45; Stop 06/24/20 at 19:54; Status DC Prochlorperazine Edisylate (Compazine) 5 mg PACU PRN PRN IV NAUSEA, MRX1; Start 06/24/20 at 09:45; Stop 06/24/20 at 19:54; Status DC Remifentanil HCl (Ultiva) 2 mg STK-MED ONCE IV ; Start 06/24/20 at 11:31; Stop 06/24/20 at 11:31; Status DC Desflurane (Suprane) 90 ml STK-MED ONCE IH ; Start 06/24/20 at 11:33; Stop 06/24/20 at 11:34; Status DC Ketamine HCl (Ketamine) 50 mg STK-MED ONCE .ROUTE ; Start 06/24/20 at 12:20; Stop 06/24/20 at 12:20; Status DC Phenylephrine HCl (Sergio-Synephrine Inj) 10 mg STK-MED ONCE .ROUTE ; Start 06/24/20 at 12:27; Stop 06/24/20 at 12:28; Status DC Cefazolin Sodium (Ancef) 1 gm STK-MED ONCE IVP ; Start 06/24/20 at 12:29; Stop 06/24/20 at 12:30; Status DC Cefazolin Sodium (Ancef) 1 gm STK-MED ONCE IVP ; Start 06/24/20 at 12:29; Stop 06/24/20 at 12:30; Status DC Albumin Human 500 ml @ As Directed STK-MED ONCE IV ; Start 06/24/20 at 13:48; Stop 06/24/20 at 13:48; Status DC Thrombin 20,000 unit STK-MED ONCE TP Last administered on 06/24/20at 14:09; Start 06/24/20 at 13:58; Stop 06/24/20 at 13:58; Status DC Phenylephrine HCl (Sergio-Synephrine Inj) 10 mg STK-MED ONCE .ROUTE ; Start 06/24/20 at 14:06; Stop 06/24/20 at 14:06; Status DC Gelatin (Gelfoam Size 100) 1 each STK-MED ONCE .ROUTE Last administered on 06/24/20at 14:49; Start 06/24/20 at 14:43; Stop 06/24/20 at 14:43; Status DC Vasopressin (Vasostrict) 20 unit STK-MED ONCE .ROUTE ; Start 06/24/20 at 14:55; Stop 06/24/20 at 14:55; Status DC Albumin Human 500 ml @ As Directed STK-MED ONCE IV ; Start 06/24/20 at 15:23; Stop 06/24/20 at 15:23; Status DC Phenylephrine HCl (Sergio-Synephrine Inj) 10 mg STK-MED ONCE .ROUTE ; Start 06/24/20 at 15:23; Stop 06/24/20 at 15:23; Status DC Remifentanil HCl (Ultiva) 2 mg STK-MED ONCE IV ; Start 06/24/20 at 15:30; Stop 06/24/20 at 15:30; Status DC Fentanyl Citrate (Fentanyl 2ml Vial) 50 mcg PRN Q2HR PRN IVP PAIN Last administered on 06/27/20at 01:17; Start 06/24/20 at 16:45 Sodium Chloride 1,000 ml @ 1,000 mls/hr 1X ONCE IV Last administered on 06/24/20at 20:08; Start 06/24/20 at 20:00; Stop 06/24/20 at 20:59; Status DC Sodium Chloride 1,000 ml @ 100 mls/hr Q10H IV Last administered on 06/28/20at 00:10; Start 06/24/20 at 21:00; Stop 06/28/20 at 08:06; Status DC Dexamethasone Sodium Phosphate (Decadron) 2 mg Q6HRS IVP Last administered on 06/27/20at 11:41; Start 06/25/20 at 12:00; Stop 06/27/20 at 14:09; Status DC Magnesium Sulfate 50 ml @ 25 mls/hr PRN DAILY PRN IV for Mag < 1.7 on am labs; Start 06/25/20 at 12:00 Pantoprazole Sodium (Protonix) 40 mg BIDAC PO Last administered on 06/30/20at 07:54; Start 06/26/20 at 16:30 Methylprednisolone (Medrol) 8 mg BID PO Last administered on 06/27/20at 21:55; Start 06/27/20 at 15:00; Stop 06/27/20 at 21:01; Status DC Methylprednisolone (Medrol) 4 mg BIDPCLD PO Last administered on 06/27/20at 15:31; Start 06/27/20 at 16:00; Stop 06/27/20 at 17:31; Status DC Methylprednisolone (Medrol) 4 mg TIDPC PO Last administered on 06/28/20at 15:23; Start 06/28/20 at 08:30; Stop 06/28/20 at 17:31; Status DC Methylprednisolone (Medrol) 8 mg QHS PO Last administered on 06/28/20at 21:12; Start 06/28/20 at 21:00; Stop 06/28/20 at 21:01; Status DC Methylprednisolone (Medrol) 4 mg QIDAFTMEAL PO Last administered on 06/29/20at 22:11; Start 06/29/20 at 09:00; Stop 06/29/20 at 21:01; Status DC Methylprednisolone (Medrol) 4 mg TID PO Last administered on 06/30/20at 07:56; Start 06/30/20 at 09:00; Stop 06/30/20 at 21:01 Methylprednisolone (Medrol) 4 mg BID PO ; Start 07/01/20 at 09:00; Stop 07/01/20 at 21:01 Methylprednisolone (Medrol) 4 mg DAILY PO ; Start 07/02/20 at 09:00; Stop 07/02/20 at 09:01 Active Scripts Active Reported Tramadol Hcl 50 Mg Tablet 50 Mg PO PRN BID PRN Prednisone 50 Mg Tablet 1 Tab PO DAILY Atenolol 25 Mg Tablet 1 Tab PO DAILY Lisinopril 20 Mg Tablet 1 Tab PO DAILY Vitals/I & O Vital Sign - Last 24 Hours 06/29/20 06/29/20 06/29/20 06/29/20 11:59 14:21 15:21 15:50 Temp 97.3 97.5 97.3 97.5 Pulse 81 79 Resp 20 20 B/P (MAP) 124/63 (83) 123/71 (88) Pulse Ox 96 96 O2 Delivery Room Air Room Air Room Air Room Air 06/29/20 06/29/20 06/29/20 06/29/20 19:00 20:00 22:12 22:52 Temp 98.0 98.2 98.0 98.2 Pulse 71 64 Resp 16 16 18 B/P (MAP) 136/75 (95) 127/73 (91) Pulse Ox 98 90 O2 Delivery Room Air Room Air Room Air Room Air 06/29/20 06/30/20 06/30/20 06/30/20 23:15 03:09 07:00 07:55 Temp 98.4 97.7 98.4 97.7 Pulse 77 80 77 Resp 16 18 17 B/P (MAP) 121/67 (85) 106/67 (80) 121/67 Pulse Ox 94 95 O2 Delivery Room Air Room Air Room Air 06/30/20 06/30/20 08:00 08:00 O2 Delivery Room Air Room Air Intake and Output 06/29/20 06/29/20 06/30/20 14:59 22:59 06:59 Intake Total 550 ml Output Total 300 ml 400 ml Balance -300 ml 150 ml Justifications for Admission Other Justification Nutrition Consultation Dietary Evaluation: Recommendations by RD: Dietary education by RD, Increase Calorie Intake, Protein supplementation Comments: REC continue gi soft diet with supplements of choice Expected Outcomes/Goals: to meet >75% est nutrition needs via po intake- goal ongoing Interpretation of weight loss: >5% in 1 month Malnutrition Findings: Food and Nutrition Intake (Sev: <50% est energy req 5days Weight Status: Overweight RADHA LEA MD Jun 30, 2020 09:17
[2020-06-30 10:54] VITALS: BP 110/66
--- NOTE | 2020-06-30 11:06 | NUR ---
SW following. Discussed with RN, and Dr. Sterling - Dr. Sterling advised pt is doing much better and can go home with home health. SW left voicemail for [facility] to advise pt is still requiring home health services. Dr. Sterling stated pt needed to work on stairs with therapy before he would be able to go home. SW awaiting return call from [facility]. RN notified. SW will continue to follow.
--- NOTE | 2020-06-30 13:38 | PDOC ---
PROGRESS NOTES Date of Service DATE: 06/30/20 TIME: 13:27 Subjective Subjective POD #6 Posterior instrumentation, T11-T12, L2-L3 with laminectomy, partial L2, L1, partial T12, removal of tumor and decompression of the spinal cord at T12, L1, L2, debulking of tumor L1 awake, alert pain well controlled continues to feel improvement in LE strength Objective Objective Vital Signs Date Time Temp Pulse Resp B/P (MAP) Pulse Ox O2 Delivery O2 Flow Rate FiO2 06/30/20 10:54 98.2 71 17 110/66 (81) 95 Room Air 98.2 06/29/20 03:00 10.0 Intake and Output 06/30/20 07:00 Intake Total 550 ml Output Total 700 ml Balance -150 ml Intake Oral 550 ml Output Urine Total 700 ml # Bowel Movements 1 Physical Exam General: Alert, Oriented X3, Cooperative, No acute distress MUSCULOSKELETAL: Other (ESCALANTE) Neuro: Normal speech Skin: Other (Dressing C,D,I) Assessment Assessment Problems Medical Problems: (1) Abnormal CT scan, lumbar spine Status: Acute Plan Plan of Care Continue PT possibly home with HH tomorrow or acute rehab will need to f/u with us in 2 weeks for staple removal will need to f/u with oncology Comment Review of Relevant I have reviewed the following items kiersten (where applicable) has been applied. Labs Laboratory Tests Test 06/29/20 04:10 Sodium Level 135 mmol/L (136-145) Potassium Level 4.6 mmol/L (3.5-5.1) Chloride Level 104 mmol/L (98-107) Carbon Dioxide Level 25 mmol/L (21-32) Anion Gap 6 (6-14) Blood Urea Nitrogen 27 mg/dL (8-26) Creatinine 0.9 mg/dL (0.7-1.3) Estimated GFR (Cockcroft-Gault) 83.9 Glucose Level 120 mg/dL (70-99) Calcium Level 8.4 mg/dL (8.5-10.1) Phosphorus Level 3.7 mg/dL (2.6-4.7) Magnesium Level 1.9 mg/dL (1.8-2.4) Creatine Kinase 406 U/L (39-308) Albumin 2.3 g/dL (3.4-5.0) Medications Current Medications Ketorolac Tromethamine (Toradol 30mg Vial) 30 mg 1X ONCE IM Last administered on 06/18/20 11:22; Start 06/18/20 at 10:45; Stop 06/18/20 at 10:46; Status DC Cyclobenzaprine HCl (Flexeril) 10 mg 1X ONCE PO Last administered on 06/18/20at 11:21; Start 06/18/20 at 10:45; Stop 06/18/20 at 10:46; Status DC Lidocaine (Lidoderm) 1 patch 1X ONCE TD Last administered on 06/18/20at 11:22; Start 06/18/20 at 10:45; Stop 06/18/20 at 10:46; Status DC Tramadol HCl (Ultram) 100 mg PRN Q6HRS PRN PO MODERATE PAIN Last administered on 06/29/20at 22:12; Start 06/18/20 at 17:45 Acetaminophen/ Hydrocodone Bitart (Lortab 5/325) 1 tab PRN Q6HRS PRN PO SEVERE PAIN Last administered on 06/28/20at 22:51; Start 06/18/20 at 17:45 Lidocaine (Lidoderm) 1 patch DAILY TD Last administered on 06/30/20at 07:54; Start 06/18/20 at 18:00 Miscellaneous (Lidoderm Patch Removal) 1 ea QHS MC Last administered on 06/23/20at 20:38; Start 06/18/20 at 21:00 Atenolol (Tenormin) 25 mg DAILY PO Last administered on 06/30/20at 07:55; Start 06/19/20 at 09:00 Lisinopril (Prinivil) 20 mg DAILY PO Last administered on 06/23/20at 09:11; Start 06/19/20 at 09:00; Stop 06/24/20 at 08:26; Status DC Gadoterate Meglumine (Clariscan) 16.6 ml 1X ONCE IVP Last administered on 06/19/20at 10:56; Start 06/19/20 at 10:45; Stop 06/19/20 at 10:46; Status DC Iohexol (Omnipaque 240 Mg/ml) 50 ml 1X ONCE PO Last administered on 06/19/20at 12:00; Start 06/19/20 at 12:00; Stop 06/19/20 at 12:01; Status DC Iohexol (Omnipaque 300 Mg/ml) 75 ml 1X ONCE IV Last administered on 06/19/20at 12:00; Start 06/19/20 at 12:00; Stop 06/19/20 at 12:01; Status DC Info (CONTRAST GIVEN -- Rx MONITORING) 1 each PRN DAILY PRN MC SEE COMMENTS; Start 06/19/20 at 11:45; Stop 06/21/20 at 11:44; Status DC Bisacodyl (Dulcolax Tab) 10 mg DAILY PO Last administered on 06/28/20at 08:55; Start 06/19/20 at 14:00 Bisacodyl (Dulcolax Supp) 10 mg PRN DAILY PRN CA CONSTIPATION; Start 06/19/20 at 13:15 Senna/Docusate Sodium (Senna Plus) 1 tab BID PO Last administered on 06/28/20at 21:12; Start 06/19/20 at 21:00 Alprazolam (Xanax) 0.5 mg PRN Q8HRS PRN PO ANXIETY / AGITATION; Start 06/19/20 at 13:15 Dexamethasone Sodium Phosphate (Decadron) 2 mg Q6HRS IVP Last administered on 06/21/20at 12:32; Start 06/19/20 at 16:30; Stop 06/21/20 at 13:04; Status DC Dexamethasone Sodium Phosphate (Decadron) 4 mg Q6HRS IVP Last administered on 06/25/20at 06:14; Start 06/21/20 at 18:00; Stop 06/25/20 at 09:27; Status DC Pantoprazole Sodium (Protonix) 40 mg DAILYAC PO Last administered on 06/26/20at 08:03; Start 06/23/20 at 11:30; Stop 06/26/20 at 10:44; Status DC Cefazolin Sodium (Ancef) 2 gm 1X PREOP PRN IVP PRIOR TO PROCEDURE; Start 06/24/20 at 08:00; Status UNV Cefazolin Sodium/ Dextrose 50 ml @ 100 mls/hr 1X PREOP PRN IV PRIOR TO PROCEDURE Last administered on 06/24/20at 09:29; Start 06/24/20 at 06:00; Stop 06/24/20 at 18:00; Status DC Bacitracin 75769 unit/Sodium Chloride 1,000 ml @ 1,000 mls/hr 1X ONCE IRR Last administered on 06/24/20at 10:08; Start 06/24/20 at 06:00; Stop 06/24/20 at 06:59; Status DC Gelatin (Gelfoam Size 100) 1 each STK-MED ONCE .ROUTE Last administered on 06/24/20at 10:08; Start 06/24/20 at 06:49; Stop 06/24/20 at 06:50; Status DC Ketorolac Tromethamine (Toradol Im) 60 mg STK-MED ONCE .ROUTE Last administered on 06/24/20at 10:08; Start 06/24/20 at 06:49; Stop 06/24/20 at 06:50; Status DC Lidocaine/ Epinephrine (LIDOCAINE 1%-EPI 1:100,000 Multi-Dose) 20 ml STK-MED ONCE .ROUTE Last administered on 06/24/20at 10:08; Start 06/24/20 at 06:49; S top 06/24/20 at 06:50; Status DC Thrombin 20,000 unit STK-MED ONCE TP Last administered on 06/24/20at 10:08; Start 06/24/20 at 06:50; Stop 06/24/20 at 06:50; Status DC Propofol 200 ml @ As Directed STK-MED ONCE IV ; Start 06/24/20 at 07:59; Stop 06/24/20 at 07:59; Status DC Fentanyl Citrate (Fentanyl 2ml Vial) 100 mcg STK-MED ONCE .ROUTE ; Start 06/24/20 at 08:07; Stop 06/24/20 at 08:08; Status DC Rocuronium [place] (Zemuron) 50 mg STK-MED ONCE .ROUTE ; Start 06/24/20 at 08:08; Stop 06/24/20 at 08:08; Status DC Remifentanil HCl (Ultiva) 2 mg STK-MED ONCE IV ; Start 06/24/20 at 08:08; Stop 06/24/20 at 08:08; Status DC Midazolam HCl (Versed) 2 mg STK-MED ONCE .ROUTE ; Start 06/24/20 at 08:08; Stop 06/24/20 at 08:08; Status DC Propofol (Diprivan) 200 mg STK-MED ONCE IV ; Start 06/24/20 at 08:08; Stop 06/24/20 at 08:09; Status DC Dexamethasone Sodium Phosphate (Decadron) 20 mg STK-MED ONCE .ROUTE ; Start 06/24/20 at 08:08; Stop 06/24/20 at 08:09; Status DC Lidocaine HCl (Lidocaine Pf 2% Vial) 5 ml STK-MED ONCE .ROUTE ; Start 06/24/20 at 08:08; Stop 06/24/20 at 08:09; Status DC Ondansetron HCl (Zofran) 4 mg STK-MED ONCE .ROUTE ; Start 06/24/20 at 08:09; Stop 06/24/20 at 08:09; Status DC Phenylephrine HCl (Sergio-Synephrine Inj) 10 mg STK-MED ONCE .ROUTE ; Start 06/24/20 at 08:16; Stop 06/24/20 at 08:17; Status DC Ephedrine Sulfate (ePHEDrine PF IN SALINE SYRINGE) 50 mg STK-MED ONCE IV ; Start 06/24/20 at 09:07; Stop 06/24/20 at 09:07; Status DC Ondansetron HCl (Zofran) 4 mg PRN Q6HRS PRN IV NAUSEA/VOMITING; Start 06/24/20 at 09:45; Stop 06/24/20 at 19:54; Status DC Fentanyl Citrate (Fentanyl 2ml Vial) 25 mcg PRN Q5MIN PRN IV MILD PAIN 1-3; Start 06/24/20 at 09:45; Stop 06/24/20 at 19:54; Status DC Fentanyl Citrate (Fentanyl 2ml Vial) 50 mcg PRN Q5MIN PRN IV MODERATE TO SEVERE PAIN; Start 06/24/20 at 09:45; Stop 06/24/20 at 19:54; Status DC Morphine Sulfate (Morphine Sulfate) 1 mg PRN Q10MIN PRN IV SEVERE PAIN 7-10; Start 06/24/20 at 09:45; Stop 06/24/20 at 19:54; Status DC Ringer's Solution 1,000 ml @ 30 mls/hr Q24H IV ; Start 06/24/20 at 09:31; Stop 06/24/20 at 19:54; Status DC Lidocaine HCl (Xylocaine-Mpf 1% 2ml Vial) 2 ml PRN 1X PRN ID PRIOR TO IV START; Start 06/24/20 at 09:45; Stop 06/24/20 at 19:54; Status DC Hydromorphone HCl (Dilaudid) 0.5 mg PRN Q10MIN PRN IV SEV PAIN, Second choice; Start 06/24/20 at 09:45; Stop 06/24/20 at 19:54; Status DC Prochlorperazine Edisylate (Compazine) 5 mg PACU PRN PRN IV NAUSEA, MRX1; Start 06/24/20 at 09:45; Stop 06/24/20 at 19:54; Status DC Remifentanil HCl (Ultiva) 2 mg STK-MED ONCE IV ; Start 06/24/20 at 11:31; Stop 06/24/20 at 11:31; Status DC Desflurane (Suprane) 90 ml STK-MED ONCE IH ; Start 06/24/20 at 11:33; Stop 06/24/20 at 11:34; Status DC Ketamine HCl (Ketamine) 50 mg STK-MED ONCE .ROUTE ; Start 06/24/20 at 12:20; Stop 06/24/20 at 12:20; Status DC Phenylephrine HCl (Sergio-Synephrine Inj) 10 mg STK-MED ONCE .ROUTE ; Start 06/24/20 at 12:27; Stop 06/24/20 at 12:28; Status DC Cefazolin Sodium (Ancef) 1 gm STK-MED ONCE IVP ; Start 06/24/20 at 12:29; Stop 06/24/20 at 12:30; Status DC Cefazolin Sodium (Ancef) 1 gm STK-MED ONCE IVP ; Start 06/24/20 at 12:29; Stop 06/24/20 at 12:30; Status DC Albumin Human 500 ml @ As Directed STK-MED ONCE IV ; Start 06/24/20 at 13:48; Stop 06/24/20 at 13:48; Status DC Thrombin 20,000 unit STK-MED ONCE TP Last administered on 06/24/20at 14:09; Start 06/24/20 at 13:58; Stop 06/24/20 at 13:58; Status DC Phenylephrine HCl (Sergio-Synephrine Inj) 10 mg STK-MED ONCE .ROUTE ; Start 06/24/20 at 14:06; Stop 06/24/20 at 14:06; Status DC Gelatin (Gelfoam Size 100) 1 each STK-MED ONCE .ROUTE Last administered on 06/24/20at 14:49; Start 06/24/20 at 14:43; Stop 06/24/20 at 14:43; Status DC Vasopressin (Vasostrict) 20 unit STK-MED ONCE .ROUTE ; Start 06/24/20 at 14:55; Stop 06/24/20 at 14:55; Status DC Albumin Human 500 ml @ As Directed STK-MED ONCE IV ; Start 06/24/20 at 15:23; Stop 06/24/20 at 15:23; Status DC Phenylephrine HCl (Sergio-Synephrine Inj) 10 mg STK-MED ONCE .ROUTE ; Start 06/24/20 at 15:23; Stop 06/24/20 at 15:23; Status DC Remifentanil HCl (Ultiva) 2 mg STK-MED ONCE IV ; Start 06/24/20 at 15:30; Stop 06/24/20 at 15:30; Status DC Fentanyl Citrate (Fentanyl 2ml Vial) 50 mcg PRN Q2HR PRN IVP PAIN SEVERE 2ND CHOICE Last administered on 06/27/20at 01:17; Start 06/24/20 at 16:45 Sodium Chloride 1,000 ml @ 1,000 mls/hr 1X ONCE IV Last administered on 06/24/20at 20:08; Start 06/24/20 at 20:00; Stop 06/24/20 at 20:59; Status DC Sodium Chloride 1,000 ml @ 100 mls/hr Q10H IV Last administered on 06/28/20at 00:10; Start 06/24/20 at 21:00; Stop 06/28/20 at 08:06; Status DC Dexamethasone Sodium Phosphate (Decadron) 2 mg Q6HRS IVP Last administered on 06/27/20at 11:41; Start 06/25/20 at 12:00; Stop 06/27/20 at 14:09; Status DC Magnesium Sulfate 50 ml @ 25 mls/hr PRN DAILY PRN IV for Mag < 1.7 on am labs; Start 06/25/20 at 12:00 Pantoprazole Sodium (Protonix) 40 mg BIDAC PO Last administered on 06/30/20at 07:54; Start 06/26/20 at 16:30 Methylprednisolone (Medrol) 8 mg BID PO Last administered on 06/27/20at 21:55; Start 06/27/20 at 15:00; Stop 06/27/20 at 21:01; Status DC Methylprednisolone (Medrol) 4 mg BIDPCLD PO Last administered on 06/27/20at 15:31; Start 06/27/20 at 16:00; Stop 06/27/20 at 17:31; Status DC Methylprednisolone (Medrol) 4 mg TIDPC PO Last administered on 06/28/20at 15:23; Start 06/28/20 at 08:30; Stop 06/28/20 at 17:31; Status DC Methylprednisolone (Medrol) 8 mg QHS PO Last administered on 06/28/20at 21:12; Start 06/28/20 at 21:00; Stop 06/28/20 at 21:01; Status DC Methylprednisolone (Medrol) 4 mg QIDAFTMEAL PO Last administered on 06/29/20at 22:11; Start 06/29/20 at 09:00; Stop 06/29/20 at 21:01; Status DC Methylprednisolone (Medrol) 4 mg TID PO Last administered on 06/30/20at 07:56; Start 06/30/20 at 09:00; Stop 06/30/20 at 21:01 Methylprednisolone (Medrol) 4 mg BID PO ; Start 07/01/20 at 09:00; Stop 07/01/20 at 21:01 Methylprednisolone (Medrol) 4 mg DAILY PO ; Start 07/02/20 at 09:00; Stop 07/02/20 at 09:01 Active Scripts Active Reported Tramadol Hcl 50 Mg Tablet 50 Mg PO PRN BID PRN Prednisone 50 Mg Tablet 1 Tab PO DAILY Atenolol 25 Mg Tablet 1 Tab PO DAILY Lisinopril 20 Mg Tablet 1 Tab PO DAILY Vitals/I & O Vital Sign - Last 24 Hours 06/29/20 06/29/20 06/29/20 06/29/20 14:21 15:21 15:50 19:00 Temp 97.5 98.0 97.5 98.0 Pulse 79 71 Resp 20 16 B/P (MAP) 123/71 (88) 136/75 (95) Pulse Ox 96 98 O2 Delivery Room Air Room Air Room Air Room Air 11/15/20 11/15/20 11/15/20 11/15/20 20:00 22:12 22:52 23:15 Temp 98.2 98.2 Pulse 64 Resp 16 18 16 B/P (MAP) 127/73 (91) Pulse Ox 90 O2 Delivery Room Air Room Air Room Air Room Air 06/30/20 06/30/20 06/30/20 06/30/20 03:09 07:00 07:55 08:00 Temp 98.4 97.7 98.4 97.7 Pulse 77 80 77 Resp 18 17 B/P (MAP) 121/67 (85) 106/67 (80) 121/67 Pulse Ox 94 95 O2 Delivery Room Air Room Air Room Air 06/30/20 06/30/20 08:00 10:54 Temp 98.2 98.2 Pulse 71 Resp 17 B/P (MAP) 110/66 (81) Pulse Ox 95 O2 Delivery Room Air Room Air Intake and Output 06/29/20 06/29/20 06/30/20 15:00 23:00 07:00 Intake Total 550 ml Output Total 300 ml 400 ml Balance -300 ml 150 ml Justifications for Admission Other Justification Nutrition Consultation Dietary Evaluation: Recommendations by RD: Dietary education by RD, Increase Calorie Intake, Protein supplementation Comments: REC continue gi soft diet with supplements of choice Expected Outcomes/Goals: to meet >75% est nutrition needs via po intake- goal ongoing Interpretation of weight loss: >5% in 1 month Malnutrition Findings: Food and Nutrition Intake (Sev: <50% est energy req 5days Weight Status: Overweight FLORY FL[employer]IAN [employer] Jun 30, 2020 13:38
[2020-06-30] MEDS: traMADol 50 MG TABLET PO PRN (14:29)
[2020-06-30 14:44] VITALS: BP 110/45
[2020-06-30 19:28] VITALS: BP 118/65
[2020-06-30] MEDS: PATCH REMOVAL. MC SCH (20:38)
[2020-06-30 22:45] VITALS: BP 112/70
[2020-07-01 02:42] VITALS: BP 121/68
[2020-07-01] MEDS: traMADol 50 MG TABLET PO PRN ×2 (05:08→15:24)
[2020-07-01] MEDS: PANTOPRAZOLE 40 MG TABLET.DR. PO SCH (05:08)
[2020-07-01 07:00] VITALS: BP 118/68
[2020-07-01] MEDS: SENNOSIDES/DOCUSATE 8.6/50MG TABLET. PO SCH (08:40)
[2020-07-01] MEDS: LIDOCAINE (700MG/PATCH) PATCH. TD SCH (08:40)
[2020-07-01] MEDS: BISACODYL 5 MG TABLET.DR. PO SCH (08:40)
[2020-07-01] MEDS: ATENOLOL 25 MG TABLET. PO SCH (08:41)
[2020-07-01] MEDS ORDERED: methylPREDNISolone 4 MG TABLET. PO SCH (09:00)
--- NOTE | 2020-07-01 09:21 | PDOC3 ---
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 Gregory is a 69-year-old male with history of hypertension and previ ous coronary artery disease, who presented to the ED for worsening back pain that began about 2 months ago and had failed conservative therapy and was gradually increasing. Xrays performed as outpt were unremarkable, but CT done in ED showed a large destructive lesion on L1 and some areas of lytic lesions higher up in the lumbar and thoracic and even the cervical spine, concerning for metastatic cancer. A CT abd/pelvis showed "bilateral solid renal masses consistent with primary renal neoplasms, with osteolytic lesions in the skeletal system notably at T3 and at L1, consistent with osteolytic expansile metastatic deposits." Neurology, Neurosurgery, Renal and Heme/Onc were consulted. He had surgery with Dr. Padilla on 06/24/20 when T11-T12, L2-L3 with laminectomy, partial L2, L1, partial T12, removal of tumor and decompression of the spinal cord at T12, L1, L2, debulking of tumor L1 was performed. 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 He was evaluated by Dr. Sterling to determine if he would need inpatient vs outpatient rehab and was initially requiring inpatient rehab, so he was awaiting placement, then during this waiting time, he recovered enough strength to be able to discharge home with home health. He was put on a steroid taper from Neurosurgery and instructed to follow up with them in 2 weeks for staple removal. He will follow up with myself or Dr. Smith in 1-2 weeks after discharge and with Dr. Celaya within 1-2 weeks to determine the plan for cancer treatment in the future. All questions were answered and he was discharged to home with home health. CONDITION AT DISCHARGE: Improved Discharge Medications Active Scripts Active Reported Medrol taper as written [place] 5/325mg tab Q6H PRN pain Atenolol 25 Mg Tablet 1 Tab PO DAILY Lisinopril 20 Mg Tablet 1 Tab PO DAILY Vital Signs Vital Signs Date Time Temp Pulse Resp B/P (MAP) Pulse Ox O2 Delivery O2 Flow Rate FiO2 07/01/20 08:41 71 118/68 07/01/20 07:00 98.1 16 97 Room Air 98.1 Allergies Allergies Coded Allergies Type Severity Reaction Last Updated Verified No Known Drug Allergies 01/27/15 No Disposition/Orders: D/C to Home w/ HH Justicifation of Admission Dx: Justifications for Admission: Justification of Admission Dx: N/A IJLLIAN WAYNE MD Jul 01, 2020 09:21
--- NOTE | 2020-07-01 09:31 | PDOC ---
PROGRESS NOTES Date of Service DATE: 07/01/20 TIME: 09:26 Subjective Subjective No new complaints. Objective Objective Vital Signs Date Time Temp Pulse Resp B/P (MAP) Pulse Ox O2 Delivery O2 Flow Rate FiO2 07/01/20 08:41 71 118/68 07/01/20 07:00 98.1 16 97 Room Air 98.1 06/29/20 03:00 10.0 Intake and Output 07/01/20 07:00 Intake Total 0 ml Output Total 750 ml Balance -750 ml Intake Oral 0 ml Output Urine Total 750 ml Physical Exam Physical Exam He is independent with bed mobility,transfers and walking slowly with roller walker and he even managed a few stairs using roller walker with standby assistance with physical therapy yesterday. Therapy still recommends him to go to in-patient rehab unit but he wants to go home rather. Assessment Assessment Problems Medical Problems: (1) Abnormal CT scan, lumbar spine Status: Acute Plan Plan of Long Term with home health follow up when medically ready with oncology follow up. Comment Review of Relevant I have reviewed the following items kiersten (where applicable) has been applied. Medications Current Medications Ketorolac Tromethamine (Toradol 30mg Vial) 30 mg 1X ONCE IM Last administered on 06/18/20at 11:22; Start 06/18/20 at 10:45; Stop 06/18/20 at 10:46; Status DC Cyclobenzaprine HCl (Flexeril) 10 mg 1X ONCE PO Last administered on 06/18/20at 11:21; Start 06/18/20 at 10:45; Stop 06/18/20 at 10:46; Status DC Lidocaine (Lidoderm) 1 patch 1X ONCE TD Last administered on 06/18/20at 11:22; Start 06/18/20 at 10:45; Stop 06/18/20 at 10:46; Status DC Tramadol HCl (Ultram) 100 mg PRN Q6HRS PRN PO MODERATE PAIN Last administered on 07/01/20at 05:08; Start 06/18/20 at 17:45 Acetaminophen/ Hydrocodone Bitart (Lortab 5/325) 1 tab PRN Q6HRS PRN PO SEVERE PAIN Last administered on 06/28/20at 22:51; Start 06/18/20 at 17:45 Lidocaine (Lidoderm) 1 patch DAILY TD Last administered on 07/01/20at 08:40; Start 06/18/20 at 18:00 Miscellaneous (Lidoderm Patch Removal) 1 ea QHS MC Last administered on 06/23/20at 20:38; Start 06/18/20 at 21:00 Atenolol (Tenormin) 25 mg DAILY PO Last administered on 07/01/20at 08:41; Start 06/19/20 at 09:00 Lisinopril (Prinivil) 20 mg DAILY PO Last administered on 06/23/20at 09:11; Start 06/19/20 at 09:00; Stop 06/24/20 at 08:26; Status DC Gadoterate Meglumine (Clariscan) 16.6 ml 1X ONCE IVP Last administered on 06/19/20at 10:56; Start 06/19/20 at 10:45; Stop 06/19/20 at 10:46; Status DC Iohexol (Omnipaque 240 Mg/ml) 50 ml 1X ONCE PO Last administered on 06/19/20at 12:00; Start 06/19/20 at 12:00; Stop 06/19/20 at 12:01; Status DC Iohexol (Omnipaque 300 Mg/ml) 75 ml 1X ONCE IV Last administered on 06/19/20at 12:00; Start 06/19/20 at 12:00; Stop 06/19/20 at 12:01; Status DC Info (CONTRAST GIVEN -- Rx MONITORING) 1 each PRN DAILY PRN MC SEE COMMENTS; Start 06/19/20 at 11:45; Stop 06/21/20 at 11:44; Status DC Bisacodyl (Dulcolax Tab) 10 mg DAILY PO Last administered on 07/01/20at 08:40; Start 06/19/20 at 14:00 Bisacodyl (Dulcolax Supp) 10 mg PRN DAILY PRN OK CONSTIPATION; Start 06/19/20 at 13:15 Senna/Docusate Sodium (Senna Plus) 1 tab BID PO Last administered on 07/01/20at 08:40; Start 06/19/20 at 21:00 Alprazolam (Xanax) 0.5 mg PRN Q8HRS PRN PO ANXIETY / AGITATION; Start 06/19/20 at 13:15 Dexamethasone Sodium Phosphate (Decadron) 2 mg Q6HRS IVP Last administered on 06/21/20at 12:32; Start 06/19/20 at 16:30; Stop 06/21/20 at 13:04; Status DC Dexamethasone Sodium Phosphate (Decadron) 4 mg Q6HRS IVP Last administered on 06/25/20at 06:14; Start 06/21/20 at 18:00; Stop 06/25/20 at 09:27; Status DC Pantoprazole Sodium (Protonix) 40 mg DAILYAC PO Last administered on 06/26/20at 08:03; Start 06/23/20 at 11:30; Stop 06/26/20 at 10:44; Status DC Cefazolin Sodium (Ancef) 2 gm 1X PREOP PRN IVP PRIOR TO PROCEDURE; Start 06/24/20 at 08:00; Status UNV Cefazolin Sodium/ Dextrose 50 ml @ 100 mls/hr 1X PREOP PRN IV PRIOR TO PROCEDURE Last administered on 06/24/20at 09:29; Start 06/24/20 at 06:00; Stop 06/24/20 at 18:00; Status DC Bacitracin 58375 unit/Sodium Chloride 1,000 ml @ 1,000 mls/hr 1X ONCE IRR Last administered on 06/24/20at 10:08; Start 06/24/20 at 06:00; Stop 06/24/20 at 06:59; Status DC Gelatin (Gelfoam Size 100) 1 each STK-MED ONCE .ROUTE Last administered on 06/24/20at 10:08; Start 06/24/20 at 06:49; Stop 06/24/20 at 06:50; Status DC Ketorolac Tromethamine (Toradol Im) 60 mg STK-MED ONCE .ROUTE Last administered on 06/24/20at 10:08; Start 06/24/20 at 06:49; Stop 06/24/20 at 06:50; Status DC Lidocaine/ Epinephrine (LIDOCAINE 1%-EPI 1:100,000 Multi-Dose) 20 ml STK-MED ONCE .ROUTE Last administered on 06/24/20at 10:08; Start 06/24/20 at 06:49; Stop 06/24/20 at 06:50; Status DC Thrombin 20,000 unit STK-MED ONCE TP Last administered on 06/24/20at 10:08; Start 06/24/20 at 06:50; Stop 06/24/20 at 06:50; Status DC Propofol 200 ml @ As Directed STK-MED ONCE IV ; Start 06/24/20 at 07:59; Stop 06/24/20 at 07:59; Status DC Fentanyl Citrate (Fentanyl 2ml Vial) 100 mcg STK-MED ONCE .ROUTE ; Start 06/24/20 at 08:07; Stop 06/24/20 at 08:08; Status DC Rocuronium [place] (Zemuron) 50 mg STK-MED ONCE .ROUTE ; Start 06/24/20 at 08:08; Stop 06/24/20 at 08:08; Status DC Remifentanil HCl (Ultiva) 2 mg STK-MED ONCE IV ; Start 06/24/20 at 08:08; Stop 06/24/20 at 08:08; Status DC Midazolam HCl (Versed) 2 mg STK-MED ONCE .ROUTE ; Start 06/24/20 at 08:08; Stop 06/24/20 at 08:08; Status DC Propofol (Diprivan) 200 mg STK-MED ONCE IV ; Start 06/24/20 at 08:08; Stop 06/24/20 at 08:09; Status DC Dexamethasone Sodium Phosphate (Decadron) 20 mg STK-MED ONCE .ROUTE ; Start 06/24/20 at 08:08; Stop 06/24/20 at 08:09; Status DC Lidocaine HCl (Lidocaine Pf 2% Vial) 5 ml STK-MED ONCE .ROUTE ; Start 06/24/20 at 08:08; Stop 06/24/20 at 08:09; Status DC Ondansetron HCl (Zofran) 4 mg STK-MED ONCE .ROUTE ; Start 06/24/20 at 08:09; Stop 06/24/20 at 08:09; Status DC Phenylephrine HCl (Sergio-Synephrine Inj) 10 mg STK-MED ONCE .ROUTE ; Start 06/24/20 at 08:16; Stop 06/24/20 at 08:17; Status DC Ephedrine Sulfate (ePHEDrine PF IN SALINE SYRINGE) 50 mg STK-MED ONCE IV ; Start 06/24/20 at 09:07; Stop 06/24/20 at 09:07; Status DC Ondansetron HCl (Zofran) 4 mg PRN Q6HRS PRN IV NAUSEA/VOMITING; Start 06/24/20 at 09:45; Stop 06/24/20 at 19:54; Status DC Fentanyl Citrate (Fentanyl 2ml Vial) 25 mcg PRN Q5MIN PRN IV MILD PAIN 1-3; Start 06/24/20 at 09:45; Stop 06/24/20 at 19:54; Status DC Fentanyl Citrate (Fentanyl 2ml Vial) 50 mcg PRN Q5MIN PRN IV MODERATE TO SEVERE PAIN; Start 06/24/20 at 09:45; Stop 06/24/20 at 19:54; Status DC Morphine Sulfate (Morphine Sulfate) 1 mg PRN Q10MIN PRN IV SEVERE PAIN 7-10; Start 06/24/20 at 09:45; Stop 06/24/20 at 19:54; Status DC Ringer's Solution 1,000 ml @ 30 mls/hr Q24H IV ; Start 06/24/20 at 09:31; Stop 06/24/20 at 19:54; Status DC Lidocaine HCl (Xylocaine-Mpf 1% 2ml Vial) 2 ml PRN 1X PRN ID PRIOR TO IV START; Start 06/24/20 at 09:45; Stop 06/24/20 at 19:54; Status DC Hydromorphone HCl (Dilaudid) 0.5 mg PRN Q10MIN PRN IV SEV PAIN, Second choice; Start 06/24/20 at 09:45; Stop 06/24/20 at 19:54; Status DC Prochlorperazine Edisylate (Compazine) 5 mg PACU PRN PRN IV NAUSEA, MRX1; Start 06/24/20 at 09:45; Stop 06/24/20 at 19:54; Status DC Remifentanil HCl (Ultiva) 2 mg STK-MED ONCE IV ; Start 06/24/20 at 11:31; Stop 06/24/20 at 11:31; Status DC Desflurane (Suprane) 90 ml STK-MED ONCE IH ; Start 06/24/20 at 11:33; Stop 06/24/20 at 11:34; Status DC Ketamine HCl (Ketamine) 50 mg STK-MED ONCE .ROUTE ; Start 06/24/20 at 12:20; Stop 06/24/20 at 12:20; Status DC Phenylephrine HCl (Sergio-Synephrine Inj) 10 mg STK-MED ONCE .ROUTE ; Start 06/24/20 at 12:27; Stop 06/24/20 at 12:28; Status DC Cefazolin Sodium (Ancef) 1 gm STK-MED ONCE IVP ; Start 06/24/20 at 12:29; Stop 06/24/20 at 12:30; Status DC Cefazolin Sodium (Ancef) 1 gm STK-MED ONCE IVP ; Start 06/24/20 at 12:29; Stop 06/24/20 at 12:30; Status DC Albumin Human 500 ml @ As Directed STK-MED ONCE IV ; Start 06/24/20 at 13:48; Stop 06/24/20 at 13:48; Status DC Thrombin 20,000 unit STK-MED ONCE TP Last administered on 06/24/20at 14:09; Start 06/24/20 at 13:58; Stop 06/24/20 at 13:58; Status DC Phenylephrine HCl (Sergio-Synephrine Inj) 10 mg STK-MED ONCE .ROUTE ; Start 06/24/20 at 14:06; Stop 06/24/20 at 14:06; Status DC Gelatin (Gelfoam Size 100) 1 each STK-MED ONCE .ROUTE Last administered on 06/24/20at 14:49; Start 06/24/20 at 14:43; Stop 06/24/20 at 14:43; Status DC Vasopressin (Vasostrict) 20 unit STK-MED ONCE .ROUTE ; Start 06/24/20 at 14:55; Stop 06/24/20 at 14:55; Status DC Albumin Human 500 ml @ As Directed STK-MED ONCE IV ; Start 06/24/20 at 15:23; Stop 06/24/20 at 15:23; Status DC Phenylephrine HCl (Sergio-Synephrine Inj) 10 mg STK-MED ONCE .ROUTE ; Start 06/24/20 at 15:23; Stop 06/24/20 at 15:23; Status DC Remifentanil HCl (Ultiva) 2 mg STK-MED ONCE IV ; Start 06/24/20 at 15:30; Stop 06/24/20 at 15:30; Status DC Fentanyl Citrate (Fentanyl 2ml Vial) 50 mcg PRN Q2HR PRN IVP PAIN SEVERE 2ND CHOICE Last administered on 06/27/20at 01:17; Start 06/24/20 at 16:45 Sodium Chloride 1,000 ml @ 1,000 mls/hr 1X ONCE IV Last administered on 06/24/20at 20:08; Start 06/24/20 at 20:00; Stop 06/24/20 at 20:59; Status DC Sodium Chloride 1,000 ml @ 100 mls/hr Q10H IV Last administered on 06/28/20at 00:10; Start 06/24/20 at 21:00; Stop 06/28/20 at 08:06; Status DC Dexamethasone Sodium Phosphate (Decadron) 2 mg Q6HRS IVP Last administered on 06/27/20at 11:41; Start 06/25/20 at 12:00; Stop 06/27/20 at 14:09; Status DC Magnesium Sulfate 50 ml @ 25 mls/hr PRN DAILY PRN IV for Mag < 1.7 on am labs; Start 06/25/20 at 12:00 Pantoprazole Sodium (Protonix) 40 mg BIDAC PO Last administered on 07/01/20at 05:08; Start 06/26/20 at 16:30 Methylprednisolone (Medrol) 8 mg BID PO Last administered on 06/27/20at 21:55; Start 06/27/20 at 15:00; Stop 06/27/20 at 21:01; Status DC Methylprednisolone (Medrol) 4 mg BIDPCLD PO Last administered on 06/27/20at 15:31; Start 06/27/20 at 16:00; Stop 06/27/20 at 17:31; Status DC Methylprednisolone (Medrol) 4 mg TIDPC PO Last administered on 06/28/20at 15:23; Start 06/28/20 at 08:30; Stop 06/28/20 at 17:31; Status DC Methylprednisolone (Medrol) 8 mg QHS PO Last administered on 06/28/20at 21:12; Start 06/28/20 at 21:00; Stop 06/28/20 at 21:01; Status DC Methylprednisolone (Medrol) 4 mg QIDAFTMEAL PO Last administered on 06/29/20at 22:11; Start 06/29/20 at 09:00; Stop 06/29/20 at 21:01; Status DC Methylprednisolone (Medrol) 4 mg TID PO Last administered on 06/30/20at 20:38; Start 06/30/20 at 09:00; Stop 06/30/20 at 21:01; Status DC Methylprednisolone (Medrol) 4 mg BID PO Last administered on 07/01/20at 08:41; Start 07/01/20 at 09:00; Stop 07/01/20 at 21:01 Methylprednisolone (Medrol) 4 mg DAILY PO ; Start 07/02/20 at 09:00; Stop 07/02/20 at 09:01 Active Scripts Active Reported Tramadol Hcl 50 Mg Tablet 50 Mg PO PRN BID PRN Prednisone 50 Mg Tablet 1 Tab PO DAILY Atenolol 25 Mg Tablet 1 Tab PO DAILY Lisinopril 20 Mg Tablet 1 Tab PO DAILY Vitals/I & O Vital Sign - Last 24 Hours 06/30/20 06/30/20 06/30/20 06/30/20 10:54 14:29 14:44 15:30 Temp 98.2 98.3 98.2 98.3 Pulse 71 74 Resp 17 17 B/P (MAP) 110/66 (81) 110/45 (66) Pulse Ox 95 96 O2 Delivery Room Air Room Air Room Air Room Air 06/30/20 06/30/20 06/30/20 07/01/20 19:28 20:00 22:45 02:42 Temp 98.5 98.8 98.1 98.5 98.8 98.1 Pulse 74 60 64 Resp 18 18 18 B/P (MAP) 118/65 (82) 112/70 (84) 121/68 (85) Pulse Ox 94 98 98 O2 Delivery Room Air Room Air Room Air Room Air 07/01/20 07/01/20 07/01/20 07/01/20 05:08 06:08 07:00 08:41 Temp 98.1 98.1 Pulse 71 71 Resp 16 16 16 B/P (MAP) 118/68 (85) 118/68 Pulse Ox 97 O2 Delivery Room Air Room Air Room Air Intake and Output 06/30/20 06/30/20 07/01/20 15:00 23:00 07:00 Intake Total 0 ml Output Total 750 ml Balance -750 ml Justifications for Admission Other Justification Nutrition Consultation Dietary Evaluation: Recommendations by RD: Dietary education by RD, Increase Calorie Intake, Protein supplementation Comments: REC continue gi soft diet with supplements of choice Expected Outcomes/Goals: to meet >75% est nutrition needs via po intake- goal ongoing Interpretation of weight loss: >5% in 1 month Malnutrition Findings: Food and Nutrition Intake (Sev: <50% est energy req 5days Weight Status: Overweight RADHA LEA MD Jul 01, 2020 09:31
[2020-07-01 11:00] VITALS: BP 112/57
--- NOTE | 2020-07-01 11:37 | NUR ---
SW following. Discussed with RN, discharge order for home with [facility]. SW verified with pt this is still what he wants - pt agreed. SW advised if he gets home and changes his mind to call the home health company and [facility] first to see if he can be admitted to acute rehab from home. Pt and pt's verbalized understanding. GIANA faxed discharge orders to [facility] (ph: [phone], fax: [phone]). RN notified. GIANA will continue to follow.
[2020-07-01] MEDS: HYDROcodone/APAP 5/325MG 1 TAB TABLET PO PRN (13:21)
[2020-07-01 15:00] VITALS: BP 116/60
--- NOTE | 2020-07-01 16:38 | NUR ---
Pt was given discharge instructions, follow up information, teaching and prescriptions. Surgical dressing changed before discharge, CDI and well approximated. Ranjit intact. and pt were both given discharge information. Iv removed. All belongings left at time of discharge, at 1530. Pt was escorted out via wheelchair by nurse aide.
[2020-07-02] MEDS ORDERED: methylPREDNISolone 4 MG TABLET. PO SCH (09:00)
== END 2020-07-01 15:30 | disposition home health service (06) | DRG 519 ==
LOC: ER 09:18 → ED HOLD 12:00 → 5 NORTH 16:25 → 4 NORTH 06-23 17:39 → 1 WEST ICU 06-24 14:06 → 4 NORTH 06-25 14:56
PROVIDERS: ADMIT Family Medicine; ATTEND Family Medicine
PROC: 00NY0ZZ Release Lumbar Spinal Cord, Open Approach (ICD-10-PCS; 2020-06-24)
PROC: 0PH404Z Insertion of Internal Fixation Device into Thoracic Vertebra, Open Approach (ICD-10-PCS; 2020-06-24)
PROC: 0QH004Z Insertion of Internal Fixation Device into Lumbar Vertebra, Open Approach (ICD-10-PCS; 2020-06-24)
PROC: 4A11X4G Monitoring of Peripheral Nervous Electrical Activity, Intraoperative, External Approach (ICD-10-PCS; 2020-06-24)
PROC: 30233N1 Transfusion of Nonautologous Red Blood Cells into Peripheral Vein, Percutaneous Approach (ICD-10-PCS; 2020-06-24)
PROC: 00NX0ZZ Release Thoracic Spinal Cord, Open Approach (ICD-10-PCS; principal; 2020-06-24 08:30)
DX: C79.51 Secondary malignant neoplasm of bone (principal); N17.9 Acute kidney failure, unspecified; G95.20 Unspecified cord compression; E78.00 Pure hypercholesterolemia, unspecified; E78.5 Hyperlipidemia, unspecified; I10 Essential (primary) hypertension; I25.10 Atherosclerotic heart disease of native coronary artery without angina pectoris; K21.9 Gastro-esophageal reflux disease without esophagitis; M48.061 Spinal stenosis, lumbar region without neurogenic claudication; Z80.0 Family history of malignant neoplasm of digestive organs; Z80.42 Family history of malignant neoplasm of prostate; Z85.528 Personal history of other malignant neoplasm of kidney; Z87.891 Personal history of nicotine dependence; Z95.5 Presence of coronary angioplasty implant and graft; I25.2 Old myocardial infarction; Z20.828 Contact with and (suspected) exposure to other viral communicable diseases
CPT/HCPCS: 36415; 71260; 72128; 72131; 72141; 72146; 72158; 73030; 74177; 76000; 80048; 80053; 80069; 81001; 82105; 82378; 82550; 82803; 83520; 83615; 83735; 84165; 84300; 84550; 85007; 85014; 85018; 85025; 85027; 86301; 86850; 86900; 86901; 86920; 87426; 88307; 88311; 88341; 88342; 93925; 96372; 99285; A7015; A9575; C1713; G0103; J0690; J1100; J1885; J2250; J2370; J2405; J2704; J3010; J3490; J7030; J7120; J7509; P9016; P9045; Q9966; Q9967; U0003; 97110-GP; 97116-GP; 97530-GO; 97530-GP; 97535-GO; G0378

== ENCOUNTER → 2020-07-15 | Outpatient (CLI) | payer OTHER, MEDICARE ==
[2020-07-01 15:00] VITALS: BP 116/60
[~2020-07-15] MED LIST changes: +ATEN25TA PO; +GADOTERATE 7.5 MMOL/15ML VIAL. IVP ONE; +HYDR-2761 PO; +LISI-334 PO; +METH4TAB2 PO; +PRED50TA PO; +TRAM50TA PO
--- NOTE | 2020-07-15 17:58 | RAD ---
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 TECHNIQUE: Unenhanced T1-weighted and T2-weighted sagittal and axial and inversion recovery sagittal images of the lumbar spine were obtained. After the intravenous administration of 15 cc of Clariscan, enhanced T1-weighted sagittal and axial images of the lumbar spine were obtained. FINDINGS: Comparison study is dated 06/19/2020. Very mild S-shaped curvature of the thoracolumbar spine is seen. The patient is post laminectomy which extends from T12-L1 and L1-2 and post posterolateral fusion using pedicle screws at T11-12 and L2-3 with stabilizing rods extending between them . The metastasis centered at the left pedicle of L1 has been partially resected.This area is difficult to evaluate due to magnetic susceptibility artifact related to patient's fusion hardware. The residual mass measures approximately 6.6 x 6.1 x 5.3 cm in craniocaudal, AP and transverse dimensions. It has decreased in size since the previous study where it measured 6.7 x 6.5 x 6.9 cm in size. . This mass results in moderate to severe left greater than right central spinal canal stenosis at L1 which has improved since the previous examination. Severe left neural foraminal stenosis is seen T12-L1 and L1-2. A 1.7 cm metastasis is seen involving the S1 vertebral body. A 1.5 cm metastasis is seen involving the anterior inferior aspect of L3 vertebral body. A 1 cm metastasis is seen involving the S2 vertebral body. No extension of tumor into the central spinal canal is seen. Degenerative signal changes are seen involving all of the disks of the lumbar spine. Degenerative signal changes are seen within the marrow surrounding these discs. The conus medullaris is normal in position and signal characteristics. Degenerative changes are seen throughout the lumbar disc spaces consisting of minimal to mild generalized disc bulges and degenerative changes involving the facet joints along with mild ligamentum flavum hypertrophy. These findings result in mild central spinal canal stenosis at L3-4 and L4-5. No neural foraminal stenosis is seen. IMPRESSION: Post laminectomy at T12-L1 and L1-2 and posterolateral fusion extending from T11-12 to L2-3. The metastasis centered at the left L1 pedicle has been partially resected. Moderate to severe left greater than right central spinal canal stenosis is seen centered at L1 which has improved since the previous examination. Additional metastasis are seen involving the L3, S1 and S2 vertebral bodies without extension of tumor into the central spinal canal. Electronically signed by: Devon Newberry MD (07/15/2020 5:55 PM) [id number]
== END ==
LOC: MRI 12:47
PROVIDERS: ATTEND Radiology Radiation Oncology
DX: C79.31 Secondary malignant neoplasm of brain (principal); C64.2 Malignant neoplasm of left kidney, except renal pelvis; M43.8X5 Other specified deforming dorsopathies, thoracolumbar region; M43.25 Fusion of spine, thoracolumbar region; M48.05 Spinal stenosis, thoracolumbar region; M47.816 Spondylosis without myelopathy or radiculopathy, lumbar region
CPT/HCPCS: 72158; A9575

== ENCOUNTER → 2020-08-11 | Outpatient (CLI) | payer OTHER, MEDICARE ==
[~2020-08-11] MED LIST changes: -GADOTERATE 7.5 MMOL/15ML VIAL. IVP ONE
[2020-08-11 12:05] LABS: BASO # 0.1 x10^3/uL (0.0-0.2); BASO % 1 % (0-3); EOS # 0.7 x10^3/uL (0.0-0.7); EOS % 7 % (0-3); HEMATOCRIT 36.7 % (39.0-53.0); HEMOGLOBIN 12.1 g/dL (13.0-17.5); LYMPH # 1.3 x10^3/uL (1.0-4.8); LYMPH % 14 % (24-48); MEAN CORPUSCULAR HEMOGLOBIN 28 pg (25-35); MEAN CORPUSCULAR HGB CONC 33 g/dL (31-37); MEAN CORPUSCULAR VOLUME 85 fL (79-100); MONO # 0.6 x10^3/uL (0.0-1.1); MONO % 6 % (0-9); NEUT # 6.3 x10^3/uL (1.8-7.7); NEUT % 71 % (31-73); PLATELET COUNT 247 x10^3/uL (140-400); RED BLOOD COUNT 4.32 x10^6/uL (4.30-5.70); RED CELL DISTRIBUTION WIDTH 14.9 % (11.5-14.5); WHITE BLOOD COUNT 8.9 x10^3/uL (4.0-11.0)
[2020-08-11 12:19] LABS: CALCIUM 9.5 mg/dL (8.5-10.1); CREATININE 0.9 mg/dL (0.7-1.3); GFR 83.9; POTASSIUM 3.8 mmol/L (3.5-5.1)
[2020-08-11 12:25] LABS: ALBUMIN 3.1 g/dL (3.4-5.0); ALBUMIN/GLOBULIN RATIO 0.7 (1.0-1.7); TOTAL BILIRUBIN 0.4 mg/dL (0.2-1.0); TOTAL PROTEIN 7.4 g/dL (6.4-8.2)
== END | disposition home or self-care (01) ==
LOC: SPEC 11:40
PROVIDERS: ATTEND Internal Medicine Hematology & Oncology
DX: C79.31 Secondary malignant neoplasm of brain (principal); C64.2 Malignant neoplasm of left kidney, except renal pelvis; C79.51 Secondary malignant neoplasm of bone; I25.10 Atherosclerotic heart disease of native coronary artery without angina pectoris; I25.2 Old myocardial infarction; I10 Essential (primary) hypertension; K21.9 Gastro-esophageal reflux disease without esophagitis; E78.5 Hyperlipidemia, unspecified; E78.00 Pure hypercholesterolemia, unspecified; Z87.891 Personal history of nicotine dependence; Z95.5 Presence of coronary angioplasty implant and graft
CPT/HCPCS: 36415; 80053; 85025

== ENCOUNTER 2020-08-14 10:10 | Outpatient (CLI) | payer OTHER, MEDICARE ==
[~2020-08-14] VITALS: Ht 172.7 cm; Wt 74.4 kg
[2020-08-14] VITALS (7 sets, daily range): BP systolic 119–143; BP diastolic 68–93
[2020-08-14] MEDS: ceFAZolin SODIUM IV Push 1 GM VIAL. IVP ONE (10:45)
[2020-08-14 10:55] LABS: BASO # 0.1 x10^3/uL (0.0-0.2); BASO % 1 % (0-3); EOS # 0.4 x10^3/uL (0.0-0.7); EOS % 5 % (0-3); HEMATOCRIT 36.6 % (39.0-53.0); HEMOGLOBIN 12.2 g/dL (13.0-17.5); LYMPH % 13 % (24-48); MEAN CORPUSCULAR HEMOGLOBIN 28 pg (25-35); MEAN CORPUSCULAR HGB CONC 33 g/dL (31-37); MEAN CORPUSCULAR VOLUME 85 fL (79-100); MONO # 0.3 x10^3/uL (0.0-1.1); MONO % 5 % (0-9); NEUT # 5.8 x10^3/uL (1.8-7.7); NEUT % 76 % (31-73); PLATELET COUNT 219 x10^3/uL (140-400); RED BLOOD COUNT 4.29 x10^6/uL (4.30-5.70); RED CELL DISTRIBUTION WIDTH 14.8 % (11.5-14.5); WHITE BLOOD COUNT 7.6 x10^3/uL (4.0-11.0)
[2020-08-14 11:05] LABS: PROTHROMBIN TIME PATIENT 12.2 SEC (11.7-14.0)
[2020-08-14] MEDS ORDERED: NAPR-677 PO (11:05)
[2020-08-14] MEDS ORDERED: IBUP-1027 PO (11:05)
[2020-08-14] MEDS ORDERED: DOCU50CA11 PO (11:05)
[2020-08-14] MEDS ORDERED: LIDOCAINE 1%/EPI 1:100,000 20 ML VIAL. ONE (11:24)
[2020-08-14] MEDS ORDERED: ceFAZolin SODIUM IV Push 1 GM VIAL. IVP ONE (11:38)
[2020-08-14] MEDS ORDERED: fentaNYL PF VIAL 100 MCG/2 ML VIAL ONE (11:38)
[2020-08-14] MEDS ORDERED: MIDAZOLAM HCL/PF 2 MG/2 ML VIAL. ONE (11:38)
[2020-08-14] MEDS: fentaNYL PF VIAL 100 MCG/2 ML VIAL IV ONE (11:44)
[2020-08-14] MEDS: MIDAZOLAM HCL/PF 2 MG/2 ML VIAL. IV ONE (11:44)
[2020-08-14] MEDS: LIDOCAINE 1%/EPI 1:100,000 20 ML VIAL. INJ ONE (12:00)
--- NOTE | 2020-08-14 12:05 | PDOC ---
MODERATE SEDATION ASSESSMENT RISKS/ALTERNATIVES Risks/Alternatives Risks and alternatives of this type of sedation and procedure discussed with: RISK/ALTERNATIVES: Patient H & P ON CHART H & P H & P on chart and reviewed for co-morbid conditions and appropriate labs. H&P ON CHART: Yes STATUS PREG STATUS ASSESSED: Yes MEDS/ALLERGIES REVIEWED Meds/Allergies Reviewed Medications and Allergies including time and route of recently administered narcotics and sedatives. MEDS/ALLERGIES REVIEWED: Yes ASA RATING ASA RATING: II AIRWAY ASSESSMENT Airway Assessment Airway patency, oral function limitations, presence of caps, crowns, dentures, partials, and ability to extend neck assessed. AIRWAY ASSESSMENT: Yes MALLAMPATI SCORE MALLAMPATI SCORE: II PRE-SEDATION ASSESSMENT PRE-SEDATION ASSESSMENT: Yes SAIRA CORNELIUS MD Aug 14, 2020 12:05
--- NOTE | 2020-08-14 12:06 | PDOC ---
Exam Bioinformatics Associate Bioinformatics Associate Mindy Professional Volleyball Player Professional Volleyball Player Barrie Pre-Procedure Diagnosis Pre-Procedure Diagnosis Metastatic renal cell ca Post-Procedure Diagnosis Post-Procedure Diagnosis same Procedure Performed Procedure Performed right port placement Type of Anesthesia Type of Anesthesia mod sed Estimated Blood Loss EBL: 5 Specimens Specimans None Drain/Tubes Drains/Tubes Bard powerport isp wit groshong tip, right neck and chest Condition of Patient Condition of Patient Stable Disposition Disposition return to pacu, expect DC SAIRA CORNELIUS MD Aug 14, 2020 12:06
--- NOTE | 2020-08-14 12:24 | RAD ---
Procedure: Ultrasound and fluoroscopically guided placement of right internal jugular power port.. 08/14/2020 10:19 AM Clinical Indication: KIDNEY CA Sedation: Conscious sedation was administered for 30 minutes. The patient was monitored by a qualified independent observer throughout the time of sedation. Please refer to the medical record for exact doses of medications utilized to achieve moderate sedation. Fluoroscopy time: 0.5 minutes Dose area product: 1 Gycm2 Consent: The procedure was explained in its entirety to the patient or the patients designated c s s representative by a member of the treatment team, including a discussion of the risks, benefits and commonly accepted alternatives to the procedure, as well as the expected consequences of no therapy whatsoever. Discussion of the risks included, but was not limited to, those that are most frequent and those that are rare but possibly severe or life-threatening, as well as the possibility of unforeseen complications. Technique and Findings: All elements of maximal sterile barrier technique including the use of a cap, mask, sterile gown, sterile gloves, large sterile sheet, appropriate hand hygiene, and 2% chlorhexidine for cutaneous antisepsis (or acceptable alternative antiseptic per current guidelines) were followed for this procedure. Following informed consent, and a timeout procedure, the patient was prepped and draped in the usual sterile fashion. Ultrasound interrogation of the right neck revealed patency and compressibility of the right internal jugular vein. A 21-gauge micropuncture was then used to gain access to this vein under ultrasound guidance. A hard copy ultrasound image was recorded. The needle was exchanged over a wire for a sheath. A 1 inch incision was made several centimeters inferior to the venotomy site. A catheter was tunneled from this site dermatotomy site in the neck. Catheter was advanced through peel-away sheath such that its tip was in the proximal right atrium with the patient supine. The catheter was trimmed to length and connected to the port reservoir. The port was found to flush and aspirate normally. The wound was closed in layers using 4-0 Vicryl suture. Sterile dressings were applied. Impression: Successful ultrasound and fluoroscopically guided placement of a right internal jugular PowerPort
--- NOTE | 2020-08-14 13:52 | NUR ---
Patient taken to private vehicle via wheelchair. Family present. All belongings taken with patient at time of d/c. Instructions provided on incision care, moderate sedation. Patient verbalized understanding. No further questions. No bleeding at site upon d/c.
== END 2020-08-14 13:50 | disposition home or self-care (01) ==
LOC: INTRAD 10:10
PROVIDERS: ATTEND Internal Medicine Hematology & Oncology
DX: C79.02 Secondary malignant neoplasm of left kidney and renal pelvis (principal)
CPT/HCPCS: 36415; 36561; 76937; 77001; 85025; 85610; 99152; 99153; C1751; C1892; J0690; J2250; J3010; J3490

== ENCOUNTER → 2020-08-18 | Outpatient (CLI) | payer MEDICARE, OTHER ==
[2020-08-14 13:20] VITALS: BP 119/73
[~2020-08-18] MED LIST changes: +DOCU50CA11 PO; +IBUP-1027 PO; +IOHEXOL 240 MG/ML 50ML VIAL. PO ONE; +IOHEXOL 300 MG/ML 100ML VIAL. IV ONE; -LISI-334 PO; -LISI-338 PO; +LISI-517 PO; +LISI20TA18 PO; +NAPR-677 PO
--- NOTE | 2020-08-18 13:29 | RAD ---
EXAM: Chest, abdomen and pelvis CT with intravenous contrast. HISTORY: Kidney cancer restaging. TECHNIQUE: Computed tomographic images of the chest, abdomen and pelvis were obtained following the a dministration of intravenous contrast. Multiplanar reformatting was performed. *One or more of the following individualized dose reduction techniques were utilized for this examina tion: 1. Automated exposure control. 2. Adjustment of the mA and/or kV according to patient size. 3. Use of iterative reconstruction technique. COMPARISON: Chest, abdomen and pelvis CT dated 06/19/2020 and lumbar spine MRI dated 07/15/2020. FINDINGS: Chest: The heart is upper normal in size to mildly enlarged. There is calcified atherosclerotic plaqu e involving the coronary arteries. The aorta is normal in caliber. No pathologically enlarged mediast inal or hilar lymph node is seen. There is a right chest wall port catheter with the tip in the super ior vena cava. There is no pleural effusion or pneumothorax. There is lateral posterior dependent and basilar atelectasis. There is also atelectasis or scarring along the right major and minor fissures. There is a 5 mm pleural-based nodule within the posterior right lung base which may be due to subseg mental atelectasis. There is a lytic lesion involving the majority of T3 with associated moderate pat hologic fracture and 2 mm retropulsion of the cortex into the central canal. No additional osseous le syed is seen within the visualized thorax. Abdomen and pelvis: No hepatic lesion is seen. The gallbladder, pancreas and adrenal glands are unrem arkable. There is a splenule adjacent to an otherwise unremarkable spleen. The stomach is unremarkabl e. There is no appendicitis. There is no bowel obstruction. The bladder is decompressed. The aorta is normal in caliber. There is a heterogeneous mass with internal necrosis involving the mid inferior lateral left kidney, measuring 7.4 cm in maximum dimension. There is slight surrounding perinephric stranding. There is a similar-appearing smaller heterogeneous solid mass within the lateral right kidney measuring 4.9 cm i n maximum dimension. There is surrounding perinephric stranding. The renal veins appear patent. There is no retroperitoneal lymphadenopathy. There are degenerative changes throughout the spine. There is a destructive lytic lesion with associated soft tissue mass involving the majority of the L1 vertebral body and left L1 posterior elements. The soft tissue lesion component measures 7.4 cm in m aximum dimension and contains internal hypodensity likely due to necrosis. There is a mild pathologic fracture at this level. There is instrumented posterior spinal fusion at T11-L3. There are paired sc rews bridged by vertical rods at T11, T12, L2 and L3. There is posterior midline back soft tissue str anding likely due to relative recent surgery. No additional convincing destructive osseous lesion is seen. There IMPRESSION: 1. Stable to minimally increased heterogeneous mass with internal necrosis involving the left kidney measuring 7.4 cm and associated with slight increased surrounding perinephric stranding. The imaging appearance favors renal cell carcinoma. There is also been slight interval increase in a similar-appe aring smaller mass within the right kidney measuring 4.9 cm. There has been no appreciable interval t reatment response. 2. Interval increase in the size of a metastatic destructive lytic lesion with associated soft tissue mass involving L1 and the posterior lateral left paravertebral soft tissues. The soft tissue lesion component measures 7.4 cm, compared to a prior prior measurement of 4.5 cm. The degree of marrow invo lvement is also increased compared to the prior study and there has been interval increase in a moder ate pathologic fracture at this level. There is interval instrumented posterior spinal fusion ame ing this level. 3. Interval increase in the size of a metastatic lytic lesion within T3. There is now an associated m oderate pathologic fracture with slight retropulsion of the cortex at this level. 4. Bilateral basilar atelectasis with 5 mm pleural-based opacity at the right lung base likely due to subsegmental atelectasis. No pulmonary metastasis or evidence of thoracic, abdominal or pelvic metas tatic lymphadenopathy is seen. Electronically signed by: Paulina Farias MD (08/18/2020 1:27 PM) [id number]
== END ==
LOC: CT 10:27
PROVIDERS: ATTEND Internal Medicine Hematology & Oncology
DX: C64.2 Malignant neoplasm of left kidney, except renal pelvis (principal); C79.31 Secondary malignant neoplasm of brain; J98.11 Atelectasis; R91.1 Solitary pulmonary nodule; I25.10 Atherosclerotic heart disease of native coronary artery without angina pectoris; I51.7 Cardiomegaly; N28.89 Other specified disorders of kidney and ureter; M43.25 Fusion of spine, thoracolumbar region
CPT/HCPCS: 71260; 74177; Q9966; Q9967

== ENCOUNTER → 2020-08-28 | Outpatient (CLI) | payer OTHER, MEDICARE ==
[2020-08-14 13:20] VITALS: BP 119/73
[~2020-08-28] MED LIST changes: -IOHEXOL 240 MG/ML 50ML VIAL. PO ONE; -IOHEXOL 300 MG/ML 100ML VIAL. IV ONE
[2020-08-28 10:13] LABS: BASO # 0.1 x10^3/uL (0.0-0.2); BASO % 1 % (0-3); EOS # 0.4 x10^3/uL (0.0-0.7); EOS % 4 % (0-3); HEMATOCRIT 37.6 % (39.0-53.0); HEMOGLOBIN 12.6 g/dL (13.0-17.5); LYMPH % 20 % (24-48); MEAN CORPUSCULAR HEMOGLOBIN 28 pg (25-35); MEAN CORPUSCULAR HGB CONC 34 g/dL (31-37); MEAN CORPUSCULAR VOLUME 85 fL (79-100); MONO # 0.6 x10^3/uL (0.0-1.1); MONO % 5 % (0-9); NEUT # 7.4 x10^3/uL (1.8-7.7); NEUT % 71 % (31-73); PLATELET COUNT 224 x10^3/uL (140-400); RED BLOOD COUNT 4.44 x10^6/uL (4.30-5.70); RED CELL DISTRIBUTION WIDTH 14.6 % (11.5-14.5); WHITE BLOOD COUNT 10.4 x10^3/uL (4.0-11.0)
[2020-08-28 10:23] LABS: CALCIUM 11.2 mg/dL (8.5-10.1); CREATININE 1.1 mg/dL (0.7-1.3); GFR 66.6; POTASSIUM 3.7 mmol/L (3.5-5.1)
[2020-08-28 10:41] LABS: ALBUMIN 3.1 g/dL (3.4-5.0); ALBUMIN/GLOBULIN RATIO 0.6 (1.0-1.7); TOTAL BILIRUBIN 0.8 mg/dL (0.2-1.0); TOTAL PROTEIN 7.9 g/dL (6.4-8.2)
== END ==
LOC: ONCLAB 09:57
PROVIDERS: ATTEND Internal Medicine Hematology & Oncology
DX: C79.31 Secondary malignant neoplasm of brain (principal); E03.9 Hypothyroidism, unspecified
CPT/HCPCS: 36415; 80053; 84443; 85025

== ENCOUNTER → 2020-09-03 | Outpatient (CLI) | payer OTHER, MEDICARE ==
[2020-08-14 13:20] VITALS: BP 119/73
[~2020-09-03] MED LIST changes: +LISI-334 PO; +LISI-338 PO; -LISI-517 PO; -LISI20TA18 PO
[2020-09-03 09:24] LABS: BASO # 0.1 x10^3/uL (0.0-0.2); BASO % 1 % (0-3); EOS # 0.5 x10^3/uL (0.0-0.7); EOS % 6 % (0-3); HEMATOCRIT 36.6 % (39.0-53.0); HEMOGLOBIN 12.1 g/dL (13.0-17.5); LYMPH # 1.6 x10^3/uL (1.0-4.8); LYMPH % 17 % (24-48); MEAN CORPUSCULAR HEMOGLOBIN 28 pg (25-35); MEAN CORPUSCULAR HGB CONC 33 g/dL (31-37); MEAN CORPUSCULAR VOLUME 84 fL (79-100); MONO # 0.5 x10^3/uL (0.0-1.1); MONO % 6 % (0-9); NEUT # 6.5 x10^3/uL (1.8-7.7); NEUT % 71 % (31-73); PLATELET COUNT 235 x10^3/uL (140-400); RED BLOOD COUNT 4.34 x10^6/uL (4.30-5.70); RED CELL DISTRIBUTION WIDTH 14.4 % (11.5-14.5); WHITE BLOOD COUNT 9.2 x10^3/uL (4.0-11.0)
[2020-09-03 09:31] LABS: CALCIUM 10.9 mg/dL (8.5-10.1); GFR 74.3; POTASSIUM 3.7 mmol/L (3.5-5.1)
[2020-09-03 09:36] LABS: ALBUMIN 3.1 g/dL (3.4-5.0); ALBUMIN/GLOBULIN RATIO 0.7 (1.0-1.7); TOTAL BILIRUBIN 0.9 mg/dL (0.2-1.0); TOTAL PROTEIN 7.6 g/dL (6.4-8.2)
== END ==
LOC: ONCLAB 09:09
PROVIDERS: ATTEND Physician Assistant
DX: C79.31 Secondary malignant neoplasm of brain (principal)
CPT/HCPCS: 36415; 80053; 85025

== ENCOUNTER → 2020-09-09 | Outpatient (CLI) | payer OTHER, MEDICARE ==
[2020-08-14 13:20] VITALS: BP 119/73
[2020-09-09 13:39] LABS: BASO # 0.1 x10^3/uL (0.0-0.2); BASO % 1 % (0-3); EOS # 0.3 x10^3/uL (0.0-0.7); EOS % 3 % (0-3); HEMATOCRIT 37.4 % (39.0-53.0); HEMOGLOBIN 12.3 g/dL (13.0-17.5); LYMPH # 1.2 x10^3/uL (1.0-4.8); LYMPH % 12 % (24-48); MEAN CORPUSCULAR HEMOGLOBIN 28 pg (25-35); MEAN CORPUSCULAR HGB CONC 33 g/dL (31-37); MEAN CORPUSCULAR VOLUME 85 fL (79-100); MONO # 0.5 x10^3/uL (0.0-1.1); MONO % 5 % (0-9); NEUT # 8.2 x10^3/uL (1.8-7.7); NEUT % 80 % (31-73); PLATELET COUNT 248 x10^3/uL (140-400); RED BLOOD COUNT 4.42 x10^6/uL (4.30-5.70); RED CELL DISTRIBUTION WIDTH 14.7 % (11.5-14.5); WHITE BLOOD COUNT 10.3 x10^3/uL (4.0-11.0)
[2020-09-09 13:48] LABS: CALCIUM 10.2 mg/dL (8.5-10.1); GFR 74.3; POTASSIUM 3.9 mmol/L (3.5-5.1)
[2020-09-09 13:54] LABS: ALBUMIN 3.2 g/dL (3.4-5.0); ALBUMIN/GLOBULIN RATIO 0.7 (1.0-1.7); TOTAL BILIRUBIN 0.6 mg/dL (0.2-1.0); TOTAL PROTEIN 7.7 g/dL (6.4-8.2)
== END ==
LOC: ONCLAB 13:19
PROVIDERS: ATTEND Physician Assistant
DX: C64.2 Malignant neoplasm of left kidney, except renal pelvis (principal); C79.31 Secondary malignant neoplasm of brain; G89.3 Neoplasm related pain (acute) (chronic)
CPT/HCPCS: 36415; 80053; 85025

== ENCOUNTER → 2020-09-18 | Outpatient (CLI) | payer OTHER, MEDICARE ==
[2020-08-14 13:20] VITALS: BP 119/73
[~2020-09-18] MED LIST changes: -LISI-334 PO; -LISI-338 PO; +LISI-517 PO; +LISI20TA18 PO
[2020-09-18 09:47] LABS: BASO # 0.1 x10^3/uL (0.0-0.2); BASO % 1 % (0-3); EOS # 0.5 x10^3/uL (0.0-0.7); EOS % 4 % (0-3); HEMATOCRIT 37.4 % (39.0-53.0); HEMOGLOBIN 12.3 g/dL (13.0-17.5); LYMPH # 2.5 x10^3/uL (1.0-4.8); LYMPH % 22 % (24-48); MEAN CORPUSCULAR HEMOGLOBIN 28 pg (25-35); MEAN CORPUSCULAR HGB CONC 33 g/dL (31-37); MEAN CORPUSCULAR VOLUME 84 fL (79-100); MONO # 0.7 x10^3/uL (0.0-1.1); MONO % 6 % (0-9); NEUT # 7.9 x10^3/uL (1.8-7.7); NEUT % 68 % (31-73); PLATELET COUNT 268 x10^3/uL (140-400); RED BLOOD COUNT 4.43 x10^6/uL (4.30-5.70); RED CELL DISTRIBUTION WIDTH 15.1 % (11.5-14.5); WHITE BLOOD COUNT 11.7 x10^3/uL (4.0-11.0)
[2020-09-18 09:55] LABS: CALCIUM 11.3 mg/dL (8.5-10.1); CREATININE 1.1 mg/dL (0.7-1.3); GFR 66.6; POTASSIUM 3.5 mmol/L (3.5-5.1)
[2020-09-18 09:59] LABS: ALBUMIN 3.1 g/dL (3.4-5.0); ALBUMIN/GLOBULIN RATIO 0.7 (1.0-1.7); TOTAL BILIRUBIN 0.7 mg/dL (0.2-1.0); TOTAL PROTEIN 7.7 g/dL (6.4-8.2)
== END ==
LOC: ONCLAB 09:07
PROVIDERS: ATTEND Internal Medicine Hematology & Oncology
DX: C79.31 Secondary malignant neoplasm of brain (principal); E03.2 Hypothyroidism due to medicaments and other exogenous substances
CPT/HCPCS: 36415; 80053; 84443; 85025

== ENCOUNTER 2020-09-22 10:10 | Emergency (ER) | payer OTHER, MEDICARE ==
[~2020-09-22] VITALS: Ht 167.6 cm; Wt 75.0 kg
--- NOTE | 2020-09-22 10:57 | RAD ---
Examination: Supine and upright frontal views of the abdomen HISTORY: History of constipation COMPARISON: None available FINDINGS: The bowel gas pattern appears unremarkable. Moderate amount of feces and gas noted throughout the col on with large amount of stool identified in the rectum. Thoracolumbar hardware is identified IMPRESSION: 1. Large amount of stool identified in the rectum could be constipation or fecal impaction. Electronically signed by: Arcenio Giraldo MD (09/22/2020 10:54 AM) [id number]
--- NOTE | 2020-09-22 11:31 | PHYS DOC ---
Past Medical History Past Medical History: High Cholesterol, Hypertension, [place], Other Additional Past Medical Histor: kidney cancer, Stage 4 Past Surgical History: Other Additional Past Surgical Histo: Stent placement, tumor removed from spine Smoking Status: Never Smoker Alcohol Use: Sober Drug Use: None General Adult EDM: Chief Complaint: CONSTIPATION HPI: HPI: Patient is a 69 year old man with history of hypertension, high cholesterol, [place], stage IV kidney cancer on chemotherapy last treatment a week ago, who prese nts to the ED today complaining of constipation. Patient states he has been struggling with this for 3 weeks. He states he is currently on hydrocodone and his oncologist started him on lactulose, senna states there is no improvement with his symptoms. He states is tried an enema with no success. Patient denies any fever. Review of Systems: Review of Systems: Constitutional: Denies fever or chills. [] Eyes: Denies change in visual acuity. [] HENT: Denies nasal congestion or sore throat. [] Respiratory: Denies cough or shortness of breath. [] Cardiovascular: Denies chest pain or edema. [] GI: Reports constipation and abdominal discomfort. Denies nausea, vomiting, bloody stools or diarrhea. [] : Denies dysuria. [] Musculoskeletal: Denies back pain or joint pain. [] Integument: Denies rash. [] Neurologic: Denies headache, focal weakness or sensory changes. [] Psychiatric: Denies depression or anxiety. [] Heart Score: Risk Factors: Risk Factors: DM, Current or recent (<one month) smoker, HTN, HLP, family history of CAD, obesity. Risk Scores: Score 0 - 3: 2.5% MACE over next 6 weeks - Discharge Home Score 4 - 6: 20.3% MACE over next 6 weeks - Admit for Clinical Observation Score 7 - 10: 72.7% MACE over next 6 weeks - Early Invasive Strategies Allergies: Allergies: Allergies Coded Allergies Type Severity Reaction Last Updated Verified No Known Drug Allergies 01/27/15 No Physical Exam: PE: Constitutional: Well developed, well nourished, no acute distress, non-toxic appearance. [] HENT: Normocephalic, atraumatic, bilateral external ears normal, oropharynx moist, no oral exudates, nose normal. [] Eyes: PERRLA, EOMI, conjunctiva normal, no discharge. [] Neck: Normal range of motion, no tenderness, supple, no stridor. [] Cardiovascular:Heart rate regular rhythm, no murmur [] Lungs & Thorax: Bilateral breath sounds clear to auscultation [] Abdomen: Bowel sounds normal, soft, no tenderness, no masses, no pulsatile masses. [] Skin: Warm, dry, no erythema, no rash. [] Back: No tenderness, no CVA tenderness. [] Extremities: No tenderness, no cyanosis, no clubbing, ROM intact, no edema. [] Neurologic: Alert and oriented X 3, normal motor function, normal sensory function, no focal deficits noted. [] Psychologic: Affect normal, judgement normal, mood normal. [] Current Patient Data: Vital Signs: Vital Signs Date Time Temp Pulse Resp B/P (MAP) Pulse Ox O2 Delivery O2 Flow Rate FiO2 09/22/20 10:37 97.3 78 20 111/67 (82) 98 Room Air 97.3 EKG: EKG: [] Radiology/Procedures: Radiology/Procedures: []PROCEDURE: ABDOMEN SUPINE & UPRIGHT Examination: Supine and upright frontal views of the abdomen HISTORY: History of constipation COMPARISON: None available FINDINGS: The bowel gas pattern appears unremarkable. Moderate amount of feces and gas noted throughout the colon with large amount of stool identified in the rectum. Thoracolumbar hardware is identified IMPRESSION: 1. Large amount of stool identified in the rectum could be constipation or fecal impaction. Electronically signed by: Arcenio Giraldo MD (09/22/2020 10:54 AM) [id number] DICTATED and SIGNED BY: ARCENIO GIRALDO MD DATE: 09/22/20 [id number] 0 Course & Med Decision Making: Course & Med Decision Making Pertinent Labs and Imaging studies reviewed. (See chart for details) This is a 69-year-old male patient presenting to the ED today complaining of constipation. Patient has stage IV kidney cancer and is currently on hydrocodone. He has tried lactulose and senna as well as enemas with no success. Abdomen supine x-ray interpreted by radiologist was noted for-large amount of stool identified in the rectum could be constipation or fecal impaction. Patient was given milk of molasses enema and successfully had a bowel movement. Discharge to home. Dragon Disclaimer: Dragon Disclaimer: This electronic medical record was generated, in whole or in part, using a voice recognition dictation system. Departure Departure Impression: Primary Impression: Constipation Qualified Codes: K59.03 - Drug induced constipation Disposition: 01 DC HOME SELF CARE/HOMELESS Condition: STABLE Referrals: JILLIAN WAYNE MD (PCP) follow up next week Patient Instructions: Constipation, Adult Additional Instructions: You were seen for constipation. Continue taking the medicines you got from your doctor. Follow-up with your doctor in the course of this week MIRYAM FLORES APRN Sep 22, 2020 11:31
[2020-09-22 12:50] VITALS: BP 132/75
== END 2020-09-22 14:51 | disposition home or self-care (01) ==
LOC: ER 10:10
DX: K59.03 Drug induced constipation (principal); E78.00 Pure hypercholesterolemia, unspecified; I10 Essential (primary) hypertension; I25.2 Old myocardial infarction; Z98.890 Other specified postprocedural states; Z85.528 Personal history of other malignant neoplasm of kidney
CPT/HCPCS: 74021; 99285

== ENCOUNTER → 2020-10-03 | Outpatient (CLI) | payer OTHER, MEDICARE ==
[2020-09-22 12:50] VITALS: BP 132/75
[~2020-10-03] MED LIST changes: +GADOTERATE 7.5 MMOL/15ML VIAL. IVP ONE
--- NOTE | 2020-10-03 14:47 | RAD ---
MRI THORACIC SPINE WITHOUT AND WITH IV CONTRAST 10/03/2020 11:35 AM INDICATION: Malignant neoplasm of the brain and spinal. History of kidney cancer. COMPARISON: 06/19/2020 MRI thoracic spine TECHNIQUE: Multiplanar, multisequence MR imaging of the thoracic spine was performed before and afte r the administration of 13 mL gadolinium based contrast. FINDINGS: There is a pathologic compression fracture at T3 with greater than 75% height loss. There is moderate to severe retropulsion of the fracture fragment with moderate compression of the cord and cord defor mity. No definite cord signal alteration is visualized. There is diffuse edema involving the vertebra l body with edema within the T2-T3 and T3-T4 disc space. On prior MRI, there was abnormal signal inte nsity involving the vertebral body without compression deformity suggestive of osseous metastatic dis ease. Posterior fusion is identified from T11 through the visualized lumbar spine at the site of prev iously described tumor. There is mild endplate edema at T7-T8 and T8-T9 and T11-T12, likely secondary to degenerative disc disease. No abnormal cord signal. There may be minimal extraosseous tumor invol vement at T3 without tumor compression of the cord. Cord compression is mainly osseous secondary to p athologic fracture. No disruption of the posterior ligamentous complex. No significant disc herniatio n. Thoracic aorta is normal in course and caliber. Visualized portions of the mediastinum appear normal. Bibasilar subsegmental atelectasis, right greater than left. Limited evaluation of the upper abdomen . IMPRESSION: Pathologic compression fracture at T3 with mild associated kyphosis and moderate retropulsion resulti ng in moderate spinal canal stenosis with cord compression. No cord signal alteration is noted. Mild thoracic spondylosis as described in detail above. FOR INTERNAL CODING PURPOSES Critical result: Findings discussed with Dr. Teresa at 10/03/2020 2:43 PM. RESULT CODE: (C) Electronically signed by: Saniya Junior MD (10/03/2020 2:45 PM) [id number]
== END ==
LOC: MRI 11:25
PROVIDERS: ATTEND Radiology Radiation Oncology
DX: C79.31 Secondary malignant neoplasm of brain (principal); C64.2 Malignant neoplasm of left kidney, except renal pelvis; M84.48XA Pathological fracture, other site, initial encounter for fracture; M40.294 Other kyphosis, thoracic region; M47.814 Spondylosis without myelopathy or radiculopathy, thoracic region
CPT/HCPCS: 72157; A9575

== ENCOUNTER 2020-10-06 10:27 | Emergency (ER) | payer OTHER, MEDICARE ==
[~2020-10-06] VITALS: Ht 167.6 cm; Wt 80.0 kg
[~2020-10-06 10:27] MED LIST changes: -GADOTERATE 7.5 MMOL/15ML VIAL. IVP ONE
--- NOTE | 2020-10-06 11:52 | ED.ADGEN ---
Past Medical History Past Medical History: High Cholesterol, Hypertension, [place], Other Additional Past Medical Histor: kidney cancer, Stage 4 Past Surgical History: Other Additional Past Surgical Histo: Stent placement, tumor removed from spine Smoking Status: Never Smoker Alcohol Use: Sober Drug Use: None General Adult EDM: Chief Complaint: ABNORMAL LABS HPI: HPI: Patient is a 69-year-old male with metastatic kidney cancer who presents to the emergency room from radiation oncologist office for new findings found on a thoracic spine MRI. Patient's been having some intermittent bowel incontinence and increased difficulty walking so his primary oncologist ordered a new MRI. It was found that he has a pathologic fracture at T3 with retropulsion and edema. Patient has had increased pain. He is able to walk with a walker. He denies any increased numbness Review of Systems: Review of Systems: Complete ROS is negative unless otherwise documented in HPI Current Medications: Current Medications Medications (Trade) Dose Ordered Sig/Tristan Start Time Stop Time Status Last Admin Dose Admin Morphine Sulfate (Morphine Sulfate) 5 mg 1X ONCE 10/06/20 12:30 10/06/20 12:31 DC 10/06/20 12:16 5 MG Allergies: Allergies: Allergies Coded Allergies Type Severity Reaction Last Updated Verified No Known Drug Allergies 01/27/15 No Physical Exam: PE: General: Awake, alert, NAD. Well Nourished, well hydrated. Cooperative HEENT: Atraumatic, EOMI, PERRL, airway patent, moist oral mucosa Neck: Supple, trachea midline Respiratory: CTA bilaterally, normal effort, no wheezing/crackles CV: RRR, no murmur, cap refill <2 GI: Soft, nondistended, nontender, no masses MSK: No obvious deformities Skin: Warm, dry, intact Neuro: A&O x3, speech NL, 4/5 bilateral lower extremities proximally and distally, difficulty with gait Psych: Normal affect, normal mood, not suicidal or homicidal Current Patient Data: Labs: Laboratory Tests Test 10/06/20 12:00 10/06/20 12:15 White Blood Count 12.5 x10^3/uL (4.0-11.0) H Red Blood Count 3.95 x10^6/uL (4.30-5.70) L Hemoglobin 10.6 g/dL (13.0-17.5) L Hematocrit 32.6 % (39.0-53.0) L Mean Corpuscular Volume 83 fL (79-100) Mean Corpuscular Hemoglobin 27 pg (25-35) Mean Corpuscular Hemoglobin Concent 33 g/dL (31-37) Red Cell Distribution Width 14.9 % (11.5-14.5) H Platelet Count 316 x10^3/uL (140-400) Neutrophils (%) (Auto) 92 % (31-73) H Lymphocytes (%) (Auto) 4 % (24-48) L Monocytes (%) (Auto) 4 % (0-9) Eosinophils (%) (Auto) 0 % (0-3) Basophils (%) (Auto) 0 % (0-3) Neutrophils # (Auto) 11.5 x10^3/uL (1.8-7.7) H Lymphocytes # (Auto) 0.5 x10^3/uL (1.0-4.8) L Monocytes # (Auto) 0.5 x10^3/uL (0.0-1.1) Eosinophils # (Auto) 0.0 x10^3/uL (0.0-0.7) Basophils # (Auto) 0.0 x10^3/uL (0.0-0.2) Segmented Neutrophils % 91 % (35-66) H Lymphocytes % 3 % (24-48) L Monocytes % 5 % (0-10) Metamyelocytes % 1 % (0-0) H Platelet Estimate Adequate (ADEQUATE) Sodium Level 136 mmol/L (136-145) Potassium Level 3.7 mmol/L (3.5-5.1) Chloride Level 101 mmol/L (98-107) Carbon Dioxide Level 25 mmol/L (21-32) Anion Gap 10 (6-14) Blood Urea Nitrogen 25 mg/dL (8-26) Creatinine 1.0 mg/dL (0.7-1.3) Estimated GFR (Cockcroft-Gault) 74.3 Glucose Level 163 mg/dL (70-99) H Calcium Level 8.8 mg/dL (8.5-10.1) SARS-CoV-2 Antigen (Rapid) Negative (NEGATIVE) Laboratory Tests 10/06/20 12:00 Laboratory Tests 10/06/20 12:00 Vital Signs: Vital Signs Date Time Temp Pulse Resp B/P (MAP) Pulse Ox O2 Delivery O2 Flow Rate FiO2 10/06/20 12:16 19 98 Room Air 10/06/20 11:10 98.5 88 122/71 (88) 98.5 EKG: EKG: [] Heart Score: Risk Factors: Risk Factors: DM, Current or recent (<one month) smoker, HTN, HLP, family history of CAD, obesity. Risk Scores: Score 0 - 3: 2.5% MACE over next 6 weeks - Discharge Home Score 4 - 6: 20.3% MACE over next 6 weeks - Admit for Clinical Observation Score 7 - 10: 72.7% MACE over next 6 weeks - Early Invasive Strategies Radiology/Procedures: Radiology/Procedures: [] Course & Med Decision Making: Course & Med Decision Making Pertinent Labs and Imaging studies reviewed. (See chart for details) Patient is a 69-year-old male who presents to the emergency room complaining of increased pain with no new findings on the thoracic MRI. I discussed the case with Dr. Bright's MUSIC THERAPY TEACHER Jessy and at this time they are recommending transfer to as he feels that this will require surgery and will need cardiothoracic backup which we do not have here [place]. [id number] was called for possible transfer. Patient has been accepted at for neurosurgery. I have called Dr. Wayne and let them know that he will be transferred. Justino Disclaimer: Justino Disclaimer: This electronic medical record was generated, in whole or in part, using a voice recognition dictation system. Departure Departure Impression: Primary Impression: Metastatic adenocarcinoma Additional Impression: Spinal cord compression Referrals: JILLIAN WAYNE MD (PCP) Problem Qualifiers MIGUEL CALVERT MD Oct 06, 2020 11:52
[2020-10-06 12:10] LABS: BASO % 0 % (0-3); EOS % 0 % (0-3); HEMATOCRIT 32.6 % (39.0-53.0); HEMOGLOBIN 10.6 g/dL (13.0-17.5); LYMPH # 0.5 x10^3/uL (1.0-4.8); LYMPH % 4 % (24-48); MEAN CORPUSCULAR HEMOGLOBIN 27 pg (25-35); MEAN CORPUSCULAR HGB CONC 33 g/dL (31-37); MEAN CORPUSCULAR VOLUME 83 fL (79-100); MONO # 0.5 x10^3/uL (0.0-1.1); MONO % 4 % (0-9); NEUT # 11.5 x10^3/uL (1.8-7.7); NEUT % 92 % (31-73); PLATELET COUNT 316 x10^3/uL (140-400); RED BLOOD COUNT 3.95 x10^6/uL (4.30-5.70); RED CELL DISTRIBUTION WIDTH 14.9 % (11.5-14.5); WHITE BLOOD COUNT 12.5 x10^3/uL (4.0-11.0)
[2020-10-06 12:19] LABS: CALCIUM 8.8 mg/dL (8.5-10.1); GFR 74.3; POTASSIUM 3.7 mmol/L (3.5-5.1)
[2020-10-06] MEDS ORDERED: MORPHINE SULFATE 10 MG/ML VIAL. IV ONE (12:30)
[2020-10-06 12:37] LABS: % LYMPHS 3 % (24-48); % METAS 1 % (0-0); % MONOS 5 % (0-10); % SEGS 91 % (35-66); PLT ESTIMATE ADEQUATE (ADEQUATE)
[2020-10-06 20:00] VITALS: BP 120/66
--- NOTE | 2020-10-08 09:14 | NUR ---
IP: Attempted to contact pt concerning COIVD results. No answer. No voicemail.
--- NOTE | 2020-10-08 16:56 | NUR ---
IP: Attempted a second time to contact pt, No answer, no voicemail.
== END 2020-10-06 20:30 | disposition short-term general hospital (02) ==
LOC: ER 10:27
DX: C80.1 Malignant (primary) neoplasm, unspecified (principal); Z20.822 Contact with and (suspected) exposure to COVID-19; G95.20 Unspecified cord compression; R60.0 Localized edema; R15.9 Full incontinence of feces; E78.00 Pure hypercholesterolemia, unspecified; I10 Essential (primary) hypertension; I25.2 Old myocardial infarction; Z98.890 Other specified postprocedural states; Z85.528 Personal history of other malignant neoplasm of kidney
CPT/HCPCS: 36415; 80048; 85007; 85025; 87426; 96374; 99285; C9803; J2270; U0003